=== PATIENT | female | born 1940 | race Caucasian/White ===

== ENCOUNTER → 2017-11-06 09:55 | Outpatient (CLI) | payer OTHER, SELFPAY | PROVIDERS: Visit Provider Internal Medicine | DX: I70.248 Atherosclerosis of native arteries of left leg with ulceration of other part of lower leg (principal); L97.922 Non-pressure chronic ulcer of unspecified part of left lower leg with fat layer exposed | CPT/HCPCS: 11042; 11045; 97607 ==

== ENCOUNTER → 2017-11-13 09:27 | Outpatient (CLI) | payer OTHER, SELFPAY | PROVIDERS: Visit Provider Internal Medicine | DX: I70.248 Atherosclerosis of native arteries of left leg with ulceration of other part of lower leg (principal); L97.222 Non-pressure chronic ulcer of left calf with fat layer exposed | CPT/HCPCS: 11042; 11045 ==

== ENCOUNTER → 2017-11-20 09:18 | Outpatient (CLI) | payer OTHER, SELFPAY | PROVIDERS: Visit Provider Internal Medicine | DX: I70.248 Atherosclerosis of native arteries of left leg with ulceration of other part of lower leg (principal); L97.222 Non-pressure chronic ulcer of left calf with fat layer exposed | CPT/HCPCS: 11042; 11045; 97607 ==

== ENCOUNTER → 2017-11-27 09:43 | Outpatient (CLI) | payer OTHER, SELFPAY | PROVIDERS: PCP Internal Medicine; Visit Provider Internal Medicine | DX: I70.248 Atherosclerosis of native arteries of left leg with ulceration of other part of lower leg (principal); L97.222 Non-pressure chronic ulcer of left calf with fat layer exposed | CPT/HCPCS: 11042; 11045; 97607 ==

== ENCOUNTER → 2017-12-04 10:06 | Outpatient (CLI) | payer OTHER, SELFPAY ==
--- NOTE | 2017-12-04 | OV.WND_ITS ---
Progress Note Details Patient Name: Chanda Vo Patient Number: [id number] PatientPatientDate: 12/04/2017 Clinician: Malia Graves Clinician Cosigner: Roma Gonzalez Physician / Plate Glass Polisher: Bayron Briceno SUBJECTIVE Chief Complaint This information was obtained from the patient Wound to my left leg from a cardboard box. Allergies atorvastatin (Severity: Moderate, Reaction: cramps), simvastatin (Severity: Moderate, Reaction: cramps) HPI This information was obtained from the patient 12/04/17. Seen by Dr. Briceno. The patient does not report increased drainage or pain associated with the chronic left lower leg arterial ulcer since her last visit. 11/27/17. Seen by Dr. Briceno. The patient does not report increased drainage or pain associated with the chronic left lower leg arterial ulcer since her last visit. She had intervention for left lower leg PAD on Thursday and does not report adverse side effects. 11/20/17. Seen by Dr. Briceno. The patient does not report increased drainage or pain associated with the chronic left lower leg arterial ulcer since her last visit and she's tolerating her JORDAN wound vac without difficulty. She has her intervention for PAD of the leg scheduled for next Thursday. 11/13/17. Seen by Dr. Briceno. The patient does not report increased drainage or pain associated with the chronic left lower leg arterial ulcer since her last visit and she's tolerating her JORDAN wound vac without difficulty. She has her intervention for PAD of the leg scheduled for 11/23/17. 11/06/17. Seen by Dr. Briceno. The patient reports improvement in terms of the pain associated with the chronic left lower leg arterial ulcer since her last visit and she's tolerating her JORDAN wound vac without difficulty. 10/30/17. Seen by Dr. Briceno. The patient reports improvement in terms of the pain associated with the chronic left lower leg arterial ulcer since her last visit, she does not report significant drainage, and she continues to apply topical gentamicin as recommended to treat the refractory wound infection. She'll have intervention on November 23 also for her left lower leg PAD. 10/23/17. Seen by Dr. Briceno. The patient reports improvement in terms of the pain associated with the chronic left lower leg arterial ulcer since her last visit. She's been applying topical gentamicin as recommended and scheduled for vascular intervention at [facility] on November 23. 10/14/17. Seen by Dr. Briceno. The patient reports improvement in terms of the pain associated with the chronic left lower leg arterial ulcer since her last visit. She's been applying topical gentamicin as recommended and scheduled for vascular intervention at [facility] on October 21. She does not report fevers, significant drainage from the ulcer, or feeling unwell in general. 10/07/17. Seen by Dr. Briceno. The patient completes her course of levofloxacin today has been treating the recent Enterobacter positive wound culture. She reports decreased pain associated with the chronic left lower leg arterial ulcer and has an intervention scheduled by vascular surgery next week. Do not yet have notes from her visit with them however. 09/30/17. Seen by Dr. Briceno. The patient continues to report some intermittent periods of significant pain associated with the chronic left lower leg arterial ulcer which is most noticeable when lying in bed at night. She started levofloxacin based on her wound culture which grew Enterobacter and staph following her visit last week. She does not yet have her arterial Doppler study scheduled but there is a high suspicion for clinically significant PAD contributing to the refractory nature of this ulcer. 09/23/17. Seen by Dr. Briceno. The patient's new to our clinic and presents with a left lower leg non-pressure ulcer that started as a trauma wound about 3-4 weeks ago. It was originally about the size of a quarter and has increased in terms of size, pain, and drainage progressively. She does not report fevers and is not on antibiotics at this time however she does report pain in the leg when lying in bed at night that improves when hanging the leg over the edge of the bed. She also has diabetes and states her blood sugars are typically below 200 however she's unaware of her A1c. She also has a history of CAD with 3-vessle bypass and notes she's moving to [place], [place] in October to live closer to her son. Past Medical History This information was obtained from the patient Patient has a medical history of: Allergic Rhinitis Asthma Coronary Artery Disease (CAD) Type II Diabetes Gastro Esoph. Reflux Disease (GERD) Hypertension Hypercholesteremia Hyperlipidemia Hyperparathyroidism Osteoporosis Peripheral Neuropathy Ulcerative colitis (Illeostomy) Vocal Tremor Complaints and Symptoms This information was obtained from the patient Patient complains of: General Notes: I have reviewed and concur with the Review of Systems and Past Family Social History documents completed by the clinician, I have reviewed and concur with the Wound Assessment document completed by the clinician Cardiovascular (Central/Peripheral): Lower extremity (leg) resting pain, Lower extremity (leg) swelling Ear/Nose/Mouth/Throat: Hearing Loss / Aid Hematologic/Lymphatic: Bleeding Tendency Integumentary (Hair/Skin/Nails): Open Sore Musculoskeletal: Muscle Weakness Prior Wound History: Drainage, Erythema, Pain Patient denies complaints or symptoms related to: Cardiovascular (Central): Irregular heart beat Constitutional Symptoms (General Health): Chills, Fever Gastrointestinal (GI): Stomach/abdominal pain Hematologic/Lymphatic: Bleeding / Clotting Disorders Neurological: Loss of Protective Sensation Oncologic Prior Wound History: Bleeding Psychiatric: Memory Loss Respiratory: Oxygen Use, Shortness of Breath OBJECTIVE Constitutional Vital signs reviewed and noted. Well developed. Alert. Clean appearing.. Height/ Length: 63 in (160.02 cm), Weight: 139.1 lbs (63.23 kgs), BMI: 24.6, Temperature: 98.3 ?F ( 36.83 ?C), Pulse: 80 bpm, Respiratory Rate: 18 breaths/min, Blood Pressure: 113/61 mmHg, Capillary Blood Glucose: 99 mg/dl, Pulse Oximetry: 97 %. Ears, Nose, Mouth, and Throat: No clinically significant hearing loss on informal examination. Respiratory: No respiratory distress. Even respirations and without use of accessory muscles.. Cardiovascular: Affected extremity exhibits no peripheral edema or cyanosis, is warm, and is well perfused. Capillary refill is less than 2 seconds. Integumentary (Hair, Skin) No periwound erythema, warmth, or significant drainage. No periwound rashes appreciated or noted otherwise.. Refer to appropriate clinician wound documentation for this visit; left lower leg ulcer extends to subcut with base partially covered with friable granulation , remainder, heavy biofilm, fibrin and slough; tender on debridement. Wound #1 Left, Lateral Leg is a chronic Full Thickness Trauma Wound and has received a status of Not Healed. Subsequent wound encounter measurements are 3.3cm length x 5cm width x 0.4cm depth, with an area of 16.5 sq cm and a volume of 6.6 cubic cm. No tunneling has been noted. No sinus tract has been noted. No undermining has been noted. There is a moderate amount of sero-sanguineous drainage noted which has no odor. The patient reports a wound pain of level 0/10. The wound margin is epithelial resurfacing. Wound bed has Yes epithelialization, No eschar, Yes slough, Yes bright red, pink, firm granulation. The periwound skin texture is normal. The periwound skin moisture is normal. The periwound skin color is normal. The temperature of the periwound skin is WNL. Periwound skin does not exhibit signs or symptoms of infection. Local Pulse is Doppler. Neurological: Cranial nerves grossly intact with symmetric function normal by informal observation.. ASSESSMENT Active Problems ICD-10 (Encounter Diagnosis) L97.222 - Non-pressure chronic ulcer of left calf with fat layer exposed (Encounter Diagnosis) I70.248 - Atherosclerosis of [place] arteries of left leg with ulceration of other part of lower left leg (Encounter Diagnosis) L08.9 - Local infection of the skin and subcutaneous tissue, unspecified PROCEDURES Wound #1 Wound #1 (Trauma Wound) is located on the left, lateral leg. A skin/ subcutaneous tissue level surgical debridement with a total area debrided of 16.83 sq cm was performed by Bayron Briceno MD. Subcutaneous was removed along with devitalized tissue: exudate and slough. The following instrument(s) were used: curette. Pain control was achieved using 4% Lido. A time out was conducted prior to the start of the procedure. A minimal amount of bleeding was controlled with n/a. The procedure was tolerated well with a pain level of 0 throughout and a pain level of 0 following the procedure. Post Debridement Measurements: 3.3cm length x 5.1cm width x 0.5cm depth; with an area of 16.83 sq cm and a volume of 8.415 cubic cm; Wound #1 (Trauma Wound) is located on the left, lateral leg. A Disposable Wound Vac Application < 50 Sq Cm procedure was performed for the lower left extremity by Bayron Briceno MD. A time out was conducted prior to the start of the procedure. The procedure was tolerated well. General Notes: JORDAN 6x6 applied Additional Information Muscle fascia or bone removed and sent to pathology?: No PLAN Wound Orders: Wound #1 Left, Lateral Leg Anesthetic Topical Xylocaine to wound bed. - In clinic only. Cleanser Cleanse Wound: - Normal Saline and gauze. May Shower. - Cover with cast protector. Dressings Primary dressing: - Jordan 6x6. Change Dressing: - Leave in place until next . Follow-Up Appointments Return Appointment: - - One week. Other information: If you develop fever, chills, increased pain, drainage, redness or swelling please call our office. If after hours, respond to the ER. Should you experience any significant changes in your wound(s) or have any questions regarding your home care instructions please contact the wound center @ [phone]. If after hours, contact your primary care physician or go to the hospital emergency room. Scribing Attestation I attest, as the nurse, that I scribed these orders for the physician. Laboratory: Bacteria identified in Wound by Culture General Notes: Please potato picker Doxycycline and take as prescribed. I've reviewed the clinician's documentation and agree with the evaluation and plan as written. In addition, the patient's ulcer demonstrates evidence of non-viable devitalized tissue which will continue to benefit from sharp debridement to help promote granulation and expedite healing. Negative pressure wound therapy will be utilized to facilitate granulation and removal of exudate and infectious material with the goal of expediting wound healing. Also, due to the heavy biofilm and pain noted on debridement I've repeated a wound culture and have started her on a short course of doxycycline. Electronic Signature(s) Signed By: Date: Bayron Briceno MD 12/06/2017 14:27:05 Entered By: Bayron Briceno on 12/04/2017 12:51:59
== END ==
PROVIDERS: PCP Internal Medicine; Visit Provider Internal Medicine
DX: I70.248 Atherosclerosis of native arteries of left leg with ulceration of other part of lower leg (principal); L97.222 Non-pressure chronic ulcer of left calf with fat layer exposed; L08.9 Local infection of the skin and subcutaneous tissue, unspecified
CPT/HCPCS: 11042; 87070; 87075; 87077; 87205; 97607

== ENCOUNTER → 2017-12-11 11:45 | Outpatient (CLI) | payer OTHER, SELFPAY ==
--- NOTE | 2017-12-11 | OV.WND_ITS ---
Progress Note Details Patient Name: Chanda Vo Patient Number: [id number] PatientPatientDate: 12/11/2017 Clinician: Malia Graves Clinician Cosigner: Majo Orozco Physician / Speedboat Driver: El Langston SUBJECTIVE Chief Complaint This information was obtained from the patient Wound to my left leg from a cardboard box. Allergies atorvastatin (Severity: Moderate, Reaction: cramps), simvastatin (Severity: Moderate, Reaction: cramps) HPI This information was obtained from the patient 12/11/17. Seen by Jorge Langston PA-C. The patient reports no increase in drainage from her left lower leg ulcer. 12/04/17. Seen by Dr. Briceno. The patient does not report increased drainage or pain associated with the chronic left lower leg arterial ulcer since her last visit. 11/27/17. Seen by Dr. Briceno. The patient does not report increased drainage or pain associated with the chronic left lower leg arterial ulcer since her last visit. She had intervention for left lower leg PAD on Thursday and does not report adverse side effects. 11/20/17. Seen by Dr. Briceno. The patient does not report increased drainage or pain associated with the chronic left lower leg arterial ulcer since her last visit and she's tolerating her JORDAN wound vac without difficulty. She has her intervention for PAD of the leg scheduled for next Thursday. 11/13/17. Seen by Dr. Briceno. The patient does not report increased drainage or pain associated with the chronic left lower leg arterial ulcer since her last visit and she's tolerating her JORDAN wound vac without difficulty. She has her intervention for PAD of the leg scheduled for 11/23/17. 11/06/17. Seen by Dr. Briceno. The patient reports improvement in terms of the pain associated with the chronic left lower leg arterial ulcer since her last visit and she's tolerating her JORDAN wound vac without difficulty. 10/30/17. Seen by Dr. Briceno. The patient reports improvement in terms of the pain associated with the chronic left lower leg arterial ulcer since her last visit, she does not report significant drainage, and she continues to apply topical gentamicin as recommended to treat the refractory wound infection. She'll have intervention on November 23 also for her left lower leg PAD. 10/23/17. Seen by Dr. Briceno. The patient reports improvement in terms of the pain associated with the chronic left lower leg arterial ulcer since her last visit. She's been applying topical gentamicin as recommended and scheduled for vascular intervention at [facility] on November 23. 10/14/17. Seen by Dr. Briceno. The patient reports improvement in terms of the pain associated with the chronic left lower leg arterial ulcer since her last visit. She's been applying topical gentamicin as recommended and scheduled for vascular intervention at [facility] on October 21. She does not report fevers, significant drainage from the ulcer, or feeling unwell in general. 10/07/17. Seen by Dr. Briceno. The patient completes her course of levofloxacin today has been treating the recent Enterobacter positive wound culture. She reports decreased pain associated with the chronic left lower leg arterial ulcer and has an intervention scheduled by vascular surgery next week. Do not yet have notes from her visit with them however. 09/30/17. Seen by Dr. Briceno. The patient continues to report some intermittent periods of significant pain associated with the chronic left lower leg arterial ulcer which is most noticeable when lying in bed at night. She started levofloxacin based on her wound culture which grew Enterobacter and staph following her visit last week. She does not yet have her arterial Doppler study scheduled but there is a high suspicion for clinically significant PAD contributing to the refractory nature of this ulcer. 09/23/17. Seen by Dr. Briceno. The patient's new to our clinic and presents with a left lower leg non-pressure ulcer that started as a trauma wound about 3-4 weeks ago. It was originally about the size of a quarter and has increased in terms of size, pain, and drainage progressively. She does not report fevers and is not on antibiotics at this time however she does report pain in the leg when lying in bed at night that improves when hanging the leg over the edge of the bed. She also has diabetes and states her blood sugars are typically below 200 however she's unaware of her A1c. She also has a history of CAD with 3-vessle bypass and notes she's moving to [place] in October to live closer to her son. Family History This information was obtained from the patient Diabetes - Maternal Grandparents, Father, Paternal Grandparents, Sibling, Heart Disease - Mother, Other - Paternal Grandparents Social History This information was obtained from the patient Never smoker, Alcohol Use - 1/month, Caffeine Use - coffee 2/day, tea 2/day, Children - 1, Lives in - Private home, Marital Status - , Retired - [employer] Past Medical History This information was obtained from the patient Patient has a medical history of: Allergic Rhinitis Asthma Coronary Artery Disease (CAD) Type II Diabetes Gastro Esoph. Reflux Disease (GERD) Hypertension Hypercholesteremia Hyperlipidemia Hyperparathyroidism Osteoporosis Peripheral Neuropathy Ulcerative colitis (Illeostomy) Vocal Tremor Complaints and Symptoms This information was obtained from the patient Patient complains of: General Notes: I have reviewed and concur with the Review of Systems and Past Family Social History documents completed by the clinician, I have reviewed and concur with the Wound Assessment document completed by the clinician Cardiovascular (Central/Peripheral): Lower extremity (leg) resting pain, Lower extremity (leg) swelling Ear/Nose/Mouth/Throat: Hearing Loss / Aid Hematologic/Lymphatic: Bleeding Tendency Integumentary (Hair/Skin/Nails): Open Sore Musculoskeletal: Muscle Weakness Prior Wound History: Drainage, Erythema, Pain Patient denies complaints or symptoms related to: Cardiovascular (Central): Irregular heart beat Constitutional Symptoms (General Health): Chills, Fever Gastrointestinal (GI): Stomach/abdominal pain Hematologic/Lymphatic: Bleeding / Clotting Disorders Neurological: Loss of Protective Sensation Oncologic Prior Wound History: Bleeding Psychiatric: Memory Loss Respiratory: Oxygen Use, Shortness of Breath OBJECTIVE Constitutional Vital signs reviewed and noted. Well developed, lucid, and in no acute distress. . Height/Length: 63 in (160.02 cm), Weight: 138.7 lbs (63.05 kgs), BMI: 24.6, Temperature: 97.9 ?F (36.61 ?C), Pulse: 80 bpm, Respiratory Rate: 18 breaths/min, Blood Pressure: 150/72 mmHg, Capillary Blood Glucose: 160 mg/dl, Pulse Oximetry: 100 %. Eyes: Conjunctiva clear and without icterus. Pupils are equal and round; EOM's intact. Ears, Nose, Mouth, and Throat: Grossly intact. Respiratory: No respiratory distress. Even respirations and without use of accessory muscles.. Integumentary (Hair, Skin) Refer to appropriate clinician wound documentation for this visit; ulcer extends to subcutaneous fat layer. . Wound #1 Left, Lateral Leg is a chronic Full Thickness Trauma Wound and has received a status of Not Healed. Subsequent wound encounter measurements are 3cm length x 4.9cm width x 0.3cm depth, with an area of 14.7 sq cm and a volume of 4.41 cubic cm. No tunneling has been noted. No sinus tract has been noted. No undermining has been noted. There is a moderate amount of sero-sanguineous drainage noted which has no odor. The patient reports a wound pain of level 0/10. The wound margin is epithelial resurfacing. Wound bed has Yes epithelialization, No eschar, Yes slough, Yes bright red, pink, firm granulation. The periwound skin texture is normal. The periwound skin moisture is normal. The periwound skin color is normal. The temperature of the periwound skin is WNL. Periwound skin does not exhibit signs or symptoms of infection. Local Pulse is Doppler. Psychiatric: Judgement and insight: Normal affect with normal thought pattern. Alert and oriented 3/3. Memory grossly intact.. Normal affect. Mood appropriate.. ASSESSMENT Active Problems ICD-10 (Encounter Diagnosis) L97.222 - Non-pressure chronic ulcer of left calf with fat layer exposed (Encounter Diagnosis) I70.248 - Atherosclerosis of [place] arteries of left leg with ulceration of other part of lower left leg PROCEDURES Wound #1 Wound #1 (Trauma Wound) is located on the left, lateral leg. A skin/ subcutaneous tissue level surgical debridement with a total area debrided of 14.7 sq cm was performed by El Langston PA. Subcutaneous was removed along with devitalized tissue: slough. The following instrument(s) were used: curette. Pain control was achieved using 4% Lido. A time out was conducted prior to the start of the procedure. A minimal amount of bleeding was controlled with pressure. The procedure was tolerated well with a pain level of 0 throughout and a pain level of 0 following the procedure. Post Debridement Measurements: 3cm length x 4.9cm width x 0.4cm depth; with an area of 14.7 sq cm and a volume of 5.88 cubic cm; Wound #1 (Trauma Wound) is located on the left, lateral leg. A Disposable Wound Vac Application < 50 Sq Cm procedure was performed for the lower left extremity by El Langston PA. A time out was conducted prior to the start of the procedure. The procedure was tolerated well. General Notes: JORDAN 6x6 applied Additional Information Muscle fascia or bone removed and sent to pathology?: No PLAN Wound Orders: Wound #1 Left, Lateral Leg Anesthetic Topical Xylocaine to wound bed. - In clinic only. Cleanser Cleanse Wound: - Normal Saline and gauze. May Shower. - Cover with cast protector. Dressings Primary dressing: - Jordan 6x6. Change Dressing: - Leave in place until next . Follow-Up Appointments Return Appointment: - - One week. Other information: If you develop fever, chills, increased pain, drainage, redness or swelling please call our office. If after hours, respond to the ER. Should you experience any significant changes in your wound(s) or have any questions regarding your home care instructions please contact the wound center @ [phone]. If after hours, contact your primary care physician or go to the hospital emergency room. Scribing Attestation I attest, as the nurse, that I scribed these orders for the physician. I've reviewed the clinician's documentation and agree with the evaluation and plan as written. In addition the patient's ulcer demonstrates evidence of non-viable devitalized tissue which benefits from sharp debridement. Negative pressure wound therapy was applied today for the purpose of reducing local edema, promoting granulation tissue formation and perfusion, and for the removal of exudate and infectious material. Electronic Signature(s) Signed By: Date: Jorge Langston 12/14/2017 22:08:02 Entered By: Jorge Langston on 12/14/2017 14:10:14
== END ==
PROVIDERS: PCP Internal Medicine; Visit Provider Physician Assistant
DX: L97.222 Non-pressure chronic ulcer of left calf with fat layer exposed (principal); I70.248 Atherosclerosis of native arteries of left leg with ulceration of other part of lower leg
CPT/HCPCS: 11042; 97607

== ENCOUNTER → 2017-12-18 09:14 | Outpatient (CLI) | payer OTHER, SELFPAY ==
--- NOTE | 2017-12-18 | OV.WND_ITS ---
Progress Note Details Patient Name: Chanda Vo Patient Number: [id number] PatientPatientDate: 12/18/2017 Clinician: Majo Orozco Physician / Third Cook: Bayron Briceno SUBJECTIVE Chief Complaint This information was obtained from the patient Trauma wound on left leg. Allergies atorvastatin (Severity: Moderate, Reaction: cramps), simvastatin (Severity: Moderate, Reaction: cramps) HPI This information was obtained from the patient 12/18/17. Seen by Dr. Briceno. The patient does not report increased drainage or pain associated with the chronic left lower leg arterial ulcer since her last visit. 12/11/17. Seen by Jorge Langston PA-C. The patient reports no increase in drainage from her left lower leg ulcer. 12/04/17. Seen by Dr. Briceno. The patient does not report increased drainage or pain associated with the chronic left lower leg arterial ulcer since her last visit. 11/27/17. Seen by Dr. Briceno. The patient does not report increased drainage or pain associated with the chronic left lower leg arterial ulcer since her last visit. She had intervention for left lower leg PAD on Thursday and does not report adverse side effects. 11/20/17. Seen by Dr. Briceno. The patient does not report increased drainage or pain associated with the chronic left lower leg arterial ulcer since her last visit and she's tolerating her JORDAN wound vac without difficulty. She has her intervention for PAD of the leg scheduled for next Thursday. 11/13/17. Seen by Dr. Briceno. The patient does not report increased drainage or pain associated with the chronic left lower leg arterial ulcer since her last visit and she's tolerating her JORDAN wound vac without difficulty. She has her intervention for PAD of the leg scheduled for 11/23/17. 11/06/17. Seen by Dr. Briceno. The patient reports improvement in terms of the pain associated with the chronic left lower leg arterial ulcer since her last visit and she's tolerating her JORDAN wound vac without difficulty. 10/30/17. Seen by Dr. Briceno. The patient reports improvement in terms of the pain associated with the chronic left lower leg arterial ulcer since her last visit, she does not report significant drainage, and she continues to apply topical gentamicin as recommended to treat the refractory wound infection. She'll have intervention on November 23 also for her left lower leg PAD. 10/23/17. Seen by Dr. Briceno. The patient reports improvement in terms of the pain associated with the chronic left lower leg arterial ulcer since her last visit. She's been applying topical gentamicin as recommended and scheduled for vascular intervention at [facility] on November 23. 10/14/17. Seen by Dr. Briceno. The patient reports improvement in terms of the pain associated with the chronic left lower leg arterial ulcer since her last visit. She's been applying topical gentamicin as recommended and scheduled for vascular intervention at [facility] on October 21. She does not report fevers, significant drainage from the ulcer, or feeling unwell in general. 10/07/17. Seen by Dr. Briceno. The patient completes her course of levofloxacin today has been treating the recent Enterobacter positive wound culture. She reports decreased pain associated with the chronic left lower leg arterial ulcer and has an intervention scheduled by vascular surgery next week. Do not yet have notes from her visit with them however. 09/30/17. Seen by Dr. Briceno. The patient continues to report some intermittent periods of significant pain associated with the chronic left lower leg arterial ulcer which is most noticeable when lying in bed at night. She started levofloxacin based on her wound culture which grew Enterobacter and staph following her visit last week. She does not yet have her arterial Doppler study scheduled but there is a high suspicion for clinically significant PAD contributing to the refractory nature of this ulcer. 09/23/17. Seen by Dr. Briceno. The patient's new to our clinic and presents with a left lower leg non-pressure ulcer that started as a trauma wound about 3-4 weeks ago. It was originally about the size of a quarter and has increased in terms of size, pain, and drainage progressively. She does not report fevers and is not on antibiotics at this time however she does report pain in the leg when lying in bed at night that improves when hanging the leg over the edge of the bed. She also has diabetes and states her blood sugars are typically below 200 however she's unaware of her A1c. She also has a history of CAD with 3-vessle bypass and notes she's moving to [place], [place] in October to live closer to her son. Past Medical History This information was obtained from the patient Patient has a medical history of: Allergic Rhinitis Asthma Coronary Artery Disease (CAD) Type II Diabetes Gastro Esoph. Reflux Disease (GERD) Hypertension Hypercholesteremia Hyperlipidemia Hyperparathyroidism Osteoporosis Peripheral Neuropathy Ulcerative colitis (Illeostomy) Vocal Tremor Complaints and Symptoms This information was obtained from the patient Patient complains of: General Notes: I have reviewed and concur with the Review of Systems and Past Family Social History documents completed by the clinician, I have reviewed and concur with the Wound Assessment document completed by the clinician Cardiovascular (Central/Peripheral): Lower extremity (leg) resting pain, Lower extremity (leg) swelling Ear/Nose/Mouth/Throat: Hearing Loss / Aid Hematologic/Lymphatic: Bleeding Tendency Integumentary (Hair/Skin/Nails): Open Sore Musculoskeletal: Muscle Weakness Prior Wound History: Drainage, Erythema, Pain Patient denies complaints or symptoms related to: Cardiovascular (Central): Irregular heart beat Constitutional Symptoms (General Health): Chills, Fever Gastrointestinal (GI): Stomach/abdominal pain Hematologic/Lymphatic: Bleeding / Clotting Disorders Neurological: Loss of Protective Sensation Oncologic Prior Wound History: Bleeding Psychiatric: Memory Loss Respiratory: Oxygen Use, Shortness of Breath OBJECTIVE Constitutional Vital signs reviewed and noted. Well developed. Alert. Clean appearing.. Height/ Length: 63 in (160.02 cm), Weight: 139.3 lbs (63.32 kgs), BMI: 24.7, Temperature: 98.7 ?F ( 37.06 ?C), Pulse: 81 bpm, Respiratory Rate: 18 breaths/min, Blood Pressure: 131/70 mmHg, Capillary Blood Glucose: 109 mg/dl, Pulse Oximetry: 94 %. Vital Signs Notes: Glucose per patient, taken this am. Ears, Nose, Mouth, and Throat: No clinically significant hearing loss on informal examination. Respiratory: No respiratory distress. Even respirations and without use of accessory muscles.. Cardiovascular: Affected extremity exhibits no peripheral edema or cyanosis, is warm, and is well perfused. Capillary refill is less than 2 seconds. Integumentary (Hair, Skin) No periwound erythema, warmth, or significant drainage. No periwound rashes appreciated or noted otherwise.. Refer to appropriate clinician wound documentation for this visit; left lower leg ulcer extends to subcut with base partially covered with pink granulation, remainder fibrin and slough; smaller than on previous review. Wound #1 Left, Lateral Leg is a chronic Arterial Ulcer and has received a status of Not Healed. Subsequent wound encounter measurements are 3.6cm length x 5cm width x 0.3cm depth, with an area of 18 sq cm and a volume of 5.4 cubic cm. No tunneling has been noted. No sinus tract has been noted. No undermining has been noted. There is a moderate amount of sero- sanguineous drainage noted which has no odor. The patient reports a wound pain of level 0/10. The wound margin is epithelial resurfacing. Wound bed has Yes epithelialization, No eschar, Yes slough, Yes bright red, pink, firm granulation. The periwound skin texture is normal. The periwound skin moisture is normal. The periwound skin color is normal. The temperature of the periwound skin is WNL. Periwound skin does not exhibit signs or symptoms of infection. Local Pulse is Doppler. ASSESSMENT Active Problems ICD-10 (Encounter Diagnosis) L97.222 - Non-pressure chronic ulcer of left calf with fat layer exposed (Encounter Diagnosis) I70.248 - Atherosclerosis of [place] arteries of left leg with ulceration of other part of lower left leg PROCEDURES Wound #1 Wound #1 (Trauma Wound) is located on the left, lateral leg. A skin/ subcutaneous tissue level surgical debridement with a total area debrided of 18.5 sq cm was performed by Bayron Briceno MD. Subcutaneous was removed along with devitalized tissue: slough. The following instrument(s) were used: curette. Pain control was achieved using 4% Lido. A time out was conducted prior to the start of the procedure. A minimal amount of bleeding was controlled with pressure. The procedure was tolerated well with a pain level of 0 throughout and a pain level of 0 following the procedure. Post Debridement Measurements: 3.7cm length x 5cm width x 0.3cm depth; with an area of 18.5 sq cm and a volume of 5.55 cubic cm; Wound #1 (Trauma Wound) is located on the left, lateral leg. A Disposable Wound Vac Application < 50 Sq Cm procedure was performed for the lower left extremity by Bayron Briceno MD. A time out was conducted prior to the start of the procedure. The procedure was tolerated well. General Notes: JORDAN 6x6 applied. Additional Information Muscle fascia or bone removed and sent to pathology?: No PLAN Wound Orders: Wound #1 Left, Lateral Leg Anesthetic Topical Xylocaine to wound bed. - In clinic only. Cleanser Cleanse Wound: - Normal Saline and gauze. May Shower. - Cover with cast protector. Dressings Primary dressing: - Jordan 6x6. Change Dressing: - Leave in place until next visit. Follow-Up Appointments Return Appointment: - - One week. Other information: If you develop fever, chills, increased pain, drainage, redness or swelling please call our office. If after hours, respond to the ER. Should you experience any significant changes in your wound(s) or have any questions regarding your home care instructions please contact the wound center @ [phone]. If after hours, contact your primary care physician or go to the hospital emergency room. Scribing Attestation I attest, as the nurse, that I scribed these orders for the physician. I've reviewed the clinician's documentation and agree with the evaluation and plan as written. In addition, the patient's ulcer demonstrates evidence of non-viable devitalized tissue which will continue to benefit from sharp debridement to help promote granulation and expedite healing Negative pressure wound therapy will be utilized to facilitate granulation and removal of exudate and infectious material with the goal of expediting wound healing. . Electronic Signature(s) Signed By: Date: Bayron Briceno MD 12/20/2017 17:52:31 Entered By: Bayron Briceno on 12/18/2017 12:20:00
== END ==
PROVIDERS: PCP Internal Medicine; Visit Provider Internal Medicine
DX: I70.248 Atherosclerosis of native arteries of left leg with ulceration of other part of lower leg (principal); L97.222 Non-pressure chronic ulcer of left calf with fat layer exposed
CPT/HCPCS: 11042; 97607

== ENCOUNTER → 2017-12-25 09:48 | Outpatient (CLI) | payer OTHER, SELFPAY ==
--- NOTE | 2017-12-25 | OV.WND_ITS ---
Progress Note Details Patient Name: Chanda Vo Patient Number: [id number] PatientPatientDate: 12/25/2017 Clinician: Shira rBooks Clinician Cosigner: Cari Malhotra Physician / Shear Operator: Bayron Briceno SUBJECTIVE Chief Complaint This information was obtained from the patient Trauma wound on left leg. Allergies atorvastatin (Severity: Moderate, Reaction: cramps), simvastatin (Severity: Moderate, Reaction: cramps) HPI This information was obtained from the patient 12/25/17. Seen by Dr. Briceno. The patient does not report increased drainage or pain associated with the chronic left lower leg arterial ulcer since her last visit. She does report a worsening cough over the past 4 days but does not report fevers, worsening shortness of breath, or other acute issues today. 12/18/17. Seen by Dr. Briceno. The patient does not report increased drainage or pain associated with the chronic left lower leg arterial ulcer since her last visit. 12/11/17. Seen by Jorge Langston PA-C. The patient reports no increase in drainage from her left lower leg ulcer. 12/04/17. Seen by Dr. Briceno. The patient does not report increased drainage or pain associated with the chronic left lower leg arterial ulcer since her last visit. 11/27/17. Seen by Dr. Briceno. The patient does not report increased drainage or pain associated with the chronic left lower leg arterial ulcer since her last visit. She had intervention for left lower leg PAD on Thursday and does not report adverse side effects. 11/20/17. Seen by Dr. Briceno. The patient does not report increased drainage or pain associated with the chronic left lower leg arterial ulcer since her last visit and she's tolerating her JORDAN wound vac without difficulty. She has her intervention for PAD of the leg scheduled for next Thursday. 11/13/17. Seen by Dr. Briceno. The patient does not report increased drainage or pain associated with the chronic left lower leg arterial ulcer since her last visit and she's tolerating her JORDAN wound vac without difficulty. She has her intervention for PAD of the leg scheduled for 11/23/17. 11/06/17. Seen by Dr. Briceno. The patient reports improvement in terms of the pain associated with the chronic left lower leg arterial ulcer since her last visit and she's tolerating her JORDAN wound vac without difficulty. 10/30/17. Seen by Dr. Briceno. The patient reports improvement in terms of the pain associated with the chronic left lower leg arterial ulcer since her last visit, she does not report significant drainage, and she continues to apply topical gentamicin as recommended to treat the refractory wound infection. She'll have intervention on November 23 also for her left lower leg PAD. 10/23/17. Seen by Dr. Briceno. The patient reports improvement in terms of the pain associated with the chronic left lower leg arterial ulcer since her last visit. She's been applying topical gentamicin as recommended and scheduled for vascular intervention at [facility] on November 23. 10/14/17. Seen by Dr. Briceno. The patient reports improvement in terms of the pain associated with the chronic left lower leg arterial ulcer since her last visit. She's been applying topical gentamicin as recommended and scheduled for vascular intervention at [facility] on October 21. She does not report fevers, significant drainage from the ulcer, or feeling unwell in general. 10/07/17. Seen by Dr. Briceno. The patient completes her course of levofloxacin today has been treating the recent Enterobacter positive wound culture. She reports decreased pain associated with the chronic left lower leg arterial ulcer and has an intervention scheduled by vascular surgery next week. Do not yet have notes from her visit with them however. 09/30/17. Seen by Dr. Briceno. The patient continues to report some intermittent periods of significant pain associated with the chronic left lower leg arterial ulcer which is most noticeable when lying in bed at night. She started levofloxacin based on her wound culture which grew Enterobacter and staph following her visit last week. She does not yet have her arterial Doppler study scheduled but there is a high suspicion for clinically significant PAD contributing to the refractory nature of this ulcer. 09/23/17. Seen by Dr. Briceno. The patient's new to our clinic and presents with a left lower leg non-pressure ulcer that started as a trauma wound about 3-4 weeks ago. It was originally about the size of a quarter and has increased in terms of size, pain, and drainage progressively. She does not report fevers and is not on antibiotics at this time however she does report pain in the leg when lying in bed at night that improves when hanging the leg over the edge of the bed. She also has diabetes and states her blood sugars are typically below 200 however she's unaware of her A1c. She also has a history of CAD with 3-vessle bypass and notes she's moving to [place] in October to live closer to her son. Family History This information was obtained from the patient Diabetes - Maternal Grandparents, Father, Paternal Grandparents, Sibling, Heart Disease - Mother, Other - Paternal Grandparents Social History This information was obtained from the patient Never smoker, Alcohol Use - 1/month, Caffeine Use - 1 Cup, Children - 1, Lives in - Private home, Marital Status - , Retired - [employer] Past Medical History This information was obtained from the patient Patient has a medical history of: Allergic Rhinitis Asthma Coronary Artery Disease (CAD) Type II Diabetes Gastro Esoph. 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/2017 Surgical History This information was obtained from the patient Patient has a surgical history of: Total Colectomy Cataract Surgery (bilateral) Foot Surgery (Repair of fractures in left foot) Triple Bypass Heart Surgery Re-vascularization - 12/10/2017 Complaints and Symptoms This information was obtained from the patient Patient complains of: General Notes: I have reviewed and concur with the Review of Systems and Past Family Social History documents completed by the clinician, I have reviewed and concur with the Wound Assessment document completed by the clinician Cardiovascular (Central/Peripheral): Lower extremity (leg) resting pain, Lower extremity (leg) swelling Ear/Nose/Mouth/Throat: Hearing Loss / Aid Hematologic/Lymphatic: Bleeding Tendency Integumentary (Hair/Skin/Nails): Open Sore Musculoskeletal: Muscle Weakness Prior Wound History: Drainage, Erythema, Pain Patient denies complaints or symptoms related to: Cardiovascular (Central): Irregular heart beat Constitutional Symptoms (General Health): Chills, Fever Gastrointestinal (GI): Stomach/abdominal pain Hematologic/Lymphatic: Bleeding / Clotting Disorders Neurological: Loss of Protective Sensation Oncologic Prior Wound History: Bleeding Psychiatric: Memory Loss Respiratory: Oxygen Use, Shortness of Breath OBJECTIVE Constitutional Vital signs reviewed and noted. Frail appearing. Height/Length: 63 in (160.02 cm ), Weight: 139.3 lbs (63.32 kgs), BMI: 24.7, Temperature: 98.6 ?F (37 ?C), Pulse: 81 bpm, Respiratory Rate: 18 breaths/min, Blood Pressure: 111/63 mmHg, Capillary Blood Glucose: 69 mg/dl, Pulse Oximetry: 99 %. Vital Signs Notes: Per Patient glucose. Ears, Nose, Mouth, and Throat: No clinically significant hearing loss on informal examination. Respiratory: No respiratory distress. Even respirations and without use of accessory muscles.. Cardiovascular: Affected extremity exhibits no peripheral edema or cyanosis, is warm, and is well perfused. Capillary refill is less than 2 seconds. Integumentary (Hair, Skin) No periwound erythema, warmth, or significant drainage. No periwound rashes appreciated or noted otherwise.. Refer to appropriate clinician wound documentation for this visit; left lower leg ulcer extends to subcut with base partially covered with pink granulation, remainder fibrin and slough. Wound #1 Left, Lateral Leg is a chronic Arterial Ulcer and has received a status of Not Healed. Subsequent wound encounter measurements are 3.2cm length x 4.5cm width x 0.3cm depth, with an area of 14.4 sq cm and a volume of 4.32 cubic cm. No tunneling has been noted. No sinus tract has been noted. No undermining has been noted. There is a moderate amount of sero-sanguineous drainage noted which has no odor. The patient reports a wound pain of level 0/10. The wound margin is epithelial resurfacing. Wound bed has Yes epithelialization, No eschar, Yes slough, Yes pink, firm granulation. The periwound skin texture is normal. The periwound skin moisture is normal. The periwound skin color is normal. The temperature of the periwound skin is WNL. Periwound skin does not exhibit signs or symptoms of infection. Local Pulse is Doppler. Neurological: Cranial nerves grossly intact with symmetric function normal by informal observation.. ASSESSMENT Active Problems ICD-10 (Encounter Diagnosis) L97.222 - Non-pressure chronic ulcer of left calf with fat layer exposed (Encounter Diagnosis) I70.248 - Atherosclerosis of [place] arteries of left leg with ulceration of other part of lower left leg (Encounter Diagnosis) R05 - Cough PROCEDURES Wound #1 Wound #1 (Arterial Ulcer) is located on the left, lateral leg. A skin/ subcutaneous tissue level surgical debridement with a total area debrided of 14.4 sq cm was performed by Bayron Briceno MD. Subcutaneous was removed along with devitalized tissue: slough. The following instrument(s) were used: curette. Pain control was achieved using 4% Lido. A time out was conducted prior to the start of the procedure. A minimal amount of bleeding was controlled with pressure. The procedure was tolerated well with a pain level of 0 throughout and a pain level of 0 following the procedure. Post Debridement Measurements: 3.2cm length x 4.5cm width x 0.3cm depth; with an area of 14.4 sq cm and a volume of 4.32 cubic cm; Wound #1 (Arterial Ulcer) is located on the left, lateral leg. A Disposable Wound Vac Application < 50 Sq Cm procedure was performed for the lower left extremity by Bayron Briceno MD. A time out was conducted prior to the start of the procedure. The procedure was tolerated well. General Notes: Jordan 6x6 applied. Additional Information Muscle fascia or bone removed and sent to pathology?: No PLAN Wound Orders: Wound #1 Left, Lateral Leg Anesthetic Topical Xylocaine to wound bed. - In clinic only. Cleanser Cleanse Wound: - Normal Saline and gauze. May Shower. - Cover with cast protector. Dressings Primary dressing: - Jordan 6x6. Change Dressing: - Leave in place until next visit. Follow-Up Appointments Return Appointment: - - One week. Other information: If you develop fever, chills, increased pain, drainage, redness or swelling please call our office. If after hours, respond to the ER. Should you experience any significant changes in your wound(s) or have any questions regarding your home care instructions please contact the wound center @ [phone]. If after hours, contact your primary care physician or go to the hospital emergency room. Scribing Attestation I attest, as the nurse, that I scribed these orders for the physician. I've reviewed the clinician's documentation and agree with the evaluation and plan as written. In addition, the patient's ulcer demonstrates evidence of non-viable devitalized tissue which will continue to benefit from sharp debridement to help promote granulation and expedite healing. Negative pressure wound therapy will be utilized to facilitate granulation and removal of exudate and infectious material with the goal of expediting wound healing. Also, the patient will see her PCP next Thursday however I've recommend should her cough worsen or she develop progressive shortness of breath to attend the ER or urgent care. Electronic Signature(s) Signed By: Date: Bayron Briceno MD 12/25/2017 15:59:11 Entered By: Bayron Briceno on 12/25/2017 14:29:37
== END ==
PROVIDERS: PCP Internal Medicine; Visit Provider Internal Medicine
DX: I70.248 Atherosclerosis of native arteries of left leg with ulceration of other part of lower leg (principal); L97.222 Non-pressure chronic ulcer of left calf with fat layer exposed; R05 Cough
CPT/HCPCS: 11042; 97607

== ENCOUNTER → 2018-01-01 10:04 | Outpatient (CLI) | payer OTHER, SELFPAY ==
--- NOTE | 2018-01-01 | OV.WND_ITS ---
Progress Note Details Patient Name: Chanda Vo Patient Number: [id number] PatientPatientDate: 01/01/2018 Clinician: Roma Gonzalez Clinician Cosigner: Majo Orozco Physician / Forensic Psychologist: Bayron Briceno SUBJECTIVE Chief Complaint This information was obtained from the patient Trauma wound on left leg. Allergies atorvastatin (Severity: Moderate, Reaction: cramps), simvastatin (Severity: Moderate, Reaction: cramps) HPI This information was obtained from the patient 01/01/18. Seen by Dr. Briceno. The patient does not report increased drainage or pain associated with the chronic left lower leg arterial ulcer since her last visit. She also complains of some dizziness upon arrival today and required a wheelchair to be transported to her room. Her vitals and blood sugar are unremarkable however she states she only has a piece of muffin prior to her appointment and is stressed due to a flat tire this morning. 12/25/17. Seen by Dr. Briceno. The patient does not report increased drainage or pain associated with the chronic left lower leg arterial ulcer since her last visit. She does report a worsening cough over the past 4 days but does not report fevers, worsening shortness of breath, or other acute issues today. 12/18/17. Seen by Dr. Briceno. The patient does not report increased drainage or pain associated with the chronic left lower leg arterial ulcer since her last visit. 12/11/17. Seen by Jorge Langston PA-C. The patient reports no increase in drainage from her left lower leg ulcer. 12/04/17. Seen by Dr. Briceno. The patient does not report increased drainage or pain associated with the chronic left lower leg arterial ulcer since her last visit. 11/27/17. Seen by Dr. Briceno. The patient does not report increased drainage or pain associated with the chronic left lower leg arterial ulcer since her last visit. She had intervention for left lower leg PAD on Thursday and does not report adverse side effects. 11/20/17. Seen by Dr. Briceno. The patient does not report increased drainage or pain associated with the chronic left lower leg arterial ulcer since her last visit and she's tolerating her JORDAN wound vac without difficulty. She has her intervention for PAD of the leg scheduled for next Thursday. 11/13/17. Seen by Dr. Briceno. The patient does not report increased drainage or pain associated with the chronic left lower leg arterial ulcer since her last visit and she's tolerating her JORDAN wound vac without difficulty. She has her intervention for PAD of the leg scheduled for 11/23/17. 11/06/17. Seen by Dr. Briceno. The patient reports improvement in terms of the pain associated with the chronic left lower leg arterial ulcer since her last visit and she's tolerating her JORDAN wound vac without difficulty. 10/30/17. Seen by Dr. Briceno. The patient reports improvement in terms of the pain associated with the chronic left lower leg arterial ulcer since her last visit, she does not report significant drainage, and she continues to apply topical gentamicin as recommended to treat the refractory wound infection. She'll have intervention on November 23 also for her left lower leg PAD. 10/23/17. Seen by Dr. Briceno. The patient reports improvement in terms of the pain associated with the chronic left lower leg arterial ulcer since her last visit. She's been applying topical gentamicin as recommended and scheduled for vascular intervention at [facility] on November 23. 10/14/17. Seen by Dr. Briceno. The patient reports improvement in terms of the pain associated with the chronic left lower leg arterial ulcer since her last visit. She's been applying topical gentamicin as recommended and scheduled for vascular intervention at [facility] on October 21. She does not report fevers, significant drainage from the ulcer, or feeling unwell in general. 10/07/17. Seen by Dr. Briceno. The patient completes her course of levofloxacin today has been treating the recent Enterobacter positive wound culture. She reports decreased pain associated with the chronic left lower leg arterial ulcer and has an intervention scheduled by vascular surgery next week. Do not yet have notes from her visit with them however. 09/30/17. Seen by Dr. Briceno. The patient continues to report some intermittent periods of significant pain associated with the chronic left lower leg arterial ulcer which is most noticeable when lying in bed at night. She started levofloxacin based on her wound culture which grew Enterobacter and staph following her visit last week. She does not yet have her arterial Doppler study scheduled but there is a high suspicion for clinically significant PAD contributing to the refractory nature of this ulcer. 09/23/17. Seen by Dr. Briceno. The patient's new to our clinic and presents with a left lower leg non-pressure ulcer that started as a trauma wound about 3-4 weeks ago. It was originally about the size of a quarter and has increased in terms of size, pain, and drainage progressively. She does not report fevers and is not on antibiotics at this time however she does report pain in the leg when lying in bed at night that improves when hanging the leg over the edge of the bed. She also has diabetes and states her blood sugars are typically below 200 however she's unaware of her A1c. She also has a history of CAD with 3-vessle bypass and notes she's moving to [place] in October to live closer to her son. Past Medical History This information was obtained from the patient Patient has a medical history of: Allergic Rhinitis Asthma Coronary Artery Disease (CAD) Type II Diabetes Gastro Esoph. 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/2017 Complaints and Symptoms This information was obtained from the patient Patient complains of: General Notes: I have reviewed and concur with the Review of Systems and Past Family Social History documents completed by the clinician, I have reviewed and concur with the Wound Assessment document completed by the clinician Cardiovascular (Central/Peripheral): Lower extremity (leg) resting pain, Lower extremity (leg) swelling Ear/Nose/Mouth/Throat: Hearing Loss / Aid Hematologic/Lymphatic: Bleeding Tendency Integumentary (Hair/Skin/Nails): Open Sore Musculoskeletal: Muscle Weakness Prior Wound History: Drainage, Erythema, Pain Patient denies complaints or symptoms related to: Cardiovascular (Central): Irregular heart beat Constitutional Symptoms (General Health): Chills, Fever Gastrointestinal (GI): Stomach/abdominal pain Hematologic/Lymphatic: Bleeding / Clotting Disorders Neurological: Loss of Protective Sensation Oncologic Prior Wound History: Bleeding Psychiatric: Memory Loss Respiratory: Oxygen Use, Shortness of Breath OBJECTIVE Constitutional Vital signs reviewed and noted. Frail appearing. Height/Length: 63 in (160.02 cm ), Weight: 139.3 lbs (63.32 kgs), BMI: 24.7, Temperature: 98.9 ?F (37.17 ?C), Pulse: 79 bpm , Respiratory Rate: 18 breaths/min, Blood Pressure: 132/69 mmHg, Capillary Blood Glucose: 115 mg/dl, Pulse Oximetry: 99 %. Vital Signs Notes: Glucose taken in clinic. Ears, Nose, Mouth, and Throat: No clinically significant hearing loss on informal examination. Respiratory: No respiratory distress. Even respirations and without use of accessory muscles.. Cardiovascular: Affected extremity exhibits no peripheral edema or cyanosis, is warm, and is well perfused. Capillary refill is less than 2 seconds. Integumentary (Hair, Skin) No periwound erythema, warmth, or significant drainage. No periwound rashes appreciated or noted otherwise.. Refer to appropriate clinician wound documentation for this visit; left lower leg ulcer extends to subcut with base partially covered with pink granulation, remainder fibrin and slough. Wound #1 Left, Lateral Leg is a chronic Full Thickness Arterial Ulcer and has received a status of Not Healed. Subsequent wound encounter measurements are 3cm length x 4.8cm width x 0.2cm depth, with an area of 14.4 sq cm and a volume of 2.88 cubic cm. No tunneling has been noted. No sinus tract has been noted. No undermining has been noted. There is a moderate amount of sero-sanguineous drainage noted which has no odor. The patient reports a wound pain of level 0/10. The wound margin is epithelial resurfacing. Wound bed has Yes epithelialization, No eschar, Yes slough, Yes pink, firm granulation. The periwound skin texture is normal. The periwound skin moisture is normal. The periwound skin exhibited: Hemosiderosis. The temperature of the periwound skin is WNL. Periwound skin does not exhibit signs or symptoms of infection. Local Pulse is Doppler. Neurological: Cranial nerves grossly intact with symmetric function normal by informal observation.. ASSESSMENT Active Problems ICD-10 (Encounter Diagnosis) L97.222 - Non-pressure chronic ulcer of left calf with fat layer exposed (Encounter Diagnosis) I70.248 - Atherosclerosis of [place] arteries of left leg with ulceration of other part of lower left leg (Encounter Diagnosis) R42 - Dizziness and giddiness PROCEDURES Wound #1 Wound #1 (Arterial Ulcer) is located on the left, lateral leg. A skin/ subcutaneous tissue level surgical debridement with a total area debrided of 14.7 sq cm was performed by Bayron Briceno MD. Subcutaneous was removed along with devitalized tissue: slough. The following instrument(s) were used: curette. Pain control was achieved using 4% Lido. A time out was conducted prior to the start of the procedure. A minimal amount of bleeding was controlled with n/a. The procedure was tolerated well with a pain level of 0 throughout and a pain level of 0 following the procedure. Post Debridement Measurements: 3cm length x 4.9cm width x 0.3cm depth; with an area of 14.7 sq cm and a volume of 4.41 cubic cm; Wound #1 (Arterial Ulcer) is located on the left, lateral leg. A Disposable Wound Vac Application < 50 Sq Cm procedure was performed for the lower left extremity by Bayron Briceno MD. A time out was conducted prior to the start of the procedure. The procedure was tolerated well. General Notes: Jordan 6x6 applied. Additional Information Muscle fascia or bone removed and sent to pathology?: No PLAN Wound Orders: Wound #1 Left, Lateral Leg Anesthetic Topical Xylocaine to wound bed. - In clinic only. Cleanser Cleanse Wound: - Normal Saline and gauze. May Shower. - Cover with cast protector. Dressings Primary dressing: - Jordan 6x6. Change Dressing: - Leave in place until next visit. Follow-Up Appointments Return Appointment: - - One week. Other information: If you develop fever, chills, increased pain, drainage, redness or swelling please call our office. If after hours, respond to the ER. Should you experience any significant changes in your wound(s) or have any questions regarding your home care instructions please contact the wound center @ [phone]. If after hours, contact your primary care physician or go to the hospital emergency room. Scribing Attestation I attest, as the nurse, that I scribed these orders for the physician. I've reviewed the clinician's documentation and agree with the evaluation and plan as written. In addition, the patient's ulcer demonstrates evidence of non-viable devitalized tissue which will continue to benefit from sharp debridement to help promote granulation and expedite healing. Negative pressure wound therapy will be utilized to facilitate granulation and removal of exudate and infectious material with the goal of expediting wound healing. Also, the patient's dizziness resolved by the time I reviewed her in clinic and if it returns she'll follow up with her PCP on this issue. Electronic Signature(s) Signed By: Date: Bayron Briceno MD 01/01/2018 13:30:07 Entered By: Bayron Briceno on 01/01/2018 13:22:26
== END ==
PROVIDERS: PCP Internal Medicine; Visit Provider Internal Medicine
DX: I70.248 Atherosclerosis of native arteries of left leg with ulceration of other part of lower leg (principal); L97.222 Non-pressure chronic ulcer of left calf with fat layer exposed; R42 Dizziness and giddiness
CPT/HCPCS: 11042; 97607

== ENCOUNTER → 2018-01-08 09:45 | Outpatient (CLI) | payer OTHER, SELFPAY ==
--- NOTE | 2018-01-08 | OV.WND_ITS ---
Progress Note Details Patient Name: Chanda Vo Patient Number: [id number] PatientPatientDate: 01/08/2018 Clinician: Roma Gonzalez Physician / Data Architect Manager: Bayron Briceno SUBJECTIVE Chief Complaint This information was obtained from the patient Trauma wound on left leg. Allergies atorvastatin (Severity: Moderate, Reaction: cramps), simvastatin (Severity: Moderate, Reaction: cramps) HPI This information was obtained from the patient 01/08/18. Seen by Dr. Briceno. The patient does not report increased drainage or pain associated with the chronic left lower leg arterial ulcer since her last visit. 01/01/18. Seen by Dr. Briceno. The patient does not report increased drainage or pain associated with the chronic left lower leg arterial ulcer since her last visit. She also complains of some dizziness upon arrival today and required a wheelchair to be transported to her room. Her vitals and blood sugar are unremarkable however she states she only has a piece of muffin prior to her appointment and is stressed due to a flat tire this morning. 12/25/17. Seen by Dr. Briceno. The patient does not report increased drainage or pain associated with the chronic left lower leg arterial ulcer since her last visit. She does report a worsening cough over the past 4 days but does not report fevers, worsening shortness of breath, or other acute issues today. 12/18/17. Seen by Dr. Briceno. The patient does not report increased drainage or pain associated with the chronic left lower leg arterial ulcer since her last visit. 12/11/17. Seen by Jorge Langston PA-C. The patient reports no increase in drainage from her left lower leg ulcer. 12/04/17. Seen by Dr. Briceno. The patient does not report increased drainage or pain associated with the chronic left lower leg arterial ulcer since her last visit. 11/27/17. Seen by Dr. Briceno. The patient does not report increased drainage or pain associated with the chronic left lower leg arterial ulcer since her last visit. She had intervention for left lower leg PAD on Thursday and does not report adverse side effects. 11/20/17. Seen by Dr. Briceno. The patient does not report increased drainage or pain associated with the chronic left lower leg arterial ulcer since her last visit and she's tolerating her JORDAN wound vac without difficulty. She has her intervention for PAD of the leg scheduled for next Thursday. 11/13/17. Seen by Dr. Briceno. The patient does not report increased drainage or pain associated with the chronic left lower leg arterial ulcer since her last visit and she's tolerating her JORDAN wound vac without difficulty. She has her intervention for PAD of the leg scheduled for 11/23/17. 11/06/17. Seen by Dr. Briceno. The patient reports improvement in terms of the pain associated with the chronic left lower leg arterial ulcer since her last visit and she's tolerating her JORDAN wound vac without difficulty. 10/30/17. Seen by Dr. Briceno. The patient reports improvement in terms of the pain associated with the chronic left lower leg arterial ulcer since her last visit, she does not report significant drainage, and she continues to apply topical gentamicin as recommended to treat the refractory wound infection. She'll have intervention on November 23 also for her left lower leg PAD. 10/23/17. Seen by Dr. Briceno. The patient reports improvement in terms of the pain associated with the chronic left lower leg arterial ulcer since her last visit. She's been applying topical gentamicin as recommended and scheduled for vascular intervention at [facility] on November 23. 10/14/17. Seen by Dr. Briceno. The patient reports improvement in terms of the pain associated with the chronic left lower leg arterial ulcer since her last visit. She's been applying topical gentamicin as recommended and scheduled for vascular intervention at [facility] on October 21. She does not report fevers, significant drainage from the ulcer, or feeling unwell in general. 10/07/17. Seen by Dr. Briceno. The patient completes her course of levofloxacin today has been treating the recent Enterobacter positive wound culture. She reports decreased pain associated with the chronic left lower leg arterial ulcer and has an intervention scheduled by vascular surgery next week. Do not yet have notes from her visit with them however. 09/30/17. Seen by Dr. Briceno. The patient continues to report some intermittent periods of significant pain associated with the chronic left lower leg arterial ulcer which is most noticeable when lying in bed at night. She started levofloxacin based on her wound culture which grew Enterobacter and staph following her visit last week. She does not yet have her arterial Doppler study scheduled but there is a high suspicion for clinically significant PAD contributing to the refractory nature of this ulcer. 09/23/17. Seen by Dr. Briceno. The patient's new to our clinic and presents with a left lower leg non-pressure ulcer that started as a trauma wound about 3-4 weeks ago. It was originally about the size of a quarter and has increased in terms of size, pain, and drainage progressively. She does not report fevers and is not on antibiotics at this time however she does report pain in the leg when lying in bed at night that improves when hanging the leg over the edge of the bed. She also has diabetes and states her blood sugars are typically below 200 however she's unaware of her A1c. She also has a history of CAD with 3-vessle bypass and notes she's moving to [place], [place] in October to live closer to her son. Past Medical History This information was obtained from the patient Patient has a medical history of: Allergic Rhinitis Asthma Coronary Artery Disease (CAD) Type II Diabetes Gastro Esoph. 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/2017 Complaints and Symptoms This information was obtained from the patient Patient complains of: General Notes: I have reviewed and concur with the Review of Systems and Past Family Social History documents completed by the clinician, I have reviewed and concur with the Wound Assessment document completed by the clinician Cardiovascular (Central/Peripheral): Lower extremity (leg) resting pain, Lower extremity (leg) swelling Ear/Nose/Mouth/Throat: Hearing Loss / Aid Hematologic/Lymphatic: Bleeding Tendency Integumentary (Hair/Skin/Nails): Open Sore Musculoskeletal: Muscle Weakness Prior Wound History: Drainage, Erythema, Pain Patient denies complaints or symptoms related to: Cardiovascular (Central): Irregular heart beat Constitutional Symptoms (General Health): Chills, Fever Gastrointestinal (GI): Stomach/abdominal pain Hematologic/Lymphatic: Bleeding / Clotting Disorders Neurological: Loss of Protective Sensation Oncologic Prior Wound History: Bleeding Psychiatric: Memory Loss Respiratory: Oxygen Use, Shortness of Breath OBJECTIVE Constitutional Vital signs reviewed and noted. Well developed. Alert. Clean appearing.. Height/ Length: 63 in (160.02 cm), Weight: 139.3 lbs (63.32 kgs), BMI: 24.7, Temperature: 98.4 ?F ( 36.89 ?C), Pulse: 80 bpm, Respiratory Rate: 18 breaths/min, Blood Pressure: 104/55 mmHg, Capillary Blood Glucose: 74 mg/dl, Pulse Oximetry: 98 %. Vital Signs Notes: Glucose per patient Ears, Nose, Mouth, and Throat: No clinically significant hearing loss on informal examination. Respiratory: No respiratory distress. Even respirations and without use of accessory muscles.. Integumentary (Hair, Skin) No periwound erythema, warmth, or significant drainage. No periwound rashes appreciated or noted otherwise.. Refer to appropriate clinician wound documentation for this visit; left lower leg ulcer extends to subcut with base partially covered with pink granulation, remainder fibrin and slough. Wound #1 Left, Lateral Leg is a chronic Full Thickness Arterial Ulcer and has received a status of Not Healed. Subsequent wound encounter measurements are 3.1cm length x 4.5cm width x 0.2cm depth, with an area of 13.95 sq cm and a volume of 2.79 cubic cm. No tunneling has been noted. No sinus tract has been noted. No undermining has been noted. There is a moderate amount of sero-sanguineous drainage noted which has no odor. The patient reports a wound pain of level 0/10. The wound margin is epithelial resurfacing. Wound bed has Yes epithelialization, No eschar, Yes slough, Yes pink, firm granulation. The periwound skin texture is normal. The periwound skin moisture is normal. The periwound skin exhibited: Hemosiderosis. The temperature of the periwound skin is WNL. Periwound skin does not exhibit signs or symptoms of infection. Local Pulse is Doppler. ASSESSMENT Active Problems ICD-10 (Encounter Diagnosis) L97.222 - Non-pressure chronic ulcer of left calf with fat layer exposed (Encounter Diagnosis) I70.248 - Atherosclerosis of [place] arteries of left leg with ulceration of other part of lower left leg PROCEDURES Wound #1 Wound #1 (Arterial Ulcer) is located on the left, lateral leg. A skin/ subcutaneous tissue level surgical debridement with a total area debrided of 14.26 sq cm was performed by Bayron Briceno MD. Subcutaneous was removed along with devitalized tissue: slough. The following instrument(s) were used: curette and forceps. Pain control was achieved using 4 % Lido. A time out was conducted prior to the start of the procedure. A minimal amount of bleeding was controlled with n/a. The procedure was tolerated well with a pain level of 0 throughout and a pain level of 0 following the procedure. Post Debridement Measurements: 3.1cm length x 4.6cm width x 0.3cm depth; with an area of 14.26 sq cm and a volume of 4.278 cubic cm; Wound #1 (Arterial Ulcer) is located on the left, lateral leg. A Disposable Wound Vac Application < 50 Sq Cm procedure was performed for the lower left extremity by Bayron Briceno MD. A time out was conducted prior to the start of the procedure. The procedure was tolerated well. General Notes: Jordan 6x6 applied. Additional Information Muscle fascia or bone removed and sent to pathology?: No PLAN Wound Orders: Wound #1 Left, Lateral Leg Anesthetic Topical Xylocaine to wound bed. - In clinic only. Cleanser Cleanse Wound: - Normal Saline and gauze. May Shower. - Cover with cast protector. Dressings Primary dressing: - Jordan 6x6. Change Dressing: - Leave in place until next visit. Follow-Up Appointments Return Appointment: - - One week. Other information: If you develop fever, chills, increased pain, drainage, redness or swelling please call our office. If after hours, respond to the ER. Should you experience any significant changes in your wound(s) or have any questions regarding your home care instructions please contact the wound center @ [phone]. If after hours, contact your primary care physician or go to the hospital emergency room. Scribing Attestation I attest, as the nurse, that I scribed these orders for the physician. I've reviewed the clinician's documentation and agree with the evaluation and plan as written. In addition, the patient's ulcer demonstrates evidence of non-viable devitalized tissue which will continue to benefit from sharp debridement to help promote granulation and expedite healing. Negative pressure wound therapy will be utilized to facilitate granulation and removal of exudate and infectious material with the goal of expediting wound healing. Electronic Signature(s) Signed By: Date: Bayron Briceno MD 01/08/2018 13:04:12 Entered By: Bayron Briceno on 01/08/2018 12:13:58
== END ==
PROVIDERS: PCP Internal Medicine; Visit Provider Internal Medicine
DX: I70.248 Atherosclerosis of native arteries of left leg with ulceration of other part of lower leg (principal); L97.222 Non-pressure chronic ulcer of left calf with fat layer exposed
CPT/HCPCS: 11042; 97607

== ENCOUNTER → 2018-01-15 09:41 | Outpatient (CLI) | payer OTHER, SELFPAY ==
--- NOTE | 2018-01-15 | OV.WND_ITS ---
Progress Note Details Patient Name: Chanda Vo Patient Number: [id number] PatientPatientDate: 01/15/2018 Clinician: Majo Orozco Physician / Chartered Financial Analyst: Bayron Briceno SUBJECTIVE Chief Complaint This information was obtained from the patient Trauma wound on left leg. Allergies atorvastatin (Severity: Moderate, Reaction: cramps), simvastatin (Severity: Moderate, Reaction: cramps) HPI This information was obtained from the patient 01/15/18. Seen by Dr. Briceno. The patient does not report increased drainage or pain associated with the chronic left lower leg arterial ulcer since her last visit. She's inquiring about whether a follow arterial Doppler should be ordered to evaluate her left leg PAD and whether she should continue taking Plavix noting her 90 day Rx will run out soon. 01/08/18. Seen by Dr. Briceno. The patient does not report increased drainage or pain associated with the chronic left lower leg arterial ulcer since her last visit. 01/01/18. Seen by Dr. Briceno. The patient does not report increased drainage or pain associated with the chronic left lower leg arterial ulcer since her last visit. She also complains of some dizziness upon arrival today and required a wheelchair to be transported to her room. Her vitals and blood sugar are unremarkable however she states she only has a piece of muffin prior to her appointment and is stressed due to a flat tire this morning. 12/25/17. Seen by Dr. Briceno. The patient does not report increased drainage or pain associated with the chronic left lower leg arterial ulcer since her last visit. She does report a worsening cough over the past 4 days but does not report fevers, worsening shortness of breath, or other acute issues today. 12/18/17. Seen by Dr. Briceno. The patient does not report increased drainage or pain associated with the chronic left lower leg arterial ulcer since her last visit. 12/11/17. Seen by Jorge York PA-C. The patient reports no increase in drainage from her left lower leg ulcer. 12/04/17. Seen by Dr. Briceno. The patient does not report increased drainage or pain associated with the chronic left lower leg arterial ulcer since her last visit. 11/27/17. Seen by Dr. Briceno. The patient does not report increased drainage or pain associated with the chronic left lower leg arterial ulcer since her last visit. She had intervention for left lower leg PAD on Thursday and does not report adverse side effects. 11/20/17. Seen by Dr. Briceno. The patient does not report increased drainage or pain associated with the chronic left lower leg arterial ulcer since her last visit and she's tolerating her JORDAN wound vac without difficulty. She has her intervention for PAD of the leg scheduled for next Thursday. 11/13/17. Seen by Dr. Briceno. The patient does not report increased drainage or pain associated with the chronic left lower leg arterial ulcer since her last visit and she's tolerating her JORDAN wound vac without difficulty. She has her intervention for PAD of the leg scheduled for 11/23/17. 11/06/17. Seen by Dr. Briceno. The patient reports improvement in terms of the pain associated with the chronic left lower leg arterial ulcer since her last visit and she's tolerating her JORDAN wound vac without difficulty. 10/30/17. Seen by Dr. Briceno. The patient reports improvement in terms of the pain associated with the chronic left lower leg arterial ulcer since her last visit, she does not report significant drainage, and she continues to apply topical gentamicin as recommended to treat the refractory wound infection. She'll have intervention on November 23 also for her left lower leg PAD. 10/23/17. Seen by Dr. Briceno. The patient reports improvement in terms of the pain associated with the chronic left lower leg arterial ulcer since her last visit. She's been applying topical gentamicin as recommended and scheduled for vascular intervention at [facility] on November 23. 10/14/17. Seen by Dr. Briceno. The patient reports improvement in terms of the pain associated with the chronic left lower leg arterial ulcer since her last visit. She's been applying topical gentamicin as recommended and scheduled for vascular intervention at [facility] on October 21. She does not report fevers, significant drainage from the ulcer, or feeling unwell in general. 10/07/17. Seen by Dr. Briceno. The patient completes her course of levofloxacin today has been treating the recent Enterobacter positive wound culture. She reports decreased pain associated with the chronic left lower leg arterial ulcer and has an intervention scheduled by vascular surgery next week. Do not yet have notes from her visit with them however. 09/30/17. Seen by Dr. Briceno. The patient continues to report some intermittent periods of significant pain associated with the chronic left lower leg arterial ulcer which is most noticeable when lying in bed at night. She started levofloxacin based on her wound culture which grew Enterobacter and staph following her visit last week. She does not yet have her arterial Doppler study scheduled but there is a high suspicion for clinically significant PAD contributing to the refractory nature of this ulcer. 09/23/17. Seen by Dr. Briceno. The patient's new to our clinic and presents with a left lower leg non-pressure ulcer that started as a trauma wound about 3-4 weeks ago. It was originally about the size of a quarter and has increased in terms of size, pain, and drainage progressively. She does not report fevers and is not on antibiotics at this time however she does report pain in the leg when lying in bed at night that improves when hanging the leg over the edge of the bed. She also has diabetes and states her blood sugars are typically below 200 however she's unaware of her A1c. She also has a history of CAD with 3-vessle bypass and notes she's moving to [place], [place] in October to live closer to her son. Past Medical History This information was obtained from the patient Patient has a medical history of: Allergic Rhinitis Asthma Coronary Artery Disease (CAD) Type II Diabetes Gastro Esoph. 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/2017 Complaints and Symptoms This information was obtained from the patient Patient complains of: General Notes: I have reviewed and concur with the Review of Systems and Past Family Social History documents completed by the clinician, I have reviewed and concur with the Wound Assessment document completed by the clinician Cardiovascular (Central/Peripheral): Lower extremity (leg) resting pain, Lower extremity (leg) swelling Ear/Nose/Mouth/Throat: Hearing Loss / Aid Hematologic/Lymphatic: Bleeding Tendency Integumentary (Hair/Skin/Nails): Open Sore Musculoskeletal: Muscle Weakness Prior Wound History: Drainage, Erythema, Pain Patient denies complaints or symptoms related to: Cardiovascular (Central): Irregular heart beat Constitutional Symptoms (General Health): Chills, Fever Gastrointestinal (GI): Stomach/abdominal pain Hematologic/Lymphatic: Bleeding / Clotting Disorders Neurological: Loss of Protective Sensation Oncologic Prior Wound History: Bleeding Psychiatric: Memory Loss Respiratory: Oxygen Use, Shortness of Breath OBJECTIVE Constitutional Vital signs reviewed and noted. Frail appearing. Height/Length: 63 in (160.02 cm ), Weight: 139.3 lbs (63.32 kgs), BMI: 24.7, Temperature: 98.6 ?F (37 ?C), Pulse: 78 bpm, Respiratory Rate: 18 breaths/min, Blood Pressure: 138/72 mmHg, Capillary Blood Glucose: 192 mg/dl, Pulse Oximetry: 96 %. Vital Signs Notes: Glucose per patient. Respiratory: No respiratory distress. Even respirations and without use of accessory muscles.. Cardiovascular: 1+ left lower extremity edema. Integumentary (Hair, Skin) No periwound erythema, warmth, or significant drainage. No periwound rashes appreciated or noted otherwise.. Refer to appropriate clinician wound documentation for this visit; left lower leg ulcer extends to subcut with base partially covered with pink granulation, remainder fibrin and slough. Wound #1 Left, Lateral Leg is a chronic Full Thickness Arterial Ulcer and has received a status of Not Healed. Subsequent wound encounter measurements are 3.3cm length x 4.4cm width x 0.3cm depth, with an area of 14.52 sq cm and a volume of 4.356 cubic cm. No tunneling has been noted. No sinus tract has been noted. No undermining has been noted. There is a moderate amount of sero-sanguineous drainage noted which has no odor. The patient reports a wound pain of level 0/10. The wound margin is epithelial resurfacing. Wound bed has Yes epithelialization, No eschar, Yes slough, Yes pink, firm granulation. The periwound skin texture is normal. The periwound skin moisture is normal. The periwound skin exhibited: Hemosiderosis. The temperature of the periwound skin is WNL. Periwound skin does not exhibit signs or symptoms of infection. Local Pulse is Doppler. ASSESSMENT Active Problems ICD-10 (Encounter Diagnosis) L97.222 - Non-pressure chronic ulcer of left calf with fat layer exposed (Encounter Diagnosis) I70.248 - Atherosclerosis of [place] arteries of left leg with ulceration of other part of lower left leg PROCEDURES Wound #1 Wound #1 (Arterial Ulcer) is located on the left, lateral leg. A skin/ subcutaneous tissue level surgical debridement with a total area debrided of 14.52 sq cm was performed by Bayron Briceno MD. Subcutaneous was removed along with devitalized tissue: exudate and slough. The following instrument(s) were used: curette. Pain control was achieved using 4% Lido. A time out was conducted prior to the start of the procedure. A minimal amount of bleeding was controlled with pressure. The procedure was tolerated well with a pain level of 0 throughout and a pain level of 0 following the procedure. Post Debridement Measurements: 3.3cm length x 4.4cm width x 0.4cm depth; with an area of 14.52 sq cm and a volume of 5.808 cubic cm; Wound #1 (Arterial Ulcer) is located on the left, lateral leg. A Disposable Wound Vac Application < 50 Sq Cm procedure was performed for the lower left extremity by Bayron Briceno MD. A time out was conducted prior to the start of the procedure. The procedure was tolerated well. General Notes: Jordan 6x6 applied. Additional Information Muscle fascia or bone removed and sent to pathology?: No PLAN Wound Orders: Wound #1 Left, Lateral Leg Anesthetic Topical Xylocaine to wound bed. - In clinic only. Cleanser Cleanse Wound: - Normal Saline and gauze. May Shower. - Cover with cast protector. Dressings Primary dressing: - Jordan 6x6. Change Dressing: - Leave in place until next visit. Follow-Up Appointments Return Appointment: - - One week. Other information: If you develop fever, chills, increased pain, drainage, redness or swelling please call our office. If after hours, respond to the ER. Should you experience any significant changes in your wound(s) or have any questions regarding your home care instructions please contact the wound center @ [phone]. If after hours, contact your primary care physician or go to the hospital emergency room. Scribing Attestation I attest, as the nurse, that I scribed these orders for the physician. Additional Orders: Compression/Edema Control Avoid prolonged standing in one place. Single Layer Compression Hose - Tetragrip E to left leg. Apply in the morning, remove at night before bed. Laboratory: Culture Wound General Notes: Please speak with your vascular surgeon regarding the questions you addressed at today's visit. I've reviewed the clinician's documentation and agree with the evaluation and plan as written. In addition, the patient's ulcer demonstrates evidence of non-viable devitalized tissue which will continue to benefit from sharp debridement to help promote granulation and expedite healing. Negative pressure wound therapy will be utilized to facilitate granulation and removal of exudate and infectious material with the goal of expediting wound healing. Also, the patient's been advised to liaise with her vascular clinic regarding her 2 month follow up arterial Doppler study as well as whether she should continue taking her Plavix after her initial 90 day Rx. We'll also consider placing a light compression wrap next week if the ulcer appears to have stalled in its healing. Electronic Signature(s) Signed By: Date: Bayron Briceno MD 01/18/2018 07:13:12 Entered By: Bayron Briceno on 01/18/2018 07:07:13
== END ==
PROVIDERS: PCP Internal Medicine; Visit Provider Internal Medicine
DX: L97.222 Non-pressure chronic ulcer of left calf with fat layer exposed (principal); I70.248 Atherosclerosis of native arteries of left leg with ulceration of other part of lower leg
CPT/HCPCS: 11042; 87070; 87075; 87077; 87147; 87186; 87205; 97607

== ENCOUNTER → 2018-01-22 10:58 | Outpatient (CLI) | payer OTHER, SELFPAY ==
--- NOTE | 2018-01-22 | OV.WND_ITS ---
Progress Note Details Patient Name: Chanda Vo Patient Number: [id number] PatientPatientDate: 01/22/2018 Clinician: Majo Orozco Clinician Cosigner: Malia Graves Physician / Aircraft Electrical Systems Specialist: Bayron Briceno SUBJECTIVE Chief Complaint This information was obtained from the patient Trauma wound on left leg. Allergies atorvastatin (Severity: Moderate, Reaction: cramps), simvastatin (Severity: Moderate, Reaction: cramps) HPI This information was obtained from the patient 01/22/18. Seen by Dr. Briceno. The patient does not report increased drainage or pain associated with the chronic left lower leg arterial ulcer since her last visit. 01/15/18. Seen by Dr. Briceno. The patient does not report increased drainage or pain associated with the chronic left lower leg arterial ulcer since her last visit. She's inquiring about whether a follow arterial Doppler should be ordered to evaluate her left leg PAD and whether she should continue taking Plavix noting her 90 day Rx will run out soon. 01/08/18. Seen by Dr. Briceno. The patient does not report increased drainage or pain associated with the chronic left lower leg arterial ulcer since her last visit. 01/01/18. Seen by Dr. Briceno. The patient does not report increased drainage or pain associated with the chronic left lower leg arterial ulcer since her last visit. She also complains of some dizziness upon arrival today and required a wheelchair to be transported to her room. Her vitals and blood sugar are unremarkable however she states she only has a piece of muffin prior to her appointment and is stressed due to a flat tire this morning. 12/25/17. Seen by Dr. Briceno. The patient does not report increased drainage or pain associated with the chronic left lower leg arterial ulcer since her last visit. She does report a worsening cough over the past 4 days but does not report fevers, worsening shortness of breath, or other acute issues today. 12/18/17. Seen by Dr. Briceno. The patient does not report increased drainage or pain associated with the chronic left lower leg arterial ulcer since her last visit. 12/11/17. Seen by Jorge Langston PA-C. The patient reports no increase in drainage from her left lower leg ulcer. 12/04/17. Seen by Dr. Briceno. The patient does not report increased drainage or pain associated with the chronic left lower leg arterial ulcer since her last visit. 11/27/17. Seen by Dr. Briceno. The patient does not report increased drainage or pain associated with the chronic left lower leg arterial ulcer since her last visit. She had intervention for left lower leg PAD on Thursday and does not report adverse side effects. 11/20/17. Seen by Dr. Briceno. The patient does not report increased drainage or pain associated with the chronic left lower leg arterial ulcer since her last visit and she's tolerating her JORDAN wound vac without difficulty. She has her intervention for PAD of the leg scheduled for next Thursday. 11/13/17. Seen by Dr. Briceno. The patient does not report increased drainage or pain associated with the chronic left lower leg arterial ulcer since her last visit and she's tolerating her JORDAN wound vac without difficulty. She has her intervention for PAD of the leg scheduled for 11/23/17. 11/06/17. Seen by Dr. Briceno. The patient reports improvement in terms of the pain associated with the chronic left lower leg arterial ulcer since her last visit and she's tolerating her JORDAN wound vac without difficulty. 10/30/17. Seen by Dr. Briceno. The patient reports improvement in terms of the pain associated with the chronic left lower leg arterial ulcer since her last visit, she does not report significant drainage, and she continues to apply topical gentamicin as recommended to treat the refractory wound infection. She'll have intervention on November 23 also for her left lower leg PAD. 10/23/17. Seen by Dr. Briceno. The patient reports improvement in terms of the pain associated with the chronic left lower leg arterial ulcer since her last visit. She's been applying topical gentamicin as recommended and scheduled for vascular intervention at [facility] on November 23. 10/14/17. Seen by Dr. Briceno. The patient reports improvement in terms of the pain associated with the chronic left lower leg arterial ulcer since her last visit. She's been applying topical gentamicin as recommended and scheduled for vascular intervention at [facility] on October 21. She does not report fevers, significant drainage from the ulcer, or feeling unwell in general. 10/07/17. Seen by Dr. Briceno. The patient completes her course of levofloxacin today has been treating the recent Enterobacter positive wound culture. She reports decreased pain associated with the chronic left lower leg arterial ulcer and has an intervention scheduled by vascular surgery next week. Do not yet have notes from her visit with them however. 09/30/17. Seen by Dr. Briceno. The patient continues to report some intermittent periods of significant pain associated with the chronic left lower leg arterial ulcer which is most noticeable when lying in bed at night. She started levofloxacin based on her wound culture which grew Enterobacter and staph following her visit last week. She does not yet have her arterial Doppler study scheduled but there is a high suspicion for clinically significant PAD contributing to the refractory nature of this ulcer. 09/23/17. Seen by Dr. Briceno. The patient's new to our clinic and presents with a left lower leg non-pressure ulcer that started as a trauma wound about 3-4 weeks ago. It was originally about the size of a quarter and has increased in terms of size, pain, and drainage progressively. She does not report fevers and is not on antibiotics at this time however she does report pain in the leg when lying in bed at night that improves when hanging the leg over the edge of the bed. She also has diabetes and states her blood sugars are typically below 200 however she's unaware of her A1c. She also has a history of CAD with 3-vessle bypass and notes she's moving to [place], [place] in October to live closer to her son. Past Medical History This information was obtained from the patient Patient has a medical history of: Allergic Rhinitis Asthma Coronary Artery Disease (CAD) Type II Diabetes Gastro Esoph. 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/2017 Complaints and Symptoms This information was obtained from the patient Patient complains of: General Notes: I have reviewed and concur with the Review of Systems and Past Family Social History documents completed by the clinician, I have reviewed and concur with the Wound Assessment document completed by the clinician Cardiovascular (Central/Peripheral): Lower extremity (leg) resting pain, Lower extremity (leg) swelling Ear/Nose/Mouth/Throat: Hearing Loss / Aid Hematologic/Lymphatic: Bleeding Tendency Integumentary (Hair/Skin/Nails): Open Sore Musculoskeletal: Muscle Weakness Prior Wound History: Drainage, Erythema, Pain Patient denies complaints or symptoms related to: Cardiovascular (Central): Irregular heart beat Constitutional Symptoms (General Health): Chills, Fever Gastrointestinal (GI): Stomach/abdominal pain Hematologic/Lymphatic: Bleeding / Clotting Disorders Neurological: Loss of Protective Sensation Oncologic Prior Wound History: Bleeding Psychiatric: Memory Loss Respiratory: Oxygen Use, Shortness of Breath OBJECTIVE Constitutional BP elevated; Afebrile; Alert and in no distress. Well developed. Alert. Clean appearing.. Height/Length: 63 in (160.02 cm), Weight: 139.3 lbs (63.32 kgs), BMI: 24.7, Temperature: 97.9 ?F (36.61 ?C), Pulse: 81 bpm, Respiratory Rate: 18 breaths/min, Blood Pressure: 144/80 mmHg, Capillary Blood Glucose: 182 mg/dl, Pulse Oximetry: 100 %. Vital Signs Notes: Glucose per patient. Ears, Nose, Mouth, and Throat: No clinically significant hearing loss on informal examination. Respiratory: No respiratory distress. Even respirations and without use of accessory muscles.. Cardiovascular: Affected extremity exhibits no peripheral edema or cyanosis, is warm, and is well perfused. Capillary refill is less than 2 seconds. Integumentary (Hair, Skin) No periwound erythema, warmth, or significant drainage. No periwound rashes appreciated or noted otherwise.. Refer to appropriate clinician wound documentation for this visit; left lower leg ulcer extends to subcut with base partially covered with pink granulation, remainder fibrin and slough; smaller than on previous review. Wound #1 Left, Lateral Leg is a chronic Full Thickness Arterial Ulcer and has received a status of Not Healed. Subsequent wound encounter measurements are 2.5cm length x 4.1cm width x 0.2cm depth, with an area of 10.25 sq cm and a volume of 2.05 cubic cm. No tunneling has been noted. No sinus tract has been noted. No undermining has been noted. There is a moderate amount of sero-sanguineous drainage noted which has no odor. The patient reports a wound pain of level 0/10. The wound margin is epithelial resurfacing. Wound bed has Yes epithelialization, No eschar, Yes slough, Yes pink, firm granulation. The periwound skin texture is normal. The periwound skin moisture is normal. The periwound skin exhibited: Hemosiderosis. The periwound skin did not exhibit: Atrophie Tara, Cyanosis, Ecchymosis, Erythema, Pallor, Rubor. The temperature of the periwound skin is WNL. Periwound skin does not exhibit signs or symptoms of infection. Local Pulse is Doppler. General Notes: Epithelial bridge noted at lateral aspect of wound: 1.2cm. ASSESSMENT Active Problems ICD-10 (Encounter Diagnosis) L97.222 - Non-pressure chronic ulcer of left calf with fat layer exposed (Encounter Diagnosis) I70.248 - Atherosclerosis of minto arteries of left leg with ulceration of other part of lower left leg PROCEDURES Wound #1 Wound #1 (Arterial Ulcer) is located on the left, lateral leg. A skin/ subcutaneous tissue level surgical debridement with a total area debrided of 11.48 sq cm was performed by Bayron Briceno MD. Subcutaneous was removed along with devitalized tissue: exudate and slough. The following instrument(s) were used: curette. Pain control was achieved using 4% Lido. A time out was conducted prior to the start of the procedure. A minimal amount of bleeding was controlled with pressure. The procedure was tolerated well with a pain level of 0 throughout and a pain level of 0 following the procedure. Post Debridement Measurements: 2.8cm length x 4.1cm width x 0.3cm depth; with an area of 11.48 sq cm and a volume of 3.444 cubic cm; Wound #1 (Arterial Ulcer) is located on the left, lateral leg. A Disposable Wound Vac Application < 50 Sq Cm procedure was performed for the lower left extremity by Bayron Briceno MD. A time out was conducted prior to the start of the procedure. The procedure was tolerated well. General Notes: Jordan 6x6 applied. Additional Information Muscle fascia or bone removed and sent to pathology?: No PLAN Wound Orders: Wound #1 Left, Lateral Leg Anesthetic Topical Xylocaine to wound bed. - In clinic only. Cleanser Cleanse Wound: - Normal Saline and gauze. May Shower. - Cover with cast protector. Dressings Primary dressing: - Jordan 6x6. Change Dressing: - Leave in place until next visit. Compression/Edema Control Avoid prolonged standing in one place. Single Layer Compression Hose - Tetragrip E to left leg. Apply in the morning, remove at night before bed. Follow-Up Appointments Return Appointment: - - One week. Other information: If you develop fever, chills, increased pain, drainage, redness or swelling please call our office. If after hours, respond to the ER. Should you experience any significant changes in your wound(s) or have any questions regarding your home care instructions please contact the wound center @ [phone]. If after hours, contact your primary care physician or go to the hospital emergency room. Scribing Attestation I attest, as the nurse, that I scribed these orders for the physician. I've reviewed the clinician's documentation and agree with the evaluation and plan as written. In addition, the patient's ulcer demonstrates evidence of non-viable devitalized tissue which will continue to benefit from sharp debridement to help promote granulation and expedite healing. Negative pressure wound therapy will be utilized to facilitate granulation and removal of exudate and infectious material with the goal of expediting wound healing. Electronic Signature(s) Signed By: Date: Bayron Briceno MD 01/25/2018 09:40:37 Entered By: Bayron Briceno on 01/25/2018 09:19:30
== END ==
PROVIDERS: PCP Internal Medicine; Visit Provider Internal Medicine
DX: I70.248 Atherosclerosis of native arteries of left leg with ulceration of other part of lower leg (principal); L97.222 Non-pressure chronic ulcer of left calf with fat layer exposed
CPT/HCPCS: 11042; 97607

== ENCOUNTER → 2018-01-29 10:21 | Outpatient (CLI) | payer OTHER, SELFPAY | PROVIDERS: PCP Internal Medicine; Visit Provider Internal Medicine | DX: I70.248 Atherosclerosis of native arteries of left leg with ulceration of other part of lower leg (principal); L97.222 Non-pressure chronic ulcer of left calf with fat layer exposed | CPT/HCPCS: 97607 ==

== ENCOUNTER → 2018-02-05 09:01 | Outpatient (CLI) | payer OTHER, SELFPAY ==
--- NOTE | 2018-02-05 | OV.WND_ITS ---
Progress Note Details Patient Name: Chanda Vo Patient Number: [id number] PatientPatientDate: 02/05/2018 Clinician: Roma Gonzalez Clinician Cosigner: Cari Malhotra Physician / [employer] Sales Representative: Bayron Briceno SUBJECTIVE Chief Complaint This information was obtained from the patient Trauma wound on left leg. Allergies atorvastatin (Severity: Moderate, Reaction: cramps), simvastatin (Severity: Moderate, Reaction: cramps) HPI This information was obtained from the patient 02/05/18. Seen by Dr. Briceno. The patient does not report increased drainage or pain associated with the chronic left lower leg arterial ulcer since her last visit. 01/22/18. Seen by Dr. Briceno. The patient does not report increased drainage or pain associated with the chronic left lower leg arterial ulcer since her last visit. 01/15/18. Seen by Dr. Briceno. The patient does not report increased drainage or pain associated with the chronic left lower leg arterial ulcer since her last visit. She's inquiring about whether a follow arterial Doppler should be ordered to evaluate her left leg PAD and whether she should continue taking Plavix noting her 90 day Rx will run out soon. 01/08/18. Seen by Dr. Briceno. The patient does not report increased drainage or pain associated with the chronic left lower leg arterial ulcer since her last visit. 01/01/18. Seen by Dr. Briceno. The patient does not report increased drainage or pain associated with the chronic left lower leg arterial ulcer since her last visit. She also complains of some dizziness upon arrival today and required a wheelchair to be transported to her room. Her vitals and blood sugar are unremarkable however she states she only has a piece of muffin prior to her appointment and is stressed due to a flat tire this morning. 12/25/17. Seen by Dr. Briceno. The patient does not report increased drainage or pain associated with the chronic left lower leg arterial ulcer since her last visit. She does report a worsening cough over the past 4 days but does not report fevers, worsening shortness of breath, or other acute issues today. 12/18/17. Seen by Dr. Briceno. The patient does not report increased drainage or pain associated with the chronic left lower leg arterial ulcer since her last visit. 12/11/17. Seen by Jogre Langston PA-C. The patient reports no increase in drainage from her left lower leg ulcer. 12/04/17. Seen by Dr. Briceno. The patient does not report increased drainage or pain associated with the chronic left lower leg arterial ulcer since her last visit. 11/27/17. Seen by Dr. Briceno. The patient does not report increased drainage or pain associated with the chronic left lower leg arterial ulcer since her last visit. She had intervention for left lower leg PAD on Thursday and does not report adverse side effects. 11/20/17. Seen by Dr. Briceno. The patient does not report increased drainage or pain associated with the chronic left lower leg arterial ulcer since her last visit and she's tolerating her JORDAN wound vac without difficulty. She has her intervention for PAD of the leg scheduled for next Thursday. 11/13/17. Seen by Dr. Briceno. The patient does not report increased drainage or pain associated with the chronic left lower leg arterial ulcer since her last visit and she's tolerating her JORDAN wound vac without difficulty. She has her intervention for PAD of the leg scheduled for 11/23/17. 11/06/17. Seen by Dr. Briceno. The patient reports improvement in terms of the pain associated with the chronic left lower leg arterial ulcer since her last visit and she's tolerating her JORDAN wound vac without difficulty. 10/30/17. Seen by Dr. Briceno. The patient reports improvement in terms of the pain associated with the chronic left lower leg arterial ulcer since her last visit, she does not report significant drainage, and she continues to apply topical gentamicin as recommended to treat the refractory wound infection. She'll have intervention on November 23 also for her left lower leg PAD. 10/23/17. Seen by Dr. Briceno. The patient reports improvement in terms of the pain associated with the chronic left lower leg arterial ulcer since her last visit. She's been applying topical gentamicin as recommended and scheduled for vascular intervention at [facility] on November 23. 10/14/17. Seen by Dr. Briceno. The patient reports improvement in terms of the pain associated with the chronic left lower leg arterial ulcer since her last visit. She's been applying topical gentamicin as recommended and scheduled for vascular intervention at [facility] on October 21. She does not report fevers, significant drainage from the ulcer, or feeling unwell in general. 10/07/17. Seen by Dr. Briceno. The patient completes her course of levofloxacin today has been treating the recent Enterobacter positive wound culture. She reports decreased pain associated with the chronic left lower leg arterial ulcer and has an intervention scheduled by vascular surgery next week. Do not yet have notes from her visit with them however. 09/30/17. Seen by Dr. Briceno. The patient continues to report some intermittent periods of significant pain associated with the chronic left lower leg arterial ulcer which is most noticeable when lying in bed at night. She started levofloxacin based on her wound culture which grew Enterobacter and staph following her visit last week. She does not yet have her arterial Doppler study scheduled but there is a high suspicion for clinically significant PAD contributing to the refractory nature of this ulcer. 09/23/17. Seen by Dr. Briceno. The patient's new to our clinic and presents with a left lower leg non-pressure ulcer that started as a trauma wound about 3-4 weeks ago. It was originally about the size of a quarter and has increased in terms of size, pain, and drainage progressively. She does not report fevers and is not on antibiotics at this time however she does report pain in the leg when lying in bed at night that improves when hanging the leg over the edge of the bed. She also has diabetes and states her blood sugars are typically below 200 however she's unaware of her A1c. She also has a history of CAD with 3-vessle bypass and notes she's moving to [place] in October to live closer to her son. Past Medical History This information was obtained from the patient Patient has a medical history of: Allergic Rhinitis Asthma Coronary Artery Disease (CAD) Type II Diabetes Gastro Esoph. 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/2017 Complaints and Symptoms This information was obtained from the patient Patient complains of: General Notes: I have reviewed and concur with the Review of Systems and Past Family Social History documents completed by the clinician, I have reviewed and concur with the Wound Assessment document completed by the clinician Cardiovascular (Central/Peripheral): Lower extremity (leg) resting pain, Lower extremity (leg) swelling Ear/Nose/Mouth/Throat: Hearing Loss / Aid Hematologic/Lymphatic: Bleeding Tendency Integumentary (Hair/Skin/Nails): Open Sore Musculoskeletal: Muscle Weakness Prior Wound History: Drainage, Erythema, Pain Patient denies complaints or symptoms related to: Cardiovascular (Central): Irregular heart beat Constitutional Symptoms (General Health): Chills, Fever Gastrointestinal (GI): Stomach/abdominal pain Hematologic/Lymphatic: Bleeding / Clotting Disorders Neurological: Loss of Protective Sensation Oncologic Prior Wound History: Bleeding Psychiatric: Memory Loss Respiratory: Oxygen Use, Shortness of Breath OBJECTIVE Constitutional Vital signs reviewed and noted. Well developed. Alert. Clean appearing.. Height/ Length: 63 in (160.02 cm), Weight: 139.3 lbs (63.32 kgs), BMI: 24.7, Temperature: 98.6 ?F (37 ?C), Pulse: 75 bpm, Respiratory Rate: 18 breaths/min, Blood Pressure: 137/72 mmHg, Capillary Blood Glucose: 91 mg/dl, Pulse Oximetry: 98 %. Vital Signs Notes: Glucose per patient Respiratory: No respiratory distress. Even respirations and without use of accessory muscles.. Integumentary (Hair, Skin) No periwound erythema, warmth, or significant drainage. No periwound rashes appreciated or noted otherwise.. Refer to appropriate clinician wound documentation for this visit; left lower leg ulcer extends to subcut with base partially covered with pink granulation, remainder fibrin and slough smaller than on last review. Wound #1 Left, Lateral Leg is a chronic Full Thickness Arterial Ulcer and has received a status of Not Healed. Subsequent wound encounter measurements are 2.4cm length x 4cm width x 0.1cm depth, with an area of 9.6 sq cm and a volume of 0.96 cubic cm. No tunneling has been noted. No sinus tract has been noted. No undermining has been noted. There is a moderate amount of seropurulent drainage noted which has no odor. The patient reports a wound pain of level 0/10. The wound margin is epithelial resurfacing. Wound bed has Yes epithelialization, No eschar, Yes slough, Yes bright red, pink, firm granulation. The periwound skin texture is normal. The periwound skin moisture is normal. The periwound skin exhibited: Hemosiderosis. The periwound skin did not exhibit: Atrophie Tara, Cyanosis, Ecchymosis, Erythema, Pallor, Rubor. The temperature of the periwound skin is WNL. Periwound skin does not exhibit signs or symptoms of infection. Local Pulse is Doppler. General Notes: Epithelial bridge noted at lateral aspect of wound: 1.2 cm ASSESSMENT Active Problems ICD-10 (Encounter Diagnosis) L97.222 - Non-pressure chronic ulcer of left calf with fat layer exposed (Encounter Diagnosis) I70.248 - Atherosclerosis of [place] arteries of left leg with ulceration of other part of lower left leg PROCEDURES Wound #1 Wound #1 (Arterial Ulcer) is located on the left, lateral leg. A skin/ subcutaneous tissue level surgical debridement with a total area debrided of 9.6 sq cm was performed by Bayron Briceno MD. Subcutaneous was removed along with devitalized tissue: slough. The following instrument(s) were used: curette. Pain control was achieved using 4% Lido. A time out was conducted prior to the start of the procedure. A minimal amount of bleeding was controlled with n/a. The procedure was tolerated well with a pain level of 0 throughout and a pain level of 0 following the procedure. Post Debridement Measurements: 2.4cm length x 4cm width x 0.2cm depth; with an area of 9.6 sq cm and a volume of 1.92 cubic cm; Wound #1 (Arterial Ulcer) is located on the left, lateral leg. A Disposable Wound Vac Application < 50 Sq Cm procedure was performed for the lower left extremity by Bayron Briceno MD. A time out was conducted prior to the start of the procedure. The procedure was tolerated well. General Notes: Jordan 6x6 applied Additional Information Muscle fascia or bone removed and sent to pathology?: No PLAN Wound Orders: Wound #1 Left, Lateral Leg Anesthetic Topical Xylocaine to wound bed. - In clinic only. Cleanser Cleanse Wound: - Normal Saline and gauze. May Shower. - Cover with cast protector. Dressings Primary dressing: - Jordan 6x6. Change Dressing: - Leave in place until next visit. Compression/Edema Control Avoid prolonged standing in one place. Single Layer Compression Hose - Tetragrip E to left leg. Apply in the morning, remove at night before bed. Follow-Up Appointments Return Appointment: - - One week. Other information: If you develop fever, chills, increased pain, drainage, redness or swelling please call our office. If after hours, respond to the ER. Should you experience any significant changes in your wound(s) or have any questions regarding your home care instructions please contact the wound center @ [phone]. If after hours, contact your primary care physician or go to the hospital emergency room. Scribing Attestation I attest, as the nurse, that I scribed these orders for the physician. I've reviewed the clinician's documentation and agree with the evaluation and plan as written. In addition, the patient's ulcer demonstrates evidence of non-viable devitalized tissue which will continue to benefit from sharp debridement to help promote granulation and expedite healing. Negative pressure wound therapy will be utilized to facilitate granulation and removal of exudate and infectious material with the goal of expediting wound healing. Electronic Signature(s) Signed By: Date: Bayron Briceno MD 02/05/2018 13:36:07 Entered By: Bayron Briceno on 02/05/2018 09:46:55
== END ==
PROVIDERS: PCP Internal Medicine; Visit Provider Internal Medicine
DX: L97.222 Non-pressure chronic ulcer of left calf with fat layer exposed (principal); I70.248 Atherosclerosis of native arteries of left leg with ulceration of other part of lower leg
CPT/HCPCS: 11042; 97607

== ENCOUNTER → 2018-02-12 08:59 | Outpatient (CLI) | payer OTHER, SELFPAY | PROVIDERS: PCP Internal Medicine; Visit Provider Internal Medicine | DX: I70.248 Atherosclerosis of native arteries of left leg with ulceration of other part of lower leg (principal); L97.222 Non-pressure chronic ulcer of left calf with fat layer exposed | CPT/HCPCS: 11042; 97607 ==

== ENCOUNTER → 2018-02-19 08:56 | Outpatient (CLI) | payer OTHER, SELFPAY ==
--- NOTE | 2018-02-19 | OV.WND_ITS ---
Progress Note Details Patient Name: Chanda Vo Patient Number: [id number] PatientPatientDate: 02/19/2018 Clinician: Majo Orozco Clinician Cosigner: Cari Malhotra Physician / Director Of Flight Operations: Bayron Briceno SUBJECTIVE Chief Complaint This information was obtained from the patient Arterial ulcer on left leg. Allergies atorvastatin (Severity: Moderate, Reaction: cramps), simvastatin (Severity: Moderate, Reaction: cramps) HPI This information was obtained from the patient 02/19/18. Seen by Dr. Briceno. The patient does not report increased drainage or pain associated with the chronic left lower leg arterial ulcer since her last visit and she's tolerating NPWT without difficulty. 02/12/18. Seen by Dr. Briceno. The patient does not report increased drainage or pain associated with the chronic left lower leg arterial ulcer since her last visit. 02/05/18. Seen by Dr. Briceno. The patient does not report increased drainage or pain associated with the chronic left lower leg arterial ulcer since her last visit. 01/22/18. Seen by Dr. Briceno. The patient does not report increased drainage or pain associated with the chronic left lower leg arterial ulcer since her last visit. 01/15/18. Seen by Dr. Briceno. The patient does not report increased drainage or pain associated with the chronic left lower leg arterial ulcer since her last visit. She's inquiring about whether a follow arterial Doppler should be ordered to evaluate her left leg PAD and whether she should continue taking Plavix noting her 90 day Rx will run out soon. 01/08/18. Seen by Dr. Briceno. The patient does not report increased drainage or pain associated with the chronic left lower leg arterial ulcer since her last visit. 01/01/18. Seen by Dr. Briceno. The patient does not report increased drainage or pain associated with the chronic left lower leg arterial ulcer since her last visit. She also complains of some dizziness upon arrival today and required a wheelchair to be transported to her room. Her vitals and blood sugar are unremarkable however she states she only has a piece of muffin prior to her appointment and is stressed due to a flat tire this morning. 12/25/17. Seen by Dr. Briceno. The patient does not report increased drainage or pain associated with the chronic left lower leg arterial ulcer since her last visit. She does report a worsening cough over the past 4 days but does not report fevers, worsening shortness of breath, or other acute issues today. 12/18/17. Seen by Dr. Briceno. The patient does not report increased drainage or pain associated with the chronic left lower leg arterial ulcer since her last visit. 12/11/17. Seen by Jorge Langston PA-C. The patient reports no increase in drainage from her left lower leg ulcer. 12/04/17. Seen by Dr. Briceno. The patient does not report increased drainage or pain associated with the chronic left lower leg arterial ulcer since her last visit. 11/27/17. Seen by Dr. Briceno. The patient does not report increased drainage or pain associated with the chronic left lower leg arterial ulcer since her last visit. She had intervention for left lower leg PAD on Thursday and does not report adverse side effects. 11/20/17. Seen by Dr. Briceon. The patient does not report increased drainage or pain associated with the chronic left lower leg arterial ulcer since her last visit and she's tolerating her JORDAN wound vac without difficulty. She has her intervention for PAD of the leg scheduled for next Thursday. 11/13/17. Seen by Dr. Briceno. The patient does not report increased drainage or pain associated with the chronic left lower leg arterial ulcer since her last visit and she's tolerating her JORDAN wound vac without difficulty. She has her intervention for PAD of the leg scheduled for 11/23/17. 11/06/17. Seen by Dr. Briceno. The patient reports improvement in terms of the pain associated with the chronic left lower leg arterial ulcer since her last visit and she's tolerating her JORDAN wound vac without difficulty. 10/30/17. Seen by Dr. Briceno. The patient reports improvement in terms of the pain associated with the chronic left lower leg arterial ulcer since her last visit, she does not report significant drainage, and she continues to apply topical gentamicin as recommended to treat the refractory wound infection. She'll have intervention on November 23 also for her left lower leg PAD. 10/23/17. Seen by Dr. Briceno. The patient reports improvement in terms of the pain associated with the chronic left lower leg arterial ulcer since her last visit. She's been applying topical gentamicin as recommended and scheduled for vascular intervention at [facility] on November 23. 10/14/17. Seen by Dr. Briceno. The patient reports improvement in terms of the pain associated with the chronic left lower leg arterial ulcer since her last visit. She's been applying topical gentamicin as recommended and scheduled for vascular intervention at [facility] on October 21. She does not report fevers, significant drainage from the ulcer, or feeling unwell in general. 10/07/17. Seen by Dr. Briceno. The patient completes her course of levofloxacin today has been treating the recent Enterobacter positive wound culture. She reports decreased pain associated with the chronic left lower leg arterial ulcer and has an intervention scheduled by vascular surgery next week. Do not yet have notes from her visit with them however. 09/30/17. Seen by Dr. Briceno. The patient continues to report some intermittent periods of significant pain associated with the chronic left lower leg arterial ulcer which is most noticeable when lying in bed at night. She started levofloxacin based on her wound culture which grew Enterobacter and staph following her visit last week. She does not yet have her arterial Doppler study scheduled but there is a high suspicion for clinically significant PAD contributing to the refractory nature of this ulcer. 09/23/17. Seen by Dr. Briceno. The patient's new to our clinic and presents with a left lower leg non-pressure ulcer that started as a trauma wound about 3-4 weeks ago. It was originally about the size of a quarter and has increased in terms of size, pain, and drainage progressively. She does not report fevers and is not on antibiotics at this time however she does report pain in the leg when lying in bed at night that improves when hanging the leg over the edge of the bed. She also has diabetes and states her blood sugars are typically below 200 however she's unaware of her A1c. She also has a history of CAD with 3-vessle bypass and notes she's moving to [place] in October to live closer to her son. Past Medical History This information was obtained from the patient Patient has a medical history of: Allergic Rhinitis Asthma Coronary Artery Disease (CAD) Type II Diabetes Gastro Esoph. 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/2017 Complaints and Symptoms This information was obtained from the patient Patient complains of: General Notes: I have reviewed and concur with the Review of Systems and Past Family Social History documents completed by the clinician, I have reviewed and concur with the Wound Assessment document completed by the clinician Cardiovascular (Central/Peripheral): Lower extremity (leg) resting pain, Lower extremity (leg) swelling Ear/Nose/Mouth/Throat: Hearing Loss / Aid Hematologic/Lymphatic: Bleeding Tendency Integumentary (Hair/Skin/Nails): Open Sore Musculoskeletal: Muscle Weakness Prior Wound History: Drainage, Erythema, Pain Patient denies complaints or symptoms related to: Cardiovascular (Central): Irregular heart beat Constitutional Symptoms (General Health): Chills, Fever Gastrointestinal (GI): Stomach/abdominal pain Hematologic/Lymphatic: Bleeding / Clotting Disorders Neurological: Loss of Protective Sensation Oncologic Prior Wound History: Bleeding Psychiatric: Memory Loss Respiratory: Oxygen Use, Shortness of Breath OBJECTIVE Constitutional Vital signs reviewed and noted. Well developed. Alert. Clean appearing.. Height/ Length: 63 in (160.02 cm), Weight: 141.2 lbs (64.18 kgs), BMI: 25, Temperature: 98.7 ?F ( 37.06 ?C), Pulse: 78 bpm, Respiratory Rate: 18 breaths/min, Blood Pressure: 117/62 mmHg, Capillary Blood Glucose: 133 mg/dl, Pulse Oximetry: 97 %. Vital Signs Notes: Glucose per patient. Respiratory: No respiratory distress. Even respirations and without use of accessory muscles.. Cardiovascular: Affected extremity exhibits no peripheral edema or cyanosis, is warm, and is well perfused. Capillary refill is less than 2 seconds. Integumentary (Hair, Skin) No periwound erythema, warmth, or significant drainage. No periwound rashes appreciated or noted otherwise.. Refer to appropriate clinician wound documentation for this visit; left lower leg ulcer extends to subcut with base partially covered with pink granulation, remainder fibrin and slough; much smaller than on previous review. Wound #1 Left, Lateral Leg is a chronic Full Thickness Arterial Ulcer and has received a status of Not Healed. Subsequent wound encounter measurements are 2.5cm length x 0.9cm width x 0.2cm depth, with an area of 2.25 sq cm and a volume of 0.45 cubic cm. No tunneling has been noted. No sinus tract has been noted. No undermining has been noted. There is a moderate amount of serosanguineous drainage noted which has no odor. The patient reports a wound pain of level 0/10. The wound margin is epithelial resurfacing. Wound bed has Yes epithelialization, No eschar, Yes slough, Yes pink, firm granulation. The periwound skin texture is normal. The periwound skin moisture is normal. The periwound skin exhibited: Hemosiderosis. The periwound skin did not exhibit: Atrophie Tara, Cyanosis, Ecchymosis, Erythema, Pallor, Rubor. The temperature of the periwound skin is WNL. Periwound skin does not exhibit signs or symptoms of infection. Local Pulse is Doppler. ASSESSMENT Active Problems ICD-10 (Encounter Diagnosis) L97.222 - Non-pressure chronic ulcer of left calf with fat layer exposed (Encounter Diagnosis) I70.248 - Atherosclerosis of [place] arteries of left leg with ulceration of other part of lower left leg PROCEDURES Wound #1 Wound #1 (Arterial Ulcer) is located on the left, lateral leg. A skin/ subcutaneous tissue level surgical debridement with a total area debrided of 2.25 sq cm was performed by Bayron Briceno MD. Subcutaneous was removed along with devitalized tissue: exudate and slough. The following instrument(s) were used: curette. Pain control was achieved using 4% Lido. A time out was conducted prior to the start of the procedure. A minimal amount of bleeding was controlled with pressure. The procedure was tolerated well with a pain level of 0 throughout and a pain level of 0 following the procedure. Post Debridement Measurements: 2.5cm length x 0.9cm width x 0.2cm depth; with an area of 2.25 sq cm and a volume of 0.45 cubic cm; Additional Information Muscle fascia or bone removed and sent to pathology?: No PLAN Wound Orders: Wound #1 Left, Lateral Leg Cleanser Cleanse Wound: - Distilled water May Shower. - But use Cast Protector boot. Dressings Primary dressing: - Allevyn Border Foam. Change Dressing: - Every two days. Compression/Edema Control Elevation of leg(s) above the level of the heart when sitting. Single Layer Compression Wrap: - Tetra E Follow-Up Appointments Return Appointment: - - One week Scribing Attestation I attest, as the nurse, that I scribed these orders for the physician. I've reviewed the clinician's documentation and agree with the evaluation and plan as written. In addition, the patient's ulcer demonstrates evidence of non-viable devitalized tissue which will continue to benefit from sharp debridement to help promote granulation and expedite healing. Also, the left lower leg ulcer is nearly healed and I've held NPWT today. Electronic Signature(s) Signed By: Date: Bayron Briceno MD 02/23/2018 12:06:17 Entered By: Bayron Briceno on 02/23/2018 07:25:54
== END ==
PROVIDERS: PCP Internal Medicine; Visit Provider Internal Medicine
DX: I70.248 Atherosclerosis of native arteries of left leg with ulceration of other part of lower leg (principal); L97.822 Non-pressure chronic ulcer of other part of left lower leg with fat layer exposed
CPT/HCPCS: 11042

== ENCOUNTER → 2018-02-26 09:48 | Outpatient (CLI) | payer OTHER, SELFPAY ==
--- NOTE | 2018-02-26 | OV.WND_ITS ---
Progress Note Details Patient Name: Chanda Vo Patient Number: [id number] PatientPatientDate: 02/26/2018 Clinician: Malia Graves Physician / Fire Adjuster: Bayron Briceno SUBJECTIVE Chief Complaint This information was obtained from the patient Arterial ulcer on left leg. Allergies atorvastatin (Severity: Moderate, Reaction: cramps), simvastatin (Severity: Moderate, Reaction: cramps) HPI This information was obtained from the patient 02/26/18. Seen by Dr. Briceno. The patient does not report increased drainage or pain associated with the chronic left lower leg arterial ulcer since her last visit however she does report a new right hand infection she feels may be related to a thorn from a blackberry simmons and was first noticed about 2 days ago. She reports pain at the site but no drainage and has diabetes which is typically well controlled. She's also not currently on antibiotics. 02/19/18. Seen by Dr. Briceno. The patient does not report increased drainage or pain associated with the chronic left lower leg arterial ulcer since her last visit and she's tolerating NPWT without difficulty. 02/12/18. Seen by Dr. Briceno. The patient does not report increased drainage or pain associated with the chronic left lower leg arterial ulcer since her last visit. 02/05/18. Seen by Dr. Briceno. The patient does not report increased drainage or pain associated with the chronic left lower leg arterial ulcer since her last visit. 01/22/18. Seen by Dr. Briceno. The patient does not report increased drainage or pain associated with the chronic left lower leg arterial ulcer since her last visit. 01/15/18. Seen by Dr. Briceno. The patient does not report increased drainage or pain associated with the chronic left lower leg arterial ulcer since her last visit. She's inquiring about whether a follow arterial Doppler should be ordered to evaluate her left leg PAD and whether she should continue taking Plavix noting her 90 day Rx will run out soon. 01/08/18. Seen by Dr. Briceno. The patient does not report increased drainage or pain associated with the chronic left lower leg arterial ulcer since her last visit. 01/01/18. Seen by Dr. Briceno. The patient does not report increased drainage or pain associated with the chronic left lower leg arterial ulcer since her last visit. She also complains of some dizziness upon arrival today and required a wheelchair to be transported to her room. Her vitals and blood sugar are unremarkable however she states she only has a piece of muffin prior to her appointment and is stressed due to a flat tire this morning. 12/25/17. Seen by Dr. Briceno. The patient does not report increased drainage or pain associated with the chronic left lower leg arterial ulcer since her last visit. She does report a worsening cough over the past 4 days but does not report fevers, worsening shortness of breath, or other acute issues today. 12/18/17. Seen by Dr. Briceno. The patient does not report increased drainage or pain associated with the chronic left lower leg arterial ulcer since her last visit. 12/11/17. Seen by Jorge Langston PA-C. The patient reports no increase in drainage from her left lower leg ulcer. 12/04/17. Seen by Dr. Briceno. The patient does not report increased drainage or pain associated with the chronic left lower leg arterial ulcer since her last visit. 11/27/17. Seen by Dr. Briceno. The patient does not report increased drainage or pain associated with the chronic left lower leg arterial ulcer since her last visit. She had intervention for left lower leg PAD on Thursday and does not report adverse side effects. 11/20/17. Seen by Dr. Briceno. The patient does not report increased drainage or pain associated with the chronic left lower leg arterial ulcer since her last visit and she's tolerating her JORDAN wound vac without difficulty. She has her intervention for PAD of the leg scheduled for next Thursday. 11/13/17. Seen by Dr. Briceno. The patient does not report increased drainage or pain associated with the chronic left lower leg arterial ulcer since her last visit and she's tolerating her JORDAN wound vac without difficulty. She has her intervention for PAD of the leg scheduled for 11/23/17. 11/06/17. Seen by Dr. Briceno. The patient reports improvement in terms of the pain associated with the chronic left lower leg arterial ulcer since her last visit and she's tolerating her JORDAN wound vac without difficulty. 10/30/17. Seen by Dr. Briceno. The patient reports improvement in terms of the pain associated with the chronic left lower leg arterial ulcer since her last visit, she does not report significant drainage, and she continues to apply topical gentamicin as recommended to treat the refractory wound infection. She'll have intervention on November 23 also for her left lower leg PAD. 10/23/17. Seen by Dr. Briceno. The patient reports improvement in terms of the pain associated with the chronic left lower leg arterial ulcer since her last visit. She's been applying topical gentamicin as recommended and scheduled for vascular intervention at [facility] on November 23. 10/14/17. Seen by Dr. Briceno. The patient reports improvement in terms of the pain associated with the chronic left lower leg arterial ulcer since her last visit. She's been applying topical gentamicin as recommended and scheduled for vascular intervention at [facility] on October 21. She does not report fevers, significant drainage from the ulcer, or feeling unwell in general. 10/07/17. Seen by Dr. Briceno. The patient completes her course of levofloxacin today has been treating the recent Enterobacter positive wound culture. She reports decreased pain associated with the chronic left lower leg arterial ulcer and has an intervention scheduled by vascular surgery next week. Do not yet have notes from her visit with them however. 09/30/17. Seen by Dr. Briceno. The patient continues to report some intermittent periods of significant pain associated with the chronic left lower leg arterial ulcer which is most noticeable when lying in bed at night. She started levofloxacin based on her wound culture which grew Enterobacter and staph following her visit last week. She does not yet have her arterial Doppler study scheduled but there is a high suspicion for clinically significant PAD contributing to the refractory nature of this ulcer. 09/23/17. Seen by Dr. Briceno. The patient's new to our clinic and presents with a left lower leg non-pressure ulcer that started as a trauma wound about 3-4 weeks ago. It was originally about the size of a quarter and has increased in terms of size, pain, and drainage progressively. She does not report fevers and is not on antibiotics at this time however she does report pain in the leg when lying in bed at night that improves when hanging the leg over the edge of the bed. She also has diabetes and states her blood sugars are typically below 200 however she's unaware of her A1c. She also has a history of CAD with 3-vessle bypass and notes she's moving to [place], [place] in October to live closer to her son. Past Medical History This information was obtained from the patient Patient has a medical history of: Allergic Rhinitis Asthma Coronary Artery Disease (CAD) Type II Diabetes Gastro Esoph. 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/2017 Complaints and Symptoms This information was obtained from the patient Patient complains of: General Notes: I have reviewed and concur with the Review of Systems and Past Family Social History documents completed by the clinician, I have reviewed and concur with the Wound Assessment document completed by the clinician Cardiovascular (Central/Peripheral): Lower extremity (leg) resting pain, Lower extremity (leg) swelling Ear/Nose/Mouth/Throat: Hearing Loss / Aid Hematologic/Lymphatic: Bleeding Tendency Integumentary (Hair/Skin/Nails): Open Sore Musculoskeletal: Muscle Weakness Prior Wound History: Drainage, Erythema, Pain Patient denies complaints or symptoms related to: Cardiovascular (Central): Irregular heart beat Constitutional Symptoms (General Health): Chills, Fever Gastrointestinal (GI): Stomach/abdominal pain Hematologic/Lymphatic: Bleeding / Clotting Disorders Neurological: Loss of Protective Sensation Oncologic Prior Wound History: Bleeding Psychiatric: Memory Loss Respiratory: Oxygen Use, Shortness of Breath OBJECTIVE Constitutional Vital signs reviewed and noted. Frail appearing. Height/Length: 63 in (160.02 cm ), Weight: 143.7 lbs (65.32 kgs), BMI: 25.5, Temperature: 98.9 ?F (37.17 ?C), Pulse: 90 bpm , Respiratory Rate: 18 breaths/min, Blood Pressure: 112/58 mmHg, Capillary Blood Glucose: 157 mg/dl, Pulse Oximetry: 97 %. Vital Signs Notes: Glucose per patient. Ears, Nose, Mouth, and Throat: No clinically significant hearing loss on informal examination. Respiratory: No respiratory distress. Even respirations and without use of accessory muscles.. Cardiovascular: Affected extremity exhibits no peripheral edema or cyanosis, is warm, and is well perfused. Capillary refill is less than 2 seconds. Integumentary (Hair, Skin) Mild left hand periwound erythema without warmth. Refer to appropriate clinician wound documentation for this visit; left lower leg ulcer extends to subcut with base partially covered with pink granulation, remainder fibrin and slough, smaller than on previous review; left palmar 2nd MCPJ wound with overlying blister and yellow purulent drainage expressed on debridement, no foreign body found. Wound #1 Left, Lateral Leg is a chronic Full Thickness Arterial Ulcer and has received a status of Not Healed. Subsequent wound encounter measurements are 1.9cm length x 1.4cm width x 0.1cm depth, with an area of 2.66 sq cm and a volume of 0.266 cubic cm. No tunneling has been noted. No sinus tract has been noted. No undermining has been noted. There is a small amount of serosanguineous drainage noted which has no odor. The patient reports a wound pain of level 0/10. The wound margin is epithelial resurfacing. Wound bed has Yes epithelialization, No eschar, Yes slough, Yes pink, firm granulation. The periwound skin texture is normal. The periwound skin moisture is normal. The periwound skin exhibited: Hemosiderosis. The periwound skin did not exhibit: [place], Cyanosis, Ecchymosis, Erythema, Pallor, Rubor. The temperature of the periwound skin is WNL. Periwound skin does not exhibit signs or symptoms of infection. Local Pulse is Doppler. Wound #2 Left Hand is an acute Partial Thickness Atypical and has received a status of Not Healed. Initial wound encounter measurements are 0.3cm length x 0.4cm width with no measurable depth, with an area of 0.12 sq cm . No tunneling has been noted. No sinus tract has been noted. No undermining has been noted. There was no drainage noted. The patient reports a wound pain of level 0/10. The wound margin is attached. Wound bed has No epithelialization, No eschar, No slough, No granulation. The periwound skin moisture is normal. The periwound skin color is normal. The periwound skin exhibited: Edema. The temperature of the periwound skin is WNL. Periwound skin presents with s/s of infection. Confirmation Description and Treatment Plan is: Signs and Symptoms Present. General Notes: Raised, fluid filled area noted. Patient believes it is related to splinter from gardening. ASSESSMENT Active Problems ICD-10 (Encounter Diagnosis) L97.222 - Non-pressure chronic ulcer of left calf with fat layer exposed (Encounter Diagnosis) I70.248 - Atherosclerosis of [place] arteries of left leg with ulceration of other part of lower left leg (Encounter Diagnosis) S61.402A - Unspecified open wound of left hand, initial encounter (Encounter Diagnosis) L03.114 - Cellulitis of left upper limb (Encounter Diagnosis) E11.628 - Type 2 diabetes mellitus with other skin complications PROCEDURES Wound #1 Wound #1 (Arterial Ulcer) is located on the left, lateral leg. A skin/ subcutaneous tissue level surgical debridement with a total area debrided of 2.66 sq cm was performed by Bayron Briceno MD. Subcutaneous was removed along with devitalized tissue: slough. The following instrument(s) were used: curette. Pain control was achieved using 4% Lido. A time out was conducted prior to the start of the procedure. A minimal amount of bleeding was controlled with n/a. The procedure was tolerated well with a pain level of 0 throughout and a pain level of 0 following the procedure. Post Debridement Measurements: 1.9cm length x 1.4cm width x 0.2cm depth; with an area of 2.66 sq cm and a volume of 0.532 cubic cm; Wound #2 Wound #2 (Atypical) is located on the left hand. A selective debridement with a total area debrided of 0.12 sq cm was performed by Bayron Briceno MD. Dermis and Epidermis were removed. The following instrument(s) were used: forceps. Pain control was achieved using 4% Lido. A time out was conducted prior to the start of the procedure. A minimal amount of bleeding was controlled with n/a. The procedure was tolerated well with a pain level of 3 throughout and a pain level of 0 following the procedure. Post Debridement Measurements: 0.3cm length x 0.4cm width x 0.1cm depth; with an area of 0.12 sq cm and a volume of 0.012 cubic cm; Additional Information Muscle fascia or bone removed and sent to pathology?: No PLAN Wound Orders: Wound #1 Left, Lateral Leg Cleanser Cleanse Wound: - Distilled water May Shower. - But use Cast Protector boot. Dressings Primary dressing: - Allevyn Border Foam. Change Dressing: - Every two days. Compression/Edema Control Elevation of leg(s) above the level of the heart when sitting. Single Layer Compression Wrap: - Tetra E Follow-Up Appointments Return Appointment: - - One week Scribing Attestation I attest, as the nurse, that I scribed these orders for the physician. Wound #2 Left Hand Cleanser Cleanse Wound: - Distilled water May Shower. - But use Cast Protector boot. Topical Treatments Antibiotic/Antimicrobial Ointment/Cream. - Gentamicin Dressings Cover and secure with: - Band aide Change Dressing: - Daily Medications prescribed: doxycycline hyclate - oral 100 mg capsule twice daily for 5 days for infected wound starting 02/26/2018 I've reviewed the clinician's documentation and agree with the evaluation and plan as written. In addition the patient's ulcer and left hand wound demonstrate evidence of non- viable devitalized tissue and they will continue to benefit from sharp debridement to help promote granulation and expedite healing. Also, I've started the patient empirically on doxycycline for cellulitis associated with the left hand wound. Electronic Signature(s) Signed By: Date: Bayron Briceno MD 02/28/2018 16:38:10 Entered By: Bayron Briceno on 02/28/2018 16:18:44
== END ==
PROVIDERS: PCP Internal Medicine; Visit Provider Internal Medicine
DX: L97.821 Non-pressure chronic ulcer of other part of left lower leg limited to breakdown of skin (principal); I70.248 Atherosclerosis of native arteries of left leg with ulceration of other part of lower leg; S61.402A Unspecified open wound of left hand, initial encounter; L03.114 Cellulitis of left upper limb; E11.628 Type 2 diabetes mellitus with other skin complications
CPT/HCPCS: 11042; 87070; 87205; 97597

== ENCOUNTER → 2018-03-05 08:53 | Outpatient (CLI) | payer OTHER, SELFPAY ==
--- NOTE | 2018-03-05 | OV.WND_ITS ---
Progress Note Details Patient Name: Chanda Vo Patient Number: [id number] PatientPatientDate: 03/05/2018 Clinician: Malia Graves Clinician Cosigner: Cari Malhotra Physician / Broadcast Operations Manager: Bayron Briceno SUBJECTIVE Chief Complaint This information was obtained from the patient Arterial ulcer on left leg. Allergies atorvastatin (Severity: Moderate, Reaction: cramps), simvastatin (Severity: Moderate, Reaction: cramps) HPI This information was obtained from the patient 03/05/18. Seen by Dr. Briceno. The patient does not report increased drainage or pain associated with the chronic left lower leg arterial ulcer since her last visit. She does report some new ulcers over the dorsum of the left foot and carries a diagnosis of diabetes as well. Her left foot is moderately swollen and she's wearing a compression stocking as recommended. 02/26/18. Seen by Dr. Briceno. The patient does not report increased drainage or pain associated with the chronic left lower leg arterial ulcer since her last visit however she does report a new right hand infection she feels may be related to a thorn from a blackberry simmons and was first noticed about 2 days ago. She reports pain at the site but no drainage and has diabetes which is typically well controlled. She's also not currently on antibiotics. 02/19/18. Seen by Dr. Briceno. The patient does not report increased drainage or pain associated with the chronic left lower leg arterial ulcer since her last visit and she's tolerating NPWT without difficulty. 02/12/18. Seen by Dr. Briceno. The patient does not report increased drainage or pain associated with the chronic left lower leg arterial ulcer since her last visit. 02/05/18. Seen by Dr. Briceno. The patient does not report increased drainage or pain associated with the chronic left lower leg arterial ulcer since her last visit. 01/22/18. Seen by Dr. Briceno. The patient does not report increased drainage or pain associated with the chronic left lower leg arterial ulcer since her last visit. 01/15/18. Seen by Dr. Briceno. The patient does not report increased drainage or pain associated with the chronic left lower leg arterial ulcer since her last visit. She's inquiring about whether a follow arterial Doppler should be ordered to evaluate her left leg PAD and whether she should continue taking Plavix noting her 90 day Rx will run out soon. 01/08/18. Seen by Dr. Briceno. The patient does not report increased drainage or pain associated with the chronic left lower leg arterial ulcer since her last visit. 01/01/18. Seen by Dr. Briceno. The patient does not report increased drainage or pain associated with the chronic left lower leg arterial ulcer since her last visit. She also complains of some dizziness upon arrival today and required a wheelchair to be transported to her room. Her vitals and blood sugar are unremarkable however she states she only has a piece of muffin prior to her appointment and is stressed due to a flat tire this morning. 12/25/17. Seen by Dr. Briceno. The patient does not report increased drainage or pain associated with the chronic left lower leg arterial ulcer since her last visit. She does report a worsening cough over the past 4 days but does not report fevers, worsening shortness of breath, or other acute issues today. 12/18/17. Seen by Dr. Briceno. The patient does not report increased drainage or pain associated with the chronic left lower leg arterial ulcer since her last visit. 12/11/17. Seen by Jorge Langston PA-C. The patient reports no increase in drainage from her left lower leg ulcer. 12/04/17. Seen by Dr. Briceno. The patient does not report increased drainage or pain associated with the chronic left lower leg arterial ulcer since her last visit. 11/27/17. Seen by Dr. Briceno. The patient does not report increased drainage or pain associated with the chronic left lower leg arterial ulcer since her last visit. She had intervention for left lower leg PAD on Thursday and does not report adverse side effects. 11/20/17. Seen by Dr. Briceno. The patient does not report increased drainage or pain associated with the chronic left lower leg arterial ulcer since her last visit and she's tolerating her JORDAN wound vac without difficulty. She has her intervention for PAD of the leg scheduled for next Thursday. 11/13/17. Seen by Dr. Briceno. The patient does not report increased drainage or pain associated with the chronic left lower leg arterial ulcer since her last visit and she's tolerating her JORDAN wound vac without difficulty. She has her intervention for PAD of the leg scheduled for 11/23/17. 11/06/17. Seen by Dr. Briceno. The patient reports improvement in terms of the pain associated with the chronic left lower leg arterial ulcer since her last visit and she's tolerating her JORDAN wound vac without difficulty. 10/30/17. Seen by Dr. Briceno. The patient reports improvement in terms of the pain associated with the chronic left lower leg arterial ulcer since her last visit, she does not report significant drainage, and she continues to apply topical gentamicin as recommended to treat the refractory wound infection. She'll have intervention on November 23 also for her left lower leg PAD. 10/23/17. Seen by Dr. Briceno. The patient reports improvement in terms of the pain associated with the chronic left lower leg arterial ulcer since her last visit. She's been applying topical gentamicin as recommended and scheduled for vascular intervention at [facility] on November 23. 10/14/17. Seen by Dr. Briceno. The patient reports improvement in terms of the pain associated with the chronic left lower leg arterial ulcer since her last visit. She's been applying topical gentamicin as recommended and scheduled for vascular intervention at [facility] on October 21. She does not report fevers, significant drainage from the ulcer, or feeling unwell in general. 10/07/17. Seen by Dr. Briceno. The patient completes her course of levofloxacin today has been treating the recent Enterobacter positive wound culture. She reports decreased pain associated with the chronic left lower leg arterial ulcer and has an intervention scheduled by vascular surgery next week. Do not yet have notes from her visit with them however. 09/30/17. Seen by Dr. Briceno. The patient continues to report some intermittent periods of significant pain associated with the chronic left lower leg arterial ulcer which is most noticeable when lying in bed at night. She started levofloxacin based on her wound culture which grew Enterobacter and staph following her visit last week. She does not yet have her arterial Doppler study scheduled but there is a high suspicion for clinically significant PAD contributing to the refractory nature of this ulcer. 09/23/17. Seen by Dr. Briceno. The patient's new to our clinic and presents with a left lower leg non-pressure ulcer that started as a trauma wound about 3-4 weeks ago. It was originally about the size of a quarter and has increased in terms of size, pain, and drainage progressively. She does not report fevers and is not on antibiotics at this time however she does report pain in the leg when lying in bed at night that improves when hanging the leg over the edge of the bed. She also has diabetes and states her blood sugars are typically below 200 however she's unaware of her A1c. She also has a history of CAD with 3-vessle bypass and notes she's moving to [place] in October to live closer to her son. Past Medical History This information was obtained from the patient Patient has a medical history of: Allergic Rhinitis Asthma Coronary Artery Disease (CAD) Type II Diabetes Gastro Esoph. 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/2017 Complaints and Symptoms This information was obtained from the patient Patient complains of: General Notes: I have reviewed and concur with the Review of Systems and Past Family Social History documents completed by the clinician, I have reviewed and concur with the Wound Assessment document completed by the clinician Cardiovascular (Central/Peripheral): Lower extremity (leg) resting pain, Lower extremity (leg) swelling Ear/Nose/Mouth/Throat: Hearing Loss / Aid Hematologic/Lymphatic: Bleeding Tendency Integumentary (Hair/Skin/Nails): Open Sore Musculoskeletal: Muscle Weakness Prior Wound History: Drainage, Erythema, Pain Patient denies complaints or symptoms related to: Cardiovascular (Central): Irregular heart beat Constitutional Symptoms (General Health): Chills, Fever Gastrointestinal (GI): Stomach/abdominal pain Hematologic/Lymphatic: Bleeding / Clotting Disorders Neurological: Loss of Protective Sensation Oncologic Prior Wound History: Bleeding Psychiatric: Memory Loss Respiratory: Oxygen Use, Shortness of Breath OBJECTIVE Constitutional Vital signs reviewed and noted. Frail appearing. Height/Length: 63 in (160.02 cm ), Weight: 140.3 lbs (63.77 kgs), BMI: 24.9, Temperature: 97.9 ?F (36.61 ?C), Pulse: 80 bpm , Respiratory Rate: 18 breaths/min, Blood Pressure: 114/68 mmHg, Capillary Blood Glucose: 149 mg/dl, Pulse Oximetry: 96 %. Vital Signs Notes: Glucose per patient. Ears, Nose, Mouth, and Throat: Moderate hearing deficit. Respiratory: No respiratory distress. Even respirations and without use of accessory muscles.. Cardiovascular: 2+ left foot extremity edema. Gastrointestinal (GI): Non-obese. Nondistended.. 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 Integumentary (Hair, Skin) Mild left foot periwound erythema without warmth. Refer to appropriate clinician wound documentation for this visit; left lower leg ulcer extends to subcut with base partially covered with pink granulation, remainder fibrin and slough; two approx 3-4mm ulcercer of medial dorsum of left foot extending to subcut with bases covered with slough. Wound #1 Left, Lateral Leg is a chronic Full Thickness Arterial Ulcer and has received a status of Not Healed. Subsequent wound encounter measurements are 1.3cm length x 1.3cm width x 0.1cm depth, with an area of 1.69 sq cm and a volume of 0.169 cubic cm. No tunneling has been noted. No sinus tract has been noted. No undermining has been noted. There is a small amount of serosanguineous drainage noted which has no odor. The patient reports a wound pain of level 0/10. The wound margin is epithelial resurfacing. Wound bed has Yes epithelialization, No eschar, Yes slough, Yes pink, firm granulation. The periwound skin texture is normal. The periwound skin moisture is normal. The periwound skin exhibited: Hemosiderosis. The periwound skin did not exhibit: Atrophie Tara, Cyanosis, Ecchymosis, Erythema, Pallor, Rubor. The temperature of the periwound skin is WNL. Periwound skin does not exhibit signs or symptoms of infection. Local Pulse is Doppler. Wound #2 Left Hand is an acute Partial Thickness Atypical and has received an outcome of Healed - no new wound(s). Subsequent wound encounter measurements are 0cm length x 0cm width with no measurable depth, with an area of 0 sq cm . No tunneling has been noted. No sinus tract has been noted. No undermining has been noted. There was no drainage noted. The patient reports a wound pain of level 0/10. The wound margin is attached. Wound bed has No epithelialization, No eschar, No slough, No granulation. The periwound skin moisture is normal. The periwound skin color is normal. The periwound skin exhibited: Edema. The temperature of the periwound skin is WNL. Periwound skin presents with s/s of infection. Confirmation Description and Treatment Plan is: Signs and Symptoms Present. Wound #3 Left, Dorsal Foot is an acute [facility] Grade 1 Diabetic Ulcer and has received a status of Not Healed. Initial wound encounter measurements are 0.2cm length x 0.2cm width x 0.1cm depth, with an area of 0.04 sq cm and a volume of 0.004 cubic cm. No tunneling has been noted. No sinus tract has been noted. No undermining has been noted. There was no drainage noted. The patient reports a wound pain of level 0/10. The wound margin is attached. Wound bed has Yes epithelialization, No eschar, Yes slough, Yes bright red, firm granulation. The periwound skin moisture is normal. The periwound skin color is normal. The periwound skin exhibited: Edema. The temperature of the periwound skin is WNL. Periwound skin presents with s/s of infection. Confirmation Description and Treatment Plan is: Signs and Symptoms Present. Local Pulse is Palpable. ASSESSMENT Active Problems ICD-10 (Encounter Diagnosis) L97.222 - Non-pressure chronic ulcer of left calf with fat layer exposed (Encounter Diagnosis) I70.248 - Atherosclerosis of [place] arteries of left leg with ulceration of other part of lower left leg (Encounter Diagnosis) E11.621 - Type 2 diabetes mellitus with foot ulcer (Encounter Diagnosis) L97.522 - Non-pressure chronic ulcer of other part of left foot with fat layer exposed (Encounter Diagnosis) R60.0 - Localized edema PROCEDURES Wound #1 Wound #1 (Arterial Ulcer) is located on the left, lateral leg. A skin/ subcutaneous tissue level surgical debridement with a total area debrided of 1.69 sq cm was performed by Bayron Briceno MD. Subcutaneous was removed along with devitalized tissue: slough. The following instrument(s) were used: curette. Pain control was achieved using 4% Lido. A time out was conducted prior to the start of the procedure. A minimal amount of bleeding was controlled with n/a. The procedure was tolerated well with a pain level of 0 throughout and a pain level of 0 following the procedure. Post Debridement Measurements: 1.3cm length x 1.3cm width x 0.2cm depth; with an area of 1.69 sq cm and a volume of 0.338 cubic cm; Wound #3 Wound #3 (Diabetic Ulcer) is located on the left, dorsal foot. A skin/ subcutaneous tissue level surgical debridement with a total area debrided of 0.04 sq cm was performed by Bayron Briceno MD. Subcutaneous was removed along with devitalized tissue: slough. The following instrument(s) were used: curette. Pain control was achieved using 4% Lido. A time out was conducted prior to the start of the procedure. A minimal amount of bleeding was controlled with n/a. The procedure was tolerated well with a pain level of 0 throughout and a pain level of 0 following the procedure. Post Debridement Measurements: 0.2cm length x 0.2cm width x 0.2cm depth; with an area of 0.04 sq cm and a volume of 0.008 cubic cm; Additional Information Muscle fascia or bone removed and sent to pathology?: No Muscle fascia or bone removed and sent to pathology?: No PLAN Wound Orders: Wound #1 Left, Lateral Leg Cleanser Cleanse Wound: - Distilled water May Shower. - But use Cast Protector boot. Dressings Primary dressing: - Allevyn Border Foam. Change Dressing: - Every two days. Compression/Edema Control Elevation of leg(s) above the level of the heart when sitting. Single Layer Compression Wrap: - Tetra E Follow-Up Appointments Return Appointment: - - One week Scribing Attestation I attest, as the nurse, that I scribed these orders for the physician. Wound #3 Left, Dorsal Foot Cleanser Cleanse Wound: - Distilled water May Shower. - But use Cast Protector boot. Topical Treatments Antibiotic/Antimicrobial Ointment/Cream. - Gentamicin Dressings Primary dressing: - Allevyn Border Foam. Change Dressing: - Every two days. I've reviewed the clinician's documentation and agree with the evaluation and plan as written. In addition the patient's ulcers demonstrate evidence of non-viable devitalized tissue and they will continue to benefit from sharp debridement to help promote granulation and expedite healing. Also, I've referred the patient for diabetic shoes and cultured the two new left foot diabetic ulcers. We'll also address her compression stocking to help better manage the significant left foot edema. Electronic Signature(s) Signed By: Date: Bayron Briceno MD 03/07/2018 13:56:08 Entered By: Bayron Briceno on 03/07/2018 13:52:03
== END ==
PROVIDERS: PCP Internal Medicine; Visit Provider Internal Medicine
DX: I70.248 Atherosclerosis of native arteries of left leg with ulceration of other part of lower leg (principal); L97.822 Non-pressure chronic ulcer of other part of left lower leg with fat layer exposed; E11.621 Type 2 diabetes mellitus with foot ulcer; L97.522 Non-pressure chronic ulcer of other part of left foot with fat layer exposed; R60.0 Localized edema
CPT/HCPCS: 11042; 87070; 87077; 87186; 87205

== ENCOUNTER → 2018-03-17 10:21 | Outpatient (CLI) | payer OTHER, SELFPAY ==
--- NOTE | 2018-03-17 | OV.WND_ITS ---
Progress Note Details Patient Name: Chanda Vo Patient Number: [id number] PatientPatientDate: 03/17/2018 Clinician: Roma Gonzalez Physician / Revenue Accountant: Bayron Briceno SUBJECTIVE Chief Complaint This information was obtained from the patient Arterial ulcer on left leg. Allergies atorvastatin (Severity: Moderate, Reaction: cramps), simvastatin (Severity: Moderate, Reaction: cramps) HPI This information was obtained from the patient 03/17/18. Seen by Dr. Briceno. The patient does not report increased drainage or pain associated with the chronic left lower leg arterial ulcer nor dorsal right 1st MTPJ diabetic ulcer since her last visit. 03/05/18. Seen by Dr. Briceno. The patient does not report increased drainage or pain associated with the chronic left lower leg arterial ulcer since her last visit. She does report some new ulcers over the dorsum of the left foot and carries a diagnosis of diabetes as well. Her left foot is moderately swollen and she's wearing a compression stocking as recommended. 02/26/18. Seen by Dr. Briceno. The patient does not report increased drainage or pain associated with the chronic left lower leg arterial ulcer since her last visit however she does report a new right hand infection she feels may be related to a thorn from a blackberry simmons and was first noticed about 2 days ago. She reports pain at the site but no drainage and has diabetes which is typically well controlled. She's also not currently on antibiotics. 02/19/18. Seen by Dr. Briceno. The patient does not report increased drainage or pain associated with the chronic left lower leg arterial ulcer since her last visit and she's tolerating NPWT without difficulty. 02/12/18. Seen by Dr. Briceno. The patient does not report increased drainage or pain associated with the chronic left lower leg arterial ulcer since her last visit. 02/05/18. Seen by Dr. Briceno. The patient does not report increased drainage or pain associated with the chronic left lower leg arterial ulcer since her last visit. 01/22/18. Seen by Dr. Briceno. The patient does not report increased drainage or pain associated with the chronic left lower leg arterial ulcer since her last visit. 01/15/18. Seen by Dr. Briceno. The patient does not report increased drainage or pain associated with the chronic left lower leg arterial ulcer since her last visit. She's inquiring about whether a follow arterial Doppler should be ordered to evaluate her left leg PAD and whether she should continue taking Plavix noting her 90 day Rx will run out soon. 01/08/18. Seen by Dr. Briceno. The patient does not report increased drainage or pain associated with the chronic left lower leg arterial ulcer since her last visit. 01/01/18. Seen by Dr. Briceno. The patient does not report increased drainage or pain associated with the chronic left lower leg arterial ulcer since her last visit. She also complains of some dizziness upon arrival today and required a wheelchair to be transported to her room. Her vitals and blood sugar are unremarkable however she states she only has a piece of muffin prior to her appointment and is stressed due to a flat tire this morning. 12/25/17. Seen by Dr. Briceno. The patient does not report increased drainage or pain associated with the chronic left lower leg arterial ulcer since her last visit. She does report a worsening cough over the past 4 days but does not report fevers, worsening shortness of breath, or other acute issues today. 12/18/17. Seen by Dr. Briceno. The patient does not report increased drainage or pain associated with the chronic left lower leg arterial ulcer since her last visit. 12/11/17. Seen by Jorge Langston PA-C. The patient reports no increase in drainage from her left lower leg ulcer. 12/04/17. Seen by Dr. Briceno. The patient does not report increased drainage or pain associated with the chronic left lower leg arterial ulcer since her last visit. 11/27/17. Seen by Dr. Briceno. The patient does not report increased drainage or pain associated with the chronic left lower leg arterial ulcer since her last visit. She had intervention for left lower leg PAD on Thursday and does not report adverse side effects. 11/20/17. Seen by Dr. Briceno. The patient does not report increased drainage or pain associated with the chronic left lower leg arterial ulcer since her last visit and she's tolerating her JORDAN wound vac without difficulty. She has her intervention for PAD of the leg scheduled for next Thursday. 11/13/17. Seen by Dr. Briceno. The patient does not report increased drainage or pain associated with the chronic left lower leg arterial ulcer since her last visit and she's tolerating her JORDAN wound vac without difficulty. She has her intervention for PAD of the leg scheduled for 11/23/17. 11/06/17. Seen by Dr. Briceno. The patient reports improvement in terms of the pain associated with the chronic left lower leg arterial ulcer since her last visit and she's tolerating her JORDAN wound vac without difficulty. 10/30/17. Seen by Dr. Briceno. The patient reports improvement in terms of the pain associated with the chronic left lower leg arterial ulcer since her last visit, she does not report significant drainage, and she continues to apply topical gentamicin as recommended to treat the refractory wound infection. She'll have intervention on November 23 also for her left lower leg PAD. 10/23/17. Seen by Dr. Briceno. The patient reports improvement in terms of the pain associated with the chronic left lower leg arterial ulcer since her last visit. She's been applying topical gentamicin as recommended and scheduled for vascular intervention at [facility] on November 23. 10/14/17. Seen by Dr. Briceno. The patient reports improvement in terms of the pain associated with the chronic left lower leg arterial ulcer since her last visit. She's been applying topical gentamicin as recommended and scheduled for vascular intervention at [facility] on October 21. She does not report fevers, significant drainage from the ulcer, or feeling unwell in general. 10/07/17. Seen by Dr. Briceno. The patient completes her course of levofloxacin today has been treating the recent Enterobacter positive wound culture. She reports decreased pain associated with the chronic left lower leg arterial ulcer and has an intervention scheduled by vascular surgery next week. Do not yet have notes from her visit with them however. 09/30/17. Seen by Dr. Briceno. The patient continues to report some intermittent periods of significant pain associated with the chronic left lower leg arterial ulcer which is most noticeable when lying in bed at night. She started levofloxacin based on her wound culture which grew Enterobacter and staph following her visit last week. She does not yet have her arterial Doppler study scheduled but there is a high suspicion for clinically significant PAD contributing to the refractory nature of this ulcer. 09/23/17. Seen by Dr. Briceno. The patient's new to our clinic and presents with a left lower leg non-pressure ulcer that started as a trauma wound about 3-4 weeks ago. It was originally about the size of a quarter and has increased in terms of size, pain, and drainage progressively. She does not report fevers and is not on antibiotics at this time however she does report pain in the leg when lying in bed at night that improves when hanging the leg over the edge of the bed. She also has diabetes and states her blood sugars are typically below 200 however she's unaware of her A1c. She also has a history of CAD with 3-vessle bypass and notes she's moving to [place], [place] in October to live closer to her son. Past Medical History This information was obtained from the patient Patient has a medical history of: Allergic Rhinitis Asthma Coronary Artery Disease (CAD) Type II Diabetes Gastro Esoph. 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/2017 Complaints and Symptoms This information was obtained from the patient Patient complains of: General Notes: I have reviewed and concur with the Review of Systems and Past Family Social History documents completed by the clinician, I have reviewed and concur with the Wound Assessment document completed by the clinician Cardiovascular (Central/Peripheral): Lower extremity (leg) resting pain, Lower extremity (leg) swelling Ear/Nose/Mouth/Throat: Hearing Loss / Aid Hematologic/Lymphatic: Bleeding Tendency Integumentary (Hair/Skin/Nails): Open Sore Musculoskeletal: Muscle Weakness Prior Wound History: Drainage, Erythema, Pain Patient denies complaints or symptoms related to: Cardiovascular (Central): Irregular heart beat Constitutional Symptoms (General Health): Chills, Fever Gastrointestinal (GI): Stomach/abdominal pain Hematologic/Lymphatic: Bleeding / Clotting Disorders Neurological: Loss of Protective Sensation Oncologic Prior Wound History: Bleeding Psychiatric: Memory Loss Respiratory: Oxygen Use, Shortness of Breath OBJECTIVE Constitutional Vital signs reviewed and noted. Well developed. Alert. Clean appearing.. Height/ Length: 63 in (160.02 cm), Weight: 140.3 lbs (63.77 kgs), BMI: 24.9, Temperature: 98.3 ?F ( 36.83 ?C), Pulse: 77 bpm, Respiratory Rate: 18 breaths/min, Blood Pressure: 113/68 mmHg, Capillary Blood Glucose: 79 mg/dl, Pulse Oximetry: 98 %. Vital Signs Notes: Glucose per patient Ears, Nose, Mouth, and Throat: No clinically significant hearing loss on informal examination. Cardiovascular: Affected extremity exhibits no peripheral edema or cyanosis, is warm, and is well perfused. Capillary refill is less than 2 seconds. Integumentary (Hair, Skin) No periwound erythema, warmth, or significant drainage. No periwound rashes appreciated or noted otherwise.. Refer to appropriate clinician wound documentation for this visit; left lower and dosal foot leg ulcers extend to subcut with bases partially covered with pink granulation, remainder fibrin and slough. Wound #1 Left, Lateral Leg is a chronic Full Thickness Arterial Ulcer and has received a status of Not Healed. Subsequent wound encounter measurements are 0.8cm length x 0.6cm width x 0.1cm depth, with an area of 0.48 sq cm and a volume of 0.048 cubic cm. No tunneling has been noted. No sinus tract has been noted. No undermining has been noted. There is a small amount of serosanguineous drainage noted which has no odor. The patient reports a wound pain of level 0/10. The wound margin is epithelial resurfacing. Wound bed has Yes epithelialization, No eschar, Yes slough, Yes pink, firm granulation. The periwound skin texture is normal. The periwound skin moisture is normal. The periwound skin exhibited: Hemosiderosis. The periwound skin did not exhibit: Atrophie [place], Cyanosis, Ecchymosis, Erythema, Pallor, Rubor. The temperature of the periwound skin is WNL. Periwound skin does not exhibit signs or symptoms of infection. Local Pulse is Doppler. Wound #3 Left, Dorsal Foot is an acute [place] Grade 1 Diabetic Ulcer and has received a status of Not Healed. Subsequent wound encounter measurements are 0.4cm length x 0.3cm width with no measurable depth, with an area of 0.12 sq cm . No tunneling has been noted. No sinus tract has been noted. No undermining has been noted. There was no drainage noted. The patient reports a wound pain of level 0/10. The wound margin is attached. Wound bed has Yes epithelialization, No eschar, Yes slough, No granulation. The periwound skin texture is normal. The periwound skin moisture is normal. The periwound skin exhibited: Erythema. The periwound skin did not exhibit: Atrophie [place], Cyanosis, Ecchymosis, Hemosiderosis, Pallor, Rubor. The temperature of the periwound skin is WNL. Periwound skin presents with s/s of infection. Confirmation Description and Treatment Plan is: Signs and Symptoms Present. Local Pulse is Palpable. General Notes: Dried exudate measured, no visible open area at this time. ASSESSMENT Active Problems ICD-10 (Encounter Diagnosis) L97.222 - Non-pressure chronic ulcer of left calf with fat layer exposed (Encounter Diagnosis) I70.248 - Atherosclerosis of [place] arteries of left leg with ulceration of other part of lower left leg (Encounter Diagnosis) E11.621 - Type 2 diabetes mellitus with foot ulcer (Encounter Diagnosis) L97.522 - Non-pressure chronic ulcer of other part of left foot with fat layer exposed PROCEDURES Wound #1 Wound #1 (Arterial Ulcer) is located on the left, lateral leg. A skin/ subcutaneous tissue level surgical debridement with a total area debrided of 0.48 sq cm was performed by Bayron Briceno MD. Subcutaneous was removed along with devitalized tissue: slough. The following instrument(s) were used: curette. Pain control was achieved using 4% Lido. A time out was conducted prior to the start of the procedure. A minimal amount of bleeding was controlled with n/a. The procedure was tolerated well with a pain level of 0 throughout and a pain level of 0 following the procedure. Post Debridement Measurements: 0.8cm length x 0.6cm width x 0.2cm depth; with an area of 0.48 sq cm and a volume of 0.096 cubic cm; Wound #3 Wound #3 (Diabetic Ulcer) is located on the left, dorsal foot. A skin/ subcutaneous tissue level surgical debridement with a total area debrided of 0.12 sq cm was performed by Bayron Briceno MD. Subcutaneous was removed along with devitalized tissue: slough and dried drainage. The following instrument(s) were used: curette. Pain control was achieved using 4% Lido. A time out was conducted prior to the start of the procedure. A minimal amount of bleeding was controlled with n/a. The procedure was tolerated well with a pain level of 0 throughout and a pain level of 0 following the procedure. Post Debridement Measurements: 0.4cm length x 0.3cm width x 0.1cm depth; with an area of 0.12 sq cm and a volume of 0.012 cubic cm; Additional Information Muscle fascia or bone removed and sent to pathology?: No Muscle fascia or bone removed and sent to pathology?: No PLAN Wound Orders: Wound #1 Left, Lateral Leg Anesthetic Topical Xylocaine to wound bed. - In clinic only Cleanser Cleanse Wound: - Distilled water May Shower. - But use Cast Protector boot. Dressings Primary dressing: - Allevyn Border Foam. Change Dressing: - Every two days. Compression/Edema Control Elevation of leg(s) above the level of the heart when sitting. Single Layer Compression Wrap: - Tetra E Follow-Up Appointments Return Appointment: - - One week Scribing Attestation I attest, as the nurse, that I scribed these orders for the physician. Wound #3 Left, Dorsal Foot Anesthetic Topical Xylocaine to wound bed. - In clinic only Cleanser Cleanse Wound: - Distilled water May Shower. - But use Cast Protector boot. Dressings Primary dressing: - Allevyn Border Foam. Change Dressing: - Every two days. I've reviewed the clinician's documentation and agree with the evaluation and plan as written. In addition the patient's ulcers demonstrate evidence of non-viable devitalized tissue and they will continue to benefit from sharp debridement to help promote granulation and expedite healing. Electronic Signature(s) Signed By: Date: Bayron Briceno MD 03/18/2018 09:13:39 Entered By: Bayron Briceno on 03/18/2018 07:06:46
== END ==
PROVIDERS: PCP Internal Medicine; Visit Provider Internal Medicine
DX: I70.248 Atherosclerosis of native arteries of left leg with ulceration of other part of lower leg (principal); L97.222 Non-pressure chronic ulcer of left calf with fat layer exposed; E11.621 Type 2 diabetes mellitus with foot ulcer; L97.522 Non-pressure chronic ulcer of other part of left foot with fat layer exposed
CPT/HCPCS: 11042

== ENCOUNTER → 2018-03-26 09:30 | Outpatient (CLI) | payer OTHER, SELFPAY ==
--- NOTE | 2018-03-26 | OV.WND_ITS ---
Progress Note Details Patient Name: Chanda Vo Patient Number: [id number] PatientPatientDate: 03/26/2018 Clinician: Majo Orozco Clinician Cosigner: Cari Malhotra Physician / Social Services Manager: Bayron Briceno SUBJECTIVE Chief Complaint This information was obtained from the patient Arterial ulcer on left leg and diabetic ulcer on left foot. Allergies atorvastatin (Severity: Moderate, Reaction: cramps), simvastatin (Severity: Moderate, Reaction: cramps) HPI This information was obtained from the patient 03/26/18. Seem by Dr. Briceno. The patient does not report increased drainage or pain associated with the chronic left lower leg arterial ulcer since her last visit. She does report two new non-pressure ulcers over the right lateral malleolus and right 5th toe noting they may have resulted from rubbing on her wheeled walker and shoe respectively. She does not report pain or drainage from these areas and is unsure how long they've been present. She was also seen by her vascular surgeon this week who feels her left leg PAD is optimized however may have raised concern regarding the right leg and wishes to see her again in 2 weeks. 03/17/18. Seen by Dr. Briceno. The patient does not report increased drainage or pain associated with the chronic left lower leg arterial ulcer nor dorsal right 1st MTPJ diabetic ulcer since her last visit. 03/05/18. Seen by Dr. Briceno. The patient does not report increased drainage or pain associated with the chronic left lower leg arterial ulcer since her last visit. She does report some new ulcers over the dorsum of the left foot and carries a diagnosis of diabetes as well. Her left foot is moderately swollen and she's wearing a compression stocking as recommended. 02/26/18. Seen by Dr. Briceno. The patient does not report increased drainage or pain associated with the chronic left lower leg arterial ulcer since her last visit however she does report a new right hand infection she feels may be related to a thorn from a blackberry simmons and was first noticed about 2 days ago. She reports pain at the site but no drainage and has diabetes which is typically well controlled. She's also not currently on antibiotics. 02/19/18. Seen by Dr. Briceno. The patient does not report increased drainage or pain associated with the chronic left lower leg arterial ulcer since her last visit and she's tolerating NPWT without difficulty. 02/12/18. Seen by Dr. Briceno. The patient does not report increased drainage or pain associated with the chronic left lower leg arterial ulcer since her last visit. 02/05/18. Seen by Dr. Briceno. The patient does not report increased drainage or pain associated with the chronic left lower leg arterial ulcer since her last visit. 01/22/18. Seen by Dr. Briceno. The patient does not report increased drainage or pain associated with the chronic left lower leg arterial ulcer since her last visit. 01/15/18. Seen by Dr. Briceno. The patient does not report increased drainage or pain associated with the chronic left lower leg arterial ulcer since her last visit. She's inquiring about whether a follow arterial Doppler should be ordered to evaluate her left leg PAD and whether she should continue taking Plavix noting her 90 day Rx will run out soon. 01/08/18. Seen by Dr. Briceno. The patient does not report increased drainage or pain associated with the chronic left lower leg arterial ulcer since her last visit. 01/01/18. Seen by Dr. Briceno. The patient does not report increased drainage or pain associated with the chronic left lower leg arterial ulcer since her last visit. She also complains of some dizziness upon arrival today and required a wheelchair to be transported to her room. Her vitals and blood sugar are unremarkable however she states she only has a piece of muffin prior to her appointment and is stressed due to a flat tire this morning. 12/25/17. Seen by Dr. Briceno. The patient does not report increased drainage or pain associated with the chronic left lower leg arterial ulcer since her last visit. She does report a worsening cough over the past 4 days but does not report fevers, worsening shortness of breath, or other acute issues today. 12/18/17. Seen by Dr. Briceno. The patient does not report increased drainage or pain associated with the chronic left lower leg arterial ulcer since her last visit. 12/11/17. Seen by Jorge Langston PA-C. The patient reports no increase in drainage from her left lower leg ulcer. 12/04/17. Seen by Dr. Briceno. The patient does not report increased drainage or pain associated with the chronic left lower leg arterial ulcer since her last visit. 11/27/17. Seen by Dr. Briceno. The patient does not report increased drainage or pain associated with the chronic left lower leg arterial ulcer since her last visit. She had intervention for left lower leg PAD on Thursday and does not report adverse side effects. 11/20/17. Seen by Dr. Briceno. The patient does not report increased drainage or pain associated with the chronic left lower leg arterial ulcer since her last visit and she's tolerating her JORDAN wound vac without difficulty. She has her intervention for PAD of the leg scheduled for next Thursday. 11/13/17. Seen by Dr. Briceno. The patient does not report increased drainage or pain associated with the chronic left lower leg arterial ulcer since her last visit and she's tolerating her JORDAN wound vac without difficulty. She has her intervention for PAD of the leg scheduled for 11/23/17. 11/06/17. Seen by Dr. Briceno. The patient reports improvement in terms of the pain associated with the chronic left lower leg arterial ulcer since her last visit and she's tolerating her JORDAN wound vac without difficulty. 10/30/17. Seen by Dr. Briceno. The patient reports improvement in terms of the pain associated with the chronic left lower leg arterial ulcer since her last visit, she does not report significant drainage, and she continues to apply topical gentamicin as recommended to treat the refractory wound infection. She'll have intervention on November 23 also for her left lower leg PAD. 10/23/17. Seen by Dr. Briceno. The patient reports improvement in terms of the pain associated with the chronic left lower leg arterial ulcer since her last visit. She's been applying topical gentamicin as recommended and scheduled for vascular intervention at [facility] on November 23. 10/14/17. Seen by Dr. Briceno. The patient reports improvement in terms of the pain associated with the chronic left lower leg arterial ulcer since her last visit. She's been applying topical gentamicin as recommended and scheduled for vascular intervention at [facility] on October 21. She does not report fevers, significant drainage from the ulcer, or feeling unwell in general. 10/07/17. Seen by Dr. Briceno. The patient completes her course of levofloxacin today has been treating the recent Enterobacter positive wound culture. She reports decreased pain associated with the chronic left lower leg arterial ulcer and has an intervention scheduled by vascular surgery next week. Do not yet have notes from her visit with them however. 09/30/17. Seen by Dr. Briceno. The patient continues to report some intermittent periods of significant pain associated with the chronic left lower leg arterial ulcer which is most noticeable when lying in bed at night. She started levofloxacin based on her wound culture which grew Enterobacter and staph following her visit last week. She does not yet have her arterial Doppler study scheduled but there is a high suspicion for clinically significant PAD contributing to the refractory nature of this ulcer. 09/23/17. Seen by Dr. Briceno. The patient's new to our clinic and presents with a left lower leg non-pressure ulcer that started as a trauma wound about 3-4 weeks ago. It was originally about the size of a quarter and has increased in terms of size, pain, and drainage progressively. She does not report fevers and is not on antibiotics at this time however she does report pain in the leg when lying in bed at night that improves when hanging the leg over the edge of the bed. She also has diabetes and states her blood sugars are typically below 200 however she's unaware of her A1c. She also has a history of CAD with 3-vessle bypass and notes she's moving to [place], [place] in October to live closer to her son. 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/2017 Surgical History This information was obtained from the patient Patient has a surgical history of: Total Colectomy Cataract Surgery (bilateral) Foot Surgery (Repair of fractures in left foot) Triple Bypass Heart Surgery Re-vascularization - 12/10/2017 Complaints and Symptoms This information was obtained from the patient Patient complains of: General Notes: I have reviewed and concur with the Review of Systems and Past Family Social History documents completed by the clinician, I have reviewed and concur with the Wound Assessment document completed by the clinician Cardiovascular (Central/Peripheral): Lower extremity (leg) resting pain, Lower extremity (leg) swelling Ear/Nose/Mouth/Throat: Hearing Loss / Aid Hematologic/Lymphatic: Bleeding Tendency Integumentary (Hair/Skin/Nails): Open Sore Musculoskeletal: Muscle Weakness Prior Wound History: Drainage, Erythema, Pain Patient denies complaints or symptoms related to: Cardiovascular (Central): Irregular heart beat Constitutional Symptoms (General Health): Chills, Fever Gastrointestinal (GI): Stomach/abdominal pain Hematologic/Lymphatic: Bleeding / Clotting Disorders Neurological: Loss of Protective Sensation Oncologic Prior Wound History: Bleeding Psychiatric: Memory Loss Respiratory: Oxygen Use, Shortness of Breath Additional Information Does patient have a history of Cancer? Yes? Complete all questions.: No OBJECTIVE Constitutional BP low; Afebrile; Alert and in no distress. Frail appearing. Height/Length: 63 in (160.02 cm), Weight: 137.7 lbs (62.59 kgs), BMI: 24.4, Temperature: 98.4 ?F (36.89 ?C), Pulse : 93 bpm, Respiratory Rate: 18 breaths/min, Blood Pressure: 98/56 mmHg, Capillary Blood Glucose: 135 mg/dl, Pulse Oximetry: 95 %. Vital Signs Notes: Glucose per patient. Cardiovascular: 1+ dorsalis pedis and posterior tibial on the right. Affected extremity exhibits no peripheral edema or cyanosis, is warm, and is well perfused. Capillary refill is less than 2 seconds. Integumentary (Hair, Skin) No periwound erythema, warmth, or significant drainage. No periwound rashes appreciated or noted otherwise.. Refer to appropriate clinician wound documentation for this visit; right and left lower leg ulcers extend to subcut with bases partially covered with pink granulation, remainder fibrin and slough. Wound #1 Left, Lateral Leg is a chronic Full Thickness Arterial Ulcer and has received a status of Not Healed. Subsequent wound encounter measurements are 0.8cm length x 0.5cm width x 0.1cm depth, with an area of 0.4 sq cm and a volume of 0.04 cubic cm. No tunneling has been noted. No sinus tract has been noted. No undermining has been noted. There is a small amount of serous drainage noted which has no odor. The patient reports a wound pain of level 0/10. The wound margin is epithelial resurfacing. Wound bed has Yes epithelialization, No eschar, Yes slough, Yes pink, firm granulation. The periwound skin texture is normal. The periwound skin moisture is normal. The periwound skin exhibited: Hemosiderosis. The periwound skin did not exhibit: Atrophie [place], Cyanosis, Ecchymosis, Erythema, Pallor, Rubor. The temperature of the periwound skin is WNL. Periwound skin does not exhibit signs or symptoms of infection. Local Pulse is Doppler. Wound #3 Left, Dorsal Foot is an acute [facility] Grade 1 Diabetic Ulcer and has received an outcome of Healed - no new wound(s). Subsequent wound encounter measurements are 0cm length x 0cm width with no measurable depth, with an area of 0 sq cm . No tunneling has been noted. No sinus tract has been noted. No undermining has been noted. There was no drainage noted. The patient reports a wound pain of level 0/10. The wound margin is attached. Wound bed has Yes epithelialization, No eschar, No slough, No granulation. The periwound skin texture is normal. The periwound skin moisture is normal. The periwound skin color is normal. The temperature of the periwound skin is WNL. Periwound skin does not exhibit signs or symptoms of infection. Local Pulse is Palpable. Wound #4 Right Ankle is an acute Diabetic Ulcer and has received a status of Not Healed. Initial wound encounter measurements are 1cm length x 0.7cm width with no measurable depth, with an area of 0.7 sq cm . No tunneling has been noted. No sinus tract has been noted. No undermining has been noted. There is a small amount of sanguineous drainage noted which has no odor. The patient reports a wound pain of level 0/10. The wound margin is attached. Wound bed has No epithelialization, Yes eschar, No slough, No granulation. The periwound skin texture is normal. The periwound skin moisture is normal. The periwound skin exhibited: Erythema. The periwound skin did not exhibit: Atrophie [place], Cyanosis, Ecchymosis, Hemosiderosis, Pallor, Rubor. The temperature of the periwound skin is WNL. Periwound skin does not exhibit signs or symptoms of infection. Local Pulse is Doppler. Wound #5 Right Fifth Toe is an acute Diabetic Ulcer and has received a status of Not Healed. Initial wound encounter measurements are 1cm length x 1.4cm width with no measurable depth, with an area of 1.4 sq cm . No tunneling has been noted. No sinus tract has been noted. No undermining has been noted. There is a small amount of sanguineous drainage noted which has no odor. The patient reports a wound pain of level 0/10. The wound margin is attached. Wound bed has No epithelialization, Yes eschar, No slough, No granulation. The periwound skin texture is normal. The periwound skin moisture is normal. The periwound skin exhibited: Erythema. The periwound skin did not exhibit: Atrophie [place], Cyanosis, Ecchymosis, Hemosiderosis, Pallor, Rubor. The temperature of the periwound skin is WNL. Periwound skin does not exhibit signs or symptoms of infection. Local Pulse is Doppler. Neurological: Cranial nerves grossly intact with symmetric function normal by informal observation.. ASSESSMENT Active Problems ICD-10 (Encounter Diagnosis) L97.222 - Non-pressure chronic ulcer of left calf with fat layer exposed (Encounter Diagnosis) I70.248 - Atherosclerosis of [place] arteries of left leg with ulceration of other part of lower left leg (Encounter Diagnosis) L97.512 - Non-pressure chronic ulcer of other part of right foot with fat layer exposed (Encounter Diagnosis) E11.621 - Type 2 diabetes mellitus with foot ulcer PROCEDURES Wound #1 Wound #1 (Arterial Ulcer) is located on the left, lateral leg. A skin/ subcutaneous tissue level surgical debridement with a total area debrided of 0.4 sq cm was performed by Bayron Briceno MD. Subcutaneous was removed along with devitalized tissue: exudate and slough. The following instrument(s) were used: curette. Pain control was achieved using 4% Lido. A time out was conducted prior to the start of the procedure. A minimal amount of bleeding was controlled with pressure. The procedure was tolerated well with a pain level of 0 throughout and a pain level of 0 following the procedure. Post Debridement Measurements: 0.8cm length x 0.5cm width x 0.2cm depth; with an area of 0.4 sq cm and a volume of 0.08 cubic cm; Wound #4 Wound #4 (Diabetic Ulcer) is located on the right ankle. A selective debridement with a total area debrided of 0.7 sq cm was performed by Bayron Briceno MD. to remove devitalized tissue: exudate, necrotic/eschar, and slough. The following instrument(s) were used: curette. Pain control was achieved using 4% Lido. A time out was conducted prior to the start of the procedure. No bleeding occurred. The procedure was tolerated well with a pain level of 0 throughout and a pain level of 0 following the procedure. Post Debridement Measurements: 1cm length x 0.7cm width x 0.1cm depth; with an area of 0.7 sq cm and a volume of 0.07 cubic cm; Wound #5 Wound #5 (Diabetic Ulcer) is located on the right fifth toe. A selective debridement with a total area debrided of 0.3 sq cm was performed by Bayron Briceno MD. to remove devitalized tissue: exudate, necrotic/eschar, and slough. The following instrument(s) were used: curette. Pain control was achieved using 4% Lido. A time out was conducted prior to the start of the procedure. No bleeding occurred. The procedure was tolerated well with a pain level of 0 throughout and a pain level of 0 following the procedure. Post Debridement Measurements: 0.5cm length x 0.6cm width x 0.1cm depth; with an area of 0.3 sq cm and a volume of 0.03 cubic cm; Additional Information Muscle fascia or bone removed and sent to pathology?: No PLAN Wound Orders: Wound #1 Left, Lateral Leg Anesthetic Topical Xylocaine to wound bed. - In clinic only. Cleanser Cleanse Wound: - Distilled water. May Shower. - Use Cast Protector boot. Dressings Cover and secure with: - Bordered gauze dressing. Change Dressing: - Every other day. Wound #4 Right Ankle Anesthetic Topical Xylocaine to wound bed. - In clinic only. Cleanser Cleanse Wound: - Distilled water. May Shower. - Use Cast Protector boot. Topical Treatments Antibiotic/Antimicrobial Ointment/Cream. - Gentamicin ointment. Dressings Cover and secure with: - Telfa pad and tape. Change Dressing: - Daily. Wound #5 Right Fifth Toe Anesthetic Topical Xylocaine to wound bed. - In clinic only. Cleanser Cleanse Wound: - Distilled water. May Shower. - Use Cast Protector boot. Topical Treatments Antibiotic/Antimicrobial Ointment/Cream. - Gentamicin ointment. Dressings Cover and secure with: - Telfa pad and tape. Change Dressing: - Daily. Additional Orders: Compression/Edema Control Elevation of leg(s) above the level of the heart when sitting. Single Layer Compression Wrap: - Tetra E to left leg. On in the morning, off at night. Follow-Up Appointments Return Appointment: - - One week. Other information: If you develop fever, chills, increased pain, drainage, redness or swelling please call our office. If after hours, respond to the ER. Should you experience any significant changes in your wound(s) or have any questions regarding your home care instructions please contact the wound center @ [phone]. If after hours, contact your primary care physician or go to the hospital emergency room. Scribing Attestation I attest, as the nurse, that I scribed these orders for the physician. Laboratory: Culture Wound General Notes: Will call with culture results if any oral antibiotics are required. I've reviewed the clinician's documentation and agree with the evaluation and plan as written. In addition the patient's ulcers demonstrate evidence of non-viable devitalized tissue and they will continue to benefit from sharp debridement to help promote granulation and expedite healing. Also, I've cultured the drainage from right lateral malleolus ulcer due to a superficial infection and started treating with topical gentamicin. I'll consider an oral antibiotic pending the culture results. Electronic Signature(s) Signed By: Date: Bayron Briceno MD 03/29/2018 13:43:10 Entered By: Bayron Briceno on 03/29/2018 13:31:51
== END ==
PROVIDERS: PCP Internal Medicine; Visit Provider Internal Medicine
DX: I70.248 Atherosclerosis of native arteries of left leg with ulceration of other part of lower leg (principal); L97.222 Non-pressure chronic ulcer of left calf with fat layer exposed; E11.621 Type 2 diabetes mellitus with foot ulcer; L97.512 Non-pressure chronic ulcer of other part of right foot with fat layer exposed; L97.312 Non-pressure chronic ulcer of right ankle with fat layer exposed
CPT/HCPCS: 11042; 87070; 87075; 87077; 87186; 87205; 97597; 99214

== ENCOUNTER → 2018-04-02 09:22 | Outpatient (CLI) | payer OTHER, SELFPAY ==
--- NOTE | 2018-04-02 | OV.WND_ITS ---
Progress Note Details Patient Name: Chanda Vo Patient Number: [id number] PatientPatientDate: 04/02/2018 Clinician: Majo Orozco Clinician Cosigner: Cari Malhotra Physician / Optical Effects Line Up Person: Bayron Briceno SUBJECTIVE Chief Complaint This information was obtained from the patient Arterial ulcer on left leg and diabetic ulcers on right foot. Allergies atorvastatin (Severity: Moderate, Reaction: cramps), simvastatin (Severity: Moderate, Reaction: cramps) HPI This information was obtained from the patient 04/02/18. Seen by Dr. Briceno. The patient does not report increased drainage or pain associated with the chronic left lower leg arterial ulcer since her last visit and she's applying topical gentamicin as recommended to treat the coag negative Staph cultured from the right lateral malleolus diabetic ulcer. She also has a right 5th toe diabetic ulcer. 03/26/18. Seem by Dr. Briceno. The patient does not report increased drainage or pain associated with the chronic left lower leg arterial ulcer since her last visit. She does report two new non-pressure ulcers over the right lateral malleolus and right 5th toe noting they may have resulted from rubbing on her wheeled walker and shoe respectively. She does not report pain or drainage from these areas and is unsure how long they've been present. She was also seen by her vascular surgeon this week who feels her left leg PAD is optimized however may have raised concern regarding the right leg and wishes to see her again in 2 weeks. 03/17/18. Seen by Dr. Briceno. The patient does not report increased drainage or pain associated with the chronic left lower leg arterial ulcer nor dorsal right 1st MTPJ diabetic ulcer since her last visit. 03/05/18. Seen by Dr. Briceno. The patient does not report increased drainage or pain associated with the chronic left lower leg arterial ulcer since her last visit. She does report some new ulcers over the dorsum of the left foot and carries a diagnosis of diabetes as well. Her left foot is moderately swollen and she's wearing a compression stocking as recommended. 02/26/18. Seen by Dr. Briceno. The patient does not report increased drainage or pain associated with the chronic left lower leg arterial ulcer since her last visit however she does report a new right hand infection she feels may be related to a thorn from a blackberry simmons and was first noticed about 2 days ago. She reports pain at the site but no drainage and has diabetes which is typically well controlled. She's also not currently on antibiotics. 02/19/18. Seen by Dr. Briceno. The patient does not report increased drainage or pain associated with the chronic left lower leg arterial ulcer since her last visit and she's tolerating NPWT without difficulty. 02/12/18. Seen by Dr. Briceno. The patient does not report increased drainage or pain associated with the chronic left lower leg arterial ulcer since her last visit. 02/05/18. Seen by Dr. Briceno. The patient does not report increased drainage or pain associated with the chronic left lower leg arterial ulcer since her last visit. 01/22/18. Seen by Dr. Briceno. The patient does not report increased drainage or pain associated with the chronic left lower leg arterial ulcer since her last visit. 01/15/18. Seen by Dr. Briceno. The patient does not report increased drainage or pain associated with the chronic left lower leg arterial ulcer since her last visit. She's inquiring about whether a follow arterial Doppler should be ordered to evaluate her left leg PAD and whether she should continue taking Plavix noting her 90 day Rx will run out soon. 01/08/18. Seen by Dr. Briceno. The patient does not report increased drainage or pain associated with the chronic left lower leg arterial ulcer since her last visit. 01/01/18. Seen by Dr. Briceno. The patient does not report increased drainage or pain associated with the chronic left lower leg arterial ulcer since her last visit. She also complains of some dizziness upon arrival today and required a wheelchair to be transported to her room. Her vitals and blood sugar are unremarkable however she states she only has a piece of muffin prior to her appointment and is stressed due to a flat tire this morning. 12/25/17. Seen by Dr. Briceno. The patient does not report increased drainage or pain associated with the chronic left lower leg arterial ulcer since her last visit. She does report a worsening cough over the past 4 days but does not report fevers, worsening shortness of breath, or other acute issues today. 12/18/17. Seen by Dr. Briceno. The patient does not report increased drainage or pain associated with the chronic left lower leg arterial ulcer since her last visit. 12/11/17. Seen by Jorge Langston PA-C. The patient reports no increase in drainage from her left lower leg ulcer. 12/04/17. Seen by Dr. Briceno. The patient does not report increased drainage or pain associated with the chronic left lower leg arterial ulcer since her last visit. 11/27/17. Seen by Dr. Briceno. The patient does not report increased drainage or pain associated with the chronic left lower leg arterial ulcer since her last visit. She had intervention for left lower leg PAD on Thursday and does not report adverse side effects. 11/20/17. Seen by Dr. Briceno. The patient does not report increased drainage or pain associated with the chronic left lower leg arterial ulcer since her last visit and she's tolerating her JORDAN wound vac without difficulty. She has her intervention for PAD of the leg scheduled for next Thursday. 11/13/17. Seen by Dr. Briceno. The patient does not report increased drainage or pain associated with the chronic left lower leg arterial ulcer since her last visit and she's tolerating her JORDAN wound vac without difficulty. She has her intervention for PAD of the leg scheduled for 11/23/17. 11/06/17. Seen by Dr. Briceno. The patient reports improvement in terms of the pain associated with the chronic left lower leg arterial ulcer since her last visit and she's tolerating her JORDAN wound vac without difficulty. 10/30/17. Seen by Dr. Briceno. The patient reports improvement in terms of the pain associated with the chronic left lower leg arterial ulcer since her last visit, she does not report significant drainage, and she continues to apply topical gentamicin as recommended to treat the refractory wound infection. She'll have intervention on November 23 also for her left lower leg PAD. 10/23/17. Seen by Dr. Briceno. The patient reports improvement in terms of the pain associated with the chronic left lower leg arterial ulcer since her last visit. She's been applying topical gentamicin as recommended and scheduled for vascular intervention at [facility] on November 23. 10/14/17. Seen by Dr. Briceno. The patient reports improvement in terms of the pain associated with the chronic left lower leg arterial ulcer since her last visit. She's been applying topical gentamicin as recommended and scheduled for vascular intervention at [facility] on October 21. She does not report fevers, significant drainage from the ulcer, or feeling unwell in general. 10/07/17. Seen by Dr. Briceno. The patient completes her course of levofloxacin today has been treating the recent Enterobacter positive wound culture. She reports decreased pain associated with the chronic left lower leg arterial ulcer and has an intervention scheduled by vascular surgery next week. Do not yet have notes from her visit with them however. 09/30/17. Seen by Dr. Briceno. The patient continues to report some intermittent periods of significant pain associated with the chronic left lower leg arterial ulcer which is most noticeable when lying in bed at night. She started levofloxacin based on her wound culture which grew Enterobacter and staph following her visit last week. She does not yet have her arterial Doppler study scheduled but there is a high suspicion for clinically significant PAD contributing to the refractory nature of this ulcer. 09/23/17. Seen by Dr. Briceno. The patient's new to our clinic and presents with a left lower leg non-pressure ulcer that started as a trauma wound about 3-4 weeks ago. It was originally about the size of a quarter and has increased in terms of size, pain, and drainage progressively. She does not report fevers and is not on antibiotics at this time however she does report pain in the leg when lying in bed at night that improves when hanging the leg over the edge of the bed. She also has diabetes and states her blood sugars are typically below 200 however she's unaware of her A1c. She also has a history of CAD with 3-vessle bypass and notes she's moving to [place] in October to live closer to her son. Past Medical History This information was obtained from the patient Patient has a medical history of: Allergic Rhinitis Asthma Coronary Artery Disease (CAD) Type II Diabetes Gastro Esoph. 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/2017 Complaints and Symptoms This information was obtained from the patient Patient complains of: General Notes: I have reviewed and concur with the Review of Systems and Past Family Social History documents completed by the clinician, I have reviewed and concur with the Wound Assessment document completed by the clinician Cardiovascular (Central/Peripheral): Lower extremity (leg) resting pain, Lower extremity (leg) swelling Ear/Nose/Mouth/Throat: Hearing Loss / Aid Hematologic/Lymphatic: Bleeding Tendency Integumentary (Hair/Skin/Nails): Open Sore Musculoskeletal: Muscle Weakness Prior Wound History: Drainage, Erythema, Pain Patient denies complaints or symptoms related to: Cardiovascular (Central): Irregular heart beat Constitutional Symptoms (General Health): Chills, Fever Gastrointestinal (GI): Stomach/abdominal pain Hematologic/Lymphatic: Bleeding / Clotting Disorders Neurological: Loss of Protective Sensation Oncologic Prior Wound History: Bleeding Psychiatric: Memory Loss Respiratory: Oxygen Use, Shortness of Breath Additional Information Does patient have a history of Cancer? Yes? Complete all questions.: No OBJECTIVE Constitutional Vital signs reviewed and noted. Frail appearing. Height/Length: 63 in (160.02 cm ), Weight: 139.5 lbs (63.41 kgs), BMI: 24.7, Temperature: 98.2 ?F (36.78 ?C), Pulse: 84 bpm , Respiratory Rate: 18 breaths/min, Blood Pressure: 116/64 mmHg, Capillary Blood Glucose: 123 mg/dl, Pulse Oximetry: 98 %. Vital Signs Notes: Glucose per patient. Ears, Nose, Mouth, and Throat: Moderate hearing deficit. Respiratory: No respiratory distress. Even respirations and without use of accessory muscles.. Cardiovascular: 1+ pedal pulses bilaterally. Affected extremity exhibits no peripheral edema or cyanosis, is warm, and is well perfused. Capillary refill is less than 2 seconds. 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 Integumentary (Hair, Skin) No periwound erythema, warmth, or significant drainage. No periwound rashes appreciated or noted otherwise.. Refer to appropriate clinician wound documentation for this visit; right lateral malleolus, right 5th toe and left lower leg ulcers extend to subcut with bases partially covered with pink granulation, remainder fibrin and slough. Wound #1 Left, Lateral Leg is a chronic Full Thickness Arterial Ulcer and has received a status of Not Healed. Subsequent wound encounter measurements are 0.4cm length x 0.3cm width x 0.1cm depth, with an area of 0.12 sq cm and a volume of 0.012 cubic cm. No tunneling has been noted. No sinus tract has been noted. No undermining has been noted. There is a scant amount of serous drainage noted which has no odor. The patient reports a wound pain of level 0/10. The wound margin is attached. Wound bed has Yes epithelialization, No eschar, Yes slough, Yes pink, firm granulation. The periwound skin texture is normal. The periwound skin moisture is normal. The periwound skin exhibited: Hemosiderosis. The periwound skin did not exhibit: Atrophie Maxton, Cyanosis, Ecchymosis, Erythema, Pallor, Rubor. The temperature of the periwound skin is WNL. Periwound skin does not exhibit signs or symptoms of infection. Local Pulse is Doppler. Wound #4 Right Ankle is an acute [place] Grade 1 Diabetic Ulcer and has received a status of Not Healed. Subsequent wound encounter measurements are 1.1cm length x 0.5cm width x 0.1cm depth, with an area of 0.55 sq cm and a volume of 0.055 cubic cm. No tunneling has been noted. No sinus tract has been noted. No undermining has been noted. There is a moderate amount of serous drainage noted which has no odor. The patient reports a wound pain of level 0/10. The wound margin is attached. Wound bed has No epithelialization, No eschar, Yes slough, No granulation. The periwound skin texture is normal. The periwound skin moisture is normal. The periwound skin exhibited: Erythema. The periwound skin did not exhibit: Atrophie Maxton, Cyanosis, Ecchymosis, Hemosiderosis, Pallor, Rubor. The temperature of the periwound skin is WNL. Periwound skin does not exhibit signs or symptoms of infection. Local Pulse is Doppler. Wound #5 Right Fifth Toe is an acute [place] Grade 2 Diabetic Ulcer and has received a status of Not Healed. Subsequent wound encounter measurements are 0.4cm length x 0.8cm width x 0.3cm depth, with an area of 0.32 sq cm and a volume of 0.096 cubic cm. No tunneling has been noted. No sinus tract has been noted. Undermining has been noted at 1:00 and ends at 7:00 with a maximum distance of 0.2cm. There is a small amount of sanguineous drainage noted which has no odor. The patient reports a wound pain of level 0/10. The wound margin is attached. Wound bed has No epithelialization, Yes eschar, Yes slough, No granulation. The periwound skin texture is normal. The periwound skin moisture is normal. The periwound skin exhibited: Erythema. The periwound skin did not exhibit: Atrophie Maxton, Cyanosis, Ecchymosis, Hemosiderosis, Pallor, Rubor. The temperature of the periwound skin is WNL. Periwound skin does not exhibit signs or symptoms of infection. Local Pulse is Doppler. General Notes: Grade [address] Briceno. ASSESSMENT Active Problems ICD-10 (Encounter Diagnosis) L97.222 - Non-pressure chronic ulcer of left calf with fat layer exposed (Encounter Diagnosis) I70.248 - Atherosclerosis of kaw arteries of left leg with ulceration of other part of lower left leg (Encounter Diagnosis) L97.512 - Non-pressure chronic ulcer of other part of right foot with fat layer exposed (Encounter Diagnosis) E11.621 - Type 2 diabetes mellitus with foot ulcer PROCEDURES Wound #1 Wound #1 (Arterial Ulcer) is located on the left, lateral leg. A skin/ subcutaneous tissue level surgical debridement with a total area debrided of 0.12 sq cm was performed by Bayron Briceno MD. Subcutaneous was removed along with devitalized tissue: exudate and slough. The following instrument(s) were used: curette. Pain control was achieved using 4% Lido. A time out was conducted prior to the start of the procedure. A minimal amount of bleeding was controlled with n/a. The procedure was tolerated well with a pain level of 0 throughout and a pain level of 0 following the procedure. Post Debridement Measurements: 0.4cm length x 0.3cm width x 0.2cm depth; with an area of 0.12 sq cm and a volume of 0.024 cubic cm; Wound #4 Wound #4 (Diabetic Ulcer) is located on the right ankle. A skin/subcutaneous tissue level surgical debridement with a total area debrided of 0.55 sq cm was performed by Bayron Briceno MD. Subcutaneous was removed along with devitalized tissue: slough. The following instrument(s) were used: curette, forceps, and scissors. Pain control was achieved using 4% Lido. A time out was conducted prior to the start of the procedure. A minimal amount of bleeding was controlled with n/a. The procedure was tolerated well with a pain level of 0 throughout and a pain level of 0 following the procedure. Post Debridement Measurements: 1.1cm length x 0.5cm width x 0.2cm depth; with an area of 0.55 sq cm and a volume of 0.11 cubic cm; Wound #5 Wound #5 (Diabetic Ulcer) is located on the right fifth toe. A skin/ subcutaneous tissue level surgical debridement with a total area debrided of 0.4 sq cm was performed by Bayron Briceno MD. Subcutaneous was removed along with devitalized tissue: necrotic/eschar and slough. The following instrument(s) were used: curette, forceps, and scissors. Pain control was achieved using 4% Lido. A time out was conducted prior to the start of the procedure. A minimal amount of bleeding was controlled with n/a. The procedure was tolerated well with a pain level of 0 throughout and a pain level of 0 following the procedure. Post Debridement Measurements: 0.5cm length x 0.8cm width x 0.3cm depth; with an area of 0.4 sq cm and a volume of 0.12 cubic cm; Additional Information Muscle fascia or bone removed and sent to pathology?: No Muscle fascia or bone removed and sent to pathology?: No Muscle fascia or bone removed and sent to pathology?: No PLAN Wound Orders: Wound #1 Left, Lateral Leg Anesthetic Topical Xylocaine to wound bed. - In clinic only. Cleanser Cleanse Wound: - Distilled water. May Shower. - Use Cast Protector boot. Dressings Cover and secure with: - Bordered gauze dressing. Change Dressing: - Every other day. Wound #4 Right Ankle Anesthetic Topical Xylocaine to wound bed. - In clinic only. Cleanser Cleanse Wound: - Distilled water. May Shower. - Use Cast Protector boot. Topical Treatments Antibiotic/Antimicrobial Ointment/Cream. - Gentamicin ointment. Dressings Cover and secure with: - Foam and tape. Change Dressing: - Every other day. Wound #5 Right Fifth Toe Anesthetic Topical Xylocaine to wound bed. - In clinic only. Cleanser Cleanse Wound: - Distilled water. May Shower. - Use Cast Protector boot. Topical Treatments Antibiotic/Antimicrobial Ointment/Cream. - Gentamicin ointment. Dressings Cover and secure with: - Foam and tape. Change Dressing: - Every other day. Additional Orders: Compression/Edema Control Elevation of leg(s) above the level of the heart when sitting. Single Layer Compression Wrap: - Tetra E to left leg. On in the morning, off at night. Follow-Up Appointments Return Appointment: - - One week. Other information: If you develop fever, chills, increased pain, drainage, redness or swelling please call our office. If after hours, respond to the ER. Should you experience any significant changes in your wound(s) or have any questions regarding your home care instructions please contact the wound center @ [phone]. If after hours, contact your primary care physician or go to the hospital emergency room. Scribing Attestation I attest, as the nurse, that I scribed these orders for the physician. General Notes: Sending your visit note to your vascular surgeon for review. I've reviewed the clinician's documentation and agree with the evaluation and plan as written. In addition the patient's ulcers demonstrate evidence of non-viable devitalized tissue and they will continue to benefit from sharp debridement to help promote granulation and expedite healing. Also, we'll continue treating the coag negative Staph culture with topical gentamicin and I'd ask her vascular surgeon to review the right leg at her visit next week for evidence of clinically significant PAD that may contribute to delayed healing over her diabetic foot ulcers. Electronic Signature(s) Signed By: Date: Bayron Briceno MD 04/05/2018 13:28:46 Entered By: Bayron Briceno on 04/05/2018 09:34:07
== END ==
PROVIDERS: PCP Internal Medicine; Visit Provider Internal Medicine
DX: I70.248 Atherosclerosis of native arteries of left leg with ulceration of other part of lower leg (principal); L97.222 Non-pressure chronic ulcer of left calf with fat layer exposed; E11.621 Type 2 diabetes mellitus with foot ulcer; L97.512 Non-pressure chronic ulcer of other part of right foot with fat layer exposed; E11.622 Type 2 diabetes mellitus with other skin ulcer; L97.312 Non-pressure chronic ulcer of right ankle with fat layer exposed; B95.7 Other staphylococcus as the cause of diseases classified elsewhere
CPT/HCPCS: 11042

== ENCOUNTER → 2018-04-09 09:09 | Outpatient (CLI) | payer OTHER, SELFPAY | PROVIDERS: PCP Internal Medicine; Visit Provider Family Medicine | DX: I70.248 Atherosclerosis of native arteries of left leg with ulceration of other part of lower leg (principal); L97.821 Non-pressure chronic ulcer of other part of left lower leg limited to breakdown of skin; E11.621 Type 2 diabetes mellitus with foot ulcer; E11.40 Type 2 diabetes mellitus with diabetic neuropathy, unspecified; L97.511 Non-pressure chronic ulcer of other part of right foot limited to breakdown of skin; E11.622 Type 2 diabetes mellitus with other skin ulcer; L97.311 Non-pressure chronic ulcer of right ankle limited to breakdown of skin; I70.261 Atherosclerosis of native arteries of extremities with gangrene, right leg | CPT/HCPCS: 97597 ==

== ENCOUNTER → 2018-04-09 12:59 | Outpatient (CLI) | payer OTHER, SELFPAY ==
--- NOTE | 2018-04-09 | DI.RAD.S_ITS ---
PROCEDURE: XR FOOT RT MIN 3V INDICATIONS: RIGHT ANKLE AND RIGHT TOE PAIN TECHNIQUE: 3 views of the foot were acquired. COMPARISON: None. FINDINGS: Bones: No fractures or dislocations. No suspicious bony lesions. Soft tissues: No tibiotalar joint effusion. Achilles tendon appears normal. Prominent small vessel calcifications noted consistent with long-standing diabetes. IMPRESSION: Small vessel calcifications consistent with long-standing diabetes, no osteomyelitis or trauma found. Dictated by: Jose Pearson M.D. on 04/09/2018 at 14:38 Approved by: Jose Pearson M.D. on 04/09/2018 at 14:38
--- NOTE | 2018-04-09 | DI.RAD.S_ITS ---
PROCEDURE: XR ANKLE RT MIN 3V INDICATIONS: RIGHT ANKLE AND RIGHT TOE PAIN TECHNIQUE: 3 views of the ankle were acquired. COMPARISON: None. FINDINGS: Bones: No fractures or dislocations. Ankle mortise is normally aligned. No suspicious bony lesions. Soft tissues: No tibiotalar joint effusion. Achilles tendon appears normal. IMPRESSION: No trauma found. Small vessel calcifications present consistent with long-standing diabetes. Dictated by: Jose Pearson M.D. on 04/09/2018 at 14:38 Approved by: Jose Pearson M.D. on 04/09/2018 at 14:39
[2018-04-09 13:53] LABS: Add Manual Diff / Slide Review NO; Basophils Percent Auto 1.1 % (0-2); Eosinophils Percent Auto 3.2 % (2-4); Hematocrit 35.4 % (36-46); Hemoglobin 11.7 g/dL (12.0-16.0); Mean Corpuscular HGB Conc 33.1 % (30-36); Mean Corpuscular Hemoglobin 30.5 PG (26-34); Mean Corpuscular Volume 92.2 fL (80-100); Monocytes Percent Auto 8.8 % (3-14); Neutrophils Absolute Auto 4400 /uL (3000-5900); Neutrophils Percent Auto 66.9 % (50-75); Platelet Count 304 X10^3/uL (150-400); Red Blood Cell Count 3.84 X10^6/uL (4.0-5.2); Red Cell Distribution Width 13.3 % (11.6-14.8); White Blood Cell Count 6.6 X10^3/uL (4.5-11.0)
[2018-04-09 14:06] LABS: Hemoglobin A1C% w Est Avg Glu 10.7 % (4.0-6.0)
[2018-04-09 14:13] LABS: Alanine Aminotransferase 67 IU/L (9-52); Albumin 3.7 g/dL (3.5-5.0); Albumin Globulin Ratio 1.3 (1.0-2.8); Alkaline Phosphatase 155 U/L (38-126); Aspartate Aminotransferase 40 IU/L (14-36); BUN Creatinine Ratio 27.3 (6-22); Bilirubin Total 0.3 mg/dL (0.2-1.3); Blood Urea Nitrogen 41 mg/dL (7-17); Calcium 11.2 mg/dL (8.4-10.2); Carbon Dioxide 33 mmol/L (22-32); Chloride 100 mmol/L (98-107); Erythrocyte Sedimentation Rate 41 MM/HR (0-20); Estimated Glomerular Filt Rate 33.7 mL/min (>60); Globulin 2.8 g/dL (1.7-4.1); Glucose 327 mg/dL (80-110); HEMOLYSIS < 15 (0-50); Sodium 141 mmol/L (137-145); Total Protein 6.5 g/dL (6.3-8.2)
[2018-04-09 14:18] LABS: C-Reactive Protein Quant < 0.5 mg/dL (<1.0); Potassium 5.9 mmol/L (3.4-5.1); Prealbumin 21.6 mg/dL (17.6-36.0)
== END ==
PROVIDERS: PCP Internal Medicine; Visit Provider Family Medicine
DX: R79.82 Elevated C-reactive protein (CRP) (principal); R79.89 Other specified abnormal findings of blood chemistry; R73.09 Other abnormal glucose; R68.89 Other general symptoms and signs; R70.0 Elevated erythrocyte sedimentation rate; I70.248 Atherosclerosis of native arteries of left leg with ulceration of other part of lower leg; L97.821 Non-pressure chronic ulcer of other part of left lower leg limited to breakdown of skin; E11.621 Type 2 diabetes mellitus with foot ulcer; E11.40 Type 2 diabetes mellitus with diabetic neuropathy, unspecified; L97.511 Non-pressure chronic ulcer of other part of right foot limited to breakdown of skin; E11.622 Type 2 diabetes mellitus with other skin ulcer; L97.311 Non-pressure chronic ulcer of right ankle limited to breakdown of skin; I70.261 Atherosclerosis of native arteries of extremities with gangrene, right leg
CPT/HCPCS: 36415; 73610; 73630; 80053; 83036; 84134; 85025; 85651; 86140

== ENCOUNTER → 2018-04-16 08:50 | Outpatient (CLI) | payer OTHER, SELFPAY ==
--- NOTE | 2018-04-16 | OV.WND_ITS ---
Progress Note Details Patient Name: Chanda Vo Patient Number: [id number] PatientPatientDate: 04/16/2018 Clinician: Malia Graves Clinician Cosigner: Cari Malhotra Physician / Welt Pocket Machine Operator: Bayron Briceno SUBJECTIVE Chief Complaint This information was obtained from the patient Arterial ulcer on left leg and diabetic ulcers on right foot. Allergies atorvastatin (Severity: Moderate, Reaction: cramps), simvastatin (Severity: Moderate, Reaction: cramps) HPI This information was obtained from the patient 04/16/18. Seen by Dr. Briceno. The patient does not report increased drainage or pain associated with the chronic left lower leg arterial ulcer nor dorsal right 1st MTPJ diabetic ulcer since her last visit. 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 She was also seen by her vascular surgeon who states the right leg PAD is extensive and he's chosen to monitor for now with repeat imaging in 3 months. 04/02/18. Seen by Dr. Briceno. The patient does not report increased drainage or pain associated with the chronic left lower leg arterial ulcer since her last visit and she's applying topical gentamicin as recommended to treat the coag negative Staph cultured from the right lateral malleolus diabetic ulcer. She also has a right 5th toe diabetic ulcer. 03/26/18. Seem by Dr. Briceno. The patient does not report increased drainage or pain associated with the chronic left lower leg arterial ulcer since her last visit. She does report two new non-pressure ulcers over the right lateral malleolus and right 5th toe noting they may have resulted from rubbing on her wheeled walker and shoe respectively. She does not report pain or drainage from these areas and is unsure how long they've been present. She was also seen by her vascular surgeon this week who feels her left leg PAD is optimized however may have raised concern regarding the right leg and wishes to see her again in 2 weeks. 03/17/18. Seen by Dr. Briceno. The patient does not report increased drainage or pain associated with the chronic left lower leg arterial ulcer nor dorsal right 1st MTPJ diabetic ulcer since her last visit. 03/05/18. Seen by Dr. Briceno. The patient does not report increased drainage or pain associated with the chronic left lower leg arterial ulcer since her last visit. She does report some new ulcers over the dorsum of the left foot and carries a diagnosis of diabetes as well. Her left foot is moderately swollen and she's wearing a compression stocking as recommended. 02/26/18. Seen by Dr. Briceno. The patient does not report increased drainage or pain associated with the chronic left lower leg arterial ulcer since her last visit however she does report a new right hand infection she feels may be related to a thorn from a blackberry simmons and was first noticed about 2 days ago. She reports pain at the site but no drainage and has diabetes which is typically well controlled. She's also not currently on antibiotics. 02/19/18. Seen by Dr. Briceno. The patient does not report increased drainage or pain associated with the chronic left lower leg arterial ulcer since her last visit and she's tolerating NPWT without difficulty. 02/12/18. Seen by Dr. Briceno. The patient does not report increased drainage or pain associated with the chronic left lower leg arterial ulcer since her last visit. 02/05/18. Seen by Dr. Briceno. The patient does not report increased drainage or pain associated with the chronic left lower leg arterial ulcer since her last visit. 01/22/18. Seen by Dr. Briceno. The patient does not report increased drainage or pain associated with the chronic left lower leg arterial ulcer since her last visit. 01/15/18. Seen by Dr. Briceno. The patient does not report increased drainage or pain associated with the chronic left lower leg arterial ulcer since her last visit. She's inquiring about whether a follow arterial Doppler should be ordered to evaluate her left leg PAD and whether she should continue taking Plavix noting her 90 day Rx will run out soon. 01/08/18. Seen by Dr. Briceno. The patient does not report increased drainage or pain associated with the chronic left lower leg arterial ulcer since her last visit. 01/01/18. Seen by Dr. Briceno. The patient does not report increased drainage or pain associated with the chronic left lower leg arterial ulcer since her last visit. She also complains of some dizziness upon arrival today and required a wheelchair to be transported to her room. Her vitals and blood sugar are unremarkable however she states she only has a piece of muffin prior to her appointment and is stressed due to a flat tire this morning. 12/25/17. Seen by Dr. Briceno. The patient does not report increased drainage or pain associated with the chronic left lower leg arterial ulcer since her last visit. She does report a worsening cough over the past 4 days but does not report fevers, worsening shortness of breath, or other acute issues today. 12/18/17. Seen by Dr. Briceno. The patient does not report increased drainage or pain associated with the chronic left lower leg arterial ulcer since her last visit. 12/11/17. Seen by Jorge Langston PA-C. The patient reports no increase in drainage from her left lower leg ulcer. 12/04/17. Seen by Dr. Briceno. The patient does not report increased drainage or pain associated with the chronic left lower leg arterial ulcer since her last visit. 11/27/17. Seen by Dr. Briceno. The patient does not report increased drainage or pain associated with the chronic left lower leg arterial ulcer since her last visit. She had intervention for left lower leg PAD on Thursday and does not report adverse side effects. 11/20/17. Seen by Dr. Briceno. The patient does not report increased drainage or pain associated with the chronic left lower leg arterial ulcer since her last visit and she's tolerating her JORDAN wound vac without difficulty. She has her intervention for PAD of the leg scheduled for next Thursday. 11/13/17. Seen by Dr. Briceno. The patient does not report increased drainage or pain associated with the chronic left lower leg arterial ulcer since her last visit and she's tolerating her JORDAN wound vac without difficulty. She has her intervention for PAD of the leg scheduled for 11/23/17. 11/06/17. Seen by Dr. Briceno. The patient reports improvement in terms of the pain associated with the chronic left lower leg arterial ulcer since her last visit and she's tolerating her JORDAN wound vac without difficulty. 10/30/17. Seen by Dr. Briceno. The patient reports improvement in terms of the pain associated with the chronic left lower leg arterial ulcer since her last visit, she does not report significant drainage, and she continues to apply topical gentamicin as recommended to treat the refractory wound infection. She'll have intervention on November 23 also for her left lower leg PAD. 10/23/17. Seen by Dr. Briceno. The patient reports improvement in terms of the pain associated with the chronic left lower leg arterial ulcer since her last visit. She's been applying topical gentamicin as recommended and scheduled for vascular intervention at [facility] on November 23. 10/14/17. Seen by Dr. Briceno. The patient reports improvement in terms of the pain associated with the chronic left lower leg arterial ulcer since her last visit. She's been applying topical gentamicin as recommended and scheduled for vascular intervention at [facility] on October 21. She does not report fevers, significant drainage from the ulcer, or feeling unwell in general. 10/07/17. Seen by Dr. Briceno. The patient completes her course of levofloxacin today has been treating the recent Enterobacter positive wound culture. She reports decreased pain associated with the chronic left lower leg arterial ulcer and has an intervention scheduled by vascular surgery next week. Do not yet have notes from her visit with them however. 09/30/17. Seen by Dr. Briceno. The patient continues to report some intermittent periods of significant pain associated with the chronic left lower leg arterial ulcer which is most noticeable when lying in bed at night. She started levofloxacin based on her wound culture which grew Enterobacter and staph following her visit last week. She does not yet have her arterial Doppler study scheduled but there is a high suspicion for clinically significant PAD contributing to the refractory nature of this ulcer. 09/23/17. Seen by Dr. Briceno. The patient's new to our clinic and presents with a left lower leg non-pressure ulcer that started as a trauma wound about 3-4 weeks ago. It was originally about the size of a quarter and has increased in terms of size, pain, and drainage progressively. She does not report fevers and is not on antibiotics at this time however she does report pain in the leg when lying in bed at night that improves when hanging the leg over the edge of the bed. She also has diabetes and states her blood sugars are typically below 200 however she's unaware of her A1c. She also has a history of CAD with 3-vessle bypass and notes she's moving to [place] in October to live closer to her son. Past Medical History This information was obtained from the patient Patient has a medical history of: Allergic Rhinitis Asthma Coronary Artery Disease (CAD) Type II Diabetes Gastro Esoph. 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/2017 Complaints and Symptoms This information was obtained from the patient Patient complains of: General Notes: I have reviewed and concur with the Review of Systems and Past Family Social History documents completed by the clinician, I have reviewed and concur with the Wound Assessment document completed by the clinician Cardiovascular (Central/Peripheral): Lower extremity (leg) resting pain, Lower extremity (leg) swelling Ear/Nose/Mouth/Throat: Hearing Loss / Aid Hematologic/Lymphatic: Bleeding Tendency Integumentary (Hair/Skin/Nails): Open Sore Musculoskeletal: Muscle Weakness Prior Wound History: Drainage, Erythema, Pain Patient denies complaints or symptoms related to: Cardiovascular (Central): Irregular heart beat Constitutional Symptoms (General Health): Chills, Fever Gastrointestinal (GI): Stomach/abdominal pain Hematologic/Lymphatic: Bleeding / Clotting Disorders Neurological: Loss of Protective Sensation Oncologic Prior Wound History: Bleeding Psychiatric: Memory Loss Respiratory: Oxygen Use, Shortness of Breath Additional Information Does patient have a history of Cancer? Yes? Complete all questions.: No OBJECTIVE Constitutional Vital signs reviewed and noted. Frail appearing. Height/Length: 63 in (160.02 cm ), Weight: 138.7 lbs (63.05 kgs), BMI: 24.6, Temperature: 98 ?F (36.67 ?C), Pulse: 89 bpm, Respiratory Rate: 18 breaths/min, Blood Pressure: 133/78 mmHg, Capillary Blood Glucose: 245 mg/dl, Pulse Oximetry: 96 %. Vital Signs Notes: Patient reports 51 cbg this morning, had a snack but did not recheck. CBG taken in clinic. Ears, Nose, Mouth, and Throat: Moderate hearing deficit. Respiratory: No respiratory distress. Even respirations and without use of accessory muscles.. Cardiovascular: 1+ pedal pulses bilaterally. Affected extremity exhibits no peripheral edema or cyanosis, is warm, and is well perfused. Capillary refill is less than 2 seconds. Integumentary (Hair, Skin) Mild periwound erythema without warmth. Refer to appropriate clinician wound documentation for this visit; left lower leg and right foot ulcers extend to subcut with bases partially covered with pink granulation, remainder fibrin and slough. Wound #1 Left, Lateral Leg is a chronic Full Thickness Arterial Ulcer and has received a status of Not Healed. Subsequent wound encounter measurements are 2.2cm length x 3.6cm width x 0.1cm depth, with an area of 7.92 sq cm and a volume of 0.792 cubic cm. No tunneling has been noted. No sinus tract has been noted. No undermining has been noted. There is a moderate amount of serous drainage noted which has no odor. The patient reports a wound pain of level 0/10. The wound margin is attached. Wound bed has Yes epithelialization, No eschar, Yes slough, No granulation. The periwound skin texture is normal. The periwound skin moisture is normal. The periwound skin exhibited: Hemosiderosis. The periwound skin did not exhibit: Atroph[place], Cyanosis, Ecchymosis, Erythema, Pallor, Rubor. The temperature of the periwound skin is WNL. Periwound skin does not exhibit signs or symptoms of infection. Local Pulse is Doppler. General Notes: Epithelial bridge:1.9 Wound #4 Right Ankle is an acute [place] Grade 4 Diabetic Ulcer and has received a status of Not Healed. Subsequent wound encounter measurements are 0.9cm length x 0.5cm width x 0.2cm depth, with an area of 0.45 sq cm and a volume of 0.09 cubic cm. No tunneling has been noted. No sinus tract has been noted. No undermining has been noted. There is a moderate amount of serous drainage noted which has no odor. The patient reports a wound pain of level 0/10. The wound margin is attached. Wound bed has No epithelialization, No eschar, Yes slough, Yes pink, firm granulation. The periwound skin texture is normal. The periwound skin exhibited: Moist, Erythema. The periwound skin did not exhibit: Dry/Scaly, Maceration. The temperature of the periwound skin is WNL. Periwound skin does not exhibit signs or symptoms of infection. Local Pulse is Doppler. Wound #5 Right Fifth Toe is an acute [place] Grade 4 Diabetic Ulcer and has received a status of Not Healed. Subsequent wound encounter measurements are 0.2cm length x 0.5cm width x 0.2cm depth, with an area of 0.1 sq cm and a volume of 0.02 cubic cm. No tunneling has been noted. No sinus tract has been noted. No undermining has been noted. There is a small amount of sanguineous drainage noted which has no odor. The patient reports a wound pain of level 0/10. The wound margin is attached. Wound bed has No epithelialization, No eschar, Yes slough, No granulation. The periwound skin moisture is normal. The periwound skin exhibited: Callus, Erythema. The periwound skin did not exhibit: Brawny Induration, Edema, Excoriation, Induration, Crepitus, Fluctuance, Friable, Rash. The temperature of the periwound skin is WNL. Periwound skin presents with s/s of infection. Confirmation Description and Treatment Plan is: Signs and Symptoms Present. Local Pulse is Doppler. Neurological: Cranial nerves grossly intact with symmetric function normal by informal observation.. ASSESSMENT Active Problems ICD-10 (Encounter Diagnosis) L97.222 - Non-pressure chronic ulcer of left calf with fat layer exposed (Encounter Diagnosis) I70.248 - Atherosclerosis of tribal arteries of left leg with ulceration of other part of lower left leg (Encounter Diagnosis) L97.512 - Non-pressure chronic ulcer of other part of right foot with fat layer exposed (Encounter Diagnosis) E11.621 - Type 2 diabetes mellitus with foot ulcer (Encounter Diagnosis) L97.312 - Non-pressure chronic ulcer of right ankle with fat layer exposed (Encounter Diagnosis) I70.238 - Atherosclerosis of tribal arteries of right leg with ulceration of other part of lower right leg PROCEDURES Wound #1 Wound #1 (Arterial Ulcer) is located on the left, lateral leg. A skin/ subcutaneous tissue level surgical debridement with a total area debrided of 7.92 sq cm was performed by Bayrno Briceno MD. Subcutaneous was removed along with devitalized tissue: slough. The following instrument(s) were used: curette. Pain control was achieved using 4% Lido. A time out was conducted prior to the start of the procedure. A minimal amount of bleeding was controlled with n/a. The procedure was tolerated well with a pain level of 0 throughout and a pain level of 0 following the procedure. Post Debridement Measurements: 2.2cm length x 3.6cm width x 0.2cm depth; with an area of 7.92 sq cm and a volume of 1.584 cubic cm; Wound #4 Wound #4 (Diabetic Ulcer) is located on the right ankle. A skin/subcutaneous tissue level surgical debridement with a total area debrided of 0.45 sq cm was performed by Bayron Briceno MD. Subcutaneous was removed along with devitalized tissue: slough. The following instrument(s) were used: curette. Pain control was achieved using 4% Lido. A time out was conducted prior to the start of the procedure. A minimal amount of bleeding was controlled with n/a. The procedure was tolerated well with a pain level of 0 throughout and a pain level of 0 following the procedure. Post Debridement Measurements: 0.9cm length x 0.5cm width x 0.3cm depth; with an area of 0.45 sq cm and a volume of 0.135 cubic cm; Wound #5 Wound #5 (Diabetic Ulcer) is located on the right fifth toe. A skin/ subcutaneous tissue level surgical debridement with a total area debrided of 0.1 sq cm was performed by Bayron Briceno MD. Subcutaneous was removed along with devitalized tissue: slough. The following instrument(s) were used: curette. Pain control was achieved using 4% Lido. A time out was conducted prior to the start of the procedure. A minimal amount of bleeding was controlled with n/a. The procedure was tolerated well with a pain level of 0 throughout and a pain level of 0 following the procedure. Post Debridement Measurements: 0.2cm length x 0.5cm width x 0.3cm depth; with an area of 0.1 sq cm and a volume of 0.03 cubic cm; Additional Information Muscle fascia or bone removed and sent to pathology?: No Muscle fascia or bone removed and sent to pathology?: No Muscle fascia or bone removed and sent to pathology?: No PLAN Wound Orders: Wound #1 Left, Lateral Leg Anesthetic Topical Xylocaine to wound bed. Cleanser Cleanse Wound: - Normal saline in clinic. May use distilled water at home May Shower. - Please cover while in the shower Dressings Primary dressing: - Duoderm Change Dressing: - Leave in place until we see you at your next visit or if drainage is leaking from under the dressing Wound #4 Right Ankle Anesthetic Topical Xylocaine to wound bed. Cleanser Cleanse Wound: - Normal saline in clinic. May use distilled water at home May Shower. - Please cover while in the shower Dressings Primary dressing: - Silvasorb gel to wound base. Cover and secure with: - Foam, Border foam to ankle. Foam to the toe and secure tape and tubular netting. Change Dressing: - Every 2 days. Wound #5 Right Fifth Toe Anesthetic Topical Xylocaine to wound bed. Cleanser Cleanse Wound: - Normal saline in clinic. May use distilled water at home May Shower. - Please cover while in the shower Dressings Primary dressing: - Silvasorb gel to wound base. Cover and secure with: - Foam, Border foam to ankle. Foam to the toe and secure tape and tubular netting. Change Dressing: - Every 2 days. Additional Orders: Follow-Up Appointments Return Appointment: - - 1 Week. Other information: If you develop fever, chills, increased pain, drainage, redness or swelling please call our office. If after hours, respond to the ER. Should you experience any significant changes in your wound(s) or have any questions regarding your home care instructions please contact the wound center @ [phone]. If after hours, contact your primary care physician or go to the hospital emergency room. Scribing Attestation I attest, as the nurse, that I scribed these orders for the physician. I've reviewed the clinician's documentation and agree with the evaluation and plan as written. In addition the patient's ulcers demonstrate evidence of non-viable devitalized tissue and they will continue to benefit from sharp debridement to help promote granulation and expedite healing. Also, the patient will request a referral from her PCP to another specialist regarding improving her diabetes control. We'll also request notes from her vascular surgeon regarding his thought's and potential for intervention for the right leg PAD. Electronic Signature(s) Signed By: Date: Bayron Briceno MD 04/16/2018 15:01:25 Entered By: Bayron Briceno on 04/16/2018 14:48:50 Addendum at 04/23/2018 13:40:50 HPI should state right lateral malleolus and 5th toe diabetic ulcers instead of 1st MTPJ ulcer. Addendum Signed By: Bayron Briceno on 04/23/2018 13:40:50
== END ==
PROVIDERS: PCP Internal Medicine; Visit Provider Internal Medicine
DX: I70.248 Atherosclerosis of native arteries of left leg with ulceration of other part of lower leg (principal); L97.822 Non-pressure chronic ulcer of other part of left lower leg with fat layer exposed; E11.622 Type 2 diabetes mellitus with other skin ulcer; L97.312 Non-pressure chronic ulcer of right ankle with fat layer exposed; E11.65 Type 2 diabetes mellitus with hyperglycemia; E11.621 Type 2 diabetes mellitus with foot ulcer; L97.512 Non-pressure chronic ulcer of other part of right foot with fat layer exposed
CPT/HCPCS: 11042

== ENCOUNTER → 2018-04-23 09:54 | Outpatient (CLI) | payer OTHER, SELFPAY ==
--- NOTE | 2018-04-23 | OV.WND_ITS ---
Progress Note Details Patient Name: Chanda Vo Patient Number: [id number] PatientPatientDate: 04/23/2018 Clinician: Malia Graves Clinician Cosigner: Shira Brooks Physician / Director Of Flight Operations: Bayron Briceno SUBJECTIVE Chief Complaint This information was obtained from the patient Arterial ulcer on left leg and diabetic ulcers on right foot. Allergies atorvastatin (Severity: Moderate, Reaction: cramps), simvastatin (Severity: Moderate, Reaction: cramps) HPI This information was obtained from the patient 04/23/18. Seen by Dr. Briceno. The patient does not report increased drainage or pain associated with the chronic left lower leg arterial ulcer nor right lateral malleolus and 5th toe diabetic ulcers since her last visit. 04/16/18. Seen by Dr. Briceno. The patient does not report increased drainage or pain associated with the chronic left lower leg arterial ulcer nor dorsal right 1st MTPJ diabetic ulcer since her last visit. Her A1c is 10 and she states she's been referred to a new aviation consultant in [place] however does not wish to travel that far. She was also seen by her vascular surgeon who states the right leg PAD is extensive and he's chosen to monitor for now with repeat imaging in 3 months. 04/02/18. Seen by Dr. Briceno. The patient does not report increased drainage or pain associated with the chronic left lower leg arterial ulcer since her last visit and she's applying topical gentamicin as recommended to treat the coag negative Staph cultured from the right lateral malleolus diabetic ulcer. She also has a right 5th toe diabetic ulcer. 03/26/18. Seem by Dr. Briceno. The patient does not report increased drainage or pain associated with the chronic left lower leg arterial ulcer since her last visit. She does report two new non-pressure ulcers over the right lateral malleolus and right 5th toe noting they may have resulted from rubbing on her wheeled walker and shoe respectively. She does not report pain or drainage from these areas and is unsure how long they've been present. She was also seen by her vascular surgeon this week who feels her left leg PAD is optimized however may have raised concern regarding the right leg and wishes to see her again in 2 weeks. 03/17/18. Seen by Dr. Briceno. The patient does not report increased drainage or pain associated with the chronic left lower leg arterial ulcer nor dorsal right 1st MTPJ diabetic ulcer since her last visit. 03/05/18. Seen by Dr. Briceno. The patient does not report increased drainage or pain associated with the chronic left lower leg arterial ulcer since her last visit. She does report some new ulcers over the dorsum of the left foot and carries a diagnosis of diabetes as well. Her left foot is moderately swollen and she's wearing a compression stocking as recommended. 02/26/18. Seen by Dr. Briceno. The patient does not report increased drainage or pain associated with the chronic left lower leg arterial ulcer since her last visit however she does report a new right hand infection she feels may be related to a thorn from a blackberry simmons and was first noticed about 2 days ago. She reports pain at the site but no drainage and has diabetes which is typically well controlled. She's also not currently on antibiotics. 02/19/18. Seen by Dr. Briceno. The patient does not report increased drainage or pain associated with the chronic left lower leg arterial ulcer since her last visit and she's tolerating NPWT without difficulty. 02/12/18. Seen by Dr. Briceno. The patient does not report increased drainage or pain associated with the chronic left lower leg arterial ulcer since her last visit. 02/05/18. Seen by Dr. Briceno. The patient does not report increased drainage or pain associated with the chronic left lower leg arterial ulcer since her last visit. 01/22/18. Seen by Dr. Briceno. The patient does not report increased drainage or pain associated with the chronic left lower leg arterial ulcer since her last visit. 01/15/18. Seen by Dr. Briceno. The patient does not report increased drainage or pain associated with the chronic left lower leg arterial ulcer since her last visit. She's inquiring about whether a follow arterial Doppler should be ordered to evaluate her left leg PAD and whether she should continue taking Plavix noting her 90 day Rx will run out soon. 01/08/18. Seen by Dr. Briceno. The patient does not report increased drainage or pain associated with the chronic left lower leg arterial ulcer since her last visit. 01/01/18. Seen by Dr. Briceno. The patient does not report increased drainage or pain associated with the chronic left lower leg arterial ulcer since her last visit. She also complains of some dizziness upon arrival today and required a wheelchair to be transported to her room. Her vitals and blood sugar are unremarkable however she states she only has a piece of muffin prior to her appointment and is stressed due to a flat tire this morning. 12/25/17. Seen by Dr. Briceno. The patient does not report increased drainage or pain associated with the chronic left lower leg arterial ulcer since her last visit. She does report a worsening cough over the past 4 days but does not report fevers, worsening shortness of breath, or other acute issues today. 12/18/17. Seen by Dr. Briceno. The patient does not report increased drainage or pain associated with the chronic left lower leg arterial ulcer since her last visit. 12/11/17. Seen by Jorge Langston PA-C. The patient reports no increase in drainage from her left lower leg ulcer. 12/04/17. Seen by Dr. Briceno. The patient does not report increased drainage or pain associated with the chronic left lower leg arterial ulcer since her last visit. 11/27/17. Seen by Dr. Briceno. The patient does not report increased drainage or pain associated with the chronic left lower leg arterial ulcer since her last visit. She had intervention for left lower leg PAD on Thursday and does not report adverse side effects. 11/20/17. Seen by Dr. Briceno. The patient does not report increased drainage or pain associated with the chronic left lower leg arterial ulcer since her last visit and she's tolerating her JORDAN wound vac without difficulty. She has her intervention for PAD of the leg scheduled for next Thursday. 11/13/17. Seen by Dr. Briceno. The patient does not report increased drainage or pain associated with the chronic left lower leg arterial ulcer since her last visit and she's tolerating her JORDAN wound vac without difficulty. She has her intervention for PAD of the leg scheduled for 11/23/17. 11/06/17. Seen by Dr. Briceno. The patient reports improvement in terms of the pain associated with the chronic left lower leg arterial ulcer since her last visit and she's tolerating her JORDAN wound vac without difficulty. 10/30/17. Seen by Dr. Briceno. The patient reports improvement in terms of the pain associated with the chronic left lower leg arterial ulcer since her last visit, she does not report significant drainage, and she continues to apply topical gentamicin as recommended to treat the refractory wound infection. She'll have intervention on November 23 also for her left lower leg PAD. 10/23/17. Seen by Dr. Briceno. The patient reports improvement in terms of the pain associated with the chronic left lower leg arterial ulcer since her last visit. She's been applying topical gentamicin as recommended and scheduled for vascular intervention at [facility] on November 23. 10/14/17. Seen by Dr. Briceno. The patient reports improvement in terms of the pain associated with the chronic left lower leg arterial ulcer since her last visit. She's been applying topical gentamicin as recommended and scheduled for vascular intervention at [facility] on October 21. She does not report fevers, significant drainage from the ulcer, or feeling unwell in general. 10/07/17. Seen by Dr. Briceno. The patient completes her course of levofloxacin today has been treating the recent Enterobacter positive wound culture. She reports decreased pain associated with the chronic left lower leg arterial ulcer and has an intervention scheduled by vascular surgery next week. Do not yet have notes from her visit with them however. 09/30/17. Seen by Dr. Briceno. The patient continues to report some intermittent periods of significant pain associated with the chronic left lower leg arterial ulcer which is most noticeable when lying in bed at night. She started levofloxacin based on her wound culture which grew Enterobacter and staph following her visit last week. She does not yet have her arterial Doppler study scheduled but there is a high suspicion for clinically significant PAD contributing to the refractory nature of this ulcer. 09/23/17. Seen by Dr. Briceno. The patient's new to our clinic and presents with a left lower leg non-pressure ulcer that started as a trauma wound about 3-4 weeks ago. It was originally about the size of a quarter and has increased in terms of size, pain, and drainage progressively. She does not report fevers and is not on antibiotics at this time however she does report pain in the leg when lying in bed at night that improves when hanging the leg over the edge of the bed. She also has diabetes and states her blood sugars are typically below 200 however she's unaware of her A1c. She also has a history of CAD with 3-vessle bypass and notes she's moving to [place], [place] in October to live closer to her son. Past Medical History This information was obtained from the patient Patient has a medical history of: Allergic Rhinitis Asthma Coronary Artery Disease (CAD) Type II Diabetes Gastro Esoph. Reflux Disease (GERD) Hypertension Hypercholesteremia Hyperlipidemia Hyperparathyroidism Osteoporosis Peripheral Neuropathy Ulcerative colitis (Illeostomy) Vocal Tremor PAD (bilateral; s/p left leg intervention in November,) Complaints and Symptoms This information was obtained from the patient Patient complains of: General Notes: I have reviewed and concur with the Review of Systems and Past Family Social History documents completed by the clinician, I have reviewed and concur with the Wound Assessment document completed by the clinician Cardiovascular (Central/Peripheral): Lower extremity (leg) resting pain, Lower extremity (leg) swelling Ear/Nose/Mouth/Throat: Hearing Loss / Aid Hematologic/Lymphatic: Bleeding Tendency Integumentary (Hair/Skin/Nails): Open Sore Musculoskeletal: Muscle Weakness Prior Wound History: Drainage, Erythema, Pain Patient denies complaints or symptoms related to: Cardiovascular (Central): Irregular heart beat Constitutional Symptoms (General Health): Chills, Fever Gastrointestinal (GI): Stomach/abdominal pain Hematologic/Lymphatic: Bleeding / Clotting Disorders Neurological: Loss of Protective Sensation Oncologic Prior Wound History: Bleeding Psychiatric: Memory Loss Respiratory: Oxygen Use, Shortness of Breath Additional Information Does patient have a history of Cancer? Yes? Complete all questions.: No OBJECTIVE Constitutional BP low; Afebrile; Alert and in no distress. Frail appearing. Height/Length: 63 in (160.02 cm), Weight: 137.2 lbs (62.36 kgs), BMI: 24.3, Temperature: 98.2 ?F (36.78 ?C), Pulse : 79 bpm, Respiratory Rate: 16 breaths/min, Blood Pressure: 92/54 mmHg, Capillary Blood Glucose: 140 mg/dl, Pulse Oximetry: 96 %. Ears, Nose, Mouth, and Throat: No clinically significant hearing loss on informal examination. Respiratory: No respiratory distress. Even respirations and without use of accessory muscles.. Cardiovascular: Affected extremity exhibits no peripheral edema or cyanosis, is warm, and is well perfused. Capillary refill is less than 2 seconds. Integumentary (Hair, Skin) No periwound erythema, warmth, or significant drainage. No periwound rashes appreciated or noted otherwise.. Refer to appropriate clinician wound documentation for this visit; right lateral malleolus ulcer extends to subcut with base partially covered with pink granulation, remainder fibrin and slough; right 5th toe ulcer extends to bone with base covered with necrotic slough; left lower leg ulcer extends to dermis. Wound #1 Left, Lateral Leg is a chronic Full Thickness Arterial Ulcer and has received a status of Not Healed. Subsequent wound encounter measurements are 0.5cm length x 0.6cm width x 0.2cm depth, with an area of 0.3 sq cm and a volume of 0.06 cubic cm. No tunneling has been noted. No sinus tract has been noted. No undermining has been noted. There is a moderate amount of serous drainage noted which has no odor. The patient reports a wound pain of level 0/10. The wound margin is attached. Wound bed has Yes epithelialization, No eschar, No slough, Yes pink, firm granulation. The periwound skin texture is normal. The periwound skin exhibited: Maceration, Hemosiderosis. The periwound skin did not exhibit: Dry/Scaly, Moist, Atrophie [place], Cyanosis, Ecchymosis, Erythema, Pallor, Rubor. The temperature of the periwound skin is WNL. Periwound skin does not exhibit signs or symptoms of infection. Local Pulse is Doppler. Wound #4 Right, Lateral Malleolus is an acute [place] Grade 4 Diabetic Ulcer and has received a status of Not Healed. Subsequent wound encounter measurements are 0.9cm length x 0.5cm width x 0.3cm depth, with an area of 0.45 sq cm and a volume of 0.135 cubic cm. No tunneling has been noted. No sinus tract has been noted. No undermining has been noted. There is a scant amount of serous drainage noted which has no odor. The patient reports a wound pain of level 0/10. The wound margin is attached. Wound bed has No epithelialization, No eschar, Yes slough, Yes pink, firm granulation. The periwound skin texture is normal. The periwound skin exhibited: Dry/Scaly. The periwound skin did not exhibit: Moist, Maceration, Erythema. The temperature of the periwound skin is WNL. Periwound skin does not exhibit signs or symptoms of infection. Local Pulse is Doppler. Wound #5 Right Fifth Toe is an acute [place] Grade 4 Diabetic Ulcer and has received a status of Not Healed. Subsequent wound encounter measurements are 0.5cm length x 0.8cm width x 0.4cm depth, with an area of 0.4 sq cm and a volume of 0.16 cubic cm. Bone is exposed. No tunneling has been noted. No sinus tract has been noted. No undermining has been noted. There is a large amount of serosanguineous drainage noted which has no odor. The patient reports a wound pain of level 0/10. The wound margin is unattached. Wound bed has No epithelialization, No eschar, Yes slough, Yes pink, firm granulation. The periwound skin exhibited: Callus, Moist, Maceration, Erythema. The periwound skin did not exhibit: Brawny Induration, Edema, Excoriation, Induration, Crepitus, Fluctuance , Friable, Rash, Dry/Scaly, Atrophie [place], Cyanosis, Ecchymosis, Hemosiderosis, Pallor, Rubor. The temperature of the periwound skin is WNL. Periwound skin presents with s/s of infection. Confirmation Description and Treatment Plan is: Signs and Symptoms Present. Local Pulse is Doppler. Neurological: Cranial nerves grossly intact with symmetric function normal by informal observation.. ASSESSMENT Active Problems ICD-10 (Encounter Diagnosis) L97.222 - Non-pressure chronic ulcer of left calf with fat layer exposed (Encounter Diagnosis) I70.248 - Atherosclerosis of enterprise arteries of left leg with ulceration of other part of lower left leg (Encounter Diagnosis) L97.512 - Non-pressure chronic ulcer of other part of right foot with fat layer exposed (Encounter Diagnosis) E11.621 - Type 2 diabetes mellitus with foot ulcer (Encounter Diagnosis) L97.312 - Non-pressure chronic ulcer of right ankle with fat layer exposed (Encounter Diagnosis) I70.238 - Atherosclerosis of enterprise arteries of right leg with ulceration of other part of lower right leg PROCEDURES Wound #1 Wound #1 (Arterial Ulcer) is located on the left, lateral leg. A selective debridement with a total area debrided of 0.3 sq cm was performed by Bayron Briceno MD. to remove devitalized tissue: exudate. The following instrument(s) were used: curette. Pain control was achieved using 4% Lido. A time out was conducted prior to the start of the procedure. A minimal amount of bleeding was controlled with pressure. The procedure was tolerated well with a pain level of 0 throughout and a pain level of 0 following the procedure. Post Debridement Measurements: 0.5cm length x 0.6cm width x 0.2cm depth; with an area of 0.3 sq cm and a volume of 0.06 cubic cm; Wound #4 Wound #4 (Diabetic Ulcer) is located on the right, lateral malleolus. A skin/ subcutaneous tissue level surgical debridement with a total area debrided of 0.45 sq cm was performed by Bayron Briceno MD. Subcutaneous was removed along with devitalized tissue: slough. The following instrument(s) were used: curette. Pain control was achieved using 4% Lido. A time out was conducted prior to the start of the procedure. No bleeding occurred. The procedure was tolerated well with a pain level of 0 throughout and a pain level of 0 following the procedure. Post Debridement Measurements: 0.9cm length x 0.5cm width x 0.3cm depth; with an area of 0.45 sq cm and a volume of 0.135 cubic cm; Wound #5 Wound #5 (Diabetic Ulcer) is located on the right fifth toe. A skin/ subcutaneous tissue level surgical debridement with a total area debrided of 0.4 sq cm was performed by Bayron Briceno MD. to remove devitalized tissue: exudate and slough. The following instrument(s) were used: forceps and scissors. Pain control was achieved using 4% Lido. A time out was conducted prior to the start of the procedure. No bleeding occurred. The procedure was tolerated well with a pain level of 0 throughout and a pain level of 0 following the procedure. Post Debridement Measurements: 0.5cm length x 0.8cm width x 0.4cm depth; with an area of 0.4 sq cm and a volume of 0.16 cubic cm; Additional Information Muscle fascia or bone removed and sent to pathology?: No Muscle fascia or bone removed and sent to pathology?: No PLAN Wound Orders: Wound #1 Left, Lateral Leg Anesthetic Topical Xylocaine to wound bed. Cleanser Cleanse Wound: - Normal saline in clinic. May use distilled water at home May Shower. - Please cover while in the shower Dressings Primary dressing: - Duoderm Change Dressing: - Leave in place until we see you at your next visit or if drainage is leaking from under the dressing Wound #4 Right, Lateral Malleolus Anesthetic Topical Xylocaine to wound bed. Cleanser Cleanse Wound: - Normal saline in clinic. May use distilled water at home May Shower. - Please cover while in the shower Dressings Primary dressing: - Silvasorb gel to wound base. Cover and secure with: - Foam, Border foam to ankle. Change Dressing: - Every 2 days. Wound #5 Right Fifth Toe Anesthetic Topical Xylocaine to wound bed. Cleanser Cleanse Wound: - Normal saline in clinic. May use distilled water at home May Shower. - Please cover while in the shower Dressings Primary dressing: - Iodoflex into wound base. Cover and secure with: - Foam to the toe and secure tape and tubular netting. Change Dressing: - Every 2 days. Additional Orders: Follow-Up Appointments Return Appointment: - - 1 Week. Other information: If you develop fever, chills, increased pain, drainage, redness or swelling please call our office. If after hours, respond to the ER. Should you experience any significant changes in your wound(s) or have any questions regarding your home care instructions please contact the wound center @ [phone]. If after hours, contact your primary care physician or go to the hospital emergency room. Scribing Attestation I attest, as the nurse, that I scribed these orders for the physician. Laboratory: Metabolic Panel - Basic Metabolic Panel I've reviewed the clinician's documentation and agree with the evaluation and plan as written. In addition the patient's ulcers demonstrate evidence of non-viable devitalized tissue and they will continue to benefit from sharp debridement to help promote granulation and expedite healing. Also, I've discussed the deterioration of the right 5th toe ulcer in terms of the newly exposed bone with both the patient and Dr. Coulter who will be taking over her care. She understands there may be a need to amputate the toe due to the likelihood the ulcer will not heal considering her PAD and poorly controlled diabetes. Electronic Signature(s) Signed By: Date: Bayron Briceno MD 04/26/2018 06:58:18 Entered By: Bayron Briceno on 04/26/2018 06:48:47
== END ==
PROVIDERS: PCP Internal Medicine; Visit Provider Internal Medicine
DX: I70.248 Atherosclerosis of native arteries of left leg with ulceration of other part of lower leg (principal); L97.821 Non-pressure chronic ulcer of other part of left lower leg limited to breakdown of skin; E11.621 Type 2 diabetes mellitus with foot ulcer; L97.312 Non-pressure chronic ulcer of right ankle with fat layer exposed; L97.516 Non-pressure chronic ulcer of other part of right foot with bone involvement without evidence of necrosis; I96 Gangrene, not elsewhere classified
CPT/HCPCS: 11042; 36415; 80048; 97597

== ENCOUNTER → 2018-04-23 11:10 | Outpatient (CLI) | payer OTHER, SELFPAY ==
[2018-04-23 12:36] LABS: Blood Urea Nitrogen 40 mg/dL (7-17); Calcium 10.7 mg/dL (8.4-10.2); Carbon Dioxide 27 mmol/L (22-32); Chloride 106 mmol/L (98-107); Estimated Glomerular Filt Rate 31.3 mL/min (>60); Glucose 54 mg/dL (80-110); HEMOLYSIS < 15 (0-50); Potassium 4.8 mmol/L (3.4-5.1); Sodium 144 mmol/L (137-145)
== END ==
PROVIDERS: PCP Internal Medicine; Visit Provider Internal Medicine
DX: E87.5 Hyperkalemia (principal); R19.7 Diarrhea, unspecified
CPT/HCPCS: 36415; 80048

== ENCOUNTER → 2018-04-30 09:23 | Outpatient (CLI) | payer OTHER, SELFPAY | PROVIDERS: PCP Internal Medicine; Visit Provider Family Medicine | DX: E11.622 Type 2 diabetes mellitus with other skin ulcer (principal); E11.40 Type 2 diabetes mellitus with diabetic neuropathy, unspecified; L97.311 Non-pressure chronic ulcer of right ankle limited to breakdown of skin; E11.621 Type 2 diabetes mellitus with foot ulcer; L97.516 Non-pressure chronic ulcer of other part of right foot with bone involvement without evidence of necrosis | CPT/HCPCS: 97597; 99214 ==

== ENCOUNTER → 2018-05-07 09:29 | Outpatient (CLI) | payer OTHER, SELFPAY | PROVIDERS: PCP Internal Medicine; Visit Provider Family Medicine | DX: E11.621 Type 2 diabetes mellitus with foot ulcer (principal); L97.312 Non-pressure chronic ulcer of right ankle with fat layer exposed; E11.51 Type 2 diabetes mellitus with diabetic peripheral angiopathy without gangrene; L97.516 Non-pressure chronic ulcer of other part of right foot with bone involvement without evidence of necrosis; I70.238 Atherosclerosis of native arteries of right leg with ulceration of other part of lower leg; L03.115 Cellulitis of right lower limb | CPT/HCPCS: 11042 ==

== ENCOUNTER → 2018-05-12 10:15 | Outpatient (CLI) | payer OTHER, SELFPAY | PROVIDERS: PCP Internal Medicine; Visit Provider Family Medicine | DX: E11.621 Type 2 diabetes mellitus with foot ulcer (principal); E11.40 Type 2 diabetes mellitus with diabetic neuropathy, unspecified; L97.511 Non-pressure chronic ulcer of other part of right foot limited to breakdown of skin; E11.622 Type 2 diabetes mellitus with other skin ulcer; L97.311 Non-pressure chronic ulcer of right ankle limited to breakdown of skin; M86.171 Other acute osteomyelitis, right ankle and foot; B37.3 Candidiasis of vulva and vagina | CPT/HCPCS: 11042; 99213 ==

== ENCOUNTER → 2018-05-19 09:41 | Outpatient (CLI) | payer OTHER, SELFPAY | PROVIDERS: PCP Internal Medicine; Visit Provider Family Medicine | DX: E11.621 Type 2 diabetes mellitus with foot ulcer (principal); L97.312 Non-pressure chronic ulcer of right ankle with fat layer exposed; I70.238 Atherosclerosis of native arteries of right leg with ulceration of other part of lower leg; L97.514 Non-pressure chronic ulcer of other part of right foot with necrosis of bone; M86.171 Other acute osteomyelitis, right ankle and foot; B37.3 Candidiasis of vulva and vagina; R23.1 Pallor | CPT/HCPCS: 99213 ==

== ENCOUNTER → 2018-05-19 10:50 | Outpatient (CLI) | payer OTHER, SELFPAY ==
[2018-05-19 11:58] LABS: BUN Creatinine Ratio 31.1 (6-22); Blood Urea Nitrogen 56 mg/dL (7-17); Estimated Glomerular Filt Rate 27.3 mL/min (>60)
[2018-05-19 12:02] LABS: High Sensitivity CRP - Cardiac 2.2 mg/L (1.0-3.0)
[2018-05-19 12:17] LABS: Erythrocyte Sedimentation Rate 36 MM/HR (0-20)
[2018-05-22 17:54] LABS: ANA Screen NEGATIVE (Negative); DNA Antibody Crithidia IFA NEGATIVE (Negative); Rheumatoid Factor 16 IU/mL (< 14); Sjogren Antiboday SS-A <1.0 NEG AI (<1.0 NEGATIVE); Sjogren Antiboday SS-B <1.0 NEG AI (<1.0 NEGATIVE); Sm Antibody <1.0 NEG AI (<1.0 NEGATIVE); Sm/RNP Antibody <1.0 NEG AI (<1.0 NEGATIVE)
== END ==
PROVIDERS: PCP Internal Medicine; Visit Provider Family Medicine
DX: R23.1 Pallor (principal); E11.621 Type 2 diabetes mellitus with foot ulcer; L97.222 Non-pressure chronic ulcer of left calf with fat layer exposed
CPT/HCPCS: 36415; 82565; 84520; 85651; 86038; 86140; 86430

== ENCOUNTER → 2018-05-21 11:19 | Outpatient (CLI) | payer OTHER, SELFPAY ==
--- NOTE | 2018-05-21 11:20 | DI.MRI.S_ITS ---
PROCEDURE: MR FOOT RT WO CON INDICATIONS: NON-PRESSURE CHRONIC ULCER TECHNIQUE: Noncontrast sagittal T1 spin echo and T2 fast spin echo with fat saturation, long-axis T1 spin echo and T2 fast spin echo with fat saturation, short-axis T1 spin echo and T2 fast spin echo with fat saturation through the forefoot. COMPARISON: [facility] [place], CR, XR TOE(S) RIGHT, 05/12/2018, 13:45. FINDINGS: Image quality: Diagnostic. A few imaging sequences are degraded by motion artifact. Bones and joints: No displaced fractures, dislocations, or suspicious osseous lesions are identified involving the right mid foot and forefoot structures. There is decreased T1 and increased T2 signal identified involving the middle and distal phalanges of the 5th toe. There is also involvement involving the head of the proximal phalanx of the 5th toe. No definite additional areas of abnormal marrow signal are appreciated within the midfoot or forefoot. There may be mild degenerative changes throughout the imaged portions of the foot. Soft tissues: There is prominent soft tissue edema identified diffusely throughout the midfoot and forefoot, which is more pronounced on the dorsal aspect of the forefoot. No drainable or loculated fluid collection is appreciated. There is also edema identified involving the intrinsic muscles of the midfoot. The imaged tendinous structures of the midfoot and forefoot appear to be grossly intact and otherwise unremarkable. There is a small ulceration involving the skin along the distal aspect of the 5th toe. IMPRESSION: 1. Overall findings are highly suspicious for osteomyelitis of the 5th toe, as described. Please correlate clinically. 2. Small ulceration along the 5th toe. 3. Extensive subcutaneous edema about the imaged right foot is suspicious for cellulitis. No drainable abscess is appreciated. Dictated by: Saqib Shaw M.D. on 05/21/2018 at 12:58 Approved by: Saqib Shaw M.D. on 05/21/2018 at 13:03
== END ==
PROVIDERS: PCP Internal Medicine; Visit Provider Family Medicine
DX: E11.621 Type 2 diabetes mellitus with foot ulcer (principal); L97.514 Non-pressure chronic ulcer of other part of right foot with necrosis of bone
CPT/HCPCS: 73718

== ENCOUNTER 2018-05-26 11:42 | Day surgery (SDC) | payer OTHER, SELFPAY ==
[2018-05-25 08:17] VITALS: BMI 23.3
[2018-05-26 12:09] VITALS: BP 109/58; PULSE 58; RESP 16; TEMP 37; O2SAT 98; BMI 23.3
[2018-05-26 12:54] LABS: Calcium 11.4 mg/dL (8.4-10.2); HEMOLYSIS < 15 (0-50); Potassium 4.8 mmol/L (3.4-5.1)
--- NOTE | 2018-05-26 13:13 | PM.PREOP ---
Pre-operative Note Interval Note Pre-op Check: Yes History & Physical Reviewed by Physician Changes: No
--- NOTE | 2018-05-26 13:18 | P.OP_ITS ---
Operative Date/Time/Diagnoses Date of procedure: 05/26/18 Time of procedure: 13:14 Pre-op diagnosis: Right fifth toe wound and suspected osteomyelitis Post-op diagnosis: same Procedure & Clinicians Procedure: Right fifth toe amputation Same procedure as scheduled: Yes Indications: Ongoing ulceration to the right fifth toe with suspicion of osteomyelitis. Conservative measures including revascularization and wound care have been attempted and surgical intervention is warranted. She has had a workup from her PCP and based on the concern for escalating infection and further tissue involvement, she was cleared for local anesthesia. She understands the risks, potential complications and expected outcomes. Labwork was reviewed and deemed appropriate to proceed based on preoperative values and risk versus benefit of surgery. Surgeon: Margarita Anderson Click Yes if Unassisted: Yes Anesthesia Type: MAC +/- and Local Operative Notes Findings: Closure Type: primary Specimen(s): none sent Estimated Blood Loss (mL): 10 Tourniquet time (min): 0 Procedure in detail: The patient was brought to the operating room and placed on the operating table in the supine position. Well padded appropriately aligned. After introduction of mild IV sedation, local anesthesia was obtained to the foot. The foot and ankle were prepped and draped in the usual aseptic manner. After check of anesthesia a full-thickness circumferential incision was made around the 5th toe. This was then continued into the metatarsophalangeal joint linearly. The toe was carefully disarticulated. The area was irrigated with copious amounts of normal sterile saline. No necrotic tissue or abscesses were noted in the 5th metatarsal area. Skin and tissue was revised to allow for appropriate closure. Vessels were cauterized and ligated as necessary. 4-0 Vicryl was used subcutaneously for closure and 4-0 nylon for the skin. The area was dressed with a sterile lightly compressive dressing Complications: none Condition: stable Disposition: PACU Plan for aftercare: Following a period of postoperative monitoring, the patient be discharged home on written and oral postoperative instructions including keeping the dressing dry and intact, avoiding significant ambulation on the foot , and elevating the foot when seated home. DVT prevention techniques have been reviewed. For the 1st postoperative visit the dressing will be changed and close to the 3rd postoperative week we will likely remove the sutures.
[2018-05-26 13:22] VITALS: BMI 23.3
[2018-05-26] MEDS: LACTATED RINGERS 1,000 ML 42 ML IV (13:25)
[2018-05-26] MEDS: INSULIN REGULAR 100 UNIT/ML 3 ML VIAL 6 UNIT SUBCUT (13:26)
[2018-05-26 13:30] VITALS: BMI 23.3
--- NOTE | 2018-05-26 13:31 | SUR.PREOP ---
PATIENTS CASE WAS DELAYED FOR 2 REASONS SHE ATE WAFFLES AT 0700 AND SHE HAD LABS PENDING THAT NEEDED TO BE EVALUATED PRIOR TO SURGERY.
[2018-05-26] MEDS: CLINDAMYCIN 600 MG/50 ML PIGGYBACK 50 MG IV (13:33)
[2018-05-26] MEDS: BUPIVACAINE 0.5% (PF) VIAL 10 ML INJ (13:39)
--- NOTE | 2018-05-26 13:53 | SUR.OPER ---
Supine on padded OR bed, head on pillow, arms secured on padded arm boards at <90 degrees abduction, legs uncrossed, safety belt at thigh
[2018-05-26] MEDS: LIDOCAINE 2% INJ SDV 5 ML INJ (14:11)
[2018-05-26 14:28] VITALS: BP 94/58; PULSE 73; RESP 16; TEMP 36.8; O2SAT 97
[2018-05-26 15:00] VITALS: BP 132/78; PULSE 72; RESP 16; TEMP 36.2; O2SAT 98
== END 2018-05-26 15:11 | disposition home or self-care (01) ==
PROVIDERS: PCP Internal Medicine; Visit Provider Podiatrist
PROC: (CPT 28820; principal; 2018-05-26 12:45)
DX: E11.621 Type 2 diabetes mellitus with foot ulcer (principal); L97.516 Non-pressure chronic ulcer of other part of right foot with bone involvement without evidence of necrosis; Z79.4 Long term (current) use of insulin; Z95.1 Presence of aortocoronary bypass graft; J44.9 Chronic obstructive pulmonary disease, unspecified; G62.9 Polyneuropathy, unspecified; I51.9 Heart disease, unspecified
CPT/HCPCS: 28820; 36415; 82310; 84132; J2704

== ENCOUNTER → 2018-06-04 09:55 | Outpatient (CLI) | payer OTHER, SELFPAY ==
[2018-06-04 12:30] LABS: Alanine Aminotransferase 35 IU/L (9-52); Albumin 3.7 g/dL (3.5-5.0); Albumin Globulin Ratio 1.2 (1.0-2.8); Alkaline Phosphatase 93 U/L (38-126); Aspartate Aminotransferase 19 IU/L (14-36); BUN Creatinine Ratio 24.3 (6-22); Bilirubin Total 0.2 mg/dL (0.2-1.3); Blood Urea Nitrogen 34 mg/dL (7-17); Calcium 11.5 mg/dL (8.4-10.2); Carbon Dioxide 28 mmol/L (22-32); Chloride 104 mmol/L (98-107); Estimated Glomerular Filt Rate 36.5 mL/min (>60); Globulin 3.1 g/dL (1.7-4.1); Glucose 184 mg/dL (80-110); HEMOLYSIS < 15 (0-50); Phosphorous 4.7 mg/dL (2.8-4.1); Potassium 5.3 mmol/L (3.4-5.1); Sodium 143 mmol/L (137-145); Total Protein 6.8 g/dL (6.3-8.2)
[2018-06-08 11:30] LABS: Parathyroid Hormone Int 14 pg/mL (14-64)
== END ==
PROVIDERS: PCP Internal Medicine; Visit Provider Family Medicine
DX: E11.621 Type 2 diabetes mellitus with foot ulcer (principal); L97.312 Non-pressure chronic ulcer of right ankle with fat layer exposed; I70.238 Atherosclerosis of native arteries of right leg with ulceration of other part of lower leg; M86.171 Other acute osteomyelitis, right ankle and foot; E83.52 Hypercalcemia; L97.512 Non-pressure chronic ulcer of other part of right foot with fat layer exposed; L08.9 Local infection of the skin and subcutaneous tissue, unspecified
CPT/HCPCS: 11042; 36415; 80053; 83970; 84100; 87070; 87075; 87077; 87186; 87205; 99214

== ENCOUNTER 2018-06-08 12:12 | Inpatient (IN) | payer OTHER, SELFPAY ==
[2018-06-08] VITALS (20 sets, daily range): BP systolic 88–151; BP diastolic 47–72; PULSE 73–88; RESP 10–26; TEMP 36.4–37.4; O2SAT 91–99; BMI 23.6
--- NOTE | 2018-06-08 | DI.RAD.S_ITS ---
PROCEDURE: XR CHEST 1V INDICATIONS: Chest congestion, cough TECHNIQUE: One view of the chest was acquired. COMPARISON: None. FINDINGS: Surgical changes and devices: Median sternotomy changes are present. Lungs and pleura: No pleural effusions or pneumothorax. No focal consolidation is identified. There may be areas of mild scarring within the medial right and left lower lobes. Mediastinum: Mediastinal contours appear normal. Heart size is normal. Bones and chest wall: No suspicious bony lesions. Degenerative changes of the spine and shoulders are not well characterized. Overlying soft tissues appear unremarkable. IMPRESSION: No acute cardiopulmonary process is evident. Dictated by: Saqib Shaw M.D. on 06/08/2018 at 13:57 Approved by: Saqib Shaw M.D. on 06/08/2018 at 13:58
--- NOTE | 2018-06-08 | PATH_ITS ---
[facility] Accession Number: [id number] . 01 Material submitted: . 5TH METATARSAL BONE HEAD . 02 Diagnosis: Fifth Metatarsal Bone Head: Acute inflammation with focal acute osteomyelitis. MRV/06/10/2018 . 02 Electronically signed: . Kj Plascencia MD, Pathologist NPI- [id number] . 01 Gross description: . Received in formalin, labeled fifth metatarsal bone head, is a pham-yellow metatarsal head (1.5 x 1.3 x 1.1 cm). The bone is hard and cannot be sliced with a scalpel. The resection margin is inked black. One payroll representative serial section is decalcified and submitted in cassette A1. ([id number]) /MRV . 02 Pathologist provided ICD-10: M86.079 . 02 CPT . 750783, [id number] Performed at: 01 [facility] [address] [id number] MD Sean Perez MD Phone: [phone] Performed at: 02 [facility] [address] [place], [place] [id number] MD Kristie Rodriguez MD Phone: [phone]
--- NOTE | 2018-06-08 12:49 | PM.HP.1 ---
History of Present Illness Date Patient Seen: 06/08/18 Time Patient Seen: 11:28 Chief complaint: CELLULITIS RIGHT FOOT Narrative: 77-year-old female presents with concern of increasingly red and swollen right foot. She was seen in the wound care clinic on Thursday and evidently had some worsening conditions of the area of the foot where the surgery taken place. She had a culture taken by Dr. hoda Joseph and was continuing on her doxycycline. She was then contacted yesterday and placed on an updated antibiotic. She did not get the new antibiotic yet because on her drive to see us today. Her forgot to stop at the pharmacy. She denies fevers, chills, nausea or vomiting, but she does feel just tired. Patient History Medical History Anemia (Acute) Asthma (Acute) CAD (coronary artery disease) (Acute) CKD stage 3 due to type 2 diabetes mellitus (Acute) COPD (chronic obstructive pulmonary disease) (Acute) Diabetes (Acute) Diabetic gastroparesis (Acute) Diabetic macular edema (Acute) Dyslipidemia (Acute) Epiretinal membrane, both eyes (Acute) Essential tremor (Acute) H/O: hysterectomy (Acute) Lumbar spinal stenosis (Acute) Osteopenia (Acute) PAD (peripheral artery disease) (Acute) PVD (posterior vitreous detachment) (Acute) Peripheral neuropathy (Acute) Proliferative diabetic retinopathy of both eyes (Acute) Ulcers of both lower extremities (Acute) Unspecified vitamin D deficiency (Acute) Uterine cancer (Acute) Vocal cord dysfunction (Acute) Vocal tremor (Acute) Surgical History History of atherectomy (Acute ~2017) History of panretinal photocoagulation (Acute) History of parathyroid surgery (Acute) Hx of abdominal surgery (Acute) Hx of appendectomy (Acute) Hx of colectomy (Acute) Hx of ileostomy (Acute) Hx of tonsillectomy (Acute) Hx of vitrectomy (Acute) S/P CABG (coronary artery bypass graft) (Acute ~2007) S/P coronary artery stent placement (Acute) S/P foot surgery, left (Acute) S/p bilateral carpal tunnel release (Acute) Status post cataract extraction of both eyes with insertion of intraocular lens (Acute) Comment: Right fifth toe amputation 05/26/18 Family & Social History Family History: Reviewed 06/08/18 by Margarita Anderson DPM Social History: . Meds Home Medications Medication Instructions Recorded Confirmed Type acetaminophen 500 mg PO Q4H PRN 05/25/18 05/26/18 History albuterol sulfate [ProAir HFA] 2 puff INHALATION Q6H PRN 05/25/18 05/25/18 History aspirin 81 mg PO DAILY 05/25/18 05/26/18 History clopidogrel [Plavix] 75 mg PO DAILY 05/25/18 05/26/18 History diclofenac epolamine 1 patch TRANSDERMAL BID 05/25/18 05/25/18 History fluticasone [Flovent HFA] 2 puff INHALATION BID 05/25/18 05/25/18 History insulin aspart U-100 [Novolog 8 - 10 unit SUBCUT TID 05/25/18 05/25/18 History Flexpen U-100 Insulin] insulin glargine 20 unit SUBCUT QPM 05/25/18 05/26/18 History insulin glargine 28 unit SUBCUT QAM 05/25/18 05/25/18 History lisinopril 1.25 mg PO DAILY 05/25/18 05/26/18 History omega-3 acid ethyl esters [Lovaza] 2 cap PO DAILY 05/25/18 05/25/18 History omeprazole 20 mg PO DAILY 05/25/18 05/26/18 History pravastatin 20 mg PO BEDTIME 05/25/18 05/25/18 History tiotropium bromide [Spiriva with 1 cap INHALATION DAILY 05/25/18 05/25/18 History HandiHaler] topiramate [Topamax] 15 mg PO BEDTIME 05/25/18 05/25/18 History Allergies Allergy/AdvReac Type Severity Reaction Status Date / Time amiodarone Allergy Reaction Verified 05/25/18 08:40 not listed Beta-Blockers AdvReac Cannot Verified 05/25/18 08:40 (Beta-Adrenergic Bloc tolerate beta blockers r/t COPD fluticasone AdvReac Dysphonia Verified 05/25/18 09:55 [From Advair Diskus] salmeterol AdvReac Dysphonia Verified 05/25/18 09:55 [From Advair Diskus] Exam Vital Signs (past 8 hours): - 06/08/18 12:38 Temperature 99.2 F Pulse Rate 88 Respiratory Rate 18 Blood Pressure 121/61 Pulse Oximetry 95 Oxygen Flow Rate 0 Extrem Right lower extremity: normal capillary refill and foot ( Dehiscence at the distal portion of the prior incision of the fifth metatarsal. There is maceration drainage and the wound has opened at the tip. There is redness at the metatarsal head location, although bone is not able to be probed. Edema is present. No crepitus. No erythematous streaking ) Assessment & Plan Plan: Assessment/Plan Narrative: Right foot wound dehiscence status post fifth metatarsophalangeal joint amputation. This has completely changed since I saw her a week ago. She had cultures taken but at this point this is needing antibiotics as well has investigation openlywith I&D. She is counseled about her situation and she would like to proceed and undergo an admission to the hospital. She is scheduled for surgery for an I&D at 4 PM today at [facility]. This will likely be under local as this was the status previously 2 weeks ago. I will contact Dr. hoda Joseph, with an update and appreciate medicines consultation. She has been concerned of late with the status of her breathing, and although she has recently seen been seen by her primary care physician, that has also been of concern to her. She is not showing any current signs justine nterview or exam of concern Regarding her breathing,, but she would like further workup. She will be admitted for IV antibiotics, medical management, and postsurgical care.
[2018-06-08] MEDS: SODIUM CHLORIDE 0.9% 1,000 ML 60 ML IV (13:46)
[2018-06-08 13:50] LABS: Add Manual Diff / Slide Review NO; Basophils Percent Auto 0.8 % (0-2); Eosinophils Percent Auto 3.4 % (2-4); Hematocrit 31.6 % (36-46); Hemoglobin 10.4 g/dL (12.0-16.0); Lymphocytes Percent Auto 17.8 % (25-40); Mean Corpuscular Hemoglobin 30.3 PG (26-34); Mean Corpuscular Volume 91.8 fL (80-100); Monocytes Percent Auto 6.9 % (3-14); Neutrophils Absolute Auto 5700 /uL (1500-7000); Neutrophils Percent Auto 71.1 % (50-75); Platelet Count 285 X10^3/uL (150-400); Red Blood Cell Count 3.44 X10^6/uL (4.0-5.2); Red Cell Distribution Width 12.7 % (11.6-14.8)
--- NOTE | 2018-06-08 14:28 | PM.CN ---
History of Present Illness Date Patient Seen: 06/08/18 Time Patient Seen: 13:29 Chief complaint: CELLULITIS RIGHT FOOT Reason for consult: Infection right foot with multiple comorbid medical problems Requesting provider: Margarita Anderson Narrative: This is a 77 year old female patient who is admitted by Dr. Margarita Anderson for incision and drainage related to a wound infection following a metatarsophalangeal amputation of the 5th toe with worsening pain and redness at the surgical site within the last week. Please refer to Dr. Anderson's H&P for detailed information. The patient has a history of diabetes type II with PVD and peripheral neuropathy, CVD status post CABG x3 4 years ago, COPD, asthma, anemia, osteoporosis, arthritis and tremors. She additionally has a history of uterine cancer and is status post hysterectomy and a history of ulcerative colitis resulting in a colectomy and ileostomy over 30 years ago. The patient reports a recent illness beginning 3 weeks ago with a continuing cough that is productive and shortness of breath and decreased activity tolerance. PFSH Medical History Anemia (Acute) Asthma (Acute) CAD (coronary artery disease) (Acute) CKD stage 3 due to type 2 diabetes mellitus (Acute) COPD (chronic obstructive pulmonary disease) (Acute) Diabetes (Acute) Diabetic gastroparesis (Acute) Diabetic macular edema (Acute) Dyslipidemia (Acute) Epiretinal membrane, both eyes (Acute) Essential tremor (Acute) H/O: hysterectomy (Acute) Lumbar spinal stenosis (Acute) Osteopenia (Acute) PAD (peripheral artery disease) (Acute) PVD (posterior vitreous detachment) (Acute) Peripheral neuropathy (Acute) Proliferative diabetic retinopathy of both eyes (Acute) Ulcers of both lower extremities (Acute) Unspecified vitamin D deficiency (Acute) Uterine cancer (Acute) Vocal cord dysfunction (Acute) Vocal tremor (Acute) Surgical History History of atherectomy (Acute ~2018) History of panretinal photocoagulation (Acute) History of parathyroid surgery (Acute) Hx of abdominal surgery (Acute) Hx of appendectomy (Acute) Hx of colectomy (Acute) Hx of ileostomy (Acute) Hx of tonsillectomy (Acute) Hx of vitrectomy (Acute) S/P CABG (coronary artery bypass graft) (Acute ~2007) S/P coronary artery stent placement (Acute) S/P foot surgery, left (Acute) S/p bilateral carpal tunnel release (Acute) Status post cataract extraction of both eyes with insertion of intraocular lens (Acute) Social History household members: spouse Smoking Status: Never smoker alcohol intake: current Comment: Meds Home Medications Medication Instructions Recorded Confirmed Type acetaminophen 500 mg PO Q4H PRN 05/25/18 05/26/18 History albuterol sulfate [ProAir HFA] 2 puff INHALATION Q6H PRN 05/25/18 05/25/18 History aspirin 81 mg PO DAILY 05/25/18 05/26/18 History clopidogrel [Plavix] 75 mg PO DAILY 05/25/18 05/26/18 History diclofenac epolamine 1 patch TRANSDERMAL BID 05/25/18 05/25/18 History fluticasone [Flovent HFA] 2 puff INHALATION BID 05/25/18 05/25/18 History insulin aspart U-100 [Novolog 8 - 10 unit SUBCUT TID 05/25/18 05/25/18 History Flexpen U-100 Insulin] insulin glargine 20 unit SUBCUT QPM 05/25/18 05/26/18 History insulin glargine 28 unit SUBCUT QAM 05/25/18 05/25/18 History lisinopril 1.25 mg PO DAILY 05/25/18 05/26/18 History omega-3 acid ethyl esters [Lovaza] 2 cap PO DAILY 05/25/18 05/25/18 History omeprazole 20 mg PO DAILY 05/25/18 05/26/18 History pravastatin 20 mg PO BEDTIME 05/25/18 05/25/18 History tiotropium bromide [Spiriva with 1 cap INHALATION DAILY 05/25/18 05/25/18 History HandiHaler] topiramate [Topamax] 15 mg PO BEDTIME 05/25/18 05/25/18 History Allergies Allergy/AdvReac Type Severity Reaction Status Date / Time amiodarone Allergy Reaction Verified 05/25/18 08:40 not listed Beta-Blockers AdvReac Cannot Verified 05/25/18 08:40 (Beta-Adrenergic Bloc tolerate beta blockers r/t COPD fluticasone AdvReac Dysphonia Verified 05/25/18 09:55 [From Advair Diskus] salmeterol AdvReac Dysphonia Verified 05/25/18 09:55 [From Advair Diskus] Exam Vital Signs (past 8 hours): - 06/08/18 12:38 12/18/18 14:01 Temperature 99.2 F 99.4 F Pulse Rate 88 Respiratory Rate 18 Blood Pressure 121/61 Pulse Oximetry 95 Oxygen Flow Rate 0 Const General: cooperative and well developed Nutritional Appearance: average body habitus Orientation: alert, awake and oriented x3 HENMT Head: normocephalic and No cranial bruits Ears: hearing grossly normal bilaterally Nose: external nose normal and nares normal Face and sinus: normal facial exam and sinuses tender Mouth: oral mucosae normal and lip normal Throat: posterior oropharynx normal and uvula midline Eyes General: appearance normal, both eyes and all related structures Conjunctivae: conjunctivae normal Sclera: sclerae normal Pupils: PERRL EOM: EOM intact bilaterally Neck Neck: normal visual inspection, trachea midline, supple, No lymphadenopathy and No JVD Carotids: normal carotid upstroke Chest Chest: normal palpation of entire chest wall and No tenderness Resp Effort & Inspection: cough Quality of cough: productive (for white sputum ) and tachypneic Auscultation: rales bilaterally at the base, rhonchi lower bilaterally, no wheezes and rub present Tactile Fremitus: tactile fremitus present Cardio Palpation: normal PMI and no thrill Rate: regular rate Rhythm: regular rhythm Heart Sounds: S1 normal and S2 normal Bruits: no carotid bruits Pulses: radial pulses present and other (nail beds are pink, delayed capillary refill 3-4 seconds bilateral feet) GI Inspection: incision (well healed midline abdominal scar, ileostomy bag in place RLQ with light brown liquid.) Palpation: soft, No guarding and No mass Percussion: tympanic to percussion Auscultation: absent bowel sounds and other (no aortic bruit) Back/Spine/Pelvis Back: No back tenderness Cervical Spine: No cervical muscular tenderness and No cervical spinal tenderness Thoracic/Lumbar Spine: other (Kyphotic) Skin General: other (Dressing in place right lateral forefoot and lateral maleolous. 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4 L Hct 31.6 L MCV 91.8 MCH 30.3 MCHC 33.0 RDW 12.7 Plt Count 285 Neut % (Auto) 71.1 Lymph % (Auto) 17.8 L [place] % (Auto) 6.9 Eos % (Auto) 3.4 Baso % (Auto) 0.8 Neut # (Auto) 5700 Assessment & Plan Plan: Assessment/Plan Narrative: The patient is admitted to the hospital for I&D of the right lateral foot. The patient has surgery scheduled for this afternoon. The patient has a CBC done with an elevated lymphocyte count. We will obtain BMP to assess renal function and blood sugar as well as CRP and ESR for inflammatory markers. We will obtain a CXR related to pulmonary congestion on examination and dsypnea. She has trace pedal edema and do not believe a BNP is needed at this time. She will continue her home regime of inhalers and has an adequate SpO2 of 95%. We will check blood sugars AC and HS and treat with a sliding scale holding her PM dose of Lantus tonight. The patient is NPO for surgery and has IV NS infusing. She may eat follow surgery as tolerated. Activity will be per the discretion of Dr. Anderson.
[2018-06-08 14:43] LABS: BUN Creatinine Ratio 30.8 (6-22); Blood Urea Nitrogen 37 mg/dL (7-17); C-Reactive Protein Quant 2.1 mg/dL (<1.0); Calcium 11.2 mg/dL (8.4-10.2); Carbon Dioxide 28 mmol/L (22-32); Chloride 106 mmol/L (98-107); Estimated Glomerular Filt Rate 43.6 mL/min (>60); Glucose 128 mg/dL (80-110); HEMOLYSIS < 15 (0-50); Potassium 5.1 mmol/L (3.4-5.1); Sodium 143 mmol/L (137-145)
[2018-06-08 14:53] LABS: Erythrocyte Sedimentation Rate 64 MM/HR (0-20)
--- NOTE | 2018-06-08 15:39 | SUR.OPER ---
Supine on padded OR bed, head on pillow, arms secured on padded arm boards at <90 degrees abduction, legs uncrossed, safety belt at abdomen, tape over blanket over nonoperative leg.
[2018-06-08] MEDS: LACTATED RINGERS 1,000 ML 42 ML IV (15:50)
--- NOTE | 2018-06-08 15:59 | PM.PREOP ---
Pre-operative Note Interval Note Pre-op Check: Yes History & Physical Reviewed by Physician Changes: No
[2018-06-08] MEDS: ALBUTEROL 2.5 MG/3 ML NEB (ADULT) INH (16:02)
--- NOTE | 2018-06-08 16:16 | PC.NURSE ---
Day Shift- Pt arrived to unit at 1225. Pt settled into room 228 by Community Health Counselor LYUDMILA Jamison. Pt A&OX4, oriented to call light and bed alarm. IVF started to left FA PIV per order. Pt has upper lobe insp/exp wheezes, dry cough with deep breathing exercises, no respiratory distress, O2 sat 98% on RA. Ileostomy 2 piece appliance intact to right upper abd, pt states being indep with changes for many years. BLE edema pitting 1-2+, RLE more than LLE. Pt has healing pink, dry scar to posterior LLE below calf, pt states from hitting her leg on a cardboard box 6 months ago. Right ankle has small allevyn dressing present which pt states she changes the dressing a rolo every 3 days and is followed at the wound clinic. Wound has pin point wound into subcutaneous layer surrounded by a small amount of macerated skin, no redness or drainage noted, dressing was changed 06/07. Right 5th toe covered by dressing with small amount of sanf drainage shadowing noted. Order to not remove dressing prior to OR. Pt NPO since 829, plan for OR today around 1600 for I&D of right foot.
[2018-06-08] MEDS: LIDOCAINE 2% INJ SDV 5 ML INJ (16:20)
[2018-06-08] MEDS: levoFLOXacin 500 MG/100 ML PIGGYBACK 100 MG IV (16:49)
--- NOTE | 2018-06-08 17:33 | P.OP_ITS ---
Operative Date/Time/Diagnoses Date of procedure: 06/08/18 Time of procedure: 17:15 Pre-op diagnosis: Right foot cellulitis, wound dehiscence Post-op diagnosis: same Procedure & Clinicians Procedure: Right foot fifth metatarsal incision, excisional debridement of necrotic tissue and fifth metatarsal head resection with biopsy bone Same procedure as scheduled: Yes Indications: Redness and swelling with pain and some dehiscence to the fifth metatarsal head area s/p approx 2 wks after fifth toe amputation. Concern for underlying abscess, infectious process and decision made to undergo incision and drainage with reduction of necrotic tissues. Consent was given, no contraindication to the procedure at this time. Surgeon: Margarita Anderson Click Yes if Unassisted: Yes Anesthesia Type: Sedation and Local Operative Notes Findings: Closure Type: not applicable (Wound packing, quarter-inch iodinated Nu Gauze) Specimen(s): other (1) deep tissue culture fifth metatarsal tissue, 2) Fifth metatarsal head to pathology, 3) Fifth metatarsal leading shaft bone for culture ) Implants & Drains: Nu-Gauze packing as above Estimated Blood Loss (mL): 10 Blood products transfused: none Tourniquet time (min): 0 Procedure in detail: The patient was brought to the operating room and placed on the operating table in the supine position. Well padded appropriately aligned. After induction of IV sedation, local anesthesia was obtained to the foot. The foot and ankle were prepped and draped in the usual aseptic manner. After checking for anesthesia, an incision was made over the dorsal lateral aspect of the 5th metatarsal head and neck. The incision was full thickness and noted to have no purulent discharge however some mild serous drainage was noted within the tissues and around the bone. There was some areas of necrosis along the medial and lateral siddiqi of the 5th metatarsal head tissue but the bone itself looked fairly clean at the head and neck. 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 Upon pressure no discharge. The head itself of the 5th metatarsal had a little bit of less-shiny cartilaginous surface in the center and was proud in the wound once the necrotic tissue was removed. There was some bleeding but not significant bleeding that took place upon debridement. Deep tissue culture performed, then based on the lack of tissue and consideration for the bone having had some potential for infectious process, the decision was made to remove the head of the metatarsal #5. This was removed with a saw and sent to pathology for idenfication of possible osteomyelitis. The next cut was to remove a thin sliver of the leading edge of the fifth metatarsal and this was sent for culture. The area was irrigated with copious amounts normal sterile saline and the antibiotic was then begun via IV. The area was dressed with quarter-inch I related Nu Gauze and a lightly compressive sterile dressing. Her ankle wound that she has been working with was also included in the Dressings. She was transferred the PACU with vital signs stable and vascular status intact to the foot. She will be transferred back up to the floor for readmission and beginning of her antibiotics as we watch the process of healing. Complications: none Condition: stable Disposition: other Plan for aftercare: Transfer back to inpatient for IV antibiotics and further treatment regarding the wound.
[2018-06-08] MEDS: FLUTICASONE 220MCG HFA 120 PUFF INH (19:05)
[2018-06-08] MEDS: HYDROCODONE/ACET 5/325 TABLET 1 TAB PO ×2 (20:20→23:58)
[2018-06-08] MEDS: PRAVASTATIN 20 MG TABLET PO (20:21)
[2018-06-08] MEDS: CYCLOBENZAPRINE 5 MG TABLET PO (21:28)
[2018-06-08] MEDS: HYDROMORPHONE 1 MG INJ 0.5 MG IV (21:28)
--- NOTE | 2018-06-08 21:31 | PC.NURSE ---
Pt Left floor for I & D right foot/ankle at 1545. Returned at 1810. Pt alert. Right foot wrapped and elevated. Bed cradle in place. SpO2 97% RA, lungs w/ wheezes noted. Later in evening pt crying out in discomfort. [place] given as per orders w/o relief. Pt having spasm like pain 03/31. notified, one time IV dilaudid given and Flexeril TID ordered. First dose at 2114. Will assess results. Call light w/in reach, bed alarm on for pt safety. Continue w/plan of care.
[2018-06-09] VITALS (15 sets, daily range): BP systolic 85–135; BP diastolic 44–68; PULSE 64–81; RESP 14–16; TEMP 36.6–37.1; O2SAT 95–100
--- NOTE | 2018-06-09 00:27 | PC.NURSE ---
Addendum entered by Guerline Nieto R.N. 06/09/18 06:43: Medicated for 610 pain at 0400 and has been mostly sleeping since. Dr Anderson into see patient this morning. Discussed pain issues and PWB status. Will return this evening to change dressing. Original Note: Patient is alert and oriented except to exact day of month. Breath sounds tight and diminished with audible expiratory wheezes; hx of COPD. Moist, loose sounding cough which she states she has had several weeks and has been intermittently productive of pham sputum. Currently on oxygen at 1L/min with sat of 99% but desats intermittently; is on continuous oximetry. Is SOB with minimal exertion. Voice is tremory but she states that is her normal. HRR. Denies nausea. BT present. Brown liquid stool noted in ileostomy bag. Has some dribbling/stress incontinence but denies dysuria, frequency or urgency. Dressing to right foot is CDI. Toes are warm with < 2 sec capillary refill but patient is unable to move toes and can only feel sensation minimally related to chronic neuropathy. Having intermittent electric like spasm pain; medicated with Vicodin. Has foot cradle on bed to keep covers off foot and leg is elevated on pillows. Also has neuropathy in both feet to just above ankles. SCD applied to left leg as per MD order. Able to move herself in bed and reportedly has been up to BSC with walker and 1 assist; is only PWB on right LE. Fall risk score is high and bed alarm is activated. Placed on contact isolation as foot culture gram stain is growing some gram + cocci; explained to patient and she verbalizes understanding. 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 Noted a healing abrasion/scar on posterior left calf.
[2018-06-09] MEDS: HYDROCODONE/ACET 5/325 TABLET 1 TAB PO ×2 (03:56→09:18)
[2018-06-09 05:30] LABS: Add Manual Diff / Slide Review NO; Basophils Percent Auto 0.6 % (0-2); Eosinophils Percent Auto 3.6 % (2-4); Hematocrit 27.6 % (36-46); Hemoglobin 9.2 g/dL (12.0-16.0); Lymphocytes Percent Auto 17.2 % (25-40); Mean Corpuscular HGB Conc 33.2 % (30-36); Mean Corpuscular Hemoglobin 30.3 PG (26-34); Mean Corpuscular Volume 91.3 fL (80-100); Monocytes Percent Auto 10.3 % (3-14); Neutrophils Absolute Auto 5000 /uL (1500-7000); Neutrophils Percent Auto 68.3 % (50-75); Platelet Count 238 X10^3/uL (150-400); Red Blood Cell Count 3.03 X10^6/uL (4.0-5.2); Red Cell Distribution Width 12.5 % (11.6-14.8); White Blood Cell Count 7.4 X10^3/uL (4.5-11.0)
[2018-06-09 05:37] LABS: Blood Urea Nitrogen 30 mg/dL (7-17); Calcium 9.9 mg/dL (8.4-10.2); Carbon Dioxide 28 mmol/L (22-32); Chloride 105 mmol/L (98-107); Estimated Glomerular Filt Rate 43.6 mL/min (>60); Glucose 129 mg/dL (80-110); HEMOLYSIS < 15 (0-50); Potassium 4.3 mmol/L (3.4-5.1); Sodium 138 mmol/L (137-145)
[2018-06-09] MEDS: PANTOPRAZOLE 20 MG TABLET PO (06:40)
--- NOTE | 2018-06-09 06:44 | P.PN_ITS ---
Subjective Date Patient Seen: 06/09/18 Time Patient Seen: 06:32 Interval history: Post op day #1 Right Fifth metatarsal head resection, incision and drainage, excision necrotic tissue. Some pain to the foot/ankle but controlled with [place] q4h po. Spasms helped with flexeril initiation. Denies c/f/n/v. Sleeping but able to be aroused awake. Exam Vital Signs (past 8 hours): - 06/08/18 23:15 06/08/18 23:35 06/09/18 03:59 Temperature 98.5 F 98.7 F Pulse Rate 81 78 Respiratory Rate 16 16 Blood Pressure 139/65 120/61 Pulse Oximetry 94 99 99 Oxygen Delivery Method Nasal Cannula Oxygen Flow Rate 1 Const General: comfortable Orientation: alert, awake and oriented x3 Extrem Right lower extremity: ankle Details: tenderness Location: of the lateral malleolus and no edema and foot (Dressing in place foot and ankle. Some minor strikethrough at tip lateral foot but none to SANDRITA. No visable erythema distal or proximal at ankle. Full dressing not removed at this time.) Details: normal capillary refill Objective Labs Result Diagrams: 06/09/18 05:03 06/09/18 05:03 Labs: Laboratory Results - last 24 hr 06/08/18 06/08/18 06/08/18 13:35 Unknown Unknown WBC 8.0 RBC 3.44 L Hgb 10.4 L Hct 31.6 L MCV 91.8 MCH 30.3 MCHC 33.0 RDW 12.7 Plt Count 285 Neut % (Auto) 71.1 Lymph % (Auto) 17.8 L [place] % (Auto) 6.9 Eos % (Auto) 3.4 Baso % (Auto) 0.8 Neut # (Auto) 5700 ESR 64 H Sodium 143 Potassium 5.1 Chloride 106 Carbon Dioxide 28 BUN 37 H Creatinine 1.20 H Estimated GFR 43.6 L BUN/Creatinine Ratio 30.8 H Glucose 128 H Calcium 11.2 H C-Reactive Protein 2.1 H 06/09/18 06/09/18 05:03 05:03 WBC 7.4 RBC 3.03 L Hgb 9.2 L Hct 27.6 L MCV 91.3 MCH 30.3 MCHC 33.2 RDW 12.5 Plt Count 238 Neut % (Auto) 68.3 Lymph % (Auto) 17.2 L [place] % (Auto) 10.3 Eos % (Auto) 3.6 Baso % (Auto) 0.6 Neut # (Auto) 5000 ESR Sodium 138 Potassium 4.3 Chloride 105 Carbon Dioxide 28 BUN 30 H Creatinine 1.20 H Estimated GFR 43.6 L BUN/Creatinine Ratio 25.0 H Glucose 129 H Calcium 9.9 C-Reactive Protein Assessment & Plan Post-op (1) Cellulitis of foot: Problem details: Pending results of culture, continue empiric iv abx based on recent outpatient wound culture with use of Levaquin, renally dosed with assistance from inpt pharmacy consult. Wound dressing to be changed this evening or may be changed earlier if rounded by Dr. Coulter as he is also part of her care team. Appreciate Medicine consult and further management of DM and will review discuss this AM bloodwork with that team and her other medical conditions that they may see as primary concern as we continue to work with her foot condition. Continue inpatient care as we watch for declaration of antibiosis and wound management. Current Visit: Yes Status: Acute Postoperative Procedures Operation Date: 06/08/18 16:00 Actual Procedures Side Surgeon p Incision and Drainage, reduction of /damaged tissue, reduction of 5th metatarsal Right Margarita Anderson, DPM Quality VTE Deep Vein Thrombosis/Pulmonary Embolism Present on Admission: No
[2018-06-09] MEDS: FLUTICASONE 220MCG HFA 120 PUFF INH ×2 (08:58→19:08)
[2018-06-09] MEDS: TIOTROPIUM BROMIDE 18 MCG INHALER INH (08:59)
[2018-06-09] MEDS: INSULIN ASPART 100 UNIT/ML INSULN PEN SUBCUT ×2 (09:17→12:35)
[2018-06-09] MEDS: INSULIN GLARGINE 100 UNIT/ML 3ML PEN 28 UNIT SUBCUT (09:18)
[2018-06-09] MEDS: ASPIRIN EC 81 MG TABLET PO (09:20)
[2018-06-09] MEDS: CLOPIDOGREL 75 MG TABLET PO (09:20)
[2018-06-09] MEDS: CYCLOBENZAPRINE 5 MG TABLET PO ×2 (09:20→15:36)
[2018-06-09] MEDS: LISINOPRIL 5 MG TABLET 1.25 MG PO (09:20)
[2018-06-09] MEDS: SODIUM CHLORIDE 0.9% FLUSH 10 ML IV ×2 (09:21→20:42)
--- NOTE | 2018-06-09 09:45 | PT.IIE ---
Current Diagnoses Cellulitis of unspecified part of limb (06/08/18) Ileostomy status (06/08/18) Surgery Performed Operation Date: 06/08/18 16:00 Actual Procedures p Incision and Drainage, reduction of /damaged tissue, reduction of 5th metatarsal(Right) - Margarita Licea DPM Surgical History (Last Updated 05/25/18 @ 08:39 by Kelsey Ann RN) History of atherectomy (Acute ~2018) History of panretinal photocoagulation (Acute) History of parathyroid surgery (Acute) Hx of abdominal surgery (Acute) Hx of appendectomy (Acute) Hx of colectomy (Acute) Hx of ileostomy (Acute) Hx of tonsillectomy (Acute) Hx of vitrectomy (Acute) S/P CABG (coronary artery bypass graft) (Acute ~2007) S/P coronary artery stent placement (Acute) S/P foot surgery, left (Acute) S/p bilateral carpal tunnel release (Acute) Status post cataract extraction of both eyes with insertion of intraocular lens (Acute) Medical History (Last Updated 05/25/18 @ 09:57 by Kelsey Ann RN) Anemia (Acute) Asthma (Acute) CAD (coronary artery disease) (Acute) CKD stage 3 due to type 2 diabetes mellitus (Acute) COPD (chronic obstructive pulmonary disease) (Acute) Diabetes (Acute) Diabetic gastroparesis (Acute) Diabetic macular edema (Acute) Dyslipidemia (Acute) Epiretinal membrane, both eyes (Acute) Essential tremor (Acute) H/O: hysterectomy (Acute) Lumbar spinal stenosis (Acute) Osteopenia (Acute) PAD (peripheral artery disease) (Acute) PVD (posterior vitreous detachment) (Acute) Peripheral neuropathy (Acute) Proliferative diabetic retinopathy of both eyes (Acute) Ulcers of both lower extremities (Acute) Unspecified vitamin D deficiency (Acute) Uterine cancer (Acute) Vocal cord dysfunction (Acute) Vocal tremor (Acute) Physical Therapy Inpatient Evaluation/Re-Eval M1 PT/OT-IP Prior Functional Status Start: 06/09/18 10:30 Freq: NEEDED Status: Active Protocol: Document 06/09/18 09:45 AB (Rec: 06/09/18 11:03 AB [id number]) Medical Review Prior Functional Status Medical History Reviewed Yes Communication able to make needs known Mobility and Gait stated that she is modified independent with all mobilities and ambulation using a 4WW Social History Household Members spouse Living Arrangements House Number of Floors (Floors) Two Floors Number of Stairs To Enter/Railing? pt stays on main level of the house has 2 steps to enter with 1 rail (pt cannot remember which side) Home Environment High Toilet Walk in Shower Home Equipment Four Wheel Walker Straight Cane Shower Seat with Backrest Employment Status Retired Additional Social History Comment shower chair has back rest and handles M2 PT-IP Current Condition Start: 06/09/18 10:30 Freq: NEEDED Status: Active Protocol: Document 06/09/18 09:45 AB (Rec: 06/09/18 11:03 AB [id number]) Physical Therapy Current Condition Current Condition Evaluation Date 06/09/18 Treatment Diagnosis R 5th metatarsal foot incision and I&D; difficulty in walking Onset Date 06/08/18 Weight Bearing Status Weight Bearing Status Partial Weight Bearing Allowed Weight Bearing Amount (enter % called Dr. licea's office or #) (%) for clarification for PWB on RLE. inquired regarding % or # restriction and if pt requires post-op shoe with front cut-out. opted to do NWB on RLE at this time until clarification received M3 PT-IP Subjective Start: 06/09/18 10:30 Freq: NEEDED Status: Active Protocol: Document 06/09/18 09:45 AB (Rec: 06/09/18 11:03 AB [id number]) Subjective Physical Therapy Visit Type Type Initial Evaluation Visit Start Time 09:45 Visit Stop Time 10:18 Total Visit Minutes 33 Number of MANAGER RAIL Visits 0 Physical Therapy Visit Comments Patient Comments c/o intermittent pain on R foot Therapy Pain Assessment Pain When Pain Assessed At Rest Pain Present Pain Present Pain Reported Location Right Foot Intensity 9 Scale Used Numeric (1 - 10) Pain Behaviors Facial Grimacing [place] Pain Management Techniques Re-positioning Timing of Activity with Medications M4 PT-IP Mobility and Gait Start: 06/09/18 10:30 Freq: NEEDED Status: Active Protocol: Document 06/09/18 09:45 AB (Rec: 06/09/18 11:03 AB [id number]) PT-Bed Mobility Assessment Rolling Level of Assist Standby Assistance Supine to Sit Supine to Sit Standby Assistance Sit to Supine Sit to Supine Standby Assistance Scooting Scooting to Edge of Bed Standby Assistance Scooting Up and Down in Bed Standby Assistance PT-Transfer Assessment Sit to and From Stand Sit to and from Stand Moderate Assistance 1 Person Assistance Use of Upper Extremities Equipment Transfer Assistive Device Gait Belt Front Wheeled Walker Orthotic/Prosthetic Devices or Brace: Yes Transfers Transfer Destination Bedside Commode Transfer Technique Stand Step Pivot Transfer Ability Level of Assist Moderate Assistance 1 Person Assistance Use of Upper Extremities Comments Mobility Comments pt with soft splint on RLE. pt required cues to maintain NWB on RLE. required min to mod A to maintain standing using FWW for support while assisted with brief management. Pt able to take steps during transfer bed <>bedside commode using FWw mod A and cues. Gait Assessment Comments Gait Comments able to take steps during transfers using FWW mod A and cues. PT-Balance Assessment Sitting Balance and Reactions Static Sitting Balance Ability Good Dynamic Sitting Balance Ability Good Standing Balance and Reactions Static Standing Balance Ability Poor Dynamic Standing Balance Ability Poor Device Used FWW M5 PT-IP Objective Assessments Start: 06/09/18 10:30 Freq: NEEDED Status: Active Protocol: Document 06/09/18 09:45 AB (Rec: 06/09/18 11:03 AB [id number]) Orientation Orientation/Cognition Level of Alertness Alert Orientation Name Age Birthday Month Date Year Day of Week Place Situation Gross Range of Motion Lower Extremity ROM Assessment Within Functional Limits Strength Lower Extremity Strength Assessment Right Impaired Comments Strength Comments unable to check R ankle due to precaution/splint Sensation Assessment Sensation Gross Sensation Right LE Impaired Left LE Impaired Light Touch Impaired Proprioception (Position) Impaired Sensation Description Numbness Muscle Tone Muscle Tone WNL Yes M6 PT-IP Treatment Start: 06/09/18 10:30 Freq: NEEDED Status: Active Protocol: Document 06/09/18 09:45 AB (Rec: 06/09/18 11:03 AB [id number]) Physical Therapy Treatment Education Education Provided Precautions Weight Bearing Status Safety M7 PT-IP Assessment and Plan Start: 06/09/18 10:30 Freq: NEEDED Status: Active Protocol: Document 06/09/18 09:45 AB (Rec: 06/09/18 11:03 AB [id number]) PT Summary Assessment and Plan Potential Rehabilitation Potential Good Status of Condition at Evaluation Evolving Summary Impairments Pain ROM Strength Balance Coordination Sensation Tone Cognition Bed Mobility Transfers Gait Activity Tolerance Assessment Summary pt requiring one person assist with mobility and currently PWB on RLE that will greatly affect pt's mobility and independence. pt has stair to enter the house and at this time is not appropriate to do stair climbing. pt also complaining of increas pain on RLE. d/c plan depending on progress but at this time may require SNF rehab. Goals Bed Mobility Goal Independent Transfer Goal Standby Assistance Gait Goal Standby Assistance Gait Distance 30 Other Goals up/down 2 steps with 1 rail CGA Days to Meet Goals 5 Frequency of Treatment Frequency Of Treatment Once a Day Treatment Plan Physical Therapy Treatment Plan Bed Mobility Training Transfer Training Gait Training Therapeutic Exercise Balance Retraining Post Op Education Discharge Planning Hot or Cold Pack Neuromuscular Re-ed Coordination Retraining Manual Therapy Other Recommendations and Next Treatment transfers, ambulation Focus Recommendations To Nursing Amount of Assist Needed 1 Person Assist Discharge Recommendations PT Discharge Recommendations SNF Rehab Equipment Needed for Home Before FWW if going home Discharge
[2018-06-09] MEDS: HYDROMORPHONE 0.5 MG INJ IV ×2 (11:29→17:51)
--- NOTE | 2018-06-09 12:16 | PT.IPTN ---
Addendum for doctor's order clarification. Current Diagnoses Cellulitis of unspecified part of limb (06/08/18) Ileostomy status (06/08/18) Surgery Performed Operation Date: 06/08/18 16:00 Actual Procedures p Incision and Drainage, reduction of /damaged tissue, reduction of 5th metatarsal(Right) - Margarita Anderson DPFerny Physical Therapy Treatment Note M2 PT-IP Current Condition Start: 06/09/18 10:30 Freq: NEEDED Status: Active Protocol: Document 06/09/18 12:12 AB (Rec: 06/09/18 12:16 AB [id number]) Physical Therapy Current Condition Current Condition Evaluation Date 06/09/18 Treatment Diagnosis R 5th metatarsal foot incision and I&D; difficulty in walking Onset Date 06/08/18 Weight Bearing Status Weight Bearing Status Partial Weight Bearing Allowed Weight Bearing Amount (enter % 06/09/18: 1156am: spoke with or #) (%) Dr. Anderson regarding PWB on RLE. stated that pt should put the least weight possible on RLE only for transfers and if pt is to put weight on RLE, pt should have the foot flat on the floor. Regarding the post-op shoe with cut out, stated that pt may use current post-op shoe (without cut-out ) at this time. Nurse also informed PT regarding Dr. Anderson's instructions. 06/09/18: 0900 am: called Dr. anderson's office for clarification for PWB on RLE. inquired regarding % or # restriction and if pt requires post-op shoe with front cut- out. opted to do NWB on RLE at this time until clarification received
--- NOTE | 2018-06-09 14:07 | DIET.PN ---
Admit for tx foot cellulitis. Has multiple medical problems Dx: cellulitis R foot, debridment HX: CAD, DM, gastroparesis, ileostomy MNA score: 10 r/t wt loss, decreased mobilitly, stress Sammy: 17 Skin risk BMI: 24 PO intake: poor. refused breakfast and lunch today Assessment: Inadequate PO intake r/t poor appetite. pain. Usual diet avoids roughage r/t ileostomy. Increased nutrient needs for wound healing Intervention: Include ONS w/meal. Encourage pt to order meals per preference Plan: Monitor PO intake, wound healing, cbgs
--- NOTE | 2018-06-09 15:38 | PM.PN.1 ---
Subjective Date Patient Seen: 06/09/18 Time Patient Seen: 15:03 Interval history: This is a 77 year old female patient who was a direct admit to the hospital for a surgical I&D of the right foot by Dr. Anderson. The hospitalist service is consulting for her comorbid diabetes type II, COPD and asthma. On initial assessment yesterday the patient was congested with a wet cough. She described exertional dsypnea. CXR revealed no evidence of consolidation, infiltrates or pulmonary vascular congestion by radiologist interpretation. Today the patient reports feeling much better with no complaints of cough. Her vital signs have been stable and matains an adequate Spo2 of 95% or higher. She has a splint and ghazal wrap to her right foot which is elevated and per nursing staff, was very painful during the night. Dr. Anderson has prescribe dilaudid for pain which the patient now reports is minimal. Wound cultures obtained during surgery have grown out gram negative bacilli enterococcus species, serratic marcescens, Anaerococcus provottii and stapholococcus epidermidids. Sensitivities are not back yet. The patient is on Levaquin IV per Dr. Anderson. Exam Vital Signs (past 8 hours): - 06/09/18 08:06 06/09/18 09:00 06/09/18 09:11 Temperature 98 F Pulse Rate 75 81 Respiratory Rate 16 16 Blood Pressure 125/63 Pulse Oximetry 98 99 95 06/09/18 11:59 Temperature 98 F Pulse Rate 72 Respiratory Rate 16 Blood Pressure 135/68 Pulse Oximetry 96 Fraction of Inspired Oxygen 21 Oxygen Delivery Method Room Air Oxygen Flow Rate 0 Const General: cooperative and comfortable Nutritional Appearance: average body habitus Orientation: alert, awake and oriented x3 Limitations: no behavioral limitations HENMS Head: normal to inspection Face and sinus: normal facial exam Mouth: oral mucosae normal and moist mucous membranes Eyes General: appearance normal, both eyes and all related structures Sclera: sclerae normal Pupils: PERRL EOM: EOM intact bilaterally Neck Neck: normal visual inspection, trachea midline and No lymphadenopathy Chest Chest: normal inspection of the chest and No tenderness Resp Effort & Inspection: normal respiratory effort, audible wheezes, no cough and not labored Auscultation: rales (fine crackles in the bases, clears with cough) and no wheezes Cardio Rate: regular rate Rhythm: regular rhythm Heart Sounds: S1 normal, S2 normal, no gallops, no murmurs and no rubs Pulses: radial pulses present and other (delayed capillary refill bilateral toes, splint and ghazal wrap on left foot unable to assess pulses) GI Inspection: normal to inspection and other (ileostomy left lower quadrant draining light brown liquid) Palpation: soft, No guarding, No mass and No tender Auscultation: normal bowel sounds General: bladder normal to palpation Bimanual Exam- Vagina & Uterus: bladder normal to palpation Skin General: no rashes or lesions noted Wounds: amputation site (prior 5th metatarsophlangeal amputation left foot, surgical wound right foot not visualized due to dressing and splint) Neuro General: alert, awake, oriented x3 and other (neuropathy bilateral feet to the level of the ankle) Cranial Nerves: PERRL, EOM intact bilaterally, hearing normal and other Cognition: normal cognition Speech: abnormal speech (halting/stuttering speech) Gait: other (non weight bearing left foot) Motor: no movement abnormalities noted Extrem General: amputation noted, No cyanosis and No pedal edema (left lower extremity) Psych Appearance: grossly normal Mood: congruent mood Affect: normal affect Attitude: cooperative Thought Process: normal Objective Labs Result Diagrams: 06/09/18 05:03 06/09/18 05:03 Labs: Laboratory Results - last 24 hr 06/09/18 06/09/18 05:03 05:03 WBC 7.4 RBC 3.03 L Hgb 9.2 L Hct 27.6 L MCV 91.3 MCH 30.3 MCHC 33.2 RDW 12.5 Plt Count 238 Neut % (Auto) 68.3 Lymph % (Auto) 17.2 L [place] % (Auto) 10.3 Eos % (Auto) 3.6 Baso % (Auto) 0.6 Neut # (Auto) 5000 Sodium 138 Potassium 4.3 Chloride 105 Carbon Dioxide 28 BUN 30 H Creatinine 1.20 H Estimated GFR 43.6 L BUN/Creatinine Ratio 25.0 H Glucose 129 H Calcium 9.9 Assessment & Plan Plan: Assessment/Plan Narrative: Surgical wound right foot The patient is comfortable at this time. She has been out of bed to transfer to a chair but remains non weight bearing on the right foot. Wound care per Dr. Anderson Polymicrobial wound infection Sensitivities are yet pending for the cultures and will adjust antibiotics as necessary but will continue Levaquin in the meantime. COPD and Asthma She denies further complaints of coughing or shortness of breath Vital signs are stable Continue inhaler regime Diabetes Type II Her blood sugars have remained largely below 150 on sliding scale insulin. We will hold Lantus with her lowest blood sugar being 108. Quality VTE Deep Vein Thrombosis/Pulmonary Embolism Present on Admission: No
--- NOTE | 2018-06-09 15:43 | CM.IDA ---
Discharge Planning/Care Management CM Discharge Assessment Start: 06/09/18 15:25 Freq: Status: Active Protocol: Document 06/09/18 15:25 HEMAL (Rec: 06/09/18 15:43 HEMAL [id number]) Discharge Planning Assessment Assigned Cbx Operator ALY Mahoney DPOA/Assigned Designee Name Galo Vo, spouse Contact Information [phone] Advance Directives? Yes History Provided By Patient Medical Record Prior Living Arrangements House Household Members spouse Independent with ADL's Yes: Modified Indp Is patient alert and oriented? Yes Comment Possibly SNF according to PT note. NWBing status being clarified by Dr Anderson's office according to PT Norma's note. Additional Comment Attempted assessment and pt sleeping very soundly. Will return for another attempt to review DCP options. Addtl. PT input always appreciated. Whiteboard Updated in Patient Room with Yes name and ext. # of Cbx Operator Review Status In Process
[2018-06-09] MEDS: levoFLOXacin 250 MG/50 ML PIGGYBACK 50 MG IV (16:41)
[2018-06-09] MEDS: SODIUM CHLORIDE 0.9% 250 ML 21 ML IV (16:41)
[2018-06-09] MEDS: HYDROCODONE/ACET 5/325 TABLET 2 TAB PO (16:42)
--- NOTE | 2018-06-09 18:48 | P.PN_ITS ---
Subjective Date Patient Seen: 06/09/18 Time Patient Seen: 18:34 Interval history: s/p 2 days Right fifth metatarsal head resection and I&D foot. She is seen at the bedside and had recently been given some pain medication in anticipation of dressing change and some pain that she was having. She has her postoperative shoe but it is not on and she is definitely feeling better on her breathing today. She has been mostly nonweightbearing and is quite sleepy so I am unable to discuss how many details with her. The answer she is able to give me are that she is not in significant pain and is obviously sleepy but has no specific complaints. Exam Vital Signs (past 8 hours): - 06/09/18 11:59 06/09/18 15:50 Temperature 98 F 97.9 F Pulse Rate 72 75 Respiratory Rate 16 15 Blood Pressure 135/68 100/62 Pulse Oximetry 96 97 Fraction of Inspired Oxygen 21 Oxygen Delivery Method Room Air Oxygen Flow Rate 0 Const Orientation: awake (Awake but sleepy.), oriented to person, oriented to place and oriented to time Extrem Right lower extremity: foot (Dressing removed from the foot and ankle showing fibrous wound on the lateral malleolus, breakdown as has been previously noted, no discharge. No surrounding erythema. One mm in depth and tender.) Details: tenderness (Lateral malleolar wound and some soreness at the distal lateral ft in the area of the lateral skin of the surgical site.) Location: of the lateral foot (Packing removed from the surgical site at the 5th metatarsal head area and there is no purulent discharge and no significant drainage. There is some blood on the dressing. The flap of skin laterally shows of bluish hue and a little bit of white skin covering this consistent with demarcation from re) Other: No new wounds are noted to the foot and ankle. Objective Labs Result Diagrams: 06/09/18 05:03 06/09/18 05:03 Labs: Laboratory Results - last 24 hr 06/09/18 06/09/18 05:03 05:03 WBC 7.4 RBC 3.03 L Hgb 9.2 L Hct 27.6 L MCV 91.3 MCH 30.3 MCHC 33.2 RDW 12.5 Plt Count 238 Neut % (Auto) 68.3 Lymph % (Auto) 17.2 L [place] % (Auto) 10.3 Eos % (Auto) 3.6 Baso % (Auto) 0.6 Neut # (Auto) 5000 Sodium 138 Potassium 4.3 Chloride 105 Carbon Dioxide 28 BUN 30 H Creatinine 1.20 H Estimated GFR 43.6 L BUN/Creatinine Ratio 25.0 H Glucose 129 H Calcium 9.9 Pending pathological specimen from surgery update. Gram stain with culture of the 5th metatarsal bone and soft tissue in the area currently showing enterococcus species, awaiting further culture results and sensitivities. Assessment & Plan Post-op (1) Cellulitis of foot: Problem details: The dressing is changed today and gently repacked. It appears that the skin on the lateral 5th metatarsal head area is continuing to demarcate so it is important to watch for any further areas of nonviable tissue which would imply need for further debridement. She recently had a follow up with her surgeon who revascularized the right leg and I do not have those notes but was given the understanding that she had no concerns at that visit and understood that further surgery was taking place with the right foot. The dressing placed over the lateral malleolus and gently, iodinated NuGauze was repacked into the 5th metatarsal area. This can be taken down for examination by a wound care physician if needed tomorrow otherwise I will likely change the dressing tomorrow p.m. We are still pending results of culture, and today she continued to receive her 2nd dose of empiric iv abx based on recent outpatient wound culture with use of Levaquin, renally dosed with assistance from inpt pharmacy consult. Appreciate Medicine consult and further management of DM and her other medical conditions that they may see as primary concern as we continue to work with her foot condition. Continue inpatient care as we watch for declaration of antibiosis and wound management. Disposition will likely be desirous of step down rehab facility for easier and professional access to care of this critical wound on the foot as she will be significantly reduced in WB and may need iv abx. Current Visit: Yes Status: Acute Postoperative Procedures Operation Date: 06/08/18 16:00 Actual Procedures Side Surgeon p Incision and Drainage, reduction of /damaged tissue, reduction of 5th metatarsal Right Margarita Anderson, DPM Quality VTE Deep Vein Thrombosis/Pulmonary Embolism Present on Admission: No
[2018-06-09] MEDS: PRAVASTATIN 20 MG TABLET PO (20:42)
--- NOTE | 2018-06-09 22:20 | PC.NURSE ---
pain management/dressing change Spoke with pt about plan for to perform dressing change this PM. As pt was having difficulty with pain management today pt was offered and accepting of 0.5mgIV dilaudid prior to dressing change. Pt has been sleeping but arousable since administration. O2 applied at RA sats were 89-91% when sleeping. BP was assessed to be at 87/45 and than rechecked to be 91/45. pt denied dizziness at rest but states a little light headed when standing to transfer back to bed with staff. symptom again subsided at rest. Continuous O2 monitor in place.
[2018-06-10] VITALS (13 sets, daily range): BP systolic 90–109; BP diastolic 45–57; PULSE 68–92; RESP 13–20; TEMP 36.4–37.7; O2SAT 91–100
[2018-06-10] MEDS: HYDROCODONE/ACET 5/325 TABLET 2 TAB PO ×4 (01:53→20:55)
--- NOTE | 2018-06-10 02:24 | PC.NURSE ---
Addendum entered by Guerline Nieto R.N. 06/10/18 06:55: Now complains of 7/10 right foot pain; medicated with Vicodin Original Note: Addendum entered by Guerline Nieto R.N. 06/10/18 05:41: Has been mostly sleeping since receiving Vicodin earlier. Currently denies any pain but reminded she can have additional pain meds anytime after 0600. BP remains low at 97/52 but remains asymptomatic. O2 sat 97% on 1L/min oxygen per NC. Original Note: Patient is alert and oriented with delayed responses to some questions. Voice remains tremory and can be difficult to understand related to hx vocal cord dysfunction. Breath sounds remain diminished and tight but not coughing like she was last night. At shift change was on 2L/min oxygen with sat of 100% so decreased to 1L/min and now sat is 96%. HRR. BP has been trending low and currently is 99/53 but patient is asymptomatic. Denies nausea. BT present and abdomen is soft. Ileostomy with brown stool noted. Is able to turn self in bed. Dressing to right foot is CDI. Neuropathy bilateral feet/ankles; chronic. Toes of right foot are warm to touch with < 3 sec cap refill; patient is unable to move them which is unchanged from last night and MD was made aware yesterday morning. Left heel still red but blanchable; floated on pillows. Currently states spasm/electric type pain ranging from 2/10-8/10 as spasms hit and then subside; medicated with Vicodin. Wearing SCD on left leg. Able to transfer to BSC with walker and 1 assist; PWB on right LE. Fall risk score is high and bed alarm is activated. Remains on contact isolation as per protocol since wound culture gm stain showing gm + cocci.
[2018-06-10 05:30] LABS: Add Manual Diff / Slide Review NO; Basophils Percent Auto 0.6 % (0-2); Eosinophils Percent Auto 3.5 % (2-4); Hematocrit 28.2 % (36-46); Hemoglobin 9.2 g/dL (12.0-16.0); Lymphocytes Percent Auto 17.6 % (25-40); Mean Corpuscular HGB Conc 32.6 % (30-36); Mean Corpuscular Hemoglobin 30.1 PG (26-34); Mean Corpuscular Volume 92.4 fL (80-100); Monocytes Percent Auto 8.7 % (3-14); Neutrophils Absolute Auto 6200 /uL (1500-7000); Neutrophils Percent Auto 69.6 % (50-75); Platelet Count 243 X10^3/uL (150-400); Red Blood Cell Count 3.05 X10^6/uL (4.0-5.2); Red Cell Distribution Width 12.5 % (11.6-14.8)
[2018-06-10] MEDS: PANTOPRAZOLE 20 MG TABLET PO (05:33)
[2018-06-10 05:54] LABS: BUN Creatinine Ratio 21.3 (6-22); Blood Urea Nitrogen 32 mg/dL (7-17); Carbon Dioxide 27 mmol/L (22-32); Chloride 105 mmol/L (98-107); Estimated Glomerular Filt Rate 33.7 mL/min (>60); Potassium 4.5 mmol/L (3.4-5.1); Sodium 137 mmol/L (137-145)
[2018-06-10 05:55] LABS: Calcium 9.8 mg/dL (8.4-10.2); Glucose 95 mg/dL (80-110); HEMOLYSIS < 15 (0-50)
[2018-06-10] MEDS: TIOTROPIUM BROMIDE 18 MCG INHALER INH (07:22)
[2018-06-10] MEDS: FLUTICASONE 220MCG HFA 120 PUFF INH ×2 (07:22→17:02)
[2018-06-10] MEDS: SODIUM CHLORIDE 0.9% 1,000 ML 60 ML IV (07:58)
--- NOTE | 2018-06-10 08:28 | P.PN_ITS ---
Subjective Date Patient Seen: 06/10/18 Time Patient Seen: 07:16 Interval history: Hospital day 3 Presented to patient room today to discuss overnight care and disposition of patient. She was sleeping and not disturbed. Nursing discussed that she was able to control her pain with two [place] [facility] and had not needed the Dilaudid since I saw her yesterday. She c/o the pain being jolt of the body still. Exam Vital Signs (past 8 hours): - 06/10/18 01:20 06/10/18 02:11 06/10/18 05:38 Temperature 98.2 F 97.5 F L Pulse Rate 82 73 Respiratory Rate 20 20 Blood Pressure 99/53 L 97/52 L Pulse Oximetry 100 96 97 06/10/18 07:24 Temperature Pulse Rate 72 Respiratory Rate 18 Blood Pressure Pulse Oximetry 97 Fraction of Inspired Oxygen 24 Oxygen Delivery Method Nasal Cannula Oxygen Flow Rate 1 Const Other: Sleeping, not disturbed. Objective Labs Result Diagrams: 06/10/18 05:23 06/10/18 05:23 Labs: Laboratory Results - last 24 hr 06/10/18 06/10/18 05:23 05:23 WBC 9.0 RBC 3.05 L Hgb 9.2 L Hct 28.2 L MCV 92.4 MCH 30.1 MCHC 32.6 RDW 12.5 Plt Count 243 Neut % (Auto) 69.6 Lymph % (Auto) 17.6 L [place] % (Auto) 8.7 Eos % (Auto) 3.5 Baso % (Auto) 0.6 Neut # (Auto) 6200 Sodium 137 Potassium 4.5 Chloride 105 Carbon Dioxide 27 BUN 32 H Creatinine 1.50 H Estimated GFR 33.7 L BUN/Creatinine Ratio 21.3 Glucose 95 Calcium 9.8 Cultures returned from bone and soft tissue during surgery along with sensitivities. [place], Enterococcus. Assessment & Plan Plan: Assessment/Plan Narrative: Cellulitis, right foot, with suspected osteomyelitis. Discussed with Dr. Coulter and Shira as well as nursing. he will do the wound dresssing change today to evaluate. See my notes from yesterday's visit as to what I discussed with him. Added fluids this am due to some reduced BP, low po fluid intake, and current kidney function. Appreciate Medicine eval and adjustment as see fit. This also leads to if we determine need to cover additionally the growth from culture of Entero sp. Current Levaquin may be used as susceptible to other orgs currently and is running 250mg q24h. Will see what wound appears to look like today and based on this and kidney function, will consult with Dr. Coulter and hospitalist the risk/benefit of that addition. Requested the OV notes from Dr. Tello from earlier this week regarding f/u on R LE revascularization to get full scope of this portion of her disease. Waiting for further declaration of the wound to determine if HBO candidate vs needs further surgical debridement. Quality VTE Deep Vein Thrombosis/Pulmonary Embolism Present on Admission: No
--- NOTE | 2018-06-10 09:29 | PT.IPTN ---
Current Diagnoses Cellulitis of unspecified part of limb (06/08/18) Ileostomy status (06/08/18) Surgery Performed Operation Date: 06/08/18 16:00 Actual Procedures p Incision and Drainage, reduction of /damaged tissue, reduction of 5th metatarsal(Right) - Margarita Anderson, DPM Physical Therapy Treatment Note M2 PT-IP Current Condition Start: 06/09/18 10:30 Freq: NEEDED Status: Active Protocol: Document 06/09/18 12:12 AB (Rec: 06/09/18 12:16 AB [id number]) Physical Therapy Current Condition Current Condition Evaluation Date 06/09/18 Treatment Diagnosis R 5th metatarsal foot incision and I&D; difficulty in walking Onset Date 06/08/18 Weight Bearing Status Weight Bearing Status Partial Weight Bearing Allowed Weight Bearing Amount (enter % 06/09/18: 1156am: spoke with or #) (%) Dr. Anderson regarding PWB on RLE. stated that pt should put the least weight possible on RLE only for transfers and if pt is to put weight on RLE, pt should have the foot flat on the floor. Regarding the post-op shoe with cut out, stated that pt may use current post-op shoe (without cut-out ) at this time. Nurse also informed PT regarding Dr. Anderson's instructions. 06/09/18: 0900 am: called Dr. anderson's office for clarification for PWB on RLE. inquired regarding % or # restriction and if pt requires post-op shoe with front cut- out. opted to do NWB on RLE at this time until clarification received M3 PT-IP Subjective Start: 06/09/18 10:30 Freq: NEEDED Status: Active Protocol: Document 06/10/18 09:20 GGD (Rec: 06/10/18 09:29 GGD [email or web address]) Subjective Physical Therapy Visit Type Type Treatment Note Visit Start Time 08:55 Visit Stop Time 09:20 Total Visit Minutes 25 Number of SCIENTIFIC TECHNICAL WRITER Visits 1 Physical Therapy Visit Comments Patient Comments Pt states she needs to use the bathroom. Therapy Pain Assessment Pain When Pain Assessed At Rest Pain Present Pain Present Pain Reported M4 PT-IP Mobility and Gait Start: 06/09/18 10:30 Freq: NEEDED Status: Active Protocol: Document 06/10/18 09:20 GGD (Rec: 06/10/18 09:29 GGD [email or web address]) PT-Bed Mobility Assessment Supine to Sit Supine to Sit Standby Assistance Scooting Scooting to Edge of Bed Standby Assistance PT-Transfer Assessment Sit to and From Stand Sit to and from Stand Minimal Assistance 1 Person Assistance Use of Upper Extremities Equipment Transfer Assistive Device Gait Belt Front Wheeled Walker Orthotic/Prosthetic Devices or Brace: Yes Transfers Transfer Destination Chair Bedside Commode Transfer Technique Stand Step Pivot Transfer Ability Level of Assist Minimal Assistance 1 Person Assistance Use of Upper Extremities Comments Mobility Comments Pt needed cues for PWB with flat foot, she did move at times with NWB on right LE. M5 PT-IP Objective Assessments Start: 06/09/18 10:30 Freq: NEEDED Status: Active Protocol: Document 06/09/18 09:45 AB (Rec: 06/09/18 11:03 AB [id number]) Orientation Orientation/Cognition Level of Alertness Alert Orientation Name Age Birthday Month Date Year Day of Week Place Situation Gross Range of Motion Lower Extremity ROM Assessment Within Functional Limits Strength Lower Extremity Strength Assessment Right Impaired Comments Strength Comments unable to check R ankle due to precaution/splint Sensation Assessment Sensation Gross Sensation Right LE Impaired Left LE Impaired Light Touch Impaired Proprioception (Position) Impaired Sensation Description Numbness Muscle Tone Muscle Tone WNL Yes M6 PT-IP Treatment Start: 06/09/18 10:30 Freq: NEEDED Status: Active Protocol: Document 06/10/18 09:20 GGD (Rec: 06/10/18 09:29 GGD [email or web address]) Physical Therapy Treatment Education Education Provided Weight Bearing Status Safety M7 PT-IP Assessment and Plan Start: 06/09/18 10:30 Freq: NEEDED Status: Active Protocol: Document 06/10/18 09:20 GGD (Rec: 06/10/18 09:29 GGD [email or web address]) PT Summary Assessment and Plan Summary Assessment Summary Pt need cues for safety. She was impulsive with transfer with quick turn to sit without fully backing up. She needed less cues for weight bearing and use of UE for support. She is not appropriate for stair mobility at this time. Recommendations To Nursing Amount of Assist Needed 1 Person Assist Discharge Recommendations PT Discharge Recommendations SNF Rehab Equipment Needed for Home Before FWW if going home Discharge
[2018-06-10] MEDS: CYCLOBENZAPRINE 5 MG TABLET PO ×3 (09:51→20:46)
[2018-06-10] MEDS: ASPIRIN EC 81 MG TABLET PO (09:51)
[2018-06-10] MEDS: CLOPIDOGREL 75 MG TABLET PO (09:51)
[2018-06-10] MEDS: LISINOPRIL 5 MG TABLET 1.25 MG PO (09:51)
--- NOTE | 2018-06-10 11:49 | PM.PN.1 ---
Subjective Date Patient Seen: 06/10/18 Time Patient Seen: 11:49 Interval history: This patient is a 77 year old female who was admitted by Dr. Anderson for I&D of the right foot and asked the Hospitalist service to consult for her comorbid diabetes type II, COPD and asthma. She also presents at the time of admission with anemia stage 3 renal failure. The patient reports havig a good nite. She has been out of bed with PT/OT but not ambulated. She report getting winded during the transfer but has no complaints of cough, congestion or wheezing and is on room air. She report not really having pain but is seen to have brief spasms of pain in her right foot. Dr. Anderson has seen the patient this morning and dressing has been changed. Review of the morning labs find the patient has a BUN of 32 and creatinine of 1.5 elevated over yesterday. She has had decreased urine output of 750 ml over the last 24 hours. Nursing indicates the patient has been encouraged to increase her oral fluid intake. She has a stable hemoglobin at 9.2. Her blood sugar this morning was 95 on 5:00 am labs and 72 at 8:00. Exam Vital Signs (past 8 hours): - 06/10/18 05:38 06/10/18 07:24 06/10/18 08:00 Temperature 97.5 F L 98.7 F Pulse Rate 73 72 70 Respiratory Rate 20 18 16 Blood Pressure 97/52 L 95/45 L Pulse Oximetry 97 97 91 06/10/18 08:12 Temperature Pulse Rate Respiratory Rate Blood Pressure Pulse Oximetry 93 Fraction of Inspired Oxygen 24 Oxygen Delivery Method Room Air Oxygen Flow Rate 1 Const General: cooperative, comfortable and No acute distress Orientation: alert, awake and oriented x3 HENMT Head: normal to inspection Ears: hearing grossly normal bilaterally Nose: No nasal discharge Face and sinus: normal facial exam Mouth: oral mucosae normal and moist mucous membranes Eyes General: appearance normal, both eyes and all related structures Conjunctivae: conjunctivae normal Pupils: PERRL EOM: EOM intact bilaterally Neck Neck: trachea midline, No lymphadenopathy, No JVD and other (mild kyphosis) Chest Chest: normal inspection of the chest and No tenderness Resp Effort & Inspection: normal respiratory effort, no cough, no respiratory distress and no use of accessory muscles Auscultation: clear to auscultation bilaterally, no rales, no rhonchi and no wheezes Cardio Rhythm: regular rhythm Heart Sounds: S1 normal and S2 normal Pulses: radial pulses present and other (Brisk capillary refill right foot, 3 second capillary refill left foot) GI Inspection: normal to inspection, non-distended and other (ileostomy bag LLQ with light brown liquid.) Palpation: soft and No guarding Auscultation: normal bowel sounds General: bladder normal to inspection Back/Spine/Pelvis Back: No back tenderness and No CVA tenderness Skin General: no rashes or lesions noted Wounds: amputation site (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 ) Neuro Speech: abnormal speech (halting/stuttering speech pattern) Gait: other (gait not assessed, bed to chair transfer by PT/OT) Motor: strength 5/5 throughout Sensory Exam: sensory deficits noted (neuropathy bilateral feet to the level of the ankle) Extrem General: capillary refill normal (Brisk right toes, 3 seconds left toes.), no pedal edema, no calf tenderness and No cyanosis Psych Affect: normal affect Attitude: cooperative Thought Content: normal Objective Labs Result Diagrams: 06/10/18 05:23 06/10/18 05:23 Labs: Laboratory Results - last 24 hr 06/10/18 06/10/18 05:23 05:23 WBC 9.0 RBC 3.05 L Hgb 9.2 L Hct 28.2 L MCV 92.4 MCH 30.1 MCHC 32.6 RDW 12.5 Plt Count 243 Neut % (Auto) 69.6 Lymph % (Auto) 17.6 L [place] % (Auto) 8.7 Eos % (Auto) 3.5 Baso % (Auto) 0.6 Neut # (Auto) 6200 Sodium 137 Potassium 4.5 Chloride 105 Carbon Dioxide 27 BUN 32 H Creatinine 1.50 H Estimated GFR 33.7 L BUN/Creatinine Ratio 21.3 Glucose 95 Calcium 9.8 Assessment & Plan Plan: Assessment/Plan Narrative: Surgical wound right foot The patient is comfortable at this time Will continue pain management with [place]. She has been out of bed to transfer to a chair but remains non weight bearing on the right foot. Wound care per wound care and Dr. Anderson Polymicrobial wound infection Two organisms are susceptible to Levaquin Will continue Levaquin renal dosed Will start doxycycline 100 mg IV Q12 to cover staph. COPD and Asthma She denies complaints of coughing or shortness of breath but has shortness of breath on transfer. She is on room air with an SpO2 of 95%, vital signs are stable and she is afebrile Will continue inhaler medications Diabetes Type II Patient is currently on a diabetic diet with blood sugars this morning or 95 and 72. Lantus has been discontinued and she is receiving only sliding scale aspart insulin. Will add a evening snack to her diet plan. Discharge Planning Spoke with the patient regarding discharge plans and she is expecting to return to home where she had been prior to admission for her procedure. We may need to consider the possibility of rehabilitation for both gait and balance concerns as well as strengthening. Thank you Dr. Anderson for allowing us to participate in the care of this pleasant patient. Time Spent With Patient Time with patient: 25 - 35 minutes (20 minutes) Quality VTE Deep Vein Thrombosis/Pulmonary Embolism Present on Admission: No
[2018-06-10] MEDS: DOXYCYCLINE 100 MG in SODIUM CHLORIDE 0.9% 100 ML IV ×2 (12:17→23:51)
--- NOTE | 2018-06-10 12:51 | PC.NURSE ---
Wound Ostomy Nurse Consult Note. Saw Chanda with Dr. Coulter this morning. was on her way out when we arrived. Dr. Anderson has sent, from the OR bone for pathology and did a swab culture. Dr. Coulter and I changed the dressing and will write dressing change orders. Chanda is awake and is pleased to see us. She states that she was having pain during the night in her foot. She has a foot cradle on the end of her bed to protect her foot. We removed the dressing that was placed in the OR: Nu-Guaze packing strip or similar, gauze, kerlix roll gauze and ghazal wrap. This is a surgical wound of her Right 5th Metatarsal head. The wound measures 4.7 x 1.0 x 2.1. The wound base has exposed tendon, some slough which was removed by Dr. Rand. The wound base color is pale pink. The edges of the wound are attached. There is no pablo-wound redness and the temperature is within normal limits. There is an area at the lateral foot that is non-blanchable and measures 4.0 x 3.0 cm. There is no pablo-wound induration and does not appear to be infected. There was a small amount of serosanguanage drainage on the packing strip. We took photos of the wound and pablo-wound skin with the hospital camera. We lightly filled the wound with Aquacel Ag then covered with an ABD and secured with a conform roll gauze lightly rolled around ADB and then tape. The roll gauze should NOT be placed tightly but loosly just enough to hold the dressing in place. We also suggest that she wear an EHOB Boot to keep pressure off of the foot while in bed. The EHOB Boot should not be used for walking. The dressing should be changed everyday and the pablo-would skin should also be assessed and noted every day.
--- NOTE | 2018-06-10 13:10 | PC.NURSE ---
Day shift: Clarified wound care order w/ Dr Coulter. Use Aquacel Ag but cut it down to size replacing the one covering the wound site.
--- NOTE | 2018-06-10 16:17 | CM.DPC ---
DCP Cont: Had lengthy conversation w/pt this morning, discussed recommendation for SNF. Pt very pleasant, a little difficult to understand at times d/t her h/o vocal chord dysfunction. She explains that she is able to function mostly indp at home w/assist from spouse and a hired cg who works approx 4 hours two times a week. Pt concerned about her toe and fearful she will lose it d/t this infection. This BEDSPREAD CUTTER suggested pt may require ongoing IV abx and ongoing physical therapy. Pt kindly declines [facility] (the closest SNF to her home) but suggested a local SNF, [facility], if her spouse was included in this discussion. Pt not familiar w/her insurance plan; [employer] and requests this BEDSPREAD CUTTER contact her spouse to find out more. Unable to contact spouse d/t other caseload demands. Faxed facesheet to Celena at [facility] to determine if they would consider this referral and could they take this insurance? Long holiday weekend coming up. P: Its likely pt will go home w/spouse and increased private cg if she can DC on po abx (?) Following closely. Will include spouse in DC planning Thursday. ALY Mahoney
[2018-06-10] MEDS: levoFLOXacin 250 MG/50 ML PIGGYBACK 50 MG IV (17:10)
[2018-06-10] MEDS: PRAVASTATIN 20 MG TABLET PO (20:46)
--- NOTE | 2018-06-10 22:35 | PC.NURSE ---
Cyndi shift note: Placed on O2 at 2L via NC due to sats decreased 86-89 while awake. No increase work of breathing or SOB. Medication with [place] 2 tabs for pain to right lateral foot with adequate control. Foot waffle in place to right foot while in bed as ordered. BP 109/54
[2018-06-11] VITALS (11 sets, daily range): BP systolic 105–127; BP diastolic 52–67; PULSE 70–91; RESP 16–19; TEMP 36.6–37.1; O2SAT 89–100
[2018-06-11] MEDS: SODIUM CHLORIDE 0.9% 1,000 ML 60 ML IV ×2 (02:54→21:47)
--- NOTE | 2018-06-11 02:59 | PC.NURSE ---
Addendum entered by Guerline Nieto R.N. 06/11/18 05:17: Patient complains of 5/10 right foot pain so medicated with Vicodin. Although order is for 1 Vicodin for 4-6 pain patient insists she needs 2 so given as requested. Original Note: Patient is alert and oriented. Can be difficult to understand at times due to tremor in voice caused by hx vocal cord dysfunction. Breath sounds diminished at bases but CTA. Oxygen at 1L/min per NC with sat of 93%. HRR. BP slightly improved from last noc at 103/57. Denies nausea. BT present; ileostomy with small amount brown stool noted in pouch. Denies dysuria, frequency or urgency. Was incontinent of urine earlier but also voided on commode. Independent with bed mobility but requires walker and 1 assist to transfer to [facility] [place] is only PWB on right foot. Dressing to right foot is CDI; is unable to move toes and has poor sensation related to chronic neuropathy. Toes are warm with brisk cap refill. Wearing waffle boot on right leg and leg is elevated. Left heel remains red but blanchable; floated on pillows. SCD to left leg applied at shift change. Isolation stopped as final culture results were negative for MRSA; patient informed. At shift change was complaining of 4/10 pain but was tolerable and now has been sleeping and when awakened denied having any pain at this time. Fall risk score is high and bed alarm is activated.
[2018-06-11] MEDS: HYDROCODONE/ACET 5/325 TABLET 2 TAB PO ×3 (05:03→17:46)
[2018-06-11] MEDS: PANTOPRAZOLE 20 MG TABLET PO (05:04)
[2018-06-11 05:26] LABS: Add Manual Diff / Slide Review NO; Basophils Percent Auto 0.4 % (0-2); Eosinophils Percent Auto 2.6 % (2-4); Hematocrit 28.1 % (36-46); Hemoglobin 9.4 g/dL (12.0-16.0); Lymphocytes Percent Auto 18.1 % (25-40); Mean Corpuscular HGB Conc 33.4 % (30-36); Mean Corpuscular Hemoglobin 30.5 PG (26-34); Mean Corpuscular Volume 91.4 fL (80-100); Monocytes Percent Auto 9.1 % (3-14); Neutrophils Absolute Auto 6100 /uL (1500-7000); Neutrophils Percent Auto 69.8 % (50-75); Platelet Count 249 X10^3/uL (150-400); Red Blood Cell Count 3.07 X10^6/uL (4.0-5.2); Red Cell Distribution Width 12.3 % (11.6-14.8); White Blood Cell Count 8.7 X10^3/uL (4.5-11.0)
[2018-06-11 05:51] LABS: BUN Creatinine Ratio 22.5 (6-22); Blood Urea Nitrogen 36 mg/dL (7-17); Calcium 9.3 mg/dL (8.4-10.2); Carbon Dioxide 25 mmol/L (22-32); Chloride 103 mmol/L (98-107); Estimated Glomerular Filt Rate 31.3 mL/min (>60); Glucose 132 mg/dL (80-110); HEMOLYSIS < 15 (0-50); Potassium 4.7 mmol/L (3.4-5.1); Sodium 134 mmol/L (137-145)
[2018-06-11] MEDS: FLUTICASONE 220MCG HFA 120 PUFF INH (09:25)
[2018-06-11] MEDS: TIOTROPIUM BROMIDE 18 MCG INHALER INH (09:25)
[2018-06-11] MEDS: CLOPIDOGREL 75 MG TABLET PO (09:26)
[2018-06-11] MEDS: ASPIRIN EC 81 MG TABLET PO (09:26)
[2018-06-11] MEDS: CYCLOBENZAPRINE 5 MG TABLET PO ×2 (09:26→16:17)
[2018-06-11] MEDS: LISINOPRIL 5 MG TABLET 1.25 MG PO (09:26)
--- NOTE | 2018-06-11 10:52 | PC.NURSE ---
Day shift: Rt foot dressing changed per MD instructions at 1030 today. Pt tolerated well.
[2018-06-11] MEDS: DOXYCYCLINE 100 MG in SODIUM CHLORIDE 0.9% 100 ML IV (12:35)
[2018-06-11] MEDS: INSULIN ASPART 100 UNIT/ML INSULN PEN SUBCUT ×3 (12:35→21:44)
--- NOTE | 2018-06-11 13:14 | PT.IPTN ---
Current Diagnoses Cellulitis of unspecified part of limb (06/08/18) Ileostomy status (06/08/18) Surgery Performed Operation Date: 06/08/18 16:00 Actual Procedures p Incision and Drainage, reduction of /damaged tissue, reduction of 5th metatarsal(Right) - Margarita Anderson, DPFerny Physical Therapy Treatment Note M2 PT-IP Current Condition Start: 06/09/18 10:30 Freq: NEEDED Status: Active Protocol: Document 06/09/18 12:12 AB (Rec: 06/09/18 12:16 AB [id number]) Physical Therapy Current Condition Current Condition Evaluation Date 06/09/18 Treatment Diagnosis R 5th metatarsal foot incision and I&D; difficulty in walking Onset Date 06/08/18 Weight Bearing Status Weight Bearing Status Partial Weight Bearing Allowed Weight Bearing Amount (enter % 06/09/18: 1156am: spoke with or #) (%) Dr. Anderson regarding PWB on RLE. stated that pt should put the least weight possible on RLE only for transfers and if pt is to put weight on RLE, pt should have the foot flat on the floor. Regarding the post-op shoe with cut out, stated that pt may use current post-op shoe (without cut-out ) at this time. Nurse also informed PT regarding Dr. Anderson's instructions. 06/09/18: 0900 am: called Dr. anderson's office for clarification for PWB on RLE. inquired regarding % or # restriction and if pt requires post-op shoe with front cut- out. opted to do NWB on RLE at this time until clarification received M3 PT-IP Subjective Start: 06/09/18 10:30 Freq: NEEDED Status: Active Protocol: Document 06/11/18 09:38 SRINIVASA (Rec: 06/11/18 13:13 LJ [id number]) Subjective Physical Therapy Visit Type Type Treatment Note Visit Start Time 09:38 Visit Stop Time 10:03 Total Visit Minutes 25 Notes Pt will need second PT session this afternoon to attempt stairs. Unable to attempt at this time. Number of BUSINESS AREA MANAGER Visits 2 Physical Therapy Visit Comments Patient Comments Pt states she needs to use the bathroom. Therapy Pain Assessment Pain When Pain Assessed At Rest Pain Present Pain Present Denied Pain M4 PT-IP Mobility and Gait Start: 06/09/18 10:30 Freq: NEEDED Status: Active Protocol: Document 06/11/18 09:38 LJ (Rec: 06/11/18 13:13 LJ [id number]) PT-Bed Mobility Assessment Rolling Level of Assist Standby Assistance Supine to Sit Supine to Sit Standby Assistance Scooting Scooting to Edge of Bed Standby Assistance PT-Transfer Assessment Sit to and From Stand Sit to and from Stand Minimal Assistance 1 Person Assistance Use of Upper Extremities Equipment Transfer Assistive Device Gait Belt Front Wheeled Walker Orthotic/Prosthetic Devices or Brace: Yes Transfers Transfer Destination Chair Bedside Commode Transfer Technique Stand Step Pivot Transfer Ability Level of Assist Minimal Assistance 1 Person Assistance Use of Upper Extremities Comments Mobility Comments Pt stated PWB precautions prior to transfering to [facility]. Able to perform transfer adhering to precautions. Required pericare assist. Gait Assessment Gait Gait Assistance Required: Contact Guard Assist Minimum Assistance Distance (Feet) 25 Able to Maintain Weight Bearing Status Yes During Gait Assistive Devices Assistive Device Gait Belt Front Wheeled Walker Orthotic/Prosthetic Devices or Brace: Yes Gait Deviations General Gait Pattern Antalgic Decreased Stride Length Decreased Feet Clearance Flexed Trunk Step-to Gait Factors Limiting Gait Function Factors Limiting Gait Function Decreased Activity Tolerance Decreased Strength Limited Range of Motion Pain Poor Balance Poor Safety Awareness Comments Gait Comments Pt requires CGA and min assist for equipment during ambulation in room. Able to state and adhere to PWB precautions. M5 PT-IP Objective Assessments Start: 06/09/18 10:30 Freq: NEEDED Status: Active Protocol: Document 06/09/18 09:45 AB (Rec: 06/09/18 11:03 AB [id number]) Orientation Orientation/Cognition Level of Alertness Alert Orientation Name Age Birthday Month Date Year Day of Week Place Situation Gross Range of Motion Lower Extremity ROM Assessment Within Functional Limits Strength Lower Extremity Strength Assessment Right Impaired Comments Strength Comments unable to check R ankle due to precaution/splint Sensation Assessment Sensation Gross Sensation Right LE Impaired Left LE Impaired Light Touch Impaired Proprioception (Position) Impaired Sensation Description Numbness Muscle Tone Muscle Tone WNL Yes M6 PT-IP Treatment Start: 06/09/18 10:30 Freq: NEEDED Status: Active Protocol: Document 06/11/18 09:38 LJ (Rec: 06/11/18 13:13 LJ [id number]) Physical Therapy Treatment Education Education Provided Weight Bearing Status Safety M7 PT-IP Assessment and Plan Start: 06/09/18 10:30 Freq: NEEDED Status: Active Protocol: Document 06/11/18 09:38 SRINIVASA (Rec: 06/11/18 13:13 SRINIVASA [id number]) PT Summary Assessment and Plan Summary Assessment Summary Pt able to maintain PWB precautions during ambulation in room. Min assist for equipment. Requires cues for posture and FWW use. Frequency of Treatment Frequency Of Treatment Twice a Day Treatment Plan Physical Therapy Treatment Plan Bed Mobility Training Transfer Training Gait Training Therapeutic Exercise Balance Retraining Post Op Education Discharge Planning Hot or Cold Pack Neuromuscular Re-ed Coordination Retraining Manual Therapy Recommendations To Nursing Amount of Assist Needed 1 Person Assist Discharge Recommendations PT Discharge Recommendations Home Equipment Needed for Home Before FWW if going home Discharge
--- NOTE | 2018-06-11 15:09 | PT.IPTN ---
Current Diagnoses Cellulitis of unspecified part of limb (06/08/18) Ileostomy status (06/08/18) Surgery Performed Operation Date: 06/08/18 16:00 Actual Procedures p Incision and Drainage, reduction of /damaged tissue, reduction of 5th metatarsal(Right) - Margarita Anderson, DPM Physical Therapy Treatment Note M2 PT-IP Current Condition Start: 06/09/18 10:30 Freq: NEEDED Status: Active Protocol: Document 06/09/18 12:12 AB (Rec: 06/09/18 12:16 AB [id number]) Physical Therapy Current Condition Current Condition Evaluation Date 06/09/18 Treatment Diagnosis R 5th metatarsal foot incision and I&D; difficulty in walking Onset Date 06/08/18 Weight Bearing Status Weight Bearing Status Partial Weight Bearing Allowed Weight Bearing Amount (enter % 06/09/18: 1156am: spoke with or #) (%) Dr. Anderson regarding PWB on RLE. stated that pt should put the least weight possible on RLE only for transfers and if pt is to put weight on RLE, pt should have the foot flat on the floor. Regarding the post-op shoe with cut out, stated that pt may use current post-op shoe (without cut-out ) at this time. Nurse also informed PT regarding Dr. Anderson's instructions. 06/09/18: 0900 am: called Dr. anderson's office for clarification for PWB on RLE. inquired regarding % or # restriction and if pt requires post-op shoe with front cut- out. opted to do NWB on RLE at this time until clarification received M3 PT-IP Subjective Start: 06/09/18 10:30 Freq: NEEDED Status: Active Protocol: Document 06/11/18 15:08 LJ (Rec: 06/11/18 15:09 LJ [id number]) Subjective Physical Therapy Visit Type Type Patient Refusal Notes Pt states she is too tired to attempt stairs today. Wants to wait until tomorrow morning. M4 PT-IP Mobility and Gait Start: 06/09/18 10:30 Freq: NEEDED Status: Active Protocol: Document 06/11/18 09:38 LJ (Rec: 06/11/18 13:13 LJ [id number]) PT-Bed Mobility Assessment Rolling Level of Assist Standby Assistance Supine to Sit Supine to Sit Standby Assistance Scooting Scooting to Edge of Bed Standby Assistance PT-Transfer Assessment Sit to and From Stand Sit to and from Stand Minimal Assistance 1 Person Assistance Use of Upper Extremities Equipment Transfer Assistive Device Gait Belt Front Wheeled Walker Orthotic/Prosthetic Devices or Brace: Yes Transfers Transfer Destination Chair Bedside Commode Transfer Technique Stand Step Pivot Transfer Ability Level of Assist Minimal Assistance 1 Person Assistance Use of Upper Extremities Comments Mobility Comments Pt stated PWB precautions prior to transfering to [facility]. Able to perform transfer adhering to precautions. Required pericare assist. Gait Assessment Gait Gait Assistance Required: Contact Guard Assist Minimum Assistance Distance (Feet) 25 Able to Maintain Weight Bearing Status Yes During Gait Assistive Devices Assistive Device Gait Belt Front Wheeled Walker Orthotic/Prosthetic Devices or Brace: Yes Gait Deviations General Gait Pattern Antalgic Decreased Stride Length Decreased Feet Clearance Flexed Trunk Step-to Gait Factors Limiting Gait Function Factors Limiting Gait Function Decreased Activity Tolerance Decreased Strength Limited Range of Motion Pain Poor Balance Poor Safety Awareness Comments Gait Comments Pt requires CGA and min assist for equipment during ambulation in room. Able to state and adhere to PWB precautions. M5 PT-IP Objective Assessments Start: 06/09/18 10:30 Freq: NEEDED Status: Active Protocol: Document 06/09/18 09:45 AB (Rec: 06/09/18 11:03 AB [id number]) Orientation Orientation/Cognition Level of Alertness Alert Orientation Name Age Birthday Month Date Year Day of Week Place Situation Gross Range of Motion Lower Extremity ROM Assessment Within Functional Limits Strength Lower Extremity Strength Assessment Right Impaired Comments Strength Comments unable to check R ankle due to precaution/splint Sensation Assessment Sensation Gross Sensation Right LE Impaired Left LE Impaired Light Touch Impaired Proprioception (Position) Impaired Sensation Description Numbness Muscle Tone Muscle Tone WNL Yes M6 PT-IP Treatment Start: 06/09/18 10:30 Freq: NEEDED Status: Active Protocol: Document 06/11/18 09:38 SRINIVASA (Rec: 06/11/18 13:13 LJ [id number]) Physical Therapy Treatment Education Education Provided Weight Bearing Status Safety M7 PT-IP Assessment and Plan Start: 06/09/18 10:30 Freq: NEEDED Status: Active Protocol: Document 06/11/18 09:38 SRINIVASA (Rec: 06/11/18 13:13 LJ [id number]) PT Summary Assessment and Plan Summary Assessment Summary Pt able to maintain PWB precautions during ambulation in room. Min assist for equipment. Requires cues for posture and FWW use. Frequency of Treatment Frequency Of Treatment Twice a Day Treatment Plan Physical Therapy Treatment Plan Bed Mobility Training Transfer Training Gait Training Therapeutic Exercise Balance Retraining Post Op Education Discharge Planning Hot or Cold Pack Neuromuscular Re-ed Coordination Retraining Manual Therapy Recommendations To Nursing Amount of Assist Needed 1 Person Assist Discharge Recommendations PT Discharge Recommendations Home Equipment Needed for Home Before FWW if going home Discharge
--- NOTE | 2018-06-11 16:19 | PC.NURSE ---
Addendum entered by Jacklyn Fairbanks R.N. 06/11/18 22:26: Flexiril changed from scheduled to PRN d/t oversedation. Pain controlled at this time. Podiatry would like to be involved in bandage change in AM if possible. 10am tentative. Original Note: PM Shift Pt is a/o x3, drowsy when assessed at start of shift. Denies pain at present in RLE. Dressing is cdi. Spo2 93% on 1L and cont pulse ox in place. Using light for needs.
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
[2018-06-11] MEDS: AMPICILLIN 2,000 MG in SODIUM CHLORIDE 0.9% 100 ML 200 ML IV (17:13)
[2018-06-11] MEDS: CEFTRIAXONE 2 GM/50 ML FROZ.PIGGY IV (19:36)
[2018-06-11] MEDS: SODIUM CHLORIDE 0.9% FLUSH 10 ML IV (20:31)
[2018-06-11] MEDS: PRAVASTATIN 20 MG TABLET PO (20:33)
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
--- NOTE | 2018-06-11 23:08 | P.PN_ITS ---
Subjective Date Patient Seen: 06/11/18 Time Patient Seen: 19:00 Interval history: This is a 77-year-old female patient was admitted to the hospital for I and D of right ft abscess and is now postop day 4. Hospitalist service is consulting for multiple comorbid medical problems including COPD, asthma, diabetes. The patient has had positive wound cultures and has been receiving Levaquin and has had doxycycline added for coverage staph. The patient has remained afebrile, denies complaints of chills or sweats. On revelation of additional information the patient was changed to ceftriaxone and ampicillin. The patient also has had increased in her lymphocyte percent to 18.1. She has also had a mild increase in her BUN and creatinine to 36 and 1.6. She is up 1.5 kilos from her admission weight. Speaking with the day hospitalist she will attempt to follow up tomorrow for ID consult. The patient denies complaints of pain at the time of this patient visited improved over yesterday. The patient denies complaint chest pain or shortness of breath and has had no cough. She did have finding of low SpO2 of 89 and was started on 1 L of oxygen which is ordered. With SP 2 up to 93%. She continues with her breathing regimen of inhalers. She reports good appetite with no indigestion. Patient's blood sugars have been elevated the last 24 hr with 228, 243, 243 and 360. Exam Vital Signs (past 8 hours): - 06/11/18 16:00 06/11/18 16:25 06/11/18 20:00 Temperature 98.7 F 98 F Pulse Rate 74 81 Respiratory Rate 17 16 Blood Pressure 116/67 127/59 L Pulse Oximetry 100 93 100 Fraction of Inspired Oxygen 21 Oxygen Delivery Method Nasal Cannula Oxygen Flow Rate 2 Const General: cooperative, comfortable and No acute distress Nutritional Appearance: well nourished Orientation: alert, awake and oriented x3 Limitations: mental status not altered and no behavioral limitations HENMT Head: normal to inspection Ears: hearing grossly normal bilaterally Nose: external nose normal Face and sinus: normal facial exam Mouth: oral mucosae normal and moist mucous membranes Eyes Conjunctivae: conjunctivae normal Sclera: sclerae normal Pupils: PERRL and accommodation normal Neck Neck: normal visual inspection, trachea midline and supple Lymphatic: No lymphadenopathy Chest Chest: normal inspection of the chest and No tenderness Resp Effort & Inspection: normal respiratory effort, not labored, no respiratory distress, no retractions, not tachypneic and no use of accessory muscles Auscultation: clear to auscultation bilaterally (Slightly diminished bilateral bases), no crackles, diminished lung sounds (Bilateral bases), no rhonchi and no wheezes Cardio Rate: regular rate Heart Sounds: S1 normal, S2 normal, no murmurs and no rubs Pulses: radial pulses present and other (Brisk capillary refill right foot, 3 second capillary refill left foot) GI Inspection: normal to inspection and non-distended Palpation: soft, no hepatosplenomegaly, No guarding and No tender Percussion: dullness to percussion General: bladder normal to palpation Bimanual Exam- Vagina & Uterus: bladder normal to palpation Back/Spine/Pelvis Back: No back tenderness and No CVA tenderness Skin General: no rashes or lesions noted Rashes: no rashes Wounds: wounds noted (Dressing intact to right foot, wound not visualized) Neuro General: alert, awake and oriented x3 Cranial Nerves: other (No localizing neurological findings) Cognition: normal cognition Speech: abnormal speech (Stuttering and halting speech) Gait: other (gait not observed, PT transferring the patient from bed to chair and per patient has not yet ambulated) Sensory Exam: no sensory deficits noted Extrem General: normal exam except as noted, no pedal edema and no calf tenderness Psych Mental Status: mental status grossly normal Attitude: cooperative Thought Process: normal Thought Content: normal Objective Labs Result Diagrams: 06/11/18 05:00 06/11/18 05:00 Labs: Laboratory Results - last 24 hr 06/11/18 06/11/18 05:00 05:00 WBC 8.7 RBC 3.07 L Hgb 9.4 L Hct 28.1 L MCV 91.4 MCH 30.5 MCHC 33.4 RDW 12.3 Plt Count 249 Neut % (Auto) 69.8 Lymph % (Auto) 18.1 L [place] % (Auto) 9.1 Eos % (Auto) 2.6 Baso % (Auto) 0.4 Neut # (Auto) 6100 Sodium 134 L Potassium 4.7 Chloride 103 Carbon Dioxide 25 BUN 36 H Creatinine 1.60 H Estimated GFR 31.3 L BUN/Creatinine Ratio 22.5 H Glucose 132 H Calcium 9.3 Assessment & Plan Plan: Assessment/Plan Narrative: Surgical wound right foot The patient is comfortable at this time, will continue current pain medication She has been out of bed to transfer to a chair, orders for partial weight- bearing right foot. Wound care per wound care and Dr. Anderson Polymicrobial wound infection Antibiotics changed to ceftriaxone and ampicillin Will plan for ID consult Looking track CBC with slowly elevating lymphocyte percent count, will recheck CRP, patient remains afebrile. COPD and Asthma She denies complaints of coughing or shortness of breath but has shortness of breath on transfer. Decreasing SpO2 to 89 %, orders for as needed oxygen, patient is 93% on 1 L nasal cannula, vital signs are stable and she is afebrile Breath sounds remain clear to auscultation patient when using respiratory exercise and Acapella, Will continue inhaler medications Diabetes Type II Patient is currently on a diabetic diet with with blood sugars elevated the last 24 hr in the 200-300. Patient previously on Lantus 28 units every morning and 20 units every night. Will restart Lantus 10 units b.i.d. and continue Accu-Cheks a.c. HS with sliding scale insulin Lantus has been discontinued and she is receiving only sliding scale aspart insulin. Will add a evening snack to her diet plan. Discharge Planning Spoke with the patient regarding discharge plans and she is expecting to return to home where she had been prior to admission for her procedure. We may need to consider the possibility of rehabilitation for both gait and balance concerns as well as strengthening. Thank you Dr. Anderson for allowing us to participate in the care of this pleasant patient. Quality VTE Deep Vein Thrombosis/Pulmonary Embolism Present on Admission: No
[2018-06-12] VITALS (16 sets, daily range): BP systolic 103–149; BP diastolic 53–68; PULSE 63–93; RESP 16–18; TEMP 36.6–37.3; O2SAT 92–100
[2018-06-12] MEDS: AMPICILLIN 2,000 MG in SODIUM CHLORIDE 0.9% 100 ML 200 ML IV ×3 (00:23→17:02)
[2018-06-12] MEDS: HYDROCODONE/ACET 5/325 TABLET 1 TAB PO ×3 (00:51→14:06)
[2018-06-12] MEDS: HYDROMORPHONE 0.5 MG INJ IV (01:23)
[2018-06-12] MEDS: CEFTRIAXONE 2 GM/50 ML FROZ.PIGGY IV ×2 (05:32→18:14)
[2018-06-12] MEDS: PANTOPRAZOLE 20 MG TABLET PO (05:32)
[2018-06-12 06:14] LABS: Add Manual Diff / Slide Review NO; Basophils Percent Auto 0.4 % (0-2); Eosinophils Percent Auto 2.3 % (2-4); Hematocrit 27.8 % (36-46); Hemoglobin 9.3 g/dL (12.0-16.0); Lymphocytes Percent Auto 12.9 % (25-40); Mean Corpuscular HGB Conc 33.4 % (30-36); Mean Corpuscular Hemoglobin 30.5 PG (26-34); Mean Corpuscular Volume 91.3 fL (80-100); Monocytes Percent Auto 8.5 % (3-14); Neutrophils Absolute Auto 6800 /uL (1500-7000); Neutrophils Percent Auto 75.9 % (50-75); Platelet Count 256 X10^3/uL (150-400); Red Blood Cell Count 3.04 X10^6/uL (4.0-5.2); Red Cell Distribution Width 12.5 % (11.6-14.8); White Blood Cell Count 8.9 X10^3/uL (4.5-11.0)
[2018-06-12 06:42] LABS: BUN Creatinine Ratio 26.4 (6-22); Blood Urea Nitrogen 37 mg/dL (7-17); Calcium 8.9 mg/dL (8.4-10.2); Carbon Dioxide 25 mmol/L (22-32); Chloride 103 mmol/L (98-107); Estimated Glomerular Filt Rate 36.5 mL/min (>60); Glucose 149 mg/dL (80-110); HEMOLYSIS < 15 (0-50); Potassium 4.7 mmol/L (3.4-5.1); Sodium 136 mmol/L (137-145)
[2018-06-12 07:06] LABS: C-Reactive Protein Quant 13.3 mg/dL (<1.0)
[2018-06-12] MEDS: CLOPIDOGREL 75 MG TABLET PO (09:06)
[2018-06-12] MEDS: FLUTICASONE 220MCG HFA 120 PUFF INH ×2 (09:06→19:44)
[2018-06-12] MEDS: ASPIRIN EC 81 MG TABLET PO (09:06)
[2018-06-12] MEDS: LISINOPRIL 5 MG TABLET 1.25 MG PO (09:07)
[2018-06-12] MEDS: TIOTROPIUM BROMIDE 18 MCG INHALER INH (09:07)
[2018-06-12] MEDS: INSULIN ASPART 100 UNIT/ML INSULN PEN SUBCUT ×4 (09:21→20:28)
[2018-06-12] MEDS: INSULIN GLARGINE 100 UNIT/ML 3ML PEN 10 UNIT SUBCUT (10:29)
--- NOTE | 2018-06-12 10:57 | P.PN_ITS ---
Subjective Date Patient Seen: 06/12/18 Time Patient Seen: 10:53 Interval history: s/p 4 days Right foot Fifth metatarsal head resection and I& D. Very little pain to the foot and feeling good and less tired this morning. Exam Vital Signs (past 8 hours): - 06/12/18 05:33 06/12/18 07:55 06/12/18 09:45 Temperature 98.2 F 98.3 F Pulse Rate 77 76 84 Respiratory Rate 16 16 16 Blood Pressure 103/53 L 103/54 L Pulse Oximetry 94 97 96 Fraction of Inspired Oxygen 21 Oxygen Delivery Method Nasal Cannula Oxygen Flow Rate 1 Const General: comfortable Orientation: alert, awake and oriented x3 Extrem Right lower extremity: foot (Dressing is taken down and shows the flap on the lateral 5th metatarsal head area it to continue to be a little bit white on the skin itself and also a little dusky. It still has not declared and the foot is warm. There is no discharge within the wound and it appears to be healing from the deep as) Objective Labs Result Diagrams: 06/12/18 05:04 06/12/18 05:04 Labs: Laboratory Results - last 24 hr 06/12/18 06/12/18 06/12/18 05:04 05:04 05:04 WBC 8.9 RBC 3.04 L Hgb 9.3 L Hct 27.8 L MCV 91.3 MCH 30.5 MCHC 33.4 RDW 12.5 Plt Count 256 Neut % (Auto) 75.9 H Lymph % (Auto) 12.9 L [place] % (Auto) 8.5 Eos % (Auto) 2.3 Baso % (Auto) 0.4 Neut # (Auto) 6800 Sodium 136 L Potassium 4.7 Chloride 103 Carbon Dioxide 25 BUN 37 H Creatinine 1.40 H Estimated GFR 36.5 L BUN/Creatinine Ratio 26.4 H Glucose 149 H Calcium 8.9 C-Reactive Protein 13.3 H Assessment & Plan Post-op (1) Cellulitis of foot: Problem details: The wound area is irrigated gently with sterile water and dried. It was repacked with Aquacel Silver and a gently placed Aquacel Silver and DuoDerm dressing. It was also read bandaged with a cushioned ABD pad. I am encouraged by the healing from the central deep portion of the wound, but we still have not gotten full declaration of the lateral flap. I rec'd the notes from Dr. Tello on her f/u visit and the discussion is through the popliteal area but she is also aware of the concern of the toe wound. The foot is warm so she appears to be perfusing, but this section of tissue may not be able to be saved. Discussed potential for runoff study for right leg/foot if flap looks to advance toward necrosis and also if she is not an HBO candidate. Wound dressing changes continue with nursing and regular check by myself and wound care. She just started new abx (see note last night and Medicine note). I spoke to hospitalist and she is getting ID consult Dr. Ya, appreciate and look forward to input. Awaiting further response from newly started ampicillin and doxycycline. Appreciate Medicine consult and further management of DM and her other medical conditions that they may see as primary concern as we continue to work with her foot condition. Continue inpatient care as we watch for declaration of antibiosis and wound management. Disposition discussed with physical therapy today and they are working with her on PWB with walker with stairs. Gaining strength in arms is positive and the report they gave. They suggested there is consideration for a sturdier walker need for discharge and will update further on this as we gain more info on disposition. Current Visit: Yes Status: Acute Postoperative Procedures Operation Date: 06/08/18 16:00 Actual Procedures Side Surgeon p Incision and Drainage, reduction of /damaged tissue, reduction of 5th metatarsal Right Margarita Anderson, DPM Quality VTE Deep Vein Thrombosis/Pulmonary Embolism Present on Admission: No
--- NOTE | 2018-06-12 11:30 | PT.IPTN ---
Current Diagnoses Cellulitis of unspecified part of limb (06/08/18) Ileostomy status (06/08/18) Surgery Performed Operation Date: 06/08/18 16:00 Actual Procedures p Incision and Drainage, reduction of /damaged tissue, reduction of 5th metatarsal(Right) - Margarita Anderson, DPM Physical Therapy Treatment Note M2 PT-IP Current Condition Start: 06/09/18 10:30 Freq: NEEDED Status: Active Protocol: Document 06/09/18 12:12 AB (Rec: 06/09/18 12:16 AB [id number]) Physical Therapy Current Condition Current Condition Evaluation Date 06/09/18 Treatment Diagnosis R 5th metatarsal foot incision and I&D; difficulty in walking Onset Date 06/08/18 Weight Bearing Status Weight Bearing Status Partial Weight Bearing Allowed Weight Bearing Amount (enter % 06/09/18: 1156am: spoke with or #) (%) Dr. Anderson regarding PWB on RLE. stated that pt should put the least weight possible on RLE only for transfers and if pt is to put weight on RLE, pt should have the foot flat on the floor. Regarding the post-op shoe with cut out, stated that pt may use current post-op shoe (without cut-out ) at this time. Nurse also informed PT regarding Dr. Anderson's instructions. 06/09/18: 0900 am: called Dr. anderosn's office for clarification for PWB on RLE. inquired regarding % or # restriction and if pt requires post-op shoe with front cut- out. opted to do NWB on RLE at this time until clarification received M3 PT-IP Subjective Start: 06/09/18 10:30 Freq: NEEDED Status: Active Protocol: Document 06/12/18 11:30 GGD (Rec: 06/12/18 12:41 GGD [id number]) Subjective Physical Therapy Visit Type Type Treatment Note Visit Start Time 11:00 Visit Stop Time 11:30 Total Visit Minutes 30 Physical Therapy Visit Comments Patient Comments Pt willing to work with PT. Therapy Pain Assessment Pain When Pain Assessed At Rest Pain Present Pain Present Denied Pain M4 PT-IP Mobility and Gait Start: 06/09/18 10:30 Freq: NEEDED Status: Active Protocol: Document 06/12/18 11:30 GGD (Rec: 06/12/18 12:41 GGD [id number]) PT-Bed Mobility Assessment Rolling Level of Assist Standby Assistance Supine to Sit Supine to Sit Standby Assistance Scooting Scooting to Edge of Bed Standby Assistance PT-Transfer Assessment Sit to and From Stand Sit to and from Stand Contact Guard Assistance 1 Person Assistance Use of Upper Extremities Equipment Transfer Assistive Device Gait Belt Front Wheeled Walker Orthotic/Prosthetic Devices or Brace: Yes Transfers Transfer Destination Chair Wheelchair Bedside Commode Transfer Ability Level of Assist Minimal Assistance 1 Person Assistance Use of Upper Extremities Comments Mobility Comments Pt need cues for safety and PWB. Gait Assessment Gait Gait Assistance Required: Contact Guard Assist Minimum Assistance Distance (Feet) 10 Able to Maintain Weight Bearing Status Yes During Gait Assistive Devices Assistive Device Gait Belt Front Wheeled Walker Orthotic/Prosthetic Devices or Brace: Yes Gait Deviations General Gait Pattern Antalgic Decreased Stride Length Decreased Feet Clearance Flexed Trunk Step-to Gait Factors Limiting Gait Function Factors Limiting Gait Function Decreased Activity Tolerance Decreased Strength Limited Range of Motion Pain Poor Balance Poor Safety Awareness Comments Gait Comments Pt need cues for PWB. Stair Climbing Assessment Evaluation Level of Assist On Stairs Contact Guard Assistance Minimal Assistance Devices Stair Climbing Assistive Devices Left Railing Right Railing Technique/Endurance Stair Climbing Direction Ascend and Descend Stair Climbing Technique Step to Step Number of Steps Climbed 3 Query Text: Stair Climbing Set # Repetitions (reps) 1 Comments Stair Climbing Comments Pt unable to follow PBW with stairs and needed B rails. M5 PT-IP Objective Assessments Start: 06/09/18 10:30 Freq: NEEDED Status: Active Protocol: Document 06/09/18 09:45 AB (Rec: 06/09/18 11:03 AB [id number]) Orientation Orientation/Cognition Level of Alertness Alert Orientation Name Age Birthday Month Date Year Day of Week Place Situation Gross Range of Motion Lower Extremity ROM Assessment Within Functional Limits Strength Lower Extremity Strength Assessment Right Impaired Comments Strength Comments unable to check R ankle due to precaution/splint Sensation Assessment Sensation Gross Sensation Right LE Impaired Left LE Impaired Light Touch Impaired Proprioception (Position) Impaired Sensation Description Numbness Muscle Tone Muscle Tone WNL Yes M6 PT-IP Treatment Start: 06/09/18 10:30 Freq: NEEDED Status: Active Protocol: Document 06/12/18 11:30 GGD (Rec: 06/12/18 12:41 GGD [id number]) Physical Therapy Treatment Education Education Provided Weight Bearing Status Safety M7 PT-IP Assessment and Plan Start: 06/09/18 10:30 Freq: NEEDED Status: Active Protocol: Document 06/12/18 11:30 GGD (Rec: 06/12/18 12:41 GGD [id number]) PT Summary Assessment and Plan Summary Assessment Summary Pt had difficulty follow PWB with mobility. She was impulsive with transfer to BSC and chair. She not safe for stair mobility at home. Frequency of Treatment Frequency Of Treatment Once a Day Treatment Plan Physical Therapy Treatment Plan Bed Mobility Training Transfer Training Gait Training Therapeutic Exercise Balance Retraining Post Op Education Discharge Planning Hot or Cold Pack Neuromuscular Re-ed Coordination Retraining Manual Therapy Recommendations To Nursing Amount of Assist Needed 1 Person Assist Discharge Recommendations PT Discharge Recommendations Home with Assistance SNF Rehab Equipment Needed for Home Before FWW if going home Discharge
[2018-06-12] MEDS: SODIUM CHLORIDE 0.9% 1,000 ML 60 ML IV (18:15)
[2018-06-12] MEDS: HYDROCODONE/ACET 5/325 TABLET 2 TAB PO (18:46)
[2018-06-12] MEDS: INSULIN GLARGINE 100 UNIT/ML 3ML PEN 20 UNIT SUBCUT (20:28)
[2018-06-12] MEDS: PRAVASTATIN 20 MG TABLET PO (20:28)
--- NOTE | 2018-06-12 20:42 | PM.PN.1 ---
Subjective Date Patient Seen: 06/12/18 Interval history: This is a 77-year-old female patient was admitted to the hospital for I and D of right ft abscess and is now postop day 4. Hospitalist service is consulting for multiple comorbid medical problems including COPD, asthma, diabetes who was admitted for right foot wound status post I&D and debridement. Hospitalist team was consulted for medical management. The patient is resting in bedside chair comfortably. She endorses intermittent pain. She denies fevers, chills, nausea, vomiting. She has no complaints overall. Exam Vital Signs (past 8 hours): - 06/12/18 13:30 06/12/18 15:00 06/12/18 15:40 Temperature 99.1 F Pulse Rate 81 Respiratory Rate 18 Blood Pressure 149/58 H Pulse Oximetry 98 99 96 06/12/18 15:47 06/12/18 16:15 06/12/18 18:41 Temperature 99.1 F Pulse Rate 63 Respiratory Rate 18 Blood Pressure 120/68 Pulse Oximetry 97 96 94 06/12/18 19:00 06/12/18 19:44 Temperature 98.7 F Pulse Rate 93 H Respiratory Rate 18 Blood Pressure 121/66 Pulse Oximetry 100 92 Fraction of Inspired Oxygen 21 Oxygen Delivery Method Nasal Cannula Oxygen Flow Rate 1 Narrative Exam Narrative: General: Elderly woman sitting in bedside chair in no acute distress, well-developed, well-nourished, appropriately interactive. HEENT: Normocephalic, atraumatic. External ears without defect. Pupils equal, round, and reactive to light. Anicteric sclerae, moist conjunctivae, and no lid lag. Neck: Supple with full range of motion. No lymphadenopathy or thyromegaly. Cardiovascular: Regular rate and rhythm without murmurs, rubs, or gallops appreciated. Pulmonary: Diminished throughout all lung perez, scattered wheezes. Normal respiratory effort with no use of accessory muscles. Abdomen: Soft, bowel sounds present, nontender, nondistended. Ostomy in place on right side of abdomen with good stool output. No hepatosplenomegaly or masses appreciated. Extremities: No clubbing, cyanosis, or edema. Left lower foot dressed with bandage clear dry and intact. Skin: Normal temperature, turgor, and texture; no rash, ulcers, or subcutaneous nodules appreciated. Neurological: Cranial nerves grossly intact. Psychiatric: Normal mood and affect. Alert and oriented to person, place, and time. Objective Labs Result Diagrams: 06/12/18 05:04 06/12/18 05:04 Labs: Laboratory Results - last 24 hr 06/12/18 06/12/18 06/12/18 05:04 05:04 05:04 WBC 8.9 RBC 3.04 L Hgb 9.3 L Hct 27.8 L MCV 91.3 MCH 30.5 MCHC 33.4 RDW 12.5 Plt Count 256 Neut % (Auto) 75.9 H Lymph % (Auto) 12.9 L [place] % (Auto) 8.5 Eos % (Auto) 2.3 Baso % (Auto) 0.4 Neut # (Auto) 6800 Sodium 136 L Potassium 4.7 Chloride 103 Carbon Dioxide 25 BUN 37 H Creatinine 1.40 H Estimated GFR 36.5 L BUN/Creatinine Ratio 26.4 H Glucose 149 H Calcium 8.9 C-Reactive Protein 13.3 H Assessment & Plan Plan: Assessment/Plan Narrative: 1. 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 Active. -Likely vascular in etiology as patient has underwent recent IR revascularization. -Podiatry manage wound care and further intervention if necessary. -Wound and tissue cultures demonstrated Serratia marcescens, Enterococcus faecalis, and Enterococcus prevotii. Discussed antibiotic coverage with the pharmacist and per [place] guide recommended ampicillin and double coverage with ceftriaxone. Ampicillin should be adequate to cover the anaerobic species. Have been I am able to contact Dr. aY of Infectious Disease at [facility] for possible infectious disease consult. -Continue current pain medication -Continue transfers and partial weight-bearing right foot. Defer mobilization per Podiatry. -Continue medications for peripheral vascular disease including: Clopidogrel, aspirin, pravastatin 2. History of COPD and asthma, present on admission. Presumed stable. -O2 saturation goal 88% or greater. If falls below 88% may use supplemental oxygen. -Continue home inhalers. 3. Diabetes mellitus type 2, present on admission. Active. -Last hemoglobin A1c 10.7% in 03/2018. -Increased patient's insulin close to home regimen with Lantus 20 units b.i.d.. Patient would benefit from tighter glycemic control in regards to infection and healing with blood glucose 140-180 throughout hospitalization. -Continue carbohydrate consistent diet. -Continue Accu-Cheks a.c. HS and correctional scale insulin. May need to increase her algorithm to medium or high dose. 4. GERD, present on admission. Stable. -Continue home PPI. Thank you Dr. Anderson for allowing us to participate in the care of this pleasant patient. Quality VTE Deep Vein Thrombosis/Pulmonary Embolism Present on Admission: No
--- NOTE | 2018-06-12 22:56 | PC.NURSE ---
Pt colostomy bag ripped and leaking. New appliance placed. Stoma beefy red. Pt did not have any of her own supplies and collection bag is different than what she normally uses.
--- NOTE | 2018-06-12 23:02 | PC.NURSE ---
1500- assumed care of pt from outgoing shift at 1500 this day. pt awake, sitting up in chair. nc on 1 L- 99%, turned down to .5 l nc and pt saturation 97%. Pt tolerates. when pt moves she desats, and becomes very short of breath. Pt then will sit and take some deep breaths, still short of breath but does oxygen saturation 95% and above. Pt needs help with ambulation. after getting up out of chair to void in commode, and into bed pt had excruciating pain to her right foot. given prn pain pills. Pt uses call light. Pt belongings and call light within reach. 2100- when pt sleeps she desats to low 90s. pt oxygen increased to 1L nc. pt tolerating. denies further needs at this time. will continue to monitor.
[2018-06-12] MEDS: CYCLOBENZAPRINE 5 MG TABLET PO (23:21)
--- NOTE | 2018-06-12 23:22 | PC.NURSE ---
Pt crying out and reporting spasms. Cyclobenzaprine given.
[2018-06-13] VITALS (11 sets, daily range): BP systolic 113–151; BP diastolic 55–78; PULSE 72–99; RESP 14–18; TEMP 36.6–37.4; O2SAT 93–98
--- NOTE | 2018-06-13 | DI.RAD.S_ITS ---
PROCEDURE: XR FOOT RT MIN 3V INDICATIONS: s/p fifth metatarsal head resection, following for osteomyel TECHNIQUE: 3 views of the foot were acquired. COMPARISON: [facility], MR, MR FOOT RT WO CON, 05/21/2018, 12:00. [facility], CR, XR FOOT RT MIN 3V, 04/09/2018, 13:39. FINDINGS: Bones: There is amputation of the left fifth toe and partial amputation of the fifth metatarsal. The surgical margin appears smooth. No periosteal reaction. No fractures or dislocations. No suspicious bony lesions. Soft tissues: No tibiotalar joint effusion. Achilles tendon appears normal. Soft tissue swelling and subcutaneous air over the lateral aspect of the foot are probably postsurgical. There is severe vascular calcification consistent with a prosthesis. IMPRESSION: Amputation of the right fifth toe and partial amputation of the right fifth metatarsal. The surgical margin is smooth. Soft tissue swelling and subcutaneous air over the lateral aspect of the right foot are most likely postsurgical. Recommend clinical correlation. Dictated by: Sudhakar Amezcua M.D. on 06/13/2018 at 10:54 Approved by: Sudhakar Amezcua M.D. on 06/13/2018 at 10:59
[2018-06-13] MEDS: AMPICILLIN 2,000 MG in SODIUM CHLORIDE 0.9% 100 ML 200 ML IV ×3 (00:50→16:31)
[2018-06-13] MEDS: CEFTRIAXONE 2 GM/50 ML FROZ.PIGGY IV ×2 (04:31→17:18)
[2018-06-13] MEDS: HYDROCODONE/ACET 5/325 TABLET 2 TAB PO ×2 (04:34→22:43)
[2018-06-13] MEDS: PANTOPRAZOLE 20 MG TABLET PO (06:55)
[2018-06-13] MEDS: TIOTROPIUM BROMIDE 18 MCG INHALER INH (07:54)
[2018-06-13] MEDS: FLUTICASONE 220MCG HFA 120 PUFF INH ×2 (07:54→16:50)
[2018-06-13] MEDS: INSULIN ASPART 100 UNIT/ML INSULN PEN SUBCUT ×2 (08:38→17:16)
[2018-06-13] MEDS: INSULIN GLARGINE 100 UNIT/ML 3ML PEN 20 UNIT SUBCUT (08:38)
[2018-06-13 08:40] LABS: Add Manual Diff / Slide Review NO; Basophils Percent Auto 0.5 % (0-2); Eosinophils Percent Auto 2.7 % (2-4); Hematocrit 26.8 % (36-46); Hemoglobin 8.8 g/dL (12.0-16.0); Lymphocytes Percent Auto 11.1 % (25-40); Mean Corpuscular Hemoglobin 30.2 PG (26-34); Mean Corpuscular Volume 91.3 fL (80-100); Monocytes Percent Auto 6.7 % (3-14); Neutrophils Absolute Auto 7400 /uL (1500-7000); Platelet Count 286 X10^3/uL (150-400); Red Blood Cell Count 2.93 X10^6/uL (4.0-5.2); Red Cell Distribution Width 12.5 % (11.6-14.8); White Blood Cell Count 9.4 X10^3/uL (4.5-11.0)
[2018-06-13 08:50] LABS: BUN Creatinine Ratio 27.1 (6-22); Blood Urea Nitrogen 38 mg/dL (7-17); Calcium 8.5 mg/dL (8.4-10.2); Carbon Dioxide 21 mmol/L (22-32); Chloride 105 mmol/L (98-107); Estimated Glomerular Filt Rate 36.5 mL/min (>60); Glucose 144 mg/dL (80-110); HEMOLYSIS < 15 (0-50); Potassium 4.7 mmol/L (3.4-5.1); Sodium 138 mmol/L (137-145)
--- NOTE | 2018-06-13 09:20 | PM.CN ---
History of Present Illness Date Patient Seen: 06/13/18 Time Patient Seen: 09:00 Chief complaint: CELLULITIS RIGHT FOOT Reason for consult: COPD, Asthma, Diabetes Requesting provider: Margarita Anderson Narrative: This is a 77 year old female who was admitted to the hospital for an I&D of the right lateral foot. The patient has comorbid COPD, asthma and diabetes that the hospitalist service has been requested to manage. Today the patient is post op day 5. Wound cultures have demonstrated polymicrobial infection being covered with IV ceftriaxone and amicillin. Overnight the patient has required oxygen titrated from 1 to 2 L/M. She has been ambulating with physical therapy and working on stairs. The patient indicates that she tolerated activity [facility] Medical History Anemia (Acute) Asthma (Acute) CAD (coronary artery disease) (Acute) CKD stage 3 due to type 2 diabetes mellitus (Acute) COPD (chronic obstructive pulmonary disease) (Acute) Diabetes (Acute) Diabetic gastroparesis (Acute) Diabetic macular edema (Acute) Dyslipidemia (Acute) Epiretinal membrane, both eyes (Acute) Essential tremor (Acute) H/O: hysterectomy (Acute) Lumbar spinal stenosis (Acute) Osteopenia (Acute) PAD (peripheral artery disease) (Acute) PVD (posterior vitreous detachment) (Acute) Peripheral neuropathy (Acute) Proliferative diabetic retinopathy of both eyes (Acute) Ulcers of both lower extremities (Acute) Unspecified vitamin D deficiency (Acute) Uterine cancer (Acute) Vocal cord dysfunction (Acute) Vocal tremor (Acute) Surgical History History of atherectomy (Acute ~2018) History of panretinal photocoagulation (Acute) History of parathyroid surgery (Acute) Hx of abdominal surgery (Acute) Hx of appendectomy (Acute) Hx of colectomy (Acute) Hx of ileostomy (Acute) Hx of tonsillectomy (Acute) Hx of vitrectomy (Acute) S/P CABG (coronary artery bypass graft) (Acute ~2007) S/P coronary artery stent placement (Acute) S/P foot surgery, left (Acute) S/p bilateral carpal tunnel release (Acute) Status post cataract extraction of both eyes with insertion of intraocular lens (Acute) Social History household members: spouse Smoking Status: Never smoker alcohol intake: current Meds Home Medications Medication Instructions Recorded Confirmed Type acetaminophen 500 mg PO Q4H PRN 05/25/18 06/08/18 History albuterol sulfate [ProAir HFA] 2 puff INHALATION Q6H PRN 05/25/18 06/08/18 History aspirin 81 mg PO DAILY 05/25/18 06/08/18 History clopidogrel [Plavix] 75 mg PO DAILY 05/25/18 06/08/18 History diclofenac epolamine 1 patch TRANSDERMAL BID 05/25/18 06/08/18 History fluticasone [Flovent HFA] 2 puff INHALATION BID 05/25/18 06/08/18 History insulin aspart U-100 [Novolog 8 - 10 unit SUBCUT TID 05/25/18 06/08/18 History Flexpen U-100 Insulin] insulin glargine 20 unit SUBCUT QPM 05/25/18 06/08/18 History insulin glargine 28 unit SUBCUT QAM 05/25/18 06/08/18 History lisinopril 1.25 mg PO DAILY 05/25/18 06/08/18 History omega-3 acid ethyl esters [Lovaza] 2 cap PO DAILY 05/25/18 06/08/18 History omeprazole 20 mg PO DAILY 05/25/18 06/08/18 History pravastatin 20 mg PO BEDTIME 05/25/18 06/08/18 History tiotropium bromide [Spiriva with 1 cap INHALATION DAILY 05/25/18 06/08/18 History HandiHaler] topiramate [Topamax] 15 mg PO BEDTIME 05/25/18 06/08/18 History doxycycline hyclate 100 mg PO DAILY 06/08/18 06/08/18 History Allergies Allergy/AdvReac Type Severity Reaction Status Date / Time amiodarone Allergy Reaction Verified 05/25/18 08:40 not listed Beta-Blockers AdvReac Cannot Verified 05/25/18 08:40 (Beta-Adrenergic Bloc tolerate beta blockers r/t COPD fluticasone AdvReac Dysphonia Verified 05/25/18 09:55 [From Advair Diskus] salmeterol AdvReac Dysphonia Verified 05/25/18 09:55 [From Advair Diskus] Exam Vital Signs (past 8 hours): - 06/13/18 04:15 06/13/18 07:25 06/13/18 07:26 Temperature 98.0 F Pulse Rate 86 Respiratory Rate 16 Blood Pressure 139/63 Pulse Oximetry 98 98 93 06/13/18 07:58 Temperature Pulse Rate 87 Respiratory Rate 16 Blood Pressure Pulse Oximetry 93 Fraction of Inspired Oxygen 21 Oxygen Delivery Method Nasal Cannula Oxygen Flow Rate 2 Objective Labs Result Diagrams: 06/13/18 08:11 06/13/18 Unknown Labs: Laboratory Results - last 24 hr 06/13/18 06/13/18 08:11 Unknown WBC 9.4 RBC 2.93 L Hgb 8.8 L Hct 26.8 L MCV 91.3 MCH 30.2 MCHC 33.0 RDW 12.5 Plt Count 286 Neut % (Auto) 79.0 H Lymph % (Auto) 11.1 L [place] % (Auto) 6.7 Eos % (Auto) 2.7 Baso % (Auto) 0.5 Neut # (Auto) 7400 H Sodium 138 Potassium 4.7 Chloride 105 Carbon Dioxide 21 L BUN 38 H Creatinine 1.40 H Estimated GFR 36.5 L BUN/Creatinine Ratio 27.1 H Glucose 144 H Calcium 8.5
--- NOTE | 2018-06-13 09:39 | PM.PN.1 ---
Subjective Date Patient Seen: 06/13/18 Time Patient Seen: 09:00 Interval history: This is a 77 year old female who was admitted to the hospital for an I&D of the right lateral foot. The patient has comorbid COPD, asthma and diabetes that the hospitalist service has been requested to manage. Today the patient is post op day 5. Wound cultures have demonstrated polymicrobial infection being covered with IV ceftriaxone and ampicillin. Overnight the patient has required oxygen titrated from 1 to 2 L/M. She has been ambulating with physical therapy and working on stairs on room air and she indicates that she tolerated the activity without shortness of breath. The patient's Lantus was increased yesterday to 20 units BID and experienced a low blood sugar of 57 mg/dl at 02:00 this morning and subsequently returned to 127. Spoke with Dr. Anderson at bedside. Concern remains as to the viability of tissues. There is no extension of the cellulitis or erythema. Dr. Anderson will reassess the wound tomorrow and likely determine the need for further debriedment. Exam Vital Signs (past 8 hours): - 06/13/18 04:15 06/13/18 07:25 06/13/18 07:26 Temperature 98.0 F Pulse Rate 86 Respiratory Rate 16 Blood Pressure 139/63 Pulse Oximetry 98 98 93 06/13/18 07:58 Temperature Pulse Rate 87 Respiratory Rate 16 Blood Pressure Pulse Oximetry 93 Fraction of Inspired Oxygen 21 Oxygen Delivery Method Nasal Cannula Oxygen Flow Rate 2 Narrative Exam Narrative: GENERAL APPEARANCE: well developed, well nourished, pleasant, in no acute distress. HENT: Normocephalic, no scalp lesions, mucosa moist, no lesions, palate normal, tongue in midline. EYES: pupils equal, round, reactive to light and accommodation, sclera non-icteric, extraocular movement intact. NECK/THYROID: neck supple, full range of motion, no cervical lymphadenopathy no jugular venous distention, trachea midline. LYMPH NODES: no cervical adenopathy. SKIN: warm and dry, no visible lesions or rashes, good turgor. HEART: regular rate and rhythm, no murmurs, rubs, gallops. LUNGS: expriatory wheezes, right lung upper and lower, no coarseness or crackles CHEST: symmetrical movement, good tidal volume EXTREMITIES: Wound lateral right foot, wound base moist with odor, brisk capillary refill, pablo wound erythema, edema. NEUROLOGIC: good motor strength normal upper and lower extremities, stuttering speach, tremmor, neuropathy bilateral feet to the anckle PSYCH: cognition intact, cooperative with exam, good eye contact, judgment and insight good, mood/affect stable Objective Labs Result Diagrams: 06/13/18 08:11 06/13/18 Unknown Labs: Laboratory Results - last 24 hr 06/13/18 06/13/18 08:11 Unknown WBC 9.4 RBC 2.93 L Hgb 8.8 L Hct 26.8 L MCV 91.3 MCH 30.2 MCHC 33.0 RDW 12.5 Plt Count 286 Neut % (Auto) 79.0 H Lymph % (Auto) 11.1 L [place] % (Auto) 6.7 Eos % (Auto) 2.7 Baso % (Auto) 0.5 Neut # (Auto) 7400 H Sodium 138 Potassium 4.7 Chloride 105 Carbon Dioxide 21 L BUN 38 H Creatinine 1.40 H Estimated GFR 36.5 L BUN/Creatinine Ratio 27.1 H Glucose 144 H Calcium 8.5 Assessment & Plan Plan: Assessment/Plan Narrative: COPD, Asthma Wheezing on exam, the patient does have a home nebulizer she uses as needed Will add RT to consult and albuterol nebulizer Q4H PRN Continue inhaler therapy Use acapella, and breathing exercises Diabetes Type II Hypoglycemic episode early this morning with BS of 57. Will decrease Lantus to 14 units BID and titrate up as needed to the patient home regime of 28 units in the AM an 20 units in the PM. Wound right foot Dr. Anderson will reassess tomorrow and likely determine the need for additional debridement Procalcitonin 06/12 had increased to 13.2, WBC 9.3 with increase neutrophillia to 7400. Will continue Rocephin and Amicillin IV for now. We will need ID consult for osteomyolitis. Thank you Dr. Anderson for allowing us to participate in the care of the jud woman. Quality VTE Deep Vein Thrombosis/Pulmonary Embolism Present on Admission: No
--- NOTE | 2018-06-13 09:44 | P.PN_ITS ---
Subjective Date Patient Seen: 06/13/18 Time Patient Seen: 09:00 Interval history: This is a 77 year old female who was admitted to the hospital for an I&D of the right lateral foot. The patient has comorbid COPD, asthma and diabetes that the hospitalist service has been requested to manage. Today the patient is post op day 5. Wound cultures have demonstrated polymicrobial infection being covered with IV ceftriaxone and ampicillin. Overnight the patient has required oxygen titrated from 1 to 2 L/M. She has been ambulating with physical therapy and working on stairs on room air and she indicates that she tolerated the activity without shortness of breath. The patient's Lantus was increased yesterday to 20 units BID and experienced a low blood sugar of 57 mg/dl at 02:00 this morning and subsequently returned to 127. Spoke with Dr. Anderson at bedside. Concern remains as to the viability of tissues. There is no extension of the cellulitis or erythema. Dr. Anderson will reassess the wound tomorrow and likely determine the need for further debriedment. Exam Vital Signs (past 8 hours): - 06/13/18 04:15 06/13/18 07:25 06/13/18 07:26 Temperature 98.0 F Pulse Rate 86 Respiratory Rate 16 Blood Pressure 139/63 Pulse Oximetry 98 98 93 06/13/18 07:58 Temperature Pulse Rate 87 Respiratory Rate 16 Blood Pressure Pulse Oximetry 93 Fraction of Inspired Oxygen 21 Oxygen Delivery Method Nasal Cannula Oxygen Flow Rate 2 Narrative Exam Narrative: GENERAL APPEARANCE: well developed, well nourished, pleasant, in no acute distress. HENT: Normocephalic, no scalp lesions, mucosa moist, no lesions, palate normal, tongue in midline. EYES: pupils equal, round, reactive to light and accommodation, sclera non- icteric, extraocular movement intact. NECK/THYROID: neck supple, full range of motion, no cervical lymphadenopathy no jugular venous distention, trachea midline. LYMPH NODES: no cervical adenopathy. SKIN: warm and dry, no visible lesions or rashes, good turgor. HEART: regular rate and rhythm, no murmurs, rubs, gallops. LUNGS: expriatory wheezes, right lung upper and lower, no coarseness or crackles CHEST: symmetrical movement, good tidal volume EXTREMITIES: Wound lateral right foot, wound base moist with odor, brisk capillary refill, pablo wound erythema, edema. NEUROLOGIC: good motor strength normal upper and lower extremities, stuttering speach, tremmor, neuropathy bilateral feet to the anckle PSYCH: cognition intact , cooperative with exam, good eye contact, judgment and insight good, mood/ affect stable Objective Labs Result Diagrams: 06/13/18 08:11 06/13/18 Unknown Labs: Laboratory Results - last 24 hr 06/13/18 06/13/18 08:11 Unknown WBC 9.4 RBC 2.93 L Hgb 8.8 L Hct 26.8 L MCV 91.3 MCH 30.2 MCHC 33.0 RDW 12.5 Plt Count 286 Neut % (Auto) 79.0 H Lymph % (Auto) 11.1 L [place] % (Auto) 6.7 Eos % (Auto) 2.7 Baso % (Auto) 0.5 Neut # (Auto) 7400 H Sodium 138 Potassium 4.7 Chloride 105 Carbon Dioxide 21 L BUN 38 H Creatinine 1.40 H Estimated GFR 36.5 L BUN/Creatinine Ratio 27.1 H Glucose 144 H Calcium 8.5 Assessment & Plan Plan: Assessment/Plan Narrative: COPD, Asthma Wheezing on exam, the patient does have a home nebulizer she uses as needed Will add RT to consult and albuterol nebulizer Q4H PRN Continue inhaler therapy Use acapella, and breathing exercises Diabetes Type II Hypoglycemic episode early this morning with BS of 57. Will decrease Lantus to 14 units BID and titrate up as needed to the patient home regime of 28 units in the AM an 20 units in the PM. Wound right foot Dr. Anderson will reassess tomorrow and likely determine the need for additional debridement Procalcitonin 06/12 had increased to 13.2, WBC 9.3 with increase neutrophillia to 7400. Will continue Rocephin and Amicillin IV for now. We will need ID consult for osteomyolitis. Thank you Dr. Anderson for allowing us to participate in the care of the jud woman. Quality VTE Deep Vein Thrombosis/Pulmonary Embolism Present on Admission: No
--- NOTE | 2018-06-13 10:04 | P.PN_ITS ---
Subjective Date Patient Seen: 06/13/18 Time Patient Seen: 08:42 Interval history: s/p day 5 right foot fifth metatarsal head resection with I&D Seen at bedside in periodic pain but controlled well as was yesterday. No new concerns from her, she has been eating and talkative. She worked with physical therapy on stairs a little yesterday and found it somewhat challenging. She was changed up on her Lantus as she had an increase in FSBS but then went down overnight, so on presentation today I met with Mr. Garcia and decision was to adjust it down further. Exam Vital Signs (past 8 hours): - 06/13/18 04:15 06/13/18 07:25 06/13/18 07:26 Temperature 98.0 F Pulse Rate 86 Respiratory Rate 16 Blood Pressure 139/63 Pulse Oximetry 98 98 93 06/13/18 07:58 Temperature Pulse Rate 87 Respiratory Rate 16 Blood Pressure Pulse Oximetry 93 Fraction of Inspired Oxygen 21 Oxygen Delivery Method Nasal Cannula Oxygen Flow Rate 2 Const Other: AAO in NAD. Talkative, sitting up in bed and just finished breakfast. Extrem Right lower extremity: foot Other: Warm foot, CFT 4 sec. DP 1/4. No crepitus. Wound distal MT5 head area is moist, packing removed. No purulence. Flap outer skin sloughed off and most distal portion of lateral flap less warmth. Appears to show some sign of recent bleeding. No active bleeding in wound. Medial wall of wound toward 4th looking washed out(macerated) versus start of necrosis in a patch distally. Proximally still showing perfusion without change of beefy red granular tissue. Periwound redness proximal sl more than yesterday. Objective Labs Result Diagrams: 06/13/18 08:11 06/13/18 Unknown Labs: Laboratory Results - last 24 hr 06/13/18 06/13/18 08:11 Unknown WBC 9.4 RBC 2.93 L Hgb 8.8 L Hct 26.8 L MCV 91.3 MCH 30.2 MCHC 33.0 RDW 12.5 Plt Count 286 Neut % (Auto) 79.0 H Lymph % (Auto) 11.1 L [place] % (Auto) 6.7 Eos % (Auto) 2.7 Baso % (Auto) 0.5 Neut # (Auto) 7400 H Sodium 138 Potassium 4.7 Chloride 105 Carbon Dioxide 21 L BUN 38 H Creatinine 1.40 H Estimated GFR 36.5 L BUN/Creatinine Ratio 27.1 H Glucose 144 H Calcium 8.5 Assessment & Plan Post-op (1) Cellulitis of foot: Problem details: The wound area is irrigated gently with sterile water and dried. It was repacked with Aquacel Silver and a gently placed Aquacel Silver and DuoDerm dressing. It was also re-bandaged with a cushioned ABD pad. WB status clarified to NWB except transfers while awaiting full declaration of the lateral flap. Discussed with PT, and appreciate aid in strength and reconditioning. The foot is warm so she appears to be perfusing, but this lateral section of tissue may not be able to be saved. Discussed potential for runoff study and question of workup further vascular for right leg/foot vs transfer if need for further revascularization needed if flap still looks to advance toward necrosis tomorrow after discussion with Wound Care and also if she is not an HBO candidate. I performed dressing change today, and will perform also tomorrow to check wound status. I spoke to hospitalist and will continue the second day of new team of abx which should be acting on sensitivity of what appeared to have grown out during surgical cultures. Still plan on abx on d/c, likely iv but again, depends on responsiveness while in house. Also appears hospitalist has been in touch with Dr. Ya, appreciate input. So continue ampicillin and doxycycline. Appreciate Medicine involvement and close watch of Hct, and further management of DM and her other medical conditions that they may see as primary concern as we continue to work with her foot condition. Continue inpatient care as we watch for declaration of antibiosis and wound management. Current Visit: Yes Status: Acute Postoperative Procedures Operation Date: 06/08/18 16:00 Actual Procedures Side Surgeon p Incision and Drainage, reduction of /damaged tissue, reduction of 5th metatarsal Right Margarita Anderson, DPM Quality VTE Deep Vein Thrombosis/Pulmonary Embolism Present on Admission: No
[2018-06-13] MEDS: ASPIRIN EC 81 MG TABLET PO (10:15)
[2018-06-13] MEDS: LISINOPRIL 5 MG TABLET 1.25 MG PO (10:16)
[2018-06-13] MEDS: CLOPIDOGREL 75 MG TABLET PO (10:16)
--- NOTE | 2018-06-13 12:02 | PT.IPTN ---
Current Diagnoses Cellulitis of unspecified part of limb (06/08/18) Ileostomy status (06/08/18) Surgery Performed Operation Date: 06/08/18 16:00 Actual Procedures p Incision and Drainage, reduction of /damaged tissue, reduction of 5th metatarsal(Right) - Margarita Anderson, DPM Physical Therapy Treatment Note M2 PT-IP Current Condition Start: 06/09/18 10:30 Freq: NEEDED Status: Active Protocol: Document 06/09/18 12:12 AB (Rec: 06/09/18 12:16 AB [id number]) Physical Therapy Current Condition Current Condition Evaluation Date 06/09/18 Treatment Diagnosis R 5th metatarsal foot incision and I&D; difficulty in walking Onset Date 06/08/18 Weight Bearing Status Weight Bearing Status Partial Weight Bearing Allowed Weight Bearing Amount (enter % 06/09/18: 1156am: spoke with or #) (%) Dr. Anderson regarding PWB on RLE. stated that pt should put the least weight possible on RLE only for transfers and if pt is to put weight on RLE, pt should have the foot flat on the floor. Regarding the post-op shoe with cut out, stated that pt may use current post-op shoe (without cut-out ) at this time. Nurse also informed PT regarding Dr. Anderson's instructions. 06/09/18: 0900 am: called Dr. anderson's office for clarification for PWB on RLE. inquired regarding % or # restriction and if pt requires post-op shoe with front cut- out. opted to do NWB on RLE at this time until clarification received M3 PT-IP Subjective Start: 06/09/18 10:30 Freq: NEEDED Status: Active Protocol: Document 06/13/18 09:30 CLB (Rec: 06/13/18 12:02 CLB [id number]) Subjective Physical Therapy Visit Type Type Treatment Note Visit Start Time 09:30 Visit Stop Time 09:55 Total Visit Minutes 25 Number of FIELD CAPTAIN Visits 4 Physical Therapy Visit Comments Patient Comments Pt agreeable to transfer to [facility] [place] [place] then chair. Therapy Pain Assessment Pain When Pain Assessed At Rest Pain Present Pain Present Denied Pain M4 PT-IP Mobility and Gait Start: 06/09/18 10:30 Freq: NEEDED Status: Active Protocol: Document 06/13/18 09:30 CLB (Rec: 06/13/18 12:02 CLB [id number]) PT-Bed Mobility Assessment Rolling Level of Assist Standby Assistance Supine to Sit Supine to Sit Standby Assistance Scooting Scooting to Edge of Bed Standby Assistance PT-Transfer Assessment Sit to and From Stand Sit to and from Stand Contact Guard Assistance 1 Person Assistance Use of Upper Extremities Equipment Transfer Assistive Device Gait Belt Front Wheeled Walker Orthotic/Prosthetic Devices or Brace: Yes Transfers Transfer Destination Chair Bedside Commode Transfer Ability Level of Assist Minimal Assistance 1 Person Assistance Use of Upper Extremities Comments Mobility Comments Pt need cues for safety and PWB. M5 PT-IP Objective Assessments Start: 06/09/18 10:30 Freq: NEEDED Status: Active Protocol: Document 06/09/18 09:45 AB (Rec: 06/09/18 11:03 AB [id number]) Orientation Orientation/Cognition Level of Alertness Alert Orientation Name Age Birthday Month Date Year Day of Week Place Situation Gross Range of Motion Lower Extremity ROM Assessment Within Functional Limits Strength Lower Extremity Strength Assessment Right Impaired Comments Strength Comments unable to check R ankle due to precaution/splint Sensation Assessment Sensation Gross Sensation Right LE Impaired Left LE Impaired Light Touch Impaired Proprioception (Position) Impaired Sensation Description Numbness Muscle Tone Muscle Tone WNL Yes M6 PT-IP Treatment Start: 06/09/18 10:30 Freq: NEEDED Status: Active Protocol: Document 06/13/18 09:30 CLB (Rec: 06/13/18 12:02 CLB [id number]) Physical Therapy Treatment Exercises Exercises Gluteal Sets Quad Sets Education Education Provided Weight Bearing Status Safety M7 PT-IP Assessment and Plan Start: 06/09/18 10:30 Freq: NEEDED Status: Active Protocol: Document 06/13/18 09:30 CLB (Rec: 06/13/18 12:02 CLB [id number]) PT Summary Assessment and Plan Summary Assessment Summary Pt is SBA for bed mobility but requires CGA and max cues for sequencing and PWB during transfers. Goals Bed Mobility Goal Independent Transfer Goal Standby Assistance Gait Goal Standby Assistance Gait Distance 30 Other Goals up/down 2 steps with 1 rail CGA Days to Meet Goals 5 Frequency of Treatment Frequency Of Treatment Once a Day Treatment Plan Physical Therapy Treatment Plan Bed Mobility Training Transfer Training Gait Training Therapeutic Exercise Balance Retraining Post Op Education Discharge Planning Hot or Cold Pack Neuromuscular Re-ed Coordination Retraining Manual Therapy Recommendations To Nursing Amount of Assist Needed 1 Person Assist Discharge Recommendations PT Discharge Recommendations Home with Assistance SNF Rehab Equipment Needed for Home Before FWW if going home Discharge
[2018-06-13] MEDS: SODIUM CHLORIDE 0.9% 1,000 ML 60 ML IV (14:51)
[2018-06-13] MEDS: HYDROCODONE/ACET 5/325 TABLET 1 TAB PO (17:37)
--- NOTE | 2018-06-13 19:11 | PC.NURSE ---
Addendum entered by Pilar Marcelo R.N. 06/13/18 20:27: Phone call to R.T. 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 Per R.T. dyspnea is pt's baseline and per R.T. keeping pt on 1L per NC maintains pt's 02 saturation level. This has proved true this evening shift. Original Note: Pt awake and alert in recliner @ beginning of shift. Denies pain or need for pain meds. Dyspnea with conversation. States this is baseline since respiratory illness three weeks ago. States producing occasional light yellow sputum. Greatly diminished breath sounds to BL posterior perez. Room air saturation level high 80's low 90's with sleep. Replaced 02 @ 1L per nc and sats increase to 98%. Dressing to right foot is dry and intact. [place] exposed right great toe. IV antibiotics infusing as ordered without difficulty.
[2018-06-13] MEDS: CYCLOBENZAPRINE 5 MG TABLET PO (19:40)
[2018-06-13] MEDS: PRAVASTATIN 20 MG TABLET PO (20:25)
[2018-06-13] MEDS: INSULIN GLARGINE 100 UNIT/ML 3ML PEN 14 UNIT SUBCUT (20:32)
[2018-06-14] VITALS (10 sets, daily range): BP systolic 111–131; BP diastolic 55–65; PULSE 81–100; RESP 14–20; TEMP 36.6–37.7; O2SAT 86–98
--- NOTE | 2018-06-14 | DI.US.S_ITS ---
PROCEDURE: US ARTERIAL DUPLEX LE RT INDICATIONS: Non-healing wound right foot TECHNIQUE: Color and pulse Doppler interrogation was performed of the right lower extremity arterial system, with image documentation. COMPARISON: None. FINDINGS: Common femoral artery: 103 cm/sec, with biphasic flow. Deep femoral artery: 63 cm/sec, with biphasic flow. Proximal superficial femoral artery: 101 cm/sec, with triphasic flow. Mid superficial femoral artery: 87 cm/sec, with triphasic flow. Distal superficial femoral artery: 80 cm/sec, with triphasic flow. Popliteal artery: 81 cm/sec, with triphasic flow. Posterior tibial artery: 72 cm/sec, with biphasic flow. Anterior tibial artery/dorsalis pedis: 92 cm/sec, with monophasic flow. López-scale imaging description: Atherosclerotic plaque can be seen. IMPRESSION: No hemodynamically significant stenosis can be seen. Dictated by: Neville Zambrano M.D. on 06/14/2018 at 8:49 Approved by: Neville Zambrano M.D. on 06/14/2018 at 8:51
[2018-06-14] MEDS: AMPICILLIN 2,000 MG in SODIUM CHLORIDE 0.9% 100 ML 200 ML IV ×3 (01:03→16:21)
[2018-06-14] MEDS: ALBUTEROL 2.5 MG/3 ML NEB (ADULT) INH (02:31)
[2018-06-14] MEDS: CEFTRIAXONE 2 GM/50 ML FROZ.PIGGY IV (05:49)
[2018-06-14] MEDS: PANTOPRAZOLE 20 MG TABLET PO (05:49)
[2018-06-14 06:04] LABS: Add Manual Diff / Slide Review NO; Basophils Percent Auto 0.3 % (0-2); Eosinophils Percent Auto 1.2 % (2-4); Hematocrit 25.9 % (36-46); Hemoglobin 8.7 g/dL (12.0-16.0); Lymphocytes Percent Auto 8.6 % (25-40); Mean Corpuscular HGB Conc 33.5 % (30-36); Mean Corpuscular Hemoglobin 30.7 PG (26-34); Mean Corpuscular Volume 91.6 fL (80-100); Monocytes Percent Auto 9.8 % (3-14); Neutrophils Absolute Auto 8400 /uL (1500-7000); Neutrophils Percent Auto 80.1 % (50-75); Platelet Count 305 X10^3/uL (150-400); Red Blood Cell Count 2.83 X10^6/uL (4.0-5.2); Red Cell Distribution Width 12.6 % (11.6-14.8); White Blood Cell Count 10.5 X10^3/uL (4.5-11.0)
[2018-06-14 06:10] LABS: BUN Creatinine Ratio 22.9 (6-22); Blood Urea Nitrogen 32 mg/dL (7-17); Calcium 8.7 mg/dL (8.4-10.2); Carbon Dioxide 21 mmol/L (22-32); Chloride 106 mmol/L (98-107); Estimated Glomerular Filt Rate 36.5 mL/min (>60); Glucose 102 mg/dL (80-110); HEMOLYSIS < 15 (0-50); Potassium 4.5 mmol/L (3.4-5.1); Sodium 138 mmol/L (137-145)
--- NOTE | 2018-06-14 07:00 | P.PN_ITS ---
Subjective Date Patient Seen: 06/14/18 Interval history: Chanda Vo is a 77-year-old female patient was admitted to the hospital for I&D of right foot abscess. Hospitalist service is consulting for multiple comorbid medical problems including COPD, asthma, diabetes. The patient is resting in bed comfortably. Her right foot wound is open and being assessed by Dr. Anderson. Her wound appears more necrotic with black eschar surrounding and she appears to have rejected the flap. She endorses intermittent pain in both legs bilaterally. She denies headache, chest pain, worsening shortness of breath from baseline, abdominal pain, nausea, vomiting, diarrhea, or constipation. She is voiding and eliminating without difficulty. Exam Vital Signs (past 8 hours): - 06/14/18 00:00 06/14/18 01:17 06/14/18 02:33 Temperature 99.9 F H Pulse Rate 92 H 100 H Respiratory Rate 20 20 Blood Pressure 131/62 Pulse Oximetry 92 93 94 06/14/18 05:00 Temperature 97.8 F Pulse Rate 91 H Respiratory Rate 20 Blood Pressure 131/65 Pulse Oximetry 94 Fraction of Inspired Oxygen 21 Oxygen Delivery Method Nasal Cannula Oxygen Flow Rate 1 Narrative Exam Narrative: General: Elderly woman sitting in bed and in no acute distress , well-developed, well-nourished, appropriately interactive. HEENT: Normocephalic, atraumatic. External ears without defect. Pupils equal, round, and reactive to light. Anicteric sclerae, moist conjunctivae, and no lid lag. Neck: Supple with full range of motion. No lymphadenopathy or thyromegaly. Cardiovascular: Regular rate and rhythm without murmurs, rubs, or gallops appreciated. Pulmonary: Diminished throughout all lung perez, scattered wheezes. Normal respiratory effort with no use of accessory muscles. Abdomen: Soft, bowel sounds present, nontender, nondistended. Ostomy in place on right side of abdomen with good stool output. No hepatosplenomegaly or masses appreciated. Extremities: No clubbing, cyanosis, or edema. Right lower foot has a 10-12 cm opening surrounded by black eschar. Skin: Normal temperature, turgor, and texture; no rash, ulcers, or subcutaneous nodules appreciated. Neurological: Cranial nerves grossly intact. Psychiatric: Normal mood and affect. Alert and oriented to person, place, and time. Objective Labs Result Diagrams: 06/14/18 05:15 06/14/18 05:15 Labs: Laboratory Results - last 24 hr 06/13/18 06/13/18 06/13/18 08:11 Unknown Unknown WBC 9.4 RBC 2.93 L Hgb 8.8 L Hct 26.8 L MCV 91.3 MCH 30.2 MCHC 33.0 RDW 12.5 Plt Count 286 Neut % (Auto) 79.0 H Lymph % (Auto) 11.1 L [place] % (Auto) 6.7 Eos % (Auto) 2.7 Baso % (Auto) 0.5 Neut # (Auto) 7400 H Sodium 138 Potassium 4.7 Chloride 105 Carbon Dioxide 21 L BUN 38 H Creatinine 1.40 H Estimated GFR 36.5 L BUN/Creatinine Ratio 27.1 H Glucose 144 H Calcium 8.5 Procalcitonin 0.20 06/14/18 06/14/18 05:15 05:15 WBC 10.5 RBC 2.83 L Hgb 8.7 L Hct 25.9 L MCV 91.6 MCH 30.7 MCHC 33.5 RDW 12.6 Plt Count 305 Neut % (Auto) 80.1 H Lymph % (Auto) 8.6 L [place] % (Auto) 9.8 Eos % (Auto) 1.2 L Baso % (Auto) 0.3 Neut # (Auto) 8400 H Sodium 138 Potassium 4.5 Chloride 106 Carbon Dioxide 21 L BUN 32 H Creatinine 1.40 H Estimated GFR 36.5 L BUN/Creatinine Ratio 22.9 H Glucose 102 Calcium 8.7 Procalcitonin Assessment & Plan Plan: Assessment/Plan Narrative: I had a very in depth discussion with Dr. Anderson this morning regarding her wound and further management. Her polymicrobial infection seems to be adequately covered and treated as she has no infectious signs (afebrile, normal pulse, no elevated leukocytosis or procalcitonin. The patient apparently had an IR guided angioplasty of her right lowere extremity several weeks ago at [facility]. Therefore, this seems to be a vascular problem rather than an infectious process. Dr. Anderson is planning to transfer the patient for higher level of care for possible TMA or BKA. 1. 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 Active. -Likely vascular in etiology as patient has underwent recent IR revascularization. -Podiatry to manage wound care and further intervention if necessary. -Wound and tissue cultures demonstrated Serratia marcescens, Enterococcus faecalis, and Enterococcus prevotii. Discussed antibiotic coverage with the pharmacist and per [place] guide recommended ampicillin and double coverage with ceftriaxone. Ampicillin should be adequate to cover the anaerobic species. Have been I unable to contact Dr. Ya of Infectious Disease at [facility] for possible infectious disease consult. -Continue current pain medication -Continue transfers and partial weight-bearing right foot. Defer mobilization per Podiatry. -Continue medications for peripheral vascular disease including: Clopidogrel , aspirin, pravastatin 2. History of COPD and asthma, present on admission. Presumed stable. -O2 saturation goal 88% or greater. If falls below 88% may use supplemental oxygen. -Continue home inhalers. 3. Diabetes mellitus type 2, present on admission. Active. -Last hemoglobin A1c 10.7% in 03/2018. -Decreased patient's insulin from home regimen with Lantus 20 units b.i.d to 10 b.i.d.. The patients blood glucose is very labile and likely due to different diet in hospital and ongoing wound. Patient would benefit from tighter glycemic control in regards to infection and healing with blood glucose 140-180 throughout. hospitalization. -Continue carbohydrate consistent diet. -Continue Accu-Cheks a.c. HS and correctional scale insulin. May need to increase her algorithm to medium or high dose. 4. GERD, present on admission. Stable. -Continue home PPI. Thank you Dr. Anderson for allowing us to participate in the care of this pleasant patient we will continue to follow along with you until time of transfer. Quality VTE Deep Vein Thrombosis/Pulmonary Embolism Present on Admission: No
[2018-06-14 07:13] LABS: Procalcitonin 0.13 ng/mL (<0.5)
[2018-06-14] MEDS: ALBUTEROL HFA 60 PUFF/8 GM INH INH ×2 (08:29→14:41)
[2018-06-14] MEDS: FLUTICASONE 220MCG HFA 120 PUFF INH (08:29)
--- NOTE | 2018-06-14 09:19 | P.PN_ITS ---
Subjective Date Patient Seen: 06/14/18 Time Patient Seen: 08:02 Interval history: s/p 6 days Right 5th toe amputation and subsequent I&D with fifth metatarsal head resection Seen at bedside without much pain to right leg/foot. Feels it is improved. She had a dip in her blood sugar again last night after discussion with medicine this AM, so there is readjusted insulin regiment today. Exam Vital Signs (past 8 hours): - 06/14/18 01:17 06/14/18 02:33 06/14/18 05:00 Temperature 97.8 F Pulse Rate 100 H 91 H Respiratory Rate 20 20 Blood Pressure 131/65 Pulse Oximetry 93 94 94 06/14/18 07:53 06/14/18 08:34 Temperature Pulse Rate 81 Respiratory Rate 14 Blood Pressure Pulse Oximetry 93 95 Fraction of Inspired Oxygen 21 Oxygen Delivery Method Nasal Cannula Oxygen Flow Rate 2 Const Orientation: alert, awake and oriented x3 Other: awake and no acute distress, talkative and pleasant conversation. Extrem Right lower extremity: foot (Wound fifth MT head no purulence. Clear fluid inside, lateral flap a portion converting to eschar but not ascending. Erythema holding at 1 cm prox lateral. No crepitus.) Details: warmth, edema Location: of the lateral foot and vascular exam Details: dorsalis pedis pulse present Details : 1+, posterior tibial pulse present Details: 1+ and abnormal capillary refill ( 4 sec) Other: Lateral right ankle on malleolus pinhole fibrous tissue wound holding steady without drainage, no erythema or further breakdown, does not probe. Heel without preulcerative lesion. Objective Labs Result Diagrams: 06/14/18 05:15 06/14/18 05:15 Labs: Laboratory Results - last 24 hr 06/13/18 06/14/18 06/14/18 Unknown 05:15 05:15 WBC 10.5 RBC 2.83 L Hgb 8.7 L Hct 25.9 L MCV 91.6 MCH 30.7 MCHC 33.5 RDW 12.6 Plt Count 305 Neut % (Auto) 80.1 H Lymph % (Auto) 8.6 L [place] % (Auto) 9.8 Eos % (Auto) 1.2 L Baso % (Auto) 0.3 Neut # (Auto) 8400 H Sodium Potassium Chloride Carbon Dioxide BUN Creatinine Estimated GFR BUN/Creatinine Ratio Glucose Calcium Procalcitonin 0.20 0.13 06/14/18 05:15 WBC RBC Hgb Hct MCV MCH MCHC RDW Plt Count Neut % (Auto) Lymph % (Auto) [place] % (Auto) Eos % (Auto) Baso % (Auto) Neut # (Auto) Sodium 138 Potassium 4.5 Chloride 106 Carbon Dioxide 21 L BUN 32 H Creatinine 1.40 H Estimated GFR 36.5 L BUN/Creatinine Ratio 22.9 H Glucose 102 Calcium 8.7 Procalcitonin X-ray 3 views NWB right foot show clean resection of MT5 head, no periosteal elevation or gas collection. Overlying soft tissue edema lateral foot and dressing shadow noted. Assessment & Plan Post-op (1) Cellulitis of foot: Problem details: The wound area is dried, repacked with Aquacel Silver and a gently placed Aquacel Silver and gauze due to increased sense of fluid in wound this morning. It was also re-bandaged with kerlix pad. Continue NWB except transfers while awaiting full declaration of the lateral flap. Further concern for vascularity as the WBC sl increased and mild inc in body temp in the face of abx coverage based on susceptibilities. Dr. Tello's group contacted and I spoke to on-call physician Dr. Hernandez. I reviewed case and she agreed to move ahead with MR angio after getting the LE arterial u/s as they do not appear to have any further information beyond what was needed for the workup and subsequent procedure performed in April on the right leg w/Dr. Tello. Dr. Hernandez will watch for this to come through as will I, and will be in discussion regarding it's results. I updated Dr. Coulter in Wound Care to discuss options they have in place for transfer if Vascular surgery warranted I performed dressing change today, and will perform also tomorrow to check wound status. Continue ampicillin and doxycycline, pending ID consult but moreso the vascular results which may be more telling. Appreciate Medicine involvement and further management of DM and her other medical conditions that they may see as primary concern as we continue to work with her foot condition. Continue inpatient care as we watch for declaration of antibiosis and wound management. Current Visit: Yes Status: Acute Postoperative Procedures Operation Date: 06/08/18 16:00 Actual Procedures Side Surgeon p Incision and Drainage, reduction of /damaged tissue, reduction of 5th metatarsal Right Margarita Anderson, DPM Quality VTE Deep Vein Thrombosis/Pulmonary Embolism Present on Admission: No
[2018-06-14] MEDS: INSULIN GLARGINE 100 UNIT/ML 3ML PEN 14 UNIT SUBCUT (09:23)
[2018-06-14] MEDS: ASPIRIN EC 81 MG TABLET PO (10:01)
[2018-06-14] MEDS: LISINOPRIL 5 MG TABLET 1.25 MG PO (10:01)
[2018-06-14] MEDS: CLOPIDOGREL 75 MG TABLET PO (10:01)
[2018-06-14] MEDS: SODIUM CHLORIDE 0.9% 1,000 ML 60 ML IV (10:58)
[2018-06-14] MEDS: HYDROCODONE/ACET 5/325 TABLET 1 TAB PO (11:02)
--- NOTE | 2018-06-14 12:12 | PT.IPTN ---
Current Diagnoses Cellulitis of unspecified part of limb (06/08/18) Ileostomy status (06/08/18) Surgery Performed Operation Date: 06/08/18 16:00 Actual Procedures p Incision and Drainage, reduction of /damaged tissue, reduction of 5th metatarsal(Right) - Margarita Anderson, DPFerny Physical Therapy Treatment Note M2 PT-IP Current Condition Start: 06/09/18 10:30 Freq: NEEDED Status: Active Protocol: Document 06/09/18 12:12 AB (Rec: 06/09/18 12:16 AB [id number]) Physical Therapy Current Condition Current Condition Evaluation Date 06/09/18 Treatment Diagnosis R 5th metatarsal foot incision and I&D; difficulty in walking Onset Date 06/08/18 Weight Bearing Status Weight Bearing Status Partial Weight Bearing Allowed Weight Bearing Amount (enter % 06/09/18: 1156am: spoke with or #) (%) Dr. Anderson regarding PWB on RLE. stated that pt should put the least weight possible on RLE only for transfers and if pt is to put weight on RLE, pt should have the foot flat on the floor. Regarding the post-op shoe with cut out, stated that pt may use current post-op shoe (without cut-out ) at this time. Nurse also informed PT regarding Dr. Anderson's instructions. 06/09/18: 0900 am: called Dr. anderson's office for clarification for PWB on RLE. inquired regarding % or # restriction and if pt requires post-op shoe with front cut- out. opted to do NWB on RLE at this time until clarification received M3 PT-IP Subjective Start: 06/09/18 10:30 Freq: NEEDED Status: Active Protocol: Document 06/14/18 11:25 DCW (Rec: 06/14/18 12:12 DCW [email or web address]) Subjective Physical Therapy Visit Type Type Treatment Note Visit Start Time 11:25 Visit Stop Time 11:50 Total Visit Minutes 25 Notes Therapist entered pt room around 11, however Hospitalist entered soon after and requested to speak with patient prior to therapy. Therapist returned 25 minutes later as hospitalist was leaving, and discussed with Dr Anderson pt's current WBing status and plan for treatment. Unfortunately, at this time, the expectation is that pt will require a trans-met or trans-tib amputation. As pt was just informed of this minutes before the start of her therapy session, she was understandably very emotional, and much of her therapy time was spend trying to help her talk through her current issues. At one point, pt reported she would just give up if it weren't for her grandkids, and that she was afraid she would and her would kill himself. Following treatment, therapist passed this along to both RN and care management. Number of HEAD AND NECK SURGEON Visits 0 Physical Therapy Visit Comments Patient Comments Pt seated EOB, agreeable to get up to chair. Therapy Pain Assessment Pain Present Pain Present Denied Pain M4 PT-IP Mobility and Gait Start: 06/09/18 10:30 Freq: NEEDED Status: Active Protocol: Document 06/14/18 11:25 DCW (Rec: 06/14/18 12:12 DCW [email or web address]) PT-Transfer Assessment Sit to and From Stand Sit to and from Stand Contact Guard Assistance 1 Person Assistance Use of Upper Extremities Equipment Transfer Assistive Device Gait Belt Front Wheeled Walker Orthotic/Prosthetic Devices or Brace: Yes Transfers Transfer Destination Bed Chair Transfer Ability Level of Assist Minimal Assistance 1 Person Assistance Use of Upper Extremities Comments Mobility Comments Pt need cues for safety and PWB. M5 PT-IP Objective Assessments Start: 06/09/18 10:30 Freq: NEEDED Status: Active Protocol: Document 06/09/18 09:45 AB (Rec: 06/09/18 11:03 AB [id number]) Orientation Orientation/Cognition Level of Alertness Alert Orientation Name Age Birthday Month Date Year Day of Week Place Situation Gross Range of Motion Lower Extremity ROM Assessment Within Functional Limits Strength Lower Extremity Strength Assessment Right Impaired Comments Strength Comments unable to check R ankle due to precaution/splint Sensation Assessment Sensation Gross Sensation Right LE Impaired Left LE Impaired Light Touch Impaired Proprioception (Position) Impaired Sensation Description Numbness Muscle Tone Muscle Tone WNL Yes M6 PT-IP Treatment Start: 06/09/18 10:30 Freq: NEEDED Status: Active Protocol: Document 06/13/18 09:30 CLB (Rec: 06/13/18 12:02 CLB [id number]) Physical Therapy Treatment Exercises Exercises Gluteal Sets Quad Sets Education Education Provided Weight Bearing Status Safety M7 PT-IP Assessment and Plan Start: 06/09/18 10:30 Freq: NEEDED Status: Active Protocol: Document 06/14/18 11:25 DCW (Rec: 06/14/18 12:12 DCW [email or web address]) PT Summary Assessment and Plan Summary Assessment Summary As reported above, pt in no emotional state to perform much therapy. Pt understanding that despite feeling like it doesn't matter what she does right now, maintaining her strength and stability will help in the long run. Goals Bed Mobility Goal Independent Transfer Goal Standby Assistance Gait Goal Standby Assistance Gait Distance 30 Other Goals up/down 2 steps with 1 rail CGA Days to Meet Goals 5 Frequency of Treatment Frequency Of Treatment Once a Day Treatment Plan Physical Therapy Treatment Plan Bed Mobility Training Transfer Training Gait Training Therapeutic Exercise Balance Retraining Post Op Education Discharge Planning Hot or Cold Pack Neuromuscular Re-ed Coordination Retraining Manual Therapy Recommendations To Nursing Amount of Assist Needed 1 Person Assist Discharge Recommendations PT Discharge Recommendations SNF Rehab
[2018-06-14] MEDS: INSULIN ASPART 100 UNIT/ML INSULN PEN SUBCUT (13:07)
[2018-06-14 15:05] LABS: Lactate (Lactic Acid) 0.6 mmol/L (0.7-2.1)
--- NOTE | 2018-06-14 15:42 | P.DS_ITS ---
History of Present Illness Chief complaint: CELLULITIS RIGHT FOOT Narrative: 77-year-old female presents with concern of increasingly red and swollen right foot following amputation fifth toe. She had a culture taken by Dr. 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 She denied fevers, chills, nausea or vomiting, but she felt just tired. She was admitted to [facility] on 06/08/18 for cellulitis, possible abscess, osteomyelitis. Discharge Providers Date of admission: 06/08/18 12:12 Primary care physician: Joslyn Gonzalez MD Consults: 06/08/18 13:24 Consult to Hospitalist Service Routine Comment: Consulting Provider: Rochelle Man Reason for consultation: Diabetes management, medical needs Has provider been notified: Yes 06/08/18 13:27 Consult to Dietitian, Adult Routine Comment: Reason For Exam: mini nutrition assessment; recent wt loss 06/08/18 18:28 Consult to Physical Therapy Evaluate & Treat Comment: Partial WB only to right foot please; uses walker Physician Instructions: Evaluate and Treat 06/08/18 18:29 Consult to Physician Routine Comment: Consulting Provider: Enrike Coulter Reason for consultation: Existing consulting provider, please alert that she is in house Has provider been notified: Yes 06/08/18 18:52 Consult to Physical Therapy Evaluate & Treat Comment: Partial WB only right foot Physician Instructions: Evaluate and Treat Consult to Physician Routine Comment: Consulting Provider: Enrike Coulter Reason for consultation: Existing patient he is consulting on Has provider been notified: Yes 06/09/18 18:54 Consult to Discharge Planning Routine Comment: See Plan for details, likely to need SNF on d/c Discharge provider: Margarita Anderson DPM Discharge Date: 06/14/18 Summary Discharge Diagnosis: Right fifth metatarsal area wound, osteomyelitis, peripheral arterial disease with gangrene, DMII with peripheral neuropathy Hospital Course: Upon admission, surgery was performed on 06/08 18 for I and D and 5th metatarsal head resection of the right foot. She received IV antibiotics and daily wound care to the foot. Antibiotics were based on culture and sensitivities. Ceftriaxone and ampicillin were renally dosed. There was continued concern about vascularity of the lateral foot and surgical flap. She continued to not produce any purulence and kept the erythema is to the local area. X-ray of the right foot showed no outward evidence of additional bony infection. With worsening flap and increase in white count, decision was made to attempt further information regarding her vascular status, and after discussion with her interventional Radiology group, they determined that an MR angiogram benefits/risk ratio with her renal function was not at this time giving them enough information to proceed with this test. Discussion for possible transfer to facility with vascular surgery initially resulted in provider to provider consult ending in disposition of ultimately distal versus proximal amputation of the limb. Upon discussion with her regarding this she prefers 2nd opinion and alerted me to her vascular surgeon at [facility]. I discussed the exam and objective findings along with giving report and vascular accepted as consult with subsequently medicine accepting as admitting physician. In this manner she is going to be able to have further workup from a vascular standpoint and she understands that this may not be any different from a surgical standpoint but understandably can provide her and I final opinion before declared of surgery. Status at Discharge Cognitive/behavioral status at discharge: Alert and oriented in NAD. Functional status at discharge: uses cane/walker Overall status at discharge: patient is not back to baseline Time Spent with Patient Greater than 30 minutes Exam Vital Signs (past 8 hours): - 06/14/18 07:53 06/14/18 08:34 06/14/18 09:00 Temperature 98.9 F Pulse Rate 81 92 H Respiratory Rate 14 20 Blood Pressure 111/55 L Pulse Oximetry 93 95 97 06/14/18 13:00 06/14/18 14:41 Temperature 98.8 F Pulse Rate 87 87 Respiratory Rate 20 18 Blood Pressure 122/61 Pulse Oximetry 96 98 Fraction of Inspired Oxygen 21 Oxygen Delivery Method Nasal Cannula Oxygen Flow Rate 1 Const General: cooperative Orientation: alert, awake and oriented x3 Extrem Right lower extremity: foot (Please see progress note from today for details on foot and wound. Bandaged and dressing changed earlier in the day. Local redness to lateral foot wound, packed open.) Objective Labs Result Diagrams: 06/14/18 05:15 06/14/18 05:15 Labs: Laboratory Results - last 24 hr 06/14/18 06/14/18 06/14/18 05:15 05:15 05:15 WBC 10.5 RBC 2.83 L Hgb 8.7 L Hct 25.9 L MCV 91.6 MCH 30.7 MCHC 33.5 RDW 12.6 Plt Count 305 Neut % (Auto) 80.1 H Lymph % (Auto) 8.6 L Mobile % (Auto) 9.8 Eos % (Auto) 1.2 L Baso % (Auto) 0.3 Neut # (Auto) 8400 H Sodium 138 Potassium 4.5 Chloride 106 Carbon Dioxide 21 L BUN 32 H Creatinine 1.40 H Estimated GFR 36.5 L BUN/Creatinine Ratio 22.9 H Glucose 102 Lactate Calcium 8.7 Procalcitonin 0.13 06/14/18 14:36 WBC RBC Hgb Hct MCV MCH MCHC RDW Plt Count Neut % (Auto) Lymph % (Auto) Mobile % (Auto) Eos % (Auto) Baso % (Auto) Neut # (Auto) Sodium Potassium Chloride Carbon Dioxide BUN Creatinine Estimated GFR BUN/Creatinine Ratio Glucose Lactate 0.6 L Calcium Procalcitonin Surgical cultures separate sheet to be provided from fifth metatarsal bone and wound; in short, Serratia marscens and Enterococcus faecalis. Also included will be x-ray report right foot from 06/13/18 negative for periosteal elevation or gas in tissues. Resection MT5 head noted. Report of U/S arterial study R LE today showing monophasic flow at DP and PT and biphasic to triphasic more proximally. Please also see notes included from R LE Angioplasty and f/u clinic visit from Dr. Nandini Tello at [facility]. Discharge Plan Discharge Plan [facility] Transfer to: [facility] Under care of provider: Dr. Escobar Discharge comment: Medicine accepting, however consult will be to Dr. Manzanares in Vascular Surgery as we discussed her involvement as pt is pt of Dr. Mirza. Also consult Inf Disease. Patient under consideration for any option for further vascular salvage right LE vs declarative amputation. Discharge Med Rec/Prescriptions Prescriptions: New acetaminophen 325 mg Tablet 325 mg PO Q4H PRN (Reason: Pain, Mild (1-3)) Qty: 1 RF: 0 albuterol sulfate 2.5 mg /3 mL (0.083 %) Solution For Nebulization 2.5 mg INH Q4H PRN (Reason: Wheezing) Qty: 1 RF: 0 clopidogrel [Plavix] 75 mg Tablet 75 mg PO DAILY Qty: 1 RF: 0 aspirin 81 mg Tablet,Delayed Release (Dr/Ec) 81 mg PO DAILY Qty: 1 RF: 0 pantoprazole 20 mg Tablet,Delayed Release (Dr/Ec) 20 mg PO 0600 Qty: 1 RF: 0 pravastatin 20 mg Tablet 20 mg PO BEDTIME Qty: 1 RF: 0 albuterol sulfate [Ventolin HFA] 90 mcg/actuation Hfa Aerosol Inhaler 2 puff INH Q6H PRN (Reason: Wheezing) Qty: 1 RF: 0 cyclobenzaprine 5 mg Tablet 5 mg PO TID PRN (Reason: Muscle Spasm) Qty: 1 RF: 0 hydrocodone-acetaminophen 5-325 mg Tablet 1 tab PO Q4HR PRN (Reason: Pain, Moderate (4-6)) Qty: 1 RF: 0 tiotropium bromide [Spiriva with HandiHaler] 18 mcg Capsule, W/Inhalation Device 18 mcg INH DAILY Qty: 1 RF: 0 insulin glargine [Lantus Solostar U-100 Insulin] 100 unit/mL (3 mL) Insulin Pen 10 unit subcut DAILY Qty: 1 RF: 0 insulin glargine [Lantus Solostar U-100 Insulin] 100 unit/mL (3 mL) Insulin Pen 5 unit subcut BEDTIME Qty: 1 RF: 0 ampicillin sodium 2 gram recon soln 2 gram IV Q6H Qty: 1 RF: 0 ceftriaxone 2 gram recon soln 2 gram IV DAILY Qty: 1 RF: 0 Discontinued acetaminophen 500 mg Tablet 500 mg PO Q4H PRN (Reason: pain) RF: 0 aspirin 81 mg Tablet,Delayed Release (Dr/Ec) 81 mg PO DAILY RF: 0 fluticasone [Flovent HFA] 220 mcg/actuation Hfa Aerosol Inhaler 2 puff INHALATION BID RF: 0 pravastatin 20 mg Tablet 20 mg PO BEDTIME RF: 0 topiramate [Topamax] 15 mg Capsule, Sprinkle 15 mg PO BEDTIME RF: 0 albuterol sulfate [ProAir HFA] 90 mcg/actuation Hfa Aerosol Inhaler 2 puff INHALATION Q6H PRN (Reason: Wheezing) RF: 0 lisinopril 2.5 mg Tablet 1.25 mg PO DAILY RF: 0 tiotropium bromide [Spiriva with HandiHaler] 18 mcg Capsule, W/Inhalation Device 1 cap INHALATION DAILY RF: 0 omega-3 acid ethyl esters [Lovaza] 1 gram Capsule 2 cap PO DAILY RF: 0 diclofenac epolamine 1.3 % Patch 12 Hour 1 patch TRANSDERMAL BID RF: 0 omeprazole 20 mg Tablet,Delayed Release (Dr/Ec) 20 mg PO DAILY RF: 0 clopidogrel [Plavix] 75 mg Tablet 75 mg PO DAILY RF: 0 insulin aspart U-100 [Novolog Flexpen U-100 Insulin] 100 unit/mL Insulin Pen 8 - 10 unit SUBCUT TID RF: 0 insulin glargine 100 unit/mL (3 mL) Insulin Pen 20 unit SUBCUT QPM RF: 0 insulin glargine 100 unit/mL (3 mL) Insulin Pen 28 unit SUBCUT QAM RF: 0 doxycycline hyclate 100 mg capsule 100 mg PO DAILY RF: 0 Follow up/Referrals: Joslyn Gonzalez MD [Primary Care Provider] - Discharge Orders: Discharge (Order); Ordered 06/14/18 Ordered By: Margarita Anderson Discharge Health Status Brief summary of current health status: DM w/neuropathy, PAD, COPD, and decreased renal function hospitalized s/p non-healing wound right 5th toe amputation with suspected underlying osteomyelitis. Recent angioplasty right LE revealed popliteal patency but suspect microvascular disease is limiting her recovery. Receiving iv abx based on intraoperative cultures but quality of the wound continues to appear vascular. Multidrug resistant organism: No MDRO Precautions: [place] Provider Discharge Instructions Diet: Carb-consistent/Diabetic Activity: NWB Right foot except for transfers Cold/Heat Therapy: None Oxygen: NC 1L sats at 98% Other treatments: Rec'd Primer Charger breathing treatment this AM and again approx. 2:45pm today Skin/Wound/Dressing Care Skin care: Wound dressing right foot and lateral right ankle was changed AM Dressing: Wound dressing right foot and lateral right ankle was changed in the AM 06/14/18, requires daily dressing change. Currently using Aquacel to foot wound. Discharge Data Primary Care Provider: Joslyn Gonzalez Attending Provider: Margarita Anderson Admit Date/Time: 06/08/18 12:12 Quality VTE Deep Vein Thrombosis/Pulmonary Embolism Present on Admission: No
--- NOTE | 2018-06-14 16:16 | PC.NURSE ---
Patient up with P.T., up to BSC and to chair with assistance and walker, with shoe on for partial weight bearing to right foot. Dressing was changed today by Dr. Anderson, no new drainage to outside dressing noted after, remains CDI. Patient having some emotional concerns to her transfer and need for possible further surgery. Call light within reach, bed/chair alarm on for safety.
--- NOTE | 2018-06-14 17:18 | PC.NURSE ---
Patient discharged from facility by ambulance, escorted by EMT staff, secured and with all belongings and discharge paperwork. Patient was A&OX4, 1 PA transfers with walker.
== END 2018-06-14 17:00 | disposition short-term general hospital (02) | DRG 464 ==
PROVIDERS: Nurse Practitioner Adult Health; Admitting Provider Podiatrist; PCP Internal Medicine; Visit Provider Podiatrist
PROC: 0QBN0ZZ Excision of Right Metatarsal, Open Approach (ICD-10-PCS; principal; 2018-06-08 16:00)
DX: T87.43 Infection of amputation stump, right lower extremity (principal); E11.52 Type 2 diabetes mellitus with diabetic peripheral angiopathy with gangrene; I96 Gangrene, not elsewhere classified; M86.8X7 Other osteomyelitis, ankle and foot; T87.81 Dehiscence of amputation stump; L03.031 Cellulitis of right toe; E11.69 Type 2 diabetes mellitus with other specified complication; E11.22 Type 2 diabetes mellitus with diabetic chronic kidney disease; N18.3 Chronic kidney disease, stage 3 (moderate); J44.9 Chronic obstructive pulmonary disease, unspecified; J45.909 Unspecified asthma, uncomplicated; Z79.4 Long term (current) use of insulin; D63.8 Anemia in other chronic diseases classified elsewhere; B95.2 Enterococcus as the cause of diseases classified elsewhere; K21.9 Gastro-esophageal reflux disease without esophagitis
CPT/HCPCS: 36415; 71045; 73630; 80048; 82962; 83605; 84145; 85025; 85651; 86140; 87070; 87075; 87077; 87186; 87205; 93926; 94640; 94760; 94762; 97116; 97162; 97530; J0290; J0696; J1170; J1956; J2704; J3010; J7613